=== PATIENT | female | born 1980 | race Caucasian/White ===

== ENCOUNTER → 2017-05-30 14:54 | Outpatient (POV) | payer MEDICAID, SELFPAY ==
--- NOTE | 2017-05-30 15:34 | HMH.PAINSOAP ---
[facility] Pain Management SOAP Note Subjective:: Patient is a pleasant 36-year-old white female who we have been treating for degenerative disease of lumbar spine with lumbar radiculopathy symptoms and lumbar spondylosis. She has had a lumbar epidural steroid injection which is helped significantly with her radicular pain. Most recently in March she had a lumbar facet joint/medial branch block of L3-L4, L4-L5 and L5-S1 bilaterally. She got 8 days of good pain relief with 80% relief in her symptoms. She is much more functional. Her pain is now returned. This past weekend she felt like her back was going out and she had severe pain. She rested and took Tylenol along with her diclofenac and she is much better today. She still has increasing low back pain. Increased pain with extension. She has tenderness over the facet joints. I believe that she would benefit him repeat bilateral medial branch blocks/facet joint injections of L3-L4, L4-5 and L5-S1. Objective:: Alert and oriented ?3 no acute distress. Patient does have an antalgic gait. Her strength of the lower extremities is 5/5. There is no gross sensory deficit. Tenderness over the facet joints of L3-L4, L4-L5 and L5-S1 bilaterally. Increased pain with extension. 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 Plan:: We will seek approval and plan on repeat bilateral medial branch blocks/facet joint injections of L3-L4, L4-5 and L5-S1. She got 80% relief of her pain symptoms for 8 days. Her pain is now returned. We will seek approval and plan on a second round of medial branch blocks at the same levels. She may be a candidate for future rhizotomy to help with her pain symptoms.
== END ==
PROVIDERS: Family Provider Family Medicine; PCP Family Medicine; Visit Provider Anesthesiology
DX: M54.16 Radiculopathy, lumbar region (principal)
CPT/HCPCS: 99212

== ENCOUNTER 2017-06-10 15:58 | Emergency (ER) | payer MEDICAID, SELFPAY ==
[2017-06-10 16:48] VITALS: BP 151/88; PULSE 76; RESP 20; TEMP 36.4; O2SAT 98; BMI 32.2
[2017-06-10 17:01] LABS: UTC Influenza A Antigen Negative (Negative); UTC Influenza B Antigen Negative (Negative); UTC Strep Screen (Rapid) Negative (Negative)
--- NOTE | 2017-06-10 17:47 | HMH.EDUTC ---
[facility] [place] Dis[place] Clinical Impression: Acute viral pharyngitis Disposition: Home, Self-Care Condition on Discharge: Good Instructions: DI for Viral Pharyngitis Additional Instructions: * No sign of bacterial infection. Likely viral. Virus can take 7-14 days to run their course * Monitor Temp. Tylenol every 4 hours as needed no more then 5 times a day or 4000mg in 24 hours and/or ibuprofen every 6 hours as needed no more then 3200mg in 24 hours (as long as your primary care doctor has told you that it is ok to take both) for fever/aches/pain. ER if fever no less than 101 despite tylenol and ibuprofen * Encourage fluids, water, gatorade, powerade, pedialyte if infant/toddler/child * warm salt water gargles * warm fluids * sore throat lozenges * sleep elevated * humidifier/vaporizer * * Your throat swab was sent for culture. Those results are typically sent to your primary care. Be sure to follow up in 2-3 days if no improvement so they can review those results and treat if necessary. If you don't have primary care, I recommend you get one but in the mean time, you will have to return to a walk in clinic. Referrals: Adan Restrepo MD [Primary Care Provider] - (IMMEDIATELY for new or worsening symptoms OR no noticeable improvement over the next 48-72 hours. 911 for difficulty breathing or swallowing) Time of Disposition: 18:01 Medical Decision Making Vital Signs: 06/10/17 16:48 Temperature 97.6 F Temperature Source Temporal Artery Scan Pulse Rate [Right Radial] 76 Respiratory Rate 20 Blood Pressure [Right Arm] 151/88 Blood Pressure Mean [Right Arm] 109 Blood Pressure Source [Right Arm] Automatic Cuff Blood Pressure Position [Right Arm] Supine 02 Sat by Pulse Oximetry 98 Oxygen Delivery Method Room Air - Lab Data Lab results reviewed: Yes: I reviewed the patient's lab results. Lab Results 06/10/17 16:52: Influenza Type A Ag Negative, Influenza Type B Ag Negative, Strep Scn Rapid Clinic Negative Orders (Tests/Meds): ORDERS Category Date Time Status Strep Screen Confirmation Stat Micro 06/10/17 16:52 Received - Anton Inquiry Pt receiving controlled substance: No [facility] [place] HPI - General Stated complaint: Throat and Ear Pain Time Seen by Provider: 06/10/17 17:48 Mode of Arrival: Family Vehicle Source of Information: Patient Limitations: No Limitations Description of Symptoms (Recalled from Triage Doc. by RN): PT C/O BILATERAL EAR PAIN AND SORE THROAT. HEENT Symptoms (Recalled from RN notes): Yes (SORE THROAT AND RACHEL EAR PAIN) Resp Symptoms (Recalled from RN notes): No Skin Symptoms (Recalled from RN notes): No MS Symptoms (Recalled from RN notes): No Functional Status (Recalled from RN notes): NA - History of Present Illness Provider Complaint: c/o bilateral ear pain, headache, sore throat. Started last night with the headache, other symptoms new this morning. Son with same symptoms x4-5 days and neg strep and flu. No treatment before arrival. We don't feel that bad. Just want to make sure not the flu or strep - Related Data Home Medications Medication Instructions Recorded Confirmed Linaclotide [Linzess] 290 mg PO DAILY 06/10/17 06/10/17 Montelukast Sodium [Montelukast 10 mg PO HS 06/10/17 06/10/17 10mg Tab] Allergies Allergy/AdvReac Type Severity Reaction Status Date / Time acetaminophen [From LORTAB] Allergy Mild Verified 06/10/17 16:11 diphenhydramine Allergy Mild Verified 06/10/17 16:11 [From BENADRYL] hydrocodone [From LORTAB] Allergy Mild Verified 06/10/17 16:11 Penicillins [PENICILLINS] Allergy Mild Verified 06/10/17 16:11 tramadol [TRAMADOL] Allergy Mild Verified 06/10/17 16:11 - Worker's Comp Is this a Worker's Comp case?: No H History I have reviewed the patient's past medical history: Yes Medical History: Denies:: Cancer, Diabetes Mellitus Type 1, Diabetes Mellitus Type 2, Hypertension, MRSA Other Medical History: Reports: Other (seasonal al
[2017-06-10 18:17] VITALS: BP 140/69; PULSE 80; RESP 18; TEMP 36.6; O2SAT 98
== END 2017-06-10 18:18 | disposition home or self-care (01) ==
PROVIDERS: Emergency Provider Nurse Practitioner Family; Family Provider Family Medicine; PCP Family Medicine
DX: J02.9 Acute pharyngitis, unspecified (principal); Z88.0 Allergy status to penicillin; Z88.6 Allergy status to analgesic agent
CPT/HCPCS: 87804; 87880; 99202

== ENCOUNTER 2017-06-30 15:36 | Emergency (ER) | payer MEDICAID, SELFPAY ==
[2017-06-30 17:24] VITALS: BP 143/91; PULSE 66; RESP 20; TEMP 36.8; O2SAT 99; BMI 32.4
--- NOTE | 2017-06-30 18:08 | HMH.EDUTC ---
[facility] [place] Disposition Clinical Impression: Influenza Disposition: Home, Self-Care Condition on Discharge: Good Instructions: Influenza Additional Instructions: i? Start Tamiflu today if you are going to take it. Discussed risk and possible benefits. ? Lots of rest ? Increase Fluids water, Gatorade, powerade, pedialyte,if infant/toddler/child ? Alternate Tylenol and / or ibuprofen as discussed for fever, aches, chills x 24 hours without medication for symptoms ? Follow up IMMEDIATELY for new or worsening Symptoms OR no noticeable improvement over the next 48-72 hours, 911 for difficulty or breathing ? You or your child area contagious until no fever, aches, chills for 24 hours with medication for symptoms Prescriptions: Promethazine/Dextromethorphan [Promethazine-Dm Syrup] 5 ml PO Q4HP PRN #300 ml MDD 30ML/DAY PRN Reason: Cough Oseltamivir Phosphate [Tamiflu 75mg Capsule] 75 mg PO BID #10 cap Referrals: Adan Restrepo MD [Primary Care Provider] - Forms: Work/School Release Time of Disposition: 18:27 Medical Decision Making - Medical Records Medical records reviewed: Yes: I reviewed the patient's medical records. Vital Signs: 06/30/17 17:24 Temperature 98.2 F Temperature Source Temporal Artery Scan Pulse Rate [Brachial] 66 Respiratory Rate 20 Blood Pressure [Right Arm] 143/91 Blood Pressure Mean [Right Arm] 108 Blood Pressure Source [Right Arm] Automatic Cuff Blood Pressure Position [Right Arm] Sitting 02 Sat by Pulse Oximetry 99 Oxygen Delivery Method Room Air - Lab Data Lab Results 06/30/17 18:13: Influenza Type A Ag Negative, Influenza Type B Ag Positive A - Anton Inquiry Pt receiving controlled substance: No Anton was queried for this patient: No [facility] [place] HPI - General Stated complaint: Possible FLU Mode of Arrival: Ambulatory Source of Information: Patient Limitations: No Limitations Description of Symptoms (Recalled from Triage Doc. by RN): RUNNY NOSE, SINUS PRESSURE X 2 DAYS HEENT Symptoms (Recalled from RN notes): Yes Resp Symptoms (Recalled from RN notes): Yes Skin Symptoms (Recalled from RN notes): No MS Symptoms (Recalled from RN notes): No Functional Status (Recalled from RN notes): NA - History of Present Illness Provider Complaint: Patient state that child recently had the flu and now she is having flu like symptoms States that she has been feverish state that her throat is sore and runny nose and cough States that she has continued to feel worse and feels like she may have the flu - Related Data Home Medications Medication Instructions Recorded Confirmed Linaclotide [Linzess] 290 mg PO DAILY 06/10/17 06/10/17 Montelukast Sodium [Montelukast 10 mg PO HS 06/10/17 06/10/17 10mg Tab] Previous Rx's Medication Instructions Recorded Oseltamivir Phosphate [Tamiflu 75 mg PO BID #10 cap 06/30/17 75mg Capsule] Promethazine/Dextromethorphan 5 ml PO Q4HP PRN #300 ml MDD 06/30/17 [Promethazine-Dm Syrup] 30ML/DAY Allergies Allergy/AdvReac Type Severity Reaction Status Date / Time acetaminophen [From LORTAB] Allergy Mild Verified 06/10/17 16:11 diphenhydramine Allergy Mild Verified 06/10/17 16:11 [From BENADRYL] hydrocodone [From LORTAB] Allergy Mild Verified 06/10/17 16:11 Penicillins [PENICILLINS] Allergy Mild Verified 06/10/17 16:11 tramadol [TRAMADOL] Allergy Mild Verified 06/10/17 16:11 - Worker's Comp Is this a Worker's Comp case?: No [facility] History I have reviewed the patient's past medical history: Yes Medical History: Denies:: Cancer, Diabetes Mellitus Type 1, Diabetes Mellitus Type 2, Hypertension, MRSA Other Medical History: Reports: Other (seasonal allergies) Laterality Cases: Bilateral: Tonsillectomy Other Surgeries: Yes: Tubal Ligation, Other (right breast, ) Amputation: No Fractures: No - Social History Smoking Status: Current every day smoker Tobacco Type: cigarettes Alcohol Intake: never - Psychiatric History Expresse
--- NOTE | 2017-06-30 18:13 | ED_ITS ---
[facility] – [place] Disposition Clinical Impression: Influenza Disposition: Home, Self-Care Condition on Discharge: Good Instructions: Influenza Additional Instructions: i? Start Tamiflu today if you are going to take it. Discussed risk and possible benefits. ? Lots of rest ? Increase Fluids water, Gatorade, powerade, pedialyte,if infant/toddler/child ? Alternate Tylenol and / or ibuprofen as discussed for fever, aches, chills x 24 hours without medication for symptoms ? Follow up IMMEDIATELY for new or worsening Symptoms OR no noticeable improvement over the next 48-72 hours, 911 for difficulty or breathing ? You or your child area contagious until no fever, aches, chills for 24 hours with medication for symptoms Prescriptions: Promethazine/Dextromethorphan [Promethazine-Dm Syrup] 5 ml PO Q4HP PRN #300 ml MDD 30ML/DAY PRN Reason: Cough Oseltamivir Phosphate [Tamiflu 75mg Capsule] 75 mg PO BID #10 cap Referrals: Adan Restrepo MD [Primary Care Provider] - Forms: Work/School Release Time of Disposition: 18:27 Medical Decision Making - Medical Records Medical records reviewed: Yes: I reviewed the patient's medical records. Vital Signs: 06/30/17 17:24 Temperature 98.2 F Temperature Source Temporal Artery Scan Pulse Rate [Brachial] 66 Respiratory Rate 20 Blood Pressure [Right Arm] 143/91 Blood Pressure Mean [Right Arm] 108 Blood Pressure Source [Right Arm] Automatic Cuff Blood Pressure Position [Right Arm] Sitting 02 Sat by Pulse Oximetry 99 Oxygen Delivery Method Room Air - Lab Data Lab Results 06/30/17 18:13: Influenza Type A Ag Negative, Influenza Type B Ag Positive A - Anton Inquiry Pt receiving controlled substance: No Anton was queried for this patient: No [facility] [place] HPI - General Stated complaint: Possible FLU Mode of Arrival: Ambulatory Source of Information: Patient Limitations: No Limitations Description of Symptoms (Recalled from Triage Doc. by RN): RUNNY NOSE, SINUS PRESSURE X 2 DAYS HEENT Symptoms (Recalled from RN notes): Yes Resp Symptoms (Recalled from RN notes): Yes Skin Symptoms (Recalled from RN notes): No MS Symptoms (Recalled from RN notes): No Functional Status (Recalled from RN notes): NA - History of Present Illness Provider Complaint: Patient state that child recently had the flu and now she is having flu like symptoms States that she has been feverish state that her throat is sore and runny nose and cough States that she has continued to feel worse and feels like she may have the flu - Related Data Home Medications Medication Instructions Recorded Confirmed Linaclotide [Linzess] 290 mg PO DAILY 06/10/17 06/10/17 Montelukast Sodium [Montelukast 10 mg PO HS 06/10/17 06/10/17 10mg Tab] Previous Rx's Medication Instructions Recorded Oseltamivir Phosphate [Tamiflu 75 mg PO BID #10 cap 06/30/17 75mg Capsule] Promethazine/Dextromethorphan 5 ml PO Q4HP PRN #300 ml MDD 06/30/17 [Promethazine-Dm Syrup] 30ML/DAY Allergies Allergy/AdvReac Type Severity Reaction Status Date / Time acetaminophen [From LORTAB] Allergy Mild Verified 06/10/17 16:11 diphenhydramine Allergy Mild Verified 06/10/17 16:11 [From BENADRYL] hydrocodone [From LORTAB] Allergy Mild Verified 06/10/17 16:11 Penicillins [PENICILLINS] Allergy Mild Ve
[2017-06-30 18:25] LABS: UTC Influenza A Antigen Negative (Negative); UTC Influenza B Antigen Positive (Negative)
[2017-06-30 18:44] VITALS: BP 143/91; PULSE 66; RESP 20; TEMP 36.8; O2SAT 99
== END 2017-06-30 18:45 | disposition home or self-care (01) ==
PROVIDERS: Emergency Provider Nurse Practitioner; Family Provider Family Medicine; PCP Family Medicine
DX: J11.1 Influenza due to unidentified influenza virus with other respiratory manifestations (principal); F17.210 Nicotine dependence, cigarettes, uncomplicated; Z88.0 Allergy status to penicillin
CPT/HCPCS: 87804; 99202

== ENCOUNTER → 2017-08-18 08:33 | Outpatient (CLI) | payer MEDICAID, SELFPAY ==
--- NOTE | 2017-08-18 08:34 | CT_ITS ---
CT soft tissue neck wo/w con INDICATION: Lymph node swelling, adenopathy evaluation ITS.REASON: lymph node swelling ORDERING PHYSICIAN: David Hudson MD PATIENT AGE: 37 years TECHNIQUE: Axial images are obtained without and with 75 mL's of Isovue-370. Sagittal and coronal reformatted images are reviewed as well. All CT scans at the facility use one or more dose reduction, viz: automated exposure control; ma/kV adjustment per patient size (including targeted exams where dose is matched to indication; i.e. head); or iterative reconstruction technique. FINDINGS: There are small jugulodigastric lymph nodes present bilaterally measuring up to 13 x 8 mm on both sides. No dominant adenopathy evident. Unremarkable appearing thyroid gland. The nasopharynx, hypopharynx, and laryngeal region have an unremarkable appearance. Unremarkable appearing epiglottis. The lung apices are clear. The salivary glands are unremarkable. IMPRESSION: Essentially negative CT neck. Small bilateral jugulodigastric nodes.
[2017-08-18 09:19] LABS: Basophils # 0.1 K/mm3 (0-0.2); Basophils % 0.6 % (0.1-2.0); Eosinophils # 0.2 K/mm3 (0.0-0.4); Hematocrit 46.1 % (37.0-47.0); Hemoglobin 14.9 g/dL (12.2-16.2); Lymphocytes # 3.6 K/mm3 (0.7-4.5); Lymphocytes % 31.6 K/mm3 (10-50); Mean Corpuscular HGB Conc 32.4 g/dL (31.8-35.4); Mean Corpuscular Volume 89.7 fl (81-99); Mean Platelet Volume 8.7 fl (7.4-10.4); Monocytes # 0.6 K/mm3 (0.1-1.0); Monocytes % 5.2 % (1.7-9.3); Neutrophils # 6.9 K/mm3 (1.8-7.8); Neutrophils % 60.5 % (37.0-80.0); Platelet Count 335 K/mm3 (142-424); Red Blood Count 5.15 M/mm3 (4.20-5.40); Red Cell Distribution Width 14.1 % (11.5-17.5); White Blood Count 11.4 K/mm3 (4.8-10.8)
--- NOTE | 2017-08-18 09:51 | HMH.ITSHM ---
SUZIE, ELISABET, ZEINAB, AYAD A CFC, RUSSEL, SHERIE
[2017-08-18 10:39] LABS: HCG Qualitative, Serum Negative (Negative)
[2017-08-18 11:59] LABS: Alanine Aminotransferase 33 U/L (12-78); Albumin/Globulin Ratio 1.1 (1.1-1.8); Alkaline Phosphatase 130 U/L (46-116); Anion Gap 17.2 mEq/L (5-15); Aspartate Amino Transferase 19 U/L (15-37); Bilirubin,Total 0.2 mg/dL (0.2-1.0); Blood Urea Nitrogen 8 mg/dL (7-18); Calcium 9.7 mg/dL (8.5-10.1); Carbon Dioxide 23 mmol/L (21.0-32.0); Chloride 104 mmol/L (98-107); Estimated Glomerular Filt Rate 80 ml/min (>60); GFR (African American) 97 ML/MIN (>60); Globulin 3.7 gm/dl (1.3-3.2); Glucose 119 mg/dL (74-106); Potassium 4.2 mmoL/L (3.5-5.1); Sodium 140 mmol/L (136-145); Total Protein,Serum 7.7 gm/dL (6.4-8.2)
== END ==
PROVIDERS: Family Provider Family Medicine; PCP Family Medicine; Visit Provider Otolaryngology
DX: R59.1 Generalized enlarged lymph nodes (principal); R59.0 Localized enlarged lymph nodes
CPT/HCPCS: 36415; 70492; 80053; 84703; 85025; Q9967

== ENCOUNTER → 2017-10-14 11:01 | Outpatient (POV) | payer MEDICAID, SELFPAY ==
[2017-10-14 11:12] VITALS: BP 146/109; PULSE 89; RESP 18; O2SAT 99; BMI 30.4
--- NOTE | 2017-10-14 11:59 | HMH.PAINSOAP ---
[facility] Pain Management SOAP Note Subjective:: Patient is a pleasant 37-year-old white female who we are treating for pain secondary to degenerative disc disease of lumbar spine with lumbar spondylosis and facet arthropathy. Patient has had a lumbar epidural steroid injection in the past which significantly reduce her radicular pain however most of her pain now is axial in nature. Patient had one round of medial branch blocks at L3-L4 L4-L5 L5-S1 bilaterally and got 80-90% relief of her symptoms for over 8 days. Patient states she was much more functional during this time. Patient would like to repeat medial branch block and potentially move forward with a rhizotomy. Patient states most of her pain is in the small of her back. It does not radiate. ROS General: no recent weight change, no fever, no sleep disturbances Respiratory: no cough, no shortness of air, no recurring pulmonary infections Cardiovascular/Peripheral Vascular: No chest pain, No palpitations, no edema, no shortness of breath. Gastrointestinal: no incontinence, normal bowel movements reported Genitourinary: no incontinence Musculoskeletal: Back pain Psychiatric: normal mood/ affect Neurological: [denies weakness in extremities], [denies balance issues] Objective:: Physical Exam General: Alert and oriented x3, no acute distress, pleasant and cooperative, [on room air] Lungs: Resps E/U, Symmetrical chest expansion, Eyes: PERRL Musculoskeletal: Flexion and extension of lumbar spine somewhat guarded secondary to pain, deep tendon reflexes normal, strength in upper and lower extremities [5/5], normal gait noted, positive Kemps test of the lumbar spine Neurological: speech clear, truck terminal manager equal, no gross sensory deficits Assessment:: Degenerative disc disease of the lumbar spine with facet arthropathy and lumbar spondylosis Plan:: We will schedule a repeat medial branch block/facet joint injection L3-L4 L4-L5 L5-S1 bilaterally. I will follow-up with the patient after her injection to determine its success. Patient has tried and failed physical therapy, medications, anti-inflammatories. Patient has gotten relief from this injection in the past. Patient is not on any anticoagulation therapy. This note was dictated using voice recognition software and may contain errors or omissions
== END ==
PROVIDERS: Family Provider Family Medicine; PCP Family Medicine; Visit Provider Clinical Nurse Specialist Family Health
DX: M47.816 Spondylosis without myelopathy or radiculopathy, lumbar region (principal)
CPT/HCPCS: 99212

== ENCOUNTER → 2017-12-08 10:16 | Outpatient (POV) | payer MEDICAID, SELFPAY ==
[2017-12-08 11:01] VITALS: BP 178/110; PULSE 73; RESP 18; O2SAT 98; BMI 29.2
--- NOTE | 2017-12-08 13:55 | HMH.PAINSOAP ---
[facility] Pain Management SOAP Note Subjective:: Patient is a pleasant 37-year-old white female who treating for pain secondary to lumbar listhesis. Patient is following up after her second lumbar medial branch blocks/facet joint injection L3-L4 L4-L5 L5-S1 bilaterally. Patient states that she does not know if this helps her because she started her period with some heavy bleeding and migraines after the injection. Patient is also having an outbreak of shingles on her right thigh. Patient has had these before. Patient has burning pain in this area as well. Patient rates her back pain a 7 out of 10 today. ROS General: no recent weight change, no fever, no sleep disturbances Respiratory: no cough, no shortness of air, no recurring pulmonary infections Cardiovascular/Peripheral Vascular: No chest pain, No palpitations, no edema, no shortness of breath. Gastrointestinal: no incontinence, normal bowel movements reported Genitourinary: no incontinence Musculoskeletal: Back pain, shingle pain right thigh Psychiatric: normal mood/ affect Neurological: [denies weakness in extremities], [denies balance issues] Objective:: Physical Exam General: Alert and oriented x3, no acute distress, pleasant and cooperative, [on room air] Lungs: Resps E/U, Symmetrical chest expansion, Eyes: PERRL Musculoskeletal: Flexion and extension of lumbar spine somewhat guarded secondary to pain, deep tendon reflexes normal, strength in upper and lower extremities [5/5], slightly antalgic gait noted Neurological: speech clear, rail assembler equal, no gross sensory deficits Assessment:: Hepatic neuralgia, shingles, degenerative disc disease lumbar spine with lumbar spondylosis and facet arthropathy Plan:: We will start the patient on acyclovir 800 mg q. 5 times a day for 7 days we will also give her Lyrica 75 mg 1 p.o. twice daily for 14 days dispensing 28. Patient will follow-up with me in 3 weeks and we will determine if she is doing better. We will discuss that time any additional injection she might need. This note was dictated using voice recognition software and may contain errors or omissions
--- NOTE | 2017-12-08 13:58 | P.CONS_ITS ---
[facility] Pain Management SOAP Note Subjective:: Patient is a pleasant 37-year-old white female who treating for pain secondary to lumbar listhesis. Patient is following up after her second lumbar medial branch blocks/facet joint injection L3-L4 L4-L5 L5-S1 bilaterally. Patient states that she does not know if this helps her because she started her period with some heavy bleeding and migraines after the injection. Patient is also having an outbreak of shingles on her right thigh. Patient has had these before. Patient has burning pain in this area as well. Patient rates her back pain a 7 out of 10 today. ROS General: no recent weight change, no fever, no sleep disturbances Respiratory: no cough, no shortness of air, no recurring pulmonary infections Cardiovascular/Peripheral Vascular: No chest pain, No palpitations, no edema, no shortness of breath. Gastrointestinal: no incontinence, normal bowel movements reported Genitourinary: no incontinence Musculoskeletal: Back pain, shingle pain right thigh Psychiatric: normal mood/ affect Neurological: [denies weakness in extremities], [denies balance issues] Objective:: Physical Exam General: Alert and oriented x3, no acute distress, pleasant and cooperative, [ on room air] Lungs: Resps E/U, Symmetrical chest expansion, Eyes: PERRL Musculoskeletal: Flexion and extension of lumbar spine somewhat guarded secondary to pain, deep tendon reflexes normal, strength in upper and lower extremities [5/5], slightly antalgic gait noted Neurological: speech clear, seismograph operator helper equal, no gross sensory deficits Assessment:: Hepatic neuralgia, shingles, degenerative disc disease lumbar spine with lumbar spondylosis and facet arthropathy Plan:: We will start the patient on acyclovir 800 mg q. 5 times a day for 7 days we will also give her Lyrica 75 mg 1 p.o. twice daily for 14 days dispensing 28. Patient will follow-up with me in 3 weeks and we will determine if she is doing better. We will discuss that time any additional injection she might need. This note was dictated using voice recognition software and may contain errors or omissions
== END ==
PROVIDERS: Family Provider Family Medicine; PCP Family Medicine; Visit Provider Clinical Nurse Specialist Family Health
DX: G58.8 Other specified mononeuropathies (principal); B02.9 Zoster without complications; M51.36 Other intervertebral disc degeneration, lumbar region; M47.896 Other spondylosis, lumbar region; M12.88 Other specific arthropathies, not elsewhere classified, other specified site
CPT/HCPCS: 99213

== ENCOUNTER → 2018-01-05 15:12 | Outpatient (POV) | payer MEDICAID, SELFPAY ==
[2018-01-05 15:45] VITALS: BP 154/85; PULSE 78; RESP 18; O2SAT 98; BMI 29.4
--- NOTE | 2018-01-05 16:12 | P.CONS_ITS ---
[facility] Pain Management SOAP Note Subjective:: Patient is a pleasant 37-year-old white female who presents today for follow-up. Patient was put on Lyrica to see if this would help with her shingles pain. Patient states she is doing much better with this however she still having back pain. Patient states her first injection of lumbar epidural did help with her leg pain however she still having back pain. Patient has had 2 rounds of facet joint injections with not much relief. She rates her pain a 7 out of 10 today. I discussed with her potentially doing some physical therapy and dry needling. Patient states she did physical therapy with disastrous results lasting for over a year. Patient states she was unable to drive after physical therapy. And states that due to her consumption of ibuprofen she had both liver and kidney issues. I offered dry needling to the patient she is uninterested in this at this time. Patient is on an anti-inflammatory. Patient states that she has been having issues with lymphatic swelling in her throat. She states that every month she has an issue. Patient was seen by an ENT however it was not during a flare so she had nothing at the time that could be visualized. I discussed with the patient about a neurostimulator. She states she finds this scary. Patient has been seen by Dr. Shaffer however that was years ago. We will get those notes. ROS General: no recent weight change, no fever, no sleep disturbances Respiratory: no cough, no shortness of air, no recurring pulmonary infections Cardiovascular/Peripheral Vascular: No chest pain, No palpitations, no edema, no shortness of breath. Gastrointestinal: no incontinence, normal bowel movements reported Genitourinary: no incontinence Musculoskeletal: Back pain Psychiatric: normal mood/ affect Neurological: [denies weakness in extremities], [denies balance issues] Objective:: Physical Exam General: Alert and oriented x3, no acute distress, pleasant and cooperative, [on room air] Lungs: Resps E/U, Symmetrical chest expansion, Eyes: PERRL Musculoskeletal: Flexion and extension of lumbar spine somewhat guarded secondary to pain, deep tendon reflexes normal, strength in upper and lower extremities [5/5], slightly antalgic gait noted Neurological: speech clear, outside machinist apprentice equal, no gross sensory deficits Assessment:: Degenerative disc disease of the lumbar spine with lumbar spondylosis and facet arthropathy Plan:: We will schedule the patient for an L4-L5 lumbar epidural steroid injection. Patient is uninterested in physical therapy at this time. Patient is trying to stay active. I did give her information in regards to neuro stimulation. Patient states that this is scary to her. We will Dr. Shaffer's notes and potentially send her for second opinion. This note was dictated using voice recognition software and may contain errors or omissions
== END ==
PROVIDERS: Family Provider Family Medicine; PCP Family Medicine; Visit Provider Clinical Nurse Specialist Family Health
DX: M51.36 Other intervertebral disc degeneration, lumbar region (principal); M46.86 Other specified inflammatory spondylopathies, lumbar region
CPT/HCPCS: 99213

== ENCOUNTER → 2018-03-03 10:48 | Outpatient (POV) | payer MEDICAID, SELFPAY ==
[2018-03-03 11:08] VITALS: BP 172/98; PULSE 72; RESP 18; O2SAT 98; BMI 29.4
--- NOTE | 2018-03-03 11:50 | P.CONS_ITS ---
[facility] Pain Management SOAP Note Subjective:: Patient is a pleasant 37-year-old white female who presents today for follow-up after lumbar epidural steroid injection. Patient did not get relief from this injection. Patient has had multiple injections with no relief. Patient is continuing to have worsening low back pain. I believe we should get a new MRI and potentially a neurosurgical consult. Patient was seen back in 2010 and was deemed not a surgical candidate at that time. Patient is uninterested in a neurostimulator. She rates her pain today a 6 out of 10. ROS General: no recent weight change, no fever, no sleep disturbances Respiratory: no cough, no shortness of air, no recurring pulmonary infections Cardiovascular/Peripheral Vascular: No chest pain, No palpitations, no edema, no shortness of breath. Gastrointestinal: no incontinence, normal bowel movements reported Genitourinary: no incontinence Musculoskeletal: Back pain, leg pain Psychiatric: normal mood/ affect Neurological: [denies weakness in extremities], [denies balance issues] Objective:: Physical Exam General: Alert and oriented x3, no acute distress, pleasant and cooperative, [on room air] Lungs: Resps E/U, Symmetrical chest expansion, Eyes: PERRL Musculoskeletal: Flexion and extension of lumbar spine somewhat guarded secondary to pain, deep tendon reflexes normal, strength in upper and lower extremities [5/5], slightly antalgic gait noted Neurological: speech clear, 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 After her MRI we will reassess for potential neurosurgical consultation. This note was dictated using voice recognition software and may contain errors or omissions
== END ==
PROVIDERS: PCP Family Medicine; Visit Provider Clinical Nurse Specialist Family Health
DX: M51.16 Intervertebral disc disorders with radiculopathy, lumbar region (principal); M47.896 Other spondylosis, lumbar region
CPT/HCPCS: 99213

== ENCOUNTER → 2018-03-26 11:20 | Outpatient (CLI) | payer MEDICAID, SELFPAY ==
--- NOTE | 2018-03-26 11:28 | MR_ITS ---
MR lumbar spine wo con, MR 3-d myelogram/MRCP HISTORY: Low back pain, worsening back pain, bilateral leg and feet numbness ITS.REASON: WORSENING BACK PAIN ORDERING PHYSICIAN: Levy Quinones MD PATIENT AGE: 37 years Comparison: 09/03/2016 TECHNIQUE: Standard multiplanar multiecho sequences are performed without contrast. 3-D MIP and myelographic images are also rendered and reviewed FINDINGS: There is normal alignment. The spinal cord ends at the L1 level. L1-L2, L2-L3, and L3-L4 have an unremarkable appearance. L4-L5: Mild concentric bulging disc with small central disc protrusion which abuts the anteromedial aspect of both L5 nerve roots without displacement. L5-S1: Degenerative disc disease with tight 2 endplate changes with bulging disc and small broad-based central disc protrusion Slightly eccentric toward the right which abuts the anterior aspect of both S1 nerve roots without displacement. There is mild right-sided foraminal narrowing with mild facet hypertrophic change. No extruded herniated disc. IMPRESSION: 1. L4-L5: Mild concentric bulging disc with small central disc protrusion which abuts the anteromedial aspect of both L5 nerve roots without displacement. 2. L5-S1: Degenerative disc disease with tight 2 endplate changes with bulging disc and small broad-based central disc protrusion Slightly eccentric toward the right which abuts the anterior aspect of both S1 nerve roots without displacement. There is mild right-sided foraminal narrowing with mild facet hypertrophic change 3. Overall no significant change. No extruded herniated disc evident
== END ==
PROVIDERS: PCP Family Medicine; Visit Provider Anesthesiology
DX: M54.5 Low back pain (principal)
CPT/HCPCS: 72148; 76376

== ENCOUNTER → 2018-04-13 14:49 | Outpatient (POV) | payer MEDICAID, SELFPAY ==
[2018-04-13 15:46] VITALS: BP 147/99; PULSE 85; RESP 18; O2SAT 99; BMI 29.4
--- NOTE | 2018-04-14 08:45 | HMH.PAINSOAP ---
[facility] Pain Management SOAP Note Subjective:: Is a pleasant 37-year-old white female who presents today for follow-up after recent MRI. Patient has overall no significant changes from her previous ones she does have a disc bulge at L4-L5 an L5-S1 patient is uninterested in seeing a neurosurgeon. Patient rates her pain a 6 out of 10. Patient has not responded well to injections. I discussed with her different anti-inflammatories along with CBD oil. ROS General: no recent weight change, no fever, no sleep disturbances Respiratory: no cough, no shortness of air, no recurring pulmonary infections Cardiovascular/Peripheral Vascular: No chest pain, No palpitations, no edema, no shortness of breath. Gastrointestinal: no incontinence, normal bowel movements reported Genitourinary: no incontinence Musculoskeletal: Back pain, leg pain at times Psychiatric: normal mood/ affect, Neurological: [denies weakness in extremities], [denies balance issues] Objective:: Physical Exam General: Alert and oriented x3, no acute distress, pleasant and cooperative, [on room air] Lungs: Resps E/U, Symmetrical chest expansion, Eyes: PERRL Musculoskeletal: Flexion and extension of lumbar spine somewhat guarded secondary to pain, deep tendon reflexes normal, strength in upper and lower extremities [5/5], normal gait noted Neurological: speech clear, landscape crew member equal, no gross sensory deficits Assessment:: Degenerative disc disease lumbar spine with lumbar radiculopathy Plan:: We will follow-up with the patient on an as-needed basis. We will call her in some Flector patches to see if beneficial for her. Patient is going to give us a call if her pain worsens. This note was dictated using voice recognition software and may contain errors or omissions
== END ==
PROVIDERS: PCP Family Medicine; Visit Provider Clinical Nurse Specialist Family Health
DX: M51.16 Intervertebral disc disorders with radiculopathy, lumbar region (principal)
CPT/HCPCS: 99213

== ENCOUNTER → 2018-11-02 13:42 | Outpatient (POV) | payer MEDICAID, SELFPAY ==
[2018-11-02 13:59] VITALS: BP 153/95; PULSE 71; RESP 18; O2SAT 98; BMI 31.1
--- NOTE | 2018-11-02 14:09 | HMH.PAINSOAP ---
[facility] Pain Management SOAP Note Subjective:: Patient is a 38-year-old white female who presents today for follow-up. Patient has overall no significant changes from her previous MRI. She does have a disc bulge at L4-L5 L5-S1 along with some abutment of the nerve. Patient is uninterested in seeing a neurosurgeon she is uninterested in doing any additional injections due to the fact that they did not help her much. She is uninterested in a spinal stimulator or intrathecal pain pump. She states they scare me . Patient states she is unable to do anything rating her pain a 4 out of 10 today. She is tried and failed CBD oil as well. Patient states sitting makes her back go out. At this point we have pretty much exhausted all of our treatment options. ROS General: no recent weight change, no fever, no sleep disturbances Respiratory: no cough, no shortness of air, no recurring pulmonary infections Cardiovascular/Peripheral Vascular: No chest pain, No palpitations, no edema, no shortness of breath. Gastrointestinal: no incontinence, normal bowel movements reported Genitourinary: no incontinence Musculoskeletal: Back pain, leg pain Psychiatric: normal mood/ affect, Neurological: [denies weakness in extremities], [denies balance issues] Objective:: Physical Exam General: Alert and oriented x3, no acute distress, pleasant and cooperative, [on room air] Lungs: Resps E/U, Symmetrical chest expansion, Eyes: PERRL Musculoskeletal: Flexion and extension of lumbar spine somewhat guarded secondary to pain, deep tendon reflexes normal, strength in upper and lower extremities [5/5], slightly antalgic gait noted Neurological: 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 Again we have kind of exhausted all of our treatment options that we can offer her. I do believe she would benefit from a neurosurgical consult. We will also give her a back brace. We will follow-up with the patient after dry needling reassess her symptoms at that time. Dr. Quinones has reviewed this note and agrees with this plan of care. This note was dictated using voice recognition software and may contain errors or omissions Dr. Quinones has reviewed this note and agrees with this plan of care. This note was dictated using voice recognition software and may contain errors or omissions
--- NOTE | 2018-11-02 14:14 | P.CONS_ITS ---
[facility] Pain Management SOAP Note Subjective:: Patient is a 38-year-old white female who presents today for follow-up. Patient has overall no significant changes from her previous MRI. She does have a disc bulge at L4-L5 L5-S1 along with some abutment of the nerve. Patient is uninterested in seeing a neurosurgeon she is uninterested in doing any additional injections due to the fact that they did not help her much. She is uninterested in a spinal stimulator or intrathecal pain pump. She states they scare me . Patient states she is unable to do anything rating her pain a 4 out of 10 today. She is tried and failed CBD oil as well. Patient states sitting makes her back go out. At this point we have pretty much exhausted all of our t reatment options. ROS General: no recent weight change, no fever, no sleep disturbances Respiratory: no cough, no shortness of air, no recurring pulmonary infections Cardiovascular/Peripheral Vascular: No chest pain, No palpitations, no edema, no shortness of breath. Gastrointestinal: no incontinence, normal bowel movements reported Genitourinary: no incontinence Musculoskeletal: Back pain, leg pain Psychiatric: normal mood/ affect, Neurological: [denies weakness in extremities], [denies balance issues] Objective:: Physical Exam General: Alert and oriented x3, no acute distress, pleasant and cooperative, [on room air] Lungs: Resps E/U, Symmetrical chest expansion, Eyes: PERRL Musculoskeletal: Flexion and extension of lumbar spine somewhat guarded secondary to pain, deep tendon reflexes normal, strength in upper and lower extremities [5/5], slightly antalgic gait noted Neurological: speech clear, svp marketing equal, no gross sensory deficits Assessment:: degenerative disc disease lumbar spine with lumbar radiculopathy Plan:: We will send the patient for dry needling. Again we have kind of exhausted all of our treatment options that we can offer her. I do believe she would benefit from a neurosurgical consult. We will also give her a back brace. We will follow-up with the patient after dry needling reassess her symptoms at that time. Dr. Quinones has reviewed this note and agrees with this plan of care. This note was dictated using voice recognition software and may contain errors or omissions Dr. Quinones has reviewed this note and agrees with this plan of care. This note was dictated using voice recognition software and may contain errors or omissions
== END ==
PROVIDERS: PCP Family Medicine; Visit Provider Clinical Nurse Specialist Family Health
DX: M51.16 Intervertebral disc disorders with radiculopathy, lumbar region (principal)
CPT/HCPCS: 99212

== ENCOUNTER 2018-12-09 16:30 | Outpatient (RCR) | payer MEDICAID, SELFPAY ==
--- NOTE | 2018-11-05 10:26 | HMH.PTOPEV ---
PT Outpatient Evaluation Rehab PT Outpatient Evaluation Start: 11/05/18 09:16 Freq: Status: Active Protocol: Document 11/05/18 10:08 SAMUEL (Rec: 11/05/18 10:25 SAMUEL [id number]) Electronically Signed By Lonnie Giles, PT 11/05/18 10:08 Outpatient Therapy Subjective History Subjective History Patient presents to outpatient PT with reports of chronic low back pain with intermittent BLE radicular symptoms typically with prolonged lumbar flexion. Special tests indicate LLE LLD approx 2 cm. Most recent diagnostics indicate L 4/5 disc bulge and L5/S1 DDD and disc bulge. Pt reports 1 previous episode of PT resulting in worsening of symptoms. She was referred by pain management where she received injections that have provided no relief. Comorbidities include HTN, OA, cancer. Chief Complaint Pain,Stiff Symptom Type Ache,Sharp,Numbness,Tingling Symptoms Relieved By Heat,Ice,Prescription Meds Symptoms Aggravated By Sitting,Standing,Bending/ Stooping,Physical Activity, Walking,Lifting Prior Functional Limitations Lifting,Housework,Standing, Sitting,Squatting,Recreation Activity,Walking Current Functional Limitations Lifting,Housework,Standing, Sitting,Squatting,Recreation Activity,Walking Symptom Description Constant but Variable Level of pain today (0-10) 3 Pain scale - at its best (0-10) 2 Pain scale - at its worst (0-10) 7 Lumbopelvic Eval Posture Thoracic Spine Posture Standing Position Neutral Lumbar Spine Posture Standing Position Increased Lordosis Assistive device Assistive Devices None / NA Palapation tenderness bilateral lumbar spinal tenderness Yes: L4/5/S1 3/4 paraspinal tenderness Yes: Same buttock tenderness Yes: glute min 3/4 Lumbar/Sacral Palpation Findings Tenderness Lumbar/Sacral Palpation Overall Comment B PSIS Accessory Movement L4 bilateral L5 bilateral S1 bilateral Range of Motion Lumbar Spine Active Flexion Range of 80 Motion (degrees) Lumbar Spine Active Extensio
== END 2018-12-09 16:35 | disposition home or self-care (01) ==
LOC: PT 16:30
PROVIDERS: Visit Provider Clinical Nurse Specialist Family Health
DX: M54.5 Low back pain (principal)
CPT/HCPCS: 97010; 97014; 97035; 97110; 97140; 97163; G0283

== ENCOUNTER → 2018-12-14 10:01 | Outpatient (POV) | payer MEDICAID, SELFPAY ==
[2018-12-14 10:10] VITALS: BP 186/98; PULSE 94; RESP 18; O2SAT 98; BMI 31.3
--- NOTE | 2018-12-14 10:33 | HMH.PAINSOAP ---
[facility] Pain Management SOAP Note Subjective:: Patient is a pleasant 38-year-old white female who presents today for follow-up. Patient's been doing physical therapy for her low back. She has a disc bulge at L4-L5 L5-S1 along with abutment of the nerve she is uninterested in additional injection therapy she is in interested in spinal stimulation or intrathecal therapy. Until recently she is been uninterested in a neurosurgeon. However today she is voicing some interest in pursuing this. She rates her pain a 6 out of 10. Her blood pressure is quite high counseled her in regards to this. Patient was in physical therapy and she began having increased pain after a exercise in her neck and her right arm. She is lost sensation in her right arm. 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 However she does not have any MRIs of her cervical spine it may be beneficial to get this. ROS General: no recent weight change, no fever, no sleep disturbances Respiratory: no cough, no shortness of air, no recurring pulmonary infections Cardiovascular/Peripheral Vascular: No chest pain, No palpitations, no edema, no shortness of breath. Gastrointestinal: no incontinence, normal bowel movements reported Genitourinary: no incontinence Musculoskeletal: Neck pain, arm pain, back pain, leg pain Psychiatric: normal mood/ affect Neurological: [denies weakness in extremities], [denies balance issues] Objective:: Physical Exam General: Alert and oriented x3, no acute distress, pleasant and cooperative, [on room air] Lungs: Resps E/U, Symmetrical chest expansion, Eyes: PERRL Musculoskeletal: Flexion and extension of cervical and lumbar spine somewhat guarded secondary to pain, deep tendon reflexes normal, strength in upper and lower extremities [5/5], slightly antalgic gait noted Neurological: speech clear, mutuel department 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 We will also call in prednisone 20 mg 1 p.o. twice daily for 5 days for the patient. Patient is going to look into neurosurgical providers and call us with one that she would like to be referred to. Dr. Quinones has reviewed this note and agrees with this plan of care. This note was dictated using voice recognition software and may contain errors or omissions Pain Management Hx Components *Have you ever received a pneumonia vaccine?: Yes *Have you received a flu vaccine this season?: Yes - *Social History *Occupational Status:: other *Travel in the last 8 weeks: None
--- NOTE | 2018-12-14 10:37 | P.CONS_ITS ---
[facility] Pain Management SOAP Note Subjective:: Patient is a pleasant 38-year-old white female who presents today for follow-up. Patient's been doing physical therapy for her low back. She has a disc bulge at L4-L5 L5-S1 along with abutment of the nerve she is uninterested in additional injection therapy she is in interested in spinal stimulation or intrathecal therapy. Until recently she is been uninterested in a neurosurgeon. However today she is voicing some interest in pursuing this. She rates her pain a 6 out of 10. Her blood pressure is quite high counseled her in regards to this. Patient was in physical therapy and she began having increased pain after a exercise in her neck and her right arm. She is lost sensation in her right arm. 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 However she does not have any MRIs of her cervical spine it may be beneficial to get this. ROS General: no recent weight change, no fever, no sleep disturbances Respiratory: no cough, no shortness of air, no recurring pulmonary infections Cardiovascular/Peripheral Vascular: No chest pain, No palpitations, no edema, no shortness of breath. Gastrointestinal: no incontinence, normal bowel movements reported Genitourinary: no incontinence Musculoskeletal: Neck pain, arm pain, back pain, leg pain Psychiatric: normal mood/ affect Neurological: [denies weakness in extremities], [denies balance issues] Objective:: Physical Exam General: Alert and oriented x3, no acute distress, pleasant and cooperative, [on room air] Lungs: Resps E/U, Symmetrical chest expansion, Eyes: PERRL Musculoskeletal: Flexion and extension of cervical and lumbar spine somewhat guarded secondary to pain, deep tendon reflexes normal, strength in upper and lower extremities [5/5], slightly antalgic gait noted Neurological: speech clear, marketing education teacher equal, no gross sensory deficits Assessment:: Degenerative disc disease lumbar spine with lumbar radiculopathy, neck pain, arm pain Plan:: We will order an MRI of her cervical spine to help determine any new pathology given her new symptomology. We will also call in prednisone 20 mg 1 p.o. twice daily for 5 days for the patient. Patient is going to look into neurosurgical providers and call us with one that she would like to be referred to. Dr. Quinones has reviewed this note and agrees with this plan of care. This note was dictated using voice recognition software and may contain errors or omissions Pain Management Hx Components *Have you ever received a pneumonia vaccine?: Yes *Have you received a flu vaccine this season?: Yes - *Social History *Occupational Status:: other *Travel in the last 8 weeks: None
--- NOTE | 2019-01-04 15:32 | PC.NURSE ---
DICLOFENAC 75MG TAB BID WITH 2 REFILLS FAXED TO CLINIC PHARMACY PER PROVIDER ORDER
== END ==
PROVIDERS: PCP Family Medicine; Visit Provider Clinical Nurse Specialist Family Health
DX: M51.16 Intervertebral disc disorders with radiculopathy, lumbar region (principal); M54.2 Cervicalgia; M79.603 Pain in arm, unspecified
CPT/HCPCS: 99212

== ENCOUNTER → 2018-12-22 08:05 | Outpatient (CLI) | payer MEDICAID, SELFPAY ==
--- NOTE | 2018-12-22 08:07 | MR_ITS ---
PROCEDURE: MR CERVICAL SPINE WO CON CLINICAL INDICATION: NECK PAIN Neck pain with right arm pain numbness and tingling. Severe right upper back and neck pain with right arm numbness COMPARISON: No exams were available for comparison TECHNIQUE: Standard multiplanar multiecho sequences are performed without contrast. 3-D MIP and myelographic images are also rendered and reviewed FINDINGS: There is straightening of the cervical lordosis which could be due to patient positioning or muscle spasm. Cranial cervical junction has an unremarkable appearance. C2-C3: Unremarkable. C3-C4: Unremarkable. C4-C5: Unremarkable. C5-C6: There is degenerative disc disease at this level with a broad based bulging disc having a somewhat lobular contour posteriorly slightly eccentric toward the left. This does abut the anterior aspect of the cord with minimal contour deformity anteriorly. The canal at this level measures 10 mm. C6-C7: Minimal bulging disc slightly eccentric to the left without impingement C7-T1: Unremarkable. IMPRESSION: 1. C5-C6: There is degenerative disc disease at this level with a broad based bulging disc having a somewhat lobular contour posteriorly slightly eccentric toward the left. This does abut the anterior aspect of the cord with minimal contour deformity anteriorly. The canal at this level measures 10 mm. 2. C6-C7: Minimal bulging disc slightly eccentric to the left without impingement Dictated by: Carlos Villegas MD 12/23/2018 06:50 Signed by: <Electronically signed by Carlos Villegas MD in [place]> 12/23/2018 06:50
== END ==
PROVIDERS: PCP Family Medicine; Visit Provider Clinical Nurse Specialist Family Health
DX: M54.2 Cervicalgia (principal)
CPT/HCPCS: 72141; 76376

== ENCOUNTER → 2019-01-18 13:15 | Outpatient (POV) | payer MEDICAID, SELFPAY ==
[2019-01-18 14:29] VITALS: BP 136/92; PULSE 70; RESP 18; O2SAT 98; BMI 30.9
--- NOTE | 2019-01-19 11:43 | HMH.PAINSOAP ---
[facility] Pain Management SOAP Note Subjective:: Patient is a 38-year-old white female who presents today for follow-up. Patient was seen by Dr. Hamilton. Patient states that Dr. Hamilton wants her to go to an arthritis doctor and she is unsure of the difference between that and what we do. I did receive Dr. Hamilton's note which stated that he recommends referral to pain psychologist. Patient states she is uninterested in this. We also recommended yoga physical therapy patient states she will look into this. Patient is uninterested in injective therapy however Dr. Hamilton thought it might be beneficial. Patient is continuing smoking cessation. If patient complies with these measures Dr. Hamilton stated he would be willing to do a myelogram EMG nerve conduction study of the lower extremities however at this point the patient is unsure if she would like to move forward with this patient. I do agree with Dr. Hamilton I think a biofeedback therapy would be beneficial for the patient. Patient states she will think about it. I also do think a specialized arthritis physician may be a benefit. She rates her pain today 7 out of 10. ROS General: no recent weight change, no fever, no sleep disturbances Respiratory: no cough, no shortness of air, no recurring pulmonary infections Cardiovascular/Peripheral Vascular: No chest pain, No palpitations, no edema, no shortness of breath. Gastrointestinal: no incontinence, normal bowel movements reported Genitourinary: no incontinence Musculoskeletal: Back pain Psychiatric: Anxious Neurological: [denies weakness in extremities], [denies balance issues] Objective:: Physical Exam General: Alert and oriented x3, no acute distress, pleasant and cooperative, [on room air] Lungs: Resps E/U, Symmetrical chest expansion, [CTA bilateral] Eyes: PERRL Musculoskeletal: Flexion and extension of cervical and lumbar spine somewhat guarded secondary to pain, deep tendon reflexes normal, strength in upper and lower extremities [5/5], [abnormal gait noted] Neurological: speech clear, registration representative equal, no gross sensory deficits Assessment:: 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 Patient will be set up with arthritic specialist. I will follow-up with patient after this and appointment reassess her symptoms at that time. Dr. Quinones has reviewed this note and agrees with this plan of care. This note was dictated using voice recognition software and may contain errors or omissions [facility] History I have reviewed the patient's past medical history: Yes Medical History: Reports:: Hypertension Denies:: Cancer, Diabetes Mellitus Type 1, Diabetes Mellitus Type 2, Internal Pacemaker, Lung Disease, MRSA, Seizures *Have you ever received a pneumonia vaccine?: Yes *Have you received a flu vaccine this season?: Yes Other Medical History: Reports: Other Laterality Cases: Right: Breast Biopsy, Bilateral: Tonsillectomy, Other Other Surgeries: Yes: Colonoscopy, Tubal Ligation, Other. No: Pacemaker Amputation: No Fractures: No - *Social History Smoking Status: Current every day smoker Tobacco Type: cigarettes # Packs/Day (cigarettes): 1 Alcohol Intake: never Substance Use Type: denies use *Occupational Status:: other Household Members: spouse *Travel in the last 8 weeks: None Family Hx:: Hyperlipidemia, Hypertension
--- NOTE | 2019-01-19 11:46 | P.CONS_ITS ---
[facility] Pain Management SOAP Note Subjective:: Patient is a 38-year-old white female who presents today for follow-up. Patient was seen by Dr. Hamilton. Patient states that Dr. Hamilton wants her to go to an arthritis doctor and she is unsure of the difference between that and what we do. I did receive Dr. Hamilton's note which stated that he recommends referral to pain psychologist. Patient states she is uninterested in this. We also recommended yoga physical therapy patient states she will look into this. Patient is uninterested in injective therapy however Dr. Hamilton thought it might be beneficial. Patient is continuing smoking cessation. If patient complies with these measures Dr. Hamilton stated he would be willing to do a myelogram EMG nerve conduction study of the lower extremities however at this point the patient is unsure if she would like to move forward with this patient. I do agree with Dr. Hamilton I think a biofeedback therapy would be beneficial for the patient. Patient states she will think about it. I also do think a specialized arthritis physician may be a benefit. She rates her pain today 7 out of 10. ROS General: no recent weight change, no fever, no sleep disturbances Respiratory: no cough, no shortness of air, no recurring pulmonary infections Cardiovascular/Peripheral Vascular: No chest pain, No palpitations, no edema, no shortness of breath. Gastrointestinal: no incontinence, normal bowel movements reported Genitourinary: no incontinence Musculoskeletal: Back pain Psychiatric: Anxious Neurological: [denies weakness in extremities], [denies balance issues] Objective:: Physical Exam General: Alert and oriented x3, no acute distress, pleasant and cooperative, [on room air] Lungs: Resps E/U, Symmetrical chest expansion, [CTA bilateral] Eyes: PERRL Musculoskeletal: Flexion and extension of cervical and lumbar spine somewhat guarded secondary to pain, deep tendon reflexes normal, strength in upper and lower extremities [5/5], [abnormal gait noted] Neurological: speech clear, senior electronics design engineer equal, no gross sensory deficits Assessment:: 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 Patient will be set up with arthritic specialist. I will follow-up with patient after this and appointment reassess her symptoms at that time. Dr. Quinones has reviewed this note and agrees with this plan of care. This note was dictated using voice recognition software and may contain errors or omissions [facility] History I have reviewed the patient's past medical history: Yes Medical History: Reports:: Hypertension Denies:: Cancer, Diabetes Mellitus Type 1, Diabetes Mellitus Type 2, Internal Pacemaker, Lung Disease, MRSA, Seizures *Have you ever received a pneumonia vaccine?: Yes *Have you received a flu vaccine this season?: Yes Other Medical History: Reports: Other Laterality Cases: Right: Breast Biopsy, Bilateral: Tonsillectomy, Other Other Surgeries: Yes: Colonoscopy, Tubal Ligation, Other. No: Pacemaker Amputation: No Fractures: No - *Social History Smoking Status: Current every day smoker Tobacco Type: cigarettes # Packs/Day (cigarettes): 1 Alcohol Intake: never Substance Use Type: denies use *Occupational Status:: other Household Members: spouse *Travel in the last 8 weeks: None Family Hx:: Hyperlipidemia, Hypertension
== END ==
PROVIDERS: PCP Family Medicine; Visit Provider Clinical Nurse Specialist Family Health
DX: M51.16 Intervertebral disc disorders with radiculopathy, lumbar region (principal)
CPT/HCPCS: 99212

== ENCOUNTER → 2019-04-12 11:22 | Outpatient (POV) | payer OTHER, SELFPAY ==
[2019-04-12 12:08] VITALS: BP 157/89; PULSE 70; RESP 18; O2SAT 99; BMI 29.5
--- NOTE | 2019-04-12 12:22 | HMH.PAINSOAP ---
[facility] Pain Management SOAP Note Subjective:: Patient is a 38-year-old white female who presents today for follow-up. She is being treated for neck pain, along with shoulder and headaches. Patient says that she is undergone multiple modalities of treatment and has gotten little to no relief. Patient says that her pain causes severe spasms which cause her to be immobile. Patient says that this is been ongoing since age 16. She has tried multiple therapies which include all injectable therapies, ice and heat therapies, oral and topical medications, physical therapy, and chiropractic therapy. Patient is continuing to have pain. She does write her pain a 10 out of 10 today. She says that she is not getting any type of relief. She is here today to see if we agree with the plan of care to undergo more physical therapy. Patient would like us to read over her note for physical therapy and determine if this is a good plan of care. Patient did discuss implantable devices such as a spinal cord stimulator in the past with Phil Avitia APRN, however, she does say that she feels this is too scary . Patient says that she is concerned that she will develop a severe reaction to the stimulator and not been able to tolerate it. She has consulted with neurosurgery, who did not feel that she was a surgical candidate at this time. Patient and Sadi EVANGELISTA did discuss that she had exhausted all conservative therapies in the clinic in the past. She is here, again, to discuss a possible plan of care. Patient does say that oral medications have caused her to have a UTI with severe bleeding . As a result, the patient does not feel comfortable taking any type of anti-inflammatory. She also says that she has a difficult time with home stretching program due to the pain. Review of Systems General: No recent weight changes, no fever, no sleep disturbances Respiratory: No cough, no shortness of air, no recurring pulmonary infections Cardiovascular/peripheral vascular: No chest pain, no palpitations, no edema, no shortness of breath Gastrointestinal: No new onset incontinence, normal bowel movements reported Genitourinary: No new onset incontinence Musculoskeletal: Neck pain, shoulder pain, headaches Psychiatric: Normal mood/affect Neurological: [Denies weakness in extremities], [denies balance issues] Objective:: Physical exam General: Alert and oriented x3, no acute distress, pleasant and cooperative, [on room air] Lungs: Respirations even and unlabored, symmetrical chest expansion Eyes: PERRL Musculoskeletal: Flexion and extension of cervical spine somewhat guarded secondary to pain, deep tendon reflexes normal, strength in upper and lower extremities [5/5], [abnormal gait noted] Neurological: Speech clear, propulsion machinery service engineer equal, no gross sensory deficit Assessment:: Neck pain, degenerative disc disease cervical spine, cervical radiculopathy symptoms Plan:: The patient had a very long discussion concerning her options for therapy. The patient is not interested in implanted devices at this time. She is also not interested in any type of injective therapy. Patient was encouraged to continue with physical therapy at this time. I did, once again, gave her educational information regarding implantable devices. Patient says she will review it. She also understands that we have exhausted all measures for therapy in the clinic. I did discuss with her possible diclofenac gel that she can take topically for pain relief. She is willing to try this. The patient and I did discuss that she can call the clinic if she decides that implanted devices or a reasonable option for her. I do feel we had made all efforts in the clinic to give her adequate pain relief however, we do not seem to be providing adequate relief for her. The patient can follow-up as needed, however, I am not sure that she will be interested in the topical therapies that we offer. Dr. Quinones has re
== END ==
PROVIDERS: PCP Family Medicine; Visit Provider Clinical Nurse Specialist Family Health
DX: M50.10 Cervical disc disorder with radiculopathy, unspecified cervical region (principal)
CPT/HCPCS: 99212

== ENCOUNTER → 2019-04-15 15:40 | Outpatient (CLI) | payer OTHER, SELFPAY ==
--- NOTE | 2019-04-15 15:42 | MM_ITS ---
PROCEDURE: MM DIG SCREENING MAMM BI W/CAD CLINICAL INDICATION: SCREENING There is a history of breast cancer patient's maternal aunt and maternal grandmother. There been a previous biopsy right breast for benign disease and previous surgery left breast for focal skin infection COMPARISON: DMSB DIG MAMM-SCREEN RACHEL from 10/08/2012 DMDXUR DIG MAMM-DX UNI-RT from 04/27/2013 TECHNIQUE: Standard CC and MLO images were obtained. R2 CAD reviewed. FINDINGS: Prominent diffuse somewhat heterogenic fibroglandular densities are seen in both breast primarily upper outer quadrants. There is a benign-appearing microcalcification right breast. There is no suspicious lesion in either breast and no suspicious microcalcifications. IMPRESSION: Moderate breast density with no suspicious lesions seen BI-RAD Category: 2 Benign Finding(s) FOLLOW-UP: 1YR 1 Year Follow-up (A letter has been sent to the patient regarding results of the study.) Dictated by: Dr. Luis M Kitchen MD 04/16/2019 20:[address] Luis M Kitchen MD in [place] 04/16/2019 20:10
== END ==
PROVIDERS: PCP Family Medicine; Visit Provider Obstetrics & Gynecology Gynecology
DX: Z12.31 Encounter for screening mammogram for malignant neoplasm of breast (principal)
CPT/HCPCS: 77067

== ENCOUNTER 2019-04-16 15:22 | Outpatient (RCR) | payer OTHER, SELFPAY | END 2019-04-16 15:25 | disposition home or self-care (01) | LOC: PT 15:22 | PROVIDERS: PCP Family Medicine; Visit Provider Family Medicine Sports Medicine | DX: M54.2 Cervicalgia (principal); M54.89 Other dorsalgia | CPT/HCPCS: 97163 ==

== ENCOUNTER 2019-07-06 16:00 | Outpatient (RCR) | payer OTHER, SELFPAY | END 2019-07-06 16:05 | disposition home or self-care (01) | LOC: PT 16:00 | PROVIDERS: Visit Provider Family Medicine Sports Medicine | DX: M54.9 Dorsalgia, unspecified (principal); M54.2 Cervicalgia | CPT/HCPCS: 97010; 97012; 97014; 97035; 97110; 97163; G0283 ==

== ENCOUNTER 2019-12-15 13:47 | Emergency (ER) | payer OTHER, SELFPAY ==
[2019-12-15 13:58] VITALS: BP 143/90; PULSE 102; RESP 17; TEMP 37.5; O2SAT 99; BMI 30.7
[2019-12-15 14:17] VITALS: BP 123/81; PULSE 80; O2SAT 98
[2019-12-15 14:26] LABS: Chloride 108 mmol/L (98-107); Potassium 3.4 mmoL/L (3.5-5.1); Sodium 139 mmol/L (136-145)
[2019-12-15 14:29] LABS: Alanine Aminotransferase 24 U/L (12-78); Albumin Level 4.8 g/dl (3.5-5.0); Albumin/Globulin Ratio 1.4 (1.1-1.8); Alkaline Phosphatase 127 U/L (38-126); Anion Gap 17.4 mEq/L (5-15); Aspartate Amino Transferase 27 U/L (14-36); Bilirubin,Total 0.7 mg/dl (0.2-1.3); Blood Urea Nitrogen 9 mg/dl (7-17); Carbon Dioxide 17 mmol/L (22.0-30.0); Creatinine Clearance Estimated 105 mL/min (50-200); Estimated Glomerular Filt Rate 69 ml/min (>60); GFR (African American) 83 ML/MIN (>60); Globulin 3.4 g/dL (1.3-3.2); Total Protein,Serum 8.2 g/dl (6.3-8.2)
[2019-12-15 14:30] LABS: Basophils # 0.1 K/mm3 (0-0.2); Basophils % 0.6 % (0.1-2.0); Eosinophils # 0.2 K/mm3 (0.0-0.4); Glucose 139 mg/dl (74-100); Hemoglobin 15.4 g/dL (12.2-16.2); Lymphocytes # 4.6 K/mm3 (0.7-4.5); Lymphocytes % 27.3 % (10-50); Mean Corpuscular HGB Conc 34.1 g/dL (31.8-35.4); Mean Corpuscular Hemoglobin 30.9 pg (27.0-31.2); Mean Corpuscular Volume 90.5 fl (81-99); Mean Platelet Volume 9.5 fl (7.4-10.4); Monocytes # 0.8 K/mm3 (0.1-1.0); Monocytes % 4.9 % (1.7-9.3); Neutrophils # 11.2 K/mm3 (1.8-7.8); Neutrophils % 66.3 % (37.0-80.0); Platelet Count 363 K/mm3 (142-424); Red Blood Count 4.97 M/mm3 (4.20-5.40); Red Cell Distribution Width 14.3 % (11.5-17.5); White Blood Count 16.9 K/mm3 (4.8-10.8)
[2019-12-15 14:31] LABS: MANUAL DIFFERENTIAL MANUAL DIFFERENTIAL (MANUAL DIFF)
[2019-12-15 14:43] VITALS: BP 123/81; PULSE 94; O2SAT 97
[2019-12-15 14:50] LABS: Eosinophils % 1 % (0-3); Lymphocytes % 18 % (10-50); Monocytes % 4 % (2-9); Neutrophils % 76 % (42-76); Platelet Estimate Normal; Total Cells Counted 100
[2019-12-15 14:51] LABS: RBC Morphology Normal
--- NOTE | 2019-12-15 14:55 | HMH.EDALLER ---
ED Disposition Clinical Impression: Anaphylaxis Disposition: Home, Self-Care Condition on Discharge: Good Instructions: DI for Rash, DI for Anaphylaxis Additional Instructions: Appears you had an acute allergic reaction to sulfa we have treated you with epinephrine Solu-Medrol IV fluids and oxygen and checked your labs and they appear to be normal; We are discharging you home on a Medrol Dosepak; We are also prescribing an EpiPen; please make sure you carry EpiPen with you at all times and use it in case of a similar condition Prescriptions: EPINEPHrine [Epipen 2-Yovanny] 0.3 mg IM NEEDED PRN 1 Days #1 auto.injct PRN Reason: Allergic Reaction Transmission Status: Pending to Clinic [facility] methylPREDNISolone [Medrol 4mg tab] 4 mg PO DIRECTED #21 tab Transmission Status: Pending to Clinic [facility] Referrals: Tony Buckley MD [Primary Care Provider] - Time of Disposition: 15:22 - Critical Care Critical Care Time: No Attestation: On 12/15/19, the high probability of a clinically significant, sudden or life threatening deterioration of the following system(s) required my full and direct attention, intervention and personal management. The time I documented below is in addition to time spent performing reported procedures but includes the following listed in this critical care notation. Medical Decision Making - Medical Records Medical records reviewed: Yes: I reviewed the patient's medical records. - Anton Inquiry Pt receiving controlled substance: No Vital Signs: 12/15/19 13:58 12/15/19 14:17 12/15/19 14:43 Temperature 99.5 F Temperature Source Oral Pulse Rate [Right Radial] 102 H 80 94 H Respiratory Rate 17 Blood Pressure [Right Arm] 143/90 H 123/81 123/81 Blood Pressure Mean [Right Arm] 107 95 95 Blood Pressure Source [Right Arm] Automatic Cuff Automatic Cuff Blood Pressure Position [Right Arm] Sitting Sitting 02 Sat by Pulse Oximetry 99 98 97 Oxygen Delivery Method Room Air Nasal Cannula Nasal Cannula Oxygen Flow Rate (LPM) 2 2 - Lab Data Lab results reviewed: Yes: I reviewed the patient's lab results. Lab Results 12/15/19 14:07: WBC 16.9 H, RBC 4.97, Hgb 15.4, Hct 45.0, MCV 90.5, MCH 30.9, MCHC 34.1, RDW 14.3, Plt Count 363, MPV 9.5, Neut % (Auto) 66.3, Lymph % (Auto) 27.3, [place] % (Auto) 4.9, Eos % (Auto) 1.0, Baso % (Auto) 0.6, Neut # (Auto) 11.2 H, Lymph # (Auto) 4.6 H, [place] # (Auto) 0.8, Eos # (Auto) 0.2, Baso # (Auto) 0.1, Total Counted 100, Neutrophils % (Manual) 76, Band Neutrophils % 1.0, Lymphocytes % (Manual) 18, Monocytes % (Manual) 4, Eosinophils % (Manual) 1, Platelet Estimate Normal, RBC Morphology Normal 12/15/19 14:07: Sodium 139, Potassium 3.4 L, Chloride 108 H, Carbon Dioxide 17 L, Anion Gap 17.4 H, BUN 9, Creatinine 0.90, Estimated Creat Clear 105, Estimated GFR 69, Est GFR ( Amer) 83, Glucose 139 H, Calcium 10.0, Total Bilirubin 0.7, AST 27, ALT 24, Alkaline Phosphatase 127 H, Total Protein 8.2, Albumin 4.8, Globulin 3.4 H, Albumin/Globulin Ratio 1.4 Result diagrams: 12/15/19 14:07 12/15/19 14:07 Orders (Tests/Meds): ED MEDICATIONS Generic Name Dose Route Start Last Admin Trade Name Freq PRN Reason Stop Dose Admin Sodium Chloride 1,000 mls @ 999 mls/hr 12/15/19 14:15 12/15/19 14:07 Sod Chlor 0.9% 1000ml Bag IV 12/15/19 15:15 999 mls/hr .[id number] ALYSSA Administration Discontinued Medications Generic Name Dose Route Start Last Admin Trade Name Freq PRN Reason Stop Dose Admin Epinephrine HCl 0.3 mg 12/15/19 14:02 12/15/19 14:06 Epinephrine 1mg/Ml Amp SQ 12/15/19 14:03 0.3 mg ONCE ONE Administration Methylprednisolone Sodium Succinate 125 mg 12/15/19 14:02 12/15/19 14:06 Solu-Medrol 125mg/2ml Vial IV 12/15/19 14:03 125 mg ONCE ONE Administration Allergic React/Insect Bite HPI - General Chief complaint: Allergic Reaction Stated complaint: allergic reaction Time Seen by Provider: 12/15/19
[2019-12-15 15:39] VITALS: BP 119/79; PULSE 85; RESP 17; TEMP 37.5; O2SAT 99
== END 2019-12-15 15:40 | disposition home or self-care (01) ==
PROVIDERS: Emergency Provider Emergency Medicine; PCP Family Medicine
DX: T78.2XXA Anaphylactic shock, unspecified, initial encounter (principal); L50.0 Allergic urticaria; T37.0X5A Adverse effect of sulfonamides, initial encounter; I10 Essential (primary) hypertension; F17.210 Nicotine dependence, cigarettes, uncomplicated; Z79.899 Other long term (current) drug therapy; Z90.09 Acquired absence of other part of head and neck; Z88.0 Allergy status to penicillin; Z88.5 Allergy status to narcotic agent
CPT/HCPCS: 80053; 85007; 85025; 96365; 96372; 96375; 99283

== ENCOUNTER → 2020-01-29 09:58 | Outpatient (CLI) | payer OTHER, SELFPAY ==
[2020-01-29 12:32] LABS: Chloride 105 mmol/L (98-107); Sodium 140 mmol/L (136-145)
[2020-01-29 12:33] LABS: Potassium 4.3 mmoL/L (3.5-5.1)
[2020-01-29 12:35] LABS: Alanine Aminotransferase 16 U/L (12-78); Albumin Level 4.5 g/dl (3.5-5.0); Albumin/Globulin Ratio 1.6 (1.1-1.8); Alkaline Phosphatase 123 U/L (38-126); Anion Gap 16.3 mEq/L (5-15); Aspartate Amino Transferase 18 U/L (14-36); Bilirubin,Total 0.6 mg/dl (0.2-1.3); Blood Urea Nitrogen 8 mg/dl (7-17); Carbon Dioxide 23 mmol/L (22.0-30.0); Estimated Glomerular Filt Rate 69 ml/min (>60); GFR (African American) 83 ML/MIN (>60); Globulin 2.8 g/dL (1.3-3.2); Total Protein,Serum 7.3 g/dl (6.3-8.2)
[2020-01-29 12:36] LABS: Calcium 9.7 mg/dl (8.4-10.2); Glucose 108 mg/dl (74-100)
[2020-01-29 13:05] LABS: Thyroid Stimulating Hormone 2.74 uIU/mL (0.465-4.68)
== END ==
PROVIDERS: Visit Provider Family Medicine
DX: I10 Essential (primary) hypertension (principal); R60.0 Localized edema
CPT/HCPCS: 36415; 80053; 84443

== ENCOUNTER 2020-01-29 10:15 | Emergency (ER) | payer OTHER, SELFPAY ==
[2020-01-29 10:23] VITALS: BP 134/86; PULSE 89; RESP 19; TEMP 36.8; O2SAT 98; BMI 30.4
--- NOTE | 2020-01-29 10:34 | HMH.EDUTC ---
[facility] [place] Clinical Impression: Viral upper respiratory illness Disposition: Home, Self-Care Condition on Discharge: Good Instructions: Sore Throat Additional Instructions: *Monitor Temp, Over the counter Motrin or Tylenol as directed/as needed Tylenol every 4 hours and Motrin every 6 hours (as long as your family doctor has told you that you can take it) for fever or pain. and straight to ER if unable to lower temp less than 101.0 after medication given *Warm salt water gargles may help to soothe the throat *Throat Lozenges *Warm fluids like tea with honey may help to soothe the throat *Sleep elevated *Humidifier/Vaporizer *Flonase 2 sprays in each nostril daily but be aware that it may take 2-3 days before you notice improvement *Bromfed may cause drowsiness. Know how it effects you (your child) before driving, caring for small child, or sending your child to school. Not other antihistamines/allergy medications while taking bromfed Your throat swab was sent for culture. Those results are typically sent to your primary care. Be sure to follow up in 2-3 days with your family doctor/primary care physician if no improvement so they can review those result and treat if necessary. If you don?t have a primary care doctor, I recommend you get one but in the mean time, you will have to return to a walk in clinic Follow up IMMEDIATELY for new or worsening symptoms or no Noticeable improvement over the next 48-72 hours. 911 for difficulty breathing or swallowing Over the counter Debrox may help with breaking apart the wax Referrals: Tony Buckley MD [Primary Care Provider] - As needed Time of Disposition: 10:48 Medical Decision Making - Anton Inquiry Pt receiving controlled substance: No Anton was queried for this patient: No Vital Signs: 01/29/20 10:23 Temperature 98.2 F Temperature Source Oral Pulse Rate [Radial] 89 Respiratory Rate 19 Blood Pressure [Right Arm] 134/86 Blood Pressure Mean [Right Arm] 102 Blood Pressure Source [Right Arm] Automatic Cuff Blood Pressure Position [Right Arm] Sitting 02 Sat by Pulse Oximetry 98 Oxygen Delivery Method Room Air - Lab Data Lab results reviewed: Yes: I reviewed the patient's lab results. [facility] [place] - General Stated complaint: earache and cough Time Seen by Provider: 01/29/20 10:34 Mode of Arrival: Ambulatory Source of Information: Patient Limitations: No Limitations Description of Symptoms (Recalled from Triage Doc. by RN): Pt complains of sore throat and bilateral ear pain for the past two days. HEENT Symptoms (Recalled from RN notes): Yes Resp Symptoms (Recalled from RN notes): No Skin Symptoms (Recalled from RN notes): No MS Symptoms (Recalled from RN notes): No Functional Status (Recalled from RN notes): wnl - History of Present Illness Provider Complaint: Patient states that she has been having sore throat and bilateral ear pain that has continued to get worse over the last couple of days States that her son recently had strep and she feels like she may have it now too - Related Data Home Medications Medication Instructions Recorded Confirmed Linaclotide [Linzess] 290 mg PO DAILY 06/10/17 08/17/18 Montelukast Sodium [Montelukast 10 mg PO HS 06/10/17 08/17/18 10mg Tab] Cetirizine HCl [Zyrtec] 10 mg PO DAILY 11/07/17 08/17/18 Gabapentin [Gabapentin 100mg Cap] 100 mg PO TID PRN 03/25/18 08/17/18 amlodipine 10 mg tablet 10 mg PO DAILY 08/03/18 08/18/18 medroxyprogesterone 10 mg tablet 10 mg PO MONTHLY 08/03/18 08/17/18 Previous Rx's Medication Instructions Recorded Doxycycline Hyclate [Doxycycline 100 mg PO BID #14 cap 09/08/18 100mg Capsule] EPINEPHrine [Epipen 2-Yovanny] 0.3 mg IM NEEDED PRN 1 Days #1 12/15/19 auto.injct methylPREDNISolone [Medrol 4mg 4 mg PO DIRECTED #21 tab 12/15/19 tab] Allergies Allergy/AdvReac Type Severity Reaction Status Date / Time acetaminophen [From L[facility]AB] Allergy Mild Verified
[2020-01-29 10:43] LABS: UTC Strep Screen (Rapid) Negative (Negative)
[2020-01-29 10:54] VITALS: BP 134/86; PULSE 89; RESP 19; TEMP 36.8; O2SAT 98
== END 2020-01-29 10:56 | disposition home or self-care (01) ==
PROVIDERS: Emergency Provider Nurse Practitioner; PCP Family Medicine
DX: J06.9 Acute upper respiratory infection, unspecified (principal); I10 Essential (primary) hypertension; F17.210 Nicotine dependence, cigarettes, uncomplicated; Z88.0 Allergy status to penicillin; Z79.899 Other long term (current) drug therapy
CPT/HCPCS: 87880; 99201

== ENCOUNTER 2020-02-03 11:10 | Emergency (ER) | payer OTHER, SELFPAY ==
[2020-02-03 11:33] VITALS: BP 150/97; PULSE 71; RESP 20; O2SAT 98; BMI 30.4
[2020-02-03 11:44] LABS: UTC Strep Screen (Rapid) Negative (Negative)
[2020-02-03 11:45] LABS: UTC Influenza A Antigen Negative (Negative)
--- NOTE | 2020-02-03 11:45 | HMH.EDUTC ---
[facility] [place] Disposition Clinical Impression: URI (upper respiratory infection) Qualifiers: URI type: unspecified URI Qualified Code(s): J06.9 - Acute upper respiratory infection, unspecified Disposition: Home, Self-Care Condition on Discharge: Good Instructions: Strep Throat (Alternative Therapy), Strep Throat, DI for Strep Throat, Clarithromycin Additional Instructions: *Monitor Temp, Over the counter Motrin or Tylenol as directed/as needed Tylenol every 4 hours and Motrin every 6 hours (as long as your family doctor has told you that you can take it) for fever or pain. and straight to ER if unable to lower temp less than 101.0 after medication given *Warm salt water gargles may help to soothe the throat *Throat Lozenges *Warm fluids like tea with honey may help to soothe the throat *Sleep elevated *Humidifier/Vaporizer *Even though your strep test was negative, due to seeing the exudate in your throat you was treated for strep, take medications as prescribed Your throat swab was sent for culture. Those results are typically sent to your primary care. Be sure to follow up in 2-3 days with your family doctor/primary care physician if no improvement so they can review those result and treat if necessary. If you don?t have a primary care doctor, I recommend you get one but in the mean time, you will have to return to a walk in clinic Follow up IMMEDIATELY for new or worsening symptoms or no Noticeable improvement over the next 48-72 hours. 911 for difficulty breathing or swallowing You was tested for today for COVID19 your test result should be back later this evening, you may call back later this evening to see if your test results are back and the result You was given a handout with instructions for Self Quarantine and Self isolation for while you wait on test results and what to do if they are positive Prescriptions: Clarithromycin 250 mg PO BID 10 Days #20 tab Transmission Status: Pending to [facility] methylPREDNISolone [Medrol 4mg tab] 4 mg PO DIRECTED #21 tab Transmission Status: Pending to [facility] Referrals: Tony Buckley MD [Primary Care Provider] - As needed Time of Disposition: 12:35 Medical Decision Making - Anton Inquiry Pt receiving controlled substance: No Anton was queried for this patient: No Vital Signs: 02/03/20 11:33 Pulse Rate [Right Brachial] 71 Respiratory Rate 20 Blood Pressure [Right Arm] 150/97 H Blood Pressure Mean [Right Arm] 114 Blood Pressure Source [Right Arm] Automatic Cuff Blood Pressure Position [Right Arm] Sitting 02 Sat by Pulse Oximetry 98 Oxygen Delivery Method Room Air - Lab Data Lab results reviewed: Yes: I reviewed the patient's lab results. Lab Results 02/03/20 11:42: Influenza Type A Ag Negative, Influenza Type B Ag Negative 02/03/20 11:42: Strep Scn Rapid Clinic Negative 02/03/20 12:00: Monoscreen Negative Orders (Tests/Meds): ORDERS Category Date Time Status Covid-19 Nasal PCR ([facility]) Routine Lab 02/03/20 11:30 Received Strep Screen Confirmation Stat Micro 02/03/20 11:42 Received Medical Decision Narrative: Patient states that she has taken azithromycin in the past without reaction or complications but does not work due to extensive allergy list patient was given clarithromycin 250mg bid x 10 days rapid strep was negative however patient had what appears to be exudate on throat therefore was treated for strep [facility] [place] HPI - General Stated complaint: cough, sore throat Time Seen by Provider: 02/03/20 11:45 Mode of Arrival: Ambulatory Source of Information: Patient Limitations: No Limitations Description of Symptoms (Recalled from Triage Doc. by RN): PATIENT C/O SORE THROAT, COUGH AND DRAINAGE SINCE FRIDAY HEENT Symptoms (Recalled from RN notes): Yes Resp Symptoms (Recalled from RN notes): Yes Skin Symptoms (Recalled from RN notes): No MS Symptoms (Recalled from RN notes): No Functional Status (Recalled from RN n
[2020-02-03 11:46] LABS: UTC Influenza B Antigen Negative (Negative)
[2020-02-03 12:15] LABS: Monoscreen (Rapid) Negative (Negative)
[2020-02-03 12:41] VITALS: BP 150/97; PULSE 71; RESP 20; TEMP 36.7; O2SAT 98
== END 2020-02-03 12:42 | disposition home or self-care (01) ==
PROVIDERS: Emergency Provider Nurse Practitioner; PCP Family Medicine
DX: J06.9 Acute upper respiratory infection, unspecified (principal); I10 Essential (primary) hypertension; Z20.828 Contact with and (suspected) exposure to other viral communicable diseases; Z88.0 Allergy status to penicillin; Z88.2 Allergy status to sulfonamides; Z88.5 Allergy status to narcotic agent
CPT/HCPCS: 86318; 87804; 87880; 99202; U0003

== ENCOUNTER → 2020-03-27 12:52 | Outpatient (POV) | payer OTHER, SELFPAY ==
[2020-03-27 14:14] VITALS: BP 133/89; PULSE 74; RESP 18; TEMP 36.8; O2SAT 98; BMI 30.9
--- NOTE | 2020-03-27 15:50 | HMH.PAINSOAP ---
[facility] Pain Management SOAP Note Subjective:: Patient is a pleasant 39-year-old white female who presents today for follow-up. Patient has been at the arthritis Center along with physical therapy. At this time there is not any treatment that they can recommend for her. She is undergone multiple modalities of treatment and got little to no relief for her neck and low back pain. She is having new neck pain with radiation into bilateral arms. She also states that she is having weakness in her right arm and dropping things. She rates her pain today 4 out of 10. We discussed injection therapy along with implantable therapy she is uninterested with this at this time. Patient main complaint today is continual spasms. We discussed magnesium supplements and switching her muscle relaxer to Robaxin. ROS General: no recent weight change, no fever, no sleep disturbances Respiratory: no cough, no shortness of air, no recurring pulmonary infections Cardiovascular/Peripheral Vascular: No chest pain, No palpitations, no edema, no shortness of breath. Gastrointestinal: no new onset incontinence, normal bowel movements reported Genitourinary: no new onset incontinence Musculoskeletal: Back pain, leg pain, neck pain, arm pain , Muscle spasms Psychiatric: normal mood/ affect, Neurological: [denies new onset weakness in extremities], [denies new onset balance issues] Objective:: Physical Exam General: Alert and oriented x3, no acute distress, pleasant and cooperative, [on room air] Lungs: Resps E/U, Symmetrical chest expansion, Eyes: PERRL Musculoskeletal: Flexion and extension of cervical and lumbar spine somewhat guarded secondary to pain, deep tendon reflexes normal, strength in upper and lower extremities [5/5], [abnormal gait noted] Neurological: speech clear, electrician substation equal, no gross sensory deficits Assessment:: Degenerative disc disease lumbar spine lumbar radiculopathy degenerative disc disease cervical spine cervical radiculopathy Plan:: We will start her on Robaxin 500 mg 1 p.o. twice daily as needed for muscle spasms. We will send her for an updated MRI of her cervical and lumbar spine. We will follow up with her after this reassess her symptoms at that time she has been instructed to call the office if she has any issues prior to her next appointment. Dr. Quinones has reviewed this note and agrees with this plan of care. This note was dictated using voice recognition software and may contain errors or omissions [facility] History I have reviewed the patient's past medical history: Yes Medical History: Reports:: Hypertension Denies:: Cancer, Diabetes Mellitus Type 1, Diabetes Mellitus Type 2, Internal Pacemaker, Lung Disease, MRSA, Seizures *Have you ever received a pneumonia vaccine?: Yes *Have you received a flu vaccine this season?: Yes Other Medical History: Reports: Other Laterality Cases: Right: Breast Biopsy, Bilateral: Tonsillectomy, Other Other Surgeries: Yes: Colonoscopy, Tubal Ligation, Other. No: Pacemaker Amputation: No Fractures: No - *Social History Smoking Status: Current every day smoker Tobacco Type: cigarettes # Packs/Day (cigarettes): 1 Alcohol Intake: never Substance Use Type: denies use *Occupational Status:: other Household Members: spouse *Travel in the last 8 weeks: None Family Hx:: Hyperlipidemia, Hypertension
== END ==
PROVIDERS: Visit Provider Clinical Nurse Specialist Family Health
DX: M51.16 Intervertebral disc disorders with radiculopathy, lumbar region (principal); M50.10 Cervical disc disorder with radiculopathy, unspecified cervical region
CPT/HCPCS: 99212

== ENCOUNTER → 2020-04-06 14:16 | Outpatient (CLI) | payer OTHER, SELFPAY ==
--- NOTE | 2020-04-06 14:18 | MR_ITS ---
PROCEDURE: MR CERVICAL SPINE WO CON CLINICAL INDICATION: NECK AND BACK PAIN BILATERAL ARM NUMBNESS AND NECK PAIN. PRIOR MRI 12-22-18 COMPARISON: MR MR CERVICAL SPINE WO CON from 12/22/2018 TECHNIQUE: Standard multiplanar multiecho sequences are performed without contrast. 3-D MIP and myelographic images are also rendered and reviewed FINDINGS: There is straightening of the cervical lordosis. Craniocervical junction has an unremarkable appearance. C2-C3: Unremarkable. C3-C4: Unremarkable. C4-C5: Unremarkable. C5-C6: Mild degenerative disc disease with mild bulging disc. This is somewhat smaller when compared to the previous exam. There is continued canal stenosis at 10 mm. There is minimal flattening of the cord anteriorly at this level not significantly changed. C6-C7: Mild degenerative disc disease with minimal bulging disc with canal stenosis at 10 mm not significantly change without cord impingement. C7-T1: Unremarkable IMPRESSION: 1. Nonspecific straightening of the cervical lordosis. 2. C5-C6: Mild degenerative disc disease with mild bulging disc. This is somewhat smaller when compared to the previous exam. There is continued canal stenosis at 10 mm. There is minimal flattening of the cord anteriorly at this level not significantly changed. 3. C6-C7: Mild degenerative disc disease with minimal bulging disc with canal stenosis at 10 mm not significantly change without cord impingement 4. No extruded herniated disc evident Dictated by: Carlos Villegas MD 04/08/2020 10:45 Carlos Villegas MD in [place] 04/08/2020 10:45
--- NOTE | 2020-04-06 14:18 | MR_ITS ---
PROCEDURE: MR LUMBAR SPINE WO CON CLINICAL INDICATION: NECK AND BACK PAIN LBP. RT LEG NUMBNESS AND TINGLING. COMPARISON: MR SPLUMBWO MR lumbar spine wo con from 03/26/2018 MR MR CERVICAL SPINE WO CON from 12/22/2018 TECHNIQUE: Standard multiplanar multiecho sequences are performed without contrast. 3-D MIP and myelographic images are also rendered and reviewed FINDINGS: There is normal alignment. The spinal cord ends at the L1 level. T11-T12, T12-L1, L1-L2 and L2-L3 have an unremarkable appearance. L3-L4 minimal facet and ligamentum hypertrophy. L4-5: Mild bulging disc with a small broad-based central disc protrusion not significantly changed abutting the anterior medial aspect of both L5 nerve roots. There is mild facet and ligamentum hypertrophy with mild bilateral lateral recess narrowing. L5-S1: Degenerative disc disease with bulging disc with mild facet and ligamentum hypertrophy. The bulging disc does abut the anterior aspect of both S1 nerve root. The disc is slightly eccentric toward the right. There is moderate right-sided foraminal narrowing and mild to moderate left-sided foraminal narrowing overall not significantly changed. No extruded herniated disc. IMPRESSION: 1. L4-5: Mild bulging disc with a small broad-based central disc protrusion not significantly changed abutting the anterior medial aspect of both L5 nerve roots. There is mild facet and ligamentum hypertrophy with mild bilateral lateral recess narrowing. 2. L5-S1: Degenerative disc disease with bulging disc with mild facet and ligamentum hypertrophy. The bulging disc does abut the anterior aspect of both S1 nerve root. The disc is slightly eccentric toward the right. There is moderate right-sided foraminal narrowing and mild to moderate left-sided foraminal narrowing overall not significantly changed. 3. No extruded herniated disc. 4. Overall no significant change Dictated by: Carlos Villegas MD 04/08/2020 10:59 Carlos Villegas MD in [place] 04/08/2020 10:59
== END ==
PROVIDERS: Visit Provider Clinical Nurse Specialist Family Health
DX: M54.2 Cervicalgia (principal); M54.5 Low back pain
CPT/HCPCS: 72141; 72148; 76376

== ENCOUNTER → 2020-05-19 10:48 | Outpatient (CLI) | payer OTHER, SELFPAY ==
--- NOTE | 2020-05-19 10:53 | MM_ITS ---
PROCEDURE: MM DIG SCREENING MAMM BI W/CAD Digital Breast Tomosynthesis Included CLINICAL INDICATION: SCREENING There is a history of breast cancer in the patient's sister diagnosed at age 40 and also in the patient's maternal aunt and maternal grandmother. There have been previous biopsies on each breast for benign disease. COMPARISON: MG DMSB DIG MAMM-SCREEN RACHEL from 10/08/2012 MG DMDXUR DIG MAMM-DX UNI-RT from 04/27/2013 MG MM DIG SCREENING MAMM BI W/CAD from 04/15/2019 TECHNIQUE: Standard CC and MLO images and 3D Tomosynthesis was obtained. R2 CAD reviewed. FINDINGS: Moderate diffuse fibroglandular densities are seen in both breast primarily upper outer quadrants. There are couple of benign-appearing microcalcifications right breast. There is no new or suspicious lesion in either breast and no suspicious microcalcifications. IMPRESSION: Moderate breast density with no suspicious lesions seen BI-RAD Category: 2 Benign Finding(s) FOLLOW-UP: 1YR 1 Year Follow-up (A letter has been sent to the patient regarding results of the study.) Dictated by: Dr. Luis M Kitchen MD 05/23/2020 14:42 Dr. Luis M Kitchen MD in [place] 05/23/2020 14:42
== END ==
PROVIDERS: Visit Provider Obstetrics & Gynecology Gynecology
DX: Z12.31 Encounter for screening mammogram for malignant neoplasm of breast (principal)
CPT/HCPCS: 77063; 77067

== ENCOUNTER → 2020-05-25 13:38 | Outpatient (POV) | payer OTHER, SELFPAY ==
[2020-05-25 13:59] VITALS: BP 184/96; PULSE 99; RESP 20; TEMP 36.5; O2SAT 96; BMI 31.8
--- NOTE | 2020-05-25 14:16 | HMH.PAINSOAP ---
[facility] Pain Management SOAP Note Subjective:: She is a pleasant 39-year-old white female who presents today for follow-up. Patient is having a flare in her pain. She had her MRIs redone there is no significant changes. Patient states most of her pains in her neck and bilateral arms she is been taking gabapentin 600 mg nightly and that is been very beneficial for her radicular pain. Patient has tried and failed tizanidine at methocarbamol she is still having spasms. Patient and I discussed a short-term dose of steroids to help with her flares. She is interested in pursuing this. She rates her pain a 5 out of 10. ROS General: no recent weight change, no fever, no sleep disturbances Respiratory: no cough, no shortness of air, no recurring pulmonary infections Cardiovascular/Peripheral Vascular: No chest pain, No palpitations, no edema, no shortness of breath. Gastrointestinal: no new onset incontinence, normal bowel movements reported Genitourinary: no new onset incontinence Musculoskeletal: Back pain, leg pain, neck pain, arm pain Psychiatric: normal mood/ affect Neurological: [denies new onset weakness in extremities], [denies new onset balance issues] Objective:: Physical Exam General: Alert and oriented x3, no acute distress, pleasant and cooperative, [on room air] Lungs: Resps E/U, Symmetrical chest expansion, Eyes: PERRL Musculoskeletal: Flexion and extension of cervical and lumbar spine somewhat guarded secondary to pain, deep tendon reflexes normal, strength in upper and lower extremities [5/5], antalgic gait noted Neurological: speech clear, target protection specialist equal, no gross sensory deficits Assessment:: Degenerative disc disease cervical spine cervical radiculopathy degenerative disc disease lumbar spine lumbar radiculopathy Plan:: The patient prednisone 20 mg she can take 2 tabs for up to 5 days. We will also give her gabapentin 600 mg 1 p.o. nightly. Follow-up with her after this reassess her symptoms at that time she has been instructed to call the office if she has any issues prior to her next appointment. Dr. Quinones has reviewed this note and agrees with this plan of care. This note was dictated using voice recognition software and may contain errors or omissions [facility] History I have reviewed the patient's past medical history: Yes Medical History: Reports:: Hypertension Denies:: Cancer, Diabetes Mellitus Type 1, Diabetes Mellitus Type 2, Internal Pacemaker, Lung Disease, MRSA, Seizures *Have you ever received a pneumonia vaccine?: No *Have you received a flu vaccine this season?: Yes Other Medical History: Reports: Other Laterality Cases: Right: Breast Biopsy, Bilateral: Tonsillectomy, Other Other Surgeries: Yes: Colonoscopy, Tubal Ligation, Other. No: Pacemaker Amputation: No Fractures: No - *Social History Smoking Status: Current every day smoker Tobacco Type: cigarettes # Packs/Day (cigarettes): 1 Alcohol Intake: never Substance Use Type: denies use *Occupational Status:: employed Household Members: spouse *Travel in the last 8 weeks: None Family Hx:: Hyperlipidemia, Hypertension
== END ==
PROVIDERS: PCP Family Medicine; Visit Provider Clinical Nurse Specialist Family Health
DX: M50.10 Cervical disc disorder with radiculopathy, unspecified cervical region (principal); M51.16 Intervertebral disc disorders with radiculopathy, lumbar region
CPT/HCPCS: 99212; G0463

== ENCOUNTER → 2020-08-24 13:14 | Outpatient (POV) | payer OTHER, SELFPAY ==
[2020-08-24 13:26] VITALS: BP 141/77; PULSE 65; RESP 18; O2SAT 98; BMI 30.9
--- NOTE | 2020-08-24 14:35 | P.CONS_ITS ---
[facility] Pain Management SOAP Note Subjective:: Patient is a pleasant 39-year-old white female who presents today for follow-up. Patient rates her pain today 3 out of 10. Patient has had pain for over 10 years. Patient has had a recent MRI showing no significant changes. Patient does have degenerative changes throughout her spine along with impingement. Patient has severe reactions to medications and contradictory outcomes s to certain medications. Patient has issues with Tylenol, ibuprofen, diclofenac, gabapentin, pregabalin, tizanidine, Flexeril, methocarbamol. Patient had severe allergic reaction to narcotic medications including Aurora along with Percocet. Patient had a tramadol reaction. Patient is unable to take Benadryl. She is also unable to take multiple medications for nerve pain. Patient and I have discussed genetic testing to help determine medication potential options for treatment. ROS General: no recent weight change, no fever, no sleep disturbances Respiratory: no cough, no shortness of air, no recurring pulmonary infections Cardiovascular/Peripheral Vascular: No chest pain, No palpitations, no edema, no shortness of breath. Gastrointestinal: no new onset incontinence, normal bowel movements reported Genitourinary: no new onset incontinence Musculoskeletal: Back pain, leg pain Psychiatric: normal mood/ affect Neurological: [denies new onset weakness in extremities], [denies new onset balance issues] Objective:: Physical Exam General: Alert and oriented x3, no acute distress, pleasant and cooperative, [on room air] Lungs: Resps E/U, Symmetrical chest expansion, Eyes: PERRL Musculoskeletal: Flexion and extension of cervical and lumbar spine somewhat guarded secondary to pain, deep tendon reflexes normal, strength in upper and lower extremities [5/5], antalgic gait noted Neurological: speech clear, epitaxial reactor technician 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 She has been instructed to call the office if she has any issues prior to her next appointment we will see her once we get the results of this test. Dr. Quinones has reviewed this note and agrees with this plan of care. This note was dictated using voice recognition software and may contain errors or omissions [facility] History I have reviewed the patient's past medical history: Yes Medical History: Reports:: Hypertension Denies:: Cancer, Diabetes Mellitus Type 1, Diabetes Mellitus Type 2, Internal Pacemaker, Lung Disease, MRSA, Seizures *Have you ever received a pneumonia vaccine?: Yes *Have you received a flu vaccine this season?: Yes Other Medical History: Reports: Other Laterality Cases: Right: Breast Biopsy, Bilateral: Tonsillectomy, Other Other Surgeries: Yes: Colonoscopy, Tubal Ligation, Other. No: Pacemaker Amputation: No Fractures: No - *Social History Smoking Status: Current every day smoker Tobacco Type: cigarettes # Packs/Day (cigarettes): 1 Alcohol Intake: never Substance Use Type: denies use *Occupational Status:: other Household Members: spouse *Travel in the last 8 weeks: None Family Hx:: Hyperlipidemia, Hypertension
== END ==
PROVIDERS: Visit Provider Clinical Nurse Specialist Family Health
DX: M50.10 Cervical disc disorder with radiculopathy, unspecified cervical region (principal); M51.16 Intervertebral disc disorders with radiculopathy, lumbar region
CPT/HCPCS: 99212; G0463

== ENCOUNTER 2020-11-06 18:55 | Emergency (ER) | payer OTHER, SELFPAY ==
[2020-11-06 19:20] VITALS: BP 129/85; PULSE 67; RESP 18; TEMP 37.1; O2SAT 97; BMI 30.2
--- NOTE | 2020-11-06 20:21 | HMH.EDUTC ---
[facility] Disposition Clinical Impression: Left ear impacted cerumen Sinusitis Qualifiers: Sinusitis location: unspecified location Chronicity: acute Recurrence: non-recurrent Qualified Code(s): J01.90 - Acute sinusitis, unspecified Disposition: Home, Self-Care Condition on Discharge: Good Instructions: Cerumen Impaction, DI for Sinusitis Additional Instructions: Drink plenty of fluids. Take tylenol or ibuprofen for pain or fever. Take the medications as directed. Follow up with your regular doctor. GO TO THE ER FOR ANY WORSENING SYMPTOMS Prescriptions: Ciprofloxacin HCl/Dexameth [Cipro 0.3%-Dex 0.1% Otic Susp 7.5mL] 2 ml EAR-LEFT BID 7 Days #1 bottle Transmission Status: Received by [facility] clindamycin HCL [Cleocin HCl] 300 mg PO Q8H 10 Days #30 cap Transmission Status: Received by [facility] methylPREDNISolone [Medrol] 4 mg PO DIRECTED 6 Days #21 tab.ds.pk Transmission Status: Received by [facility] Benzonatate [Tessalon Perle 100mg Cap] 100 mg PO TIDP PRN #30 cap PRN Reason: Cough Transmission Status: Received by [facility] Referrals: Tony Buckley MD [Primary Care Provider] - Time of Disposition: 20:23 Medical Decision Making - Medical Records Medical records reviewed: No: I reviewed the patient's medical records. - Anton Inquiry Pt receiving controlled substance: No Vital Signs: 11/06/20 19:20 11/06/20 20:31 Temperature 98.8 F 98.8 F Temperature Source Oral Pulse Rate 67 Pulse Rate [Left Brachial] 67 Respiratory Rate 18 18 Blood Pressure 129/85 Blood Pressure [Left Arm] 129/85 Blood Pressure Mean [Left Arm] 99 Blood Pressure Source [Left Arm] Automatic Cuff Blood Pressure Position [Left Arm] Sitting 02 Sat by Pulse Oximetry 97 Oxygen Delivery Method Room Air [facility] HPI - General Stated complaint: sinus infection, ears Time Seen by Provider: 11/06/20 20:21 Mode of Arrival: Ambulatory Source of Information: Patient Limitations: No Limitations Description of Symptoms (Recalled from Triage Doc. by RN): PATIENT C/O BILATERAL EAR PAIN WITH DECREASED HEARING IN LEFT EAR. 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 SHE WAS TREATED FOR SINUS INFECTION IN SEPTEMBER BUT DOESN'T FEEL BETTER FROM THAT HEENT Symptoms (Recalled from RN notes): Yes Resp Symptoms (Recalled from RN notes): No Skin Symptoms (Recalled from RN notes): No MS Symptoms (Recalled from RN notes): No Functional Status (Recalled from RN notes): WNL - History of Present Illness Provider Complaint: She c/o left ear pain, left sided facial pressure and tenderness for the past 2 weeks. She states that today her symptoms worsened. Today, She bent over in her garden and had a period of dizziness. - Related Data Home Medications Medication Instructions Recorded Confirmed Linaclotide [Linzess] 290 mg PO DAILY 06/10/17 05/25/20 Montelukast Sodium [Montelukast 10 mg PO HS 06/10/17 05/25/20 10mg Tab] medroxyprogesterone 10 mg tablet 10 mg PO MONTHLY 08/03/18 05/25/20 Previous Rx's Medication Instructions Recorded EPINEPHrine [Epipen 2-Yovanny] 0.3 mg IM NEEDED PRN 1 Days #1 12/15/19 auto.injct Gabapentin [Neurontin 600mg 600 mg PO HS #30 tab 05/25/20 tablet] Benzonatate [Tessalon Perle 100mg 100 mg PO TIDP PRN #30 cap 11/06/20 Cap] Ciprofloxacin HCl/Dexameth [Cipro 2 ml EAR-LEFT BID 7 Days #1 bottle 11/06/20 0.3%-Dex 0.1% Otic Susp 7.5mL] clindamycin HCL [Cleocin HCl] 300 mg PO Q8H 10 Days #30 cap 11/06/20 methylPREDNISolone [Medrol] 4 mg PO DIRECTED 6 Days #21 11/06/20 tab.ds.pk Allergies Allergy/AdvReac Type Severity Reaction Status Date / Time Sulfa (Sulfonamide Allergy Severe Hives Verified 05/25/20 13:59 Antibiotics) acetaminophen [From [facility]] Allergy Mild Unknown Verified 05/25/20 13:59 allergy reaction diphenhydramine Allergy Mild Unknown Verified 05/25/20 13:59 [From [facility]
[2020-11-06 20:31] VITALS: BP 129/85; PULSE 67; RESP 18; TEMP 37.1; O2SAT 97
== END 2020-11-06 20:37 | disposition home or self-care (01) ==
PROVIDERS: Emergency Provider Nurse Practitioner Family; PCP Family Medicine
DX: J01.90 Acute sinusitis, unspecified (principal); H61.22 Impacted cerumen, left ear; I10 Essential (primary) hypertension; F17.210 Nicotine dependence, cigarettes, uncomplicated; Z88.2 Allergy status to sulfonamides; Z79.899 Other long term (current) drug therapy

== ENCOUNTER 2020-12-13 16:53 | Emergency (ER) | payer OTHER, SELFPAY ==
[2020-12-13 16:54] VITALS: BP 175/107; PULSE 80; RESP 18; TEMP 36.7; O2SAT 97; BMI 30.5
[2020-12-13 17:15] VITALS: BP 147/91; PULSE 74; RESP 18; O2SAT 99
--- NOTE | 2020-12-13 17:22 | HMH.EDGENADL ---
ED Disposition Clinical Impression: Allergic reaction Disposition: Home, Self-Care Condition on Discharge: Good Additional Instructions: Return the emergency room for worsening swelling vomiting dizziness chest pain difficulty breathing or any other concerns within 8 hours otherwise take medicine as prescribed and follow-up with your primary care physician next couple days Prescriptions: Triamcinolone Acetonide 1 applic TP BID 7 Days #30 cream..g. Transmission Status: Pending to Clinic Pharmacy [facility] hydrOXYzine pamoate [Vistaril] 25 mg PO TID PRN 5 Days #15 cap PRN Reason: Itching Transmission Status: Pending to Clinic Pharmacy [facility] Referrals: Tony Buckley MD [Primary Care Provider] - - Critical Care Critical Care Time: No Attestation: On , the high probability of a clinically significant, sudden or life threatening deterioration of the following system(s) required my full and direct attention, intervention and personal management. The time I documented below is in addition to time spent performing reported procedures but includes the following listed in this critical care notation. Medical Decision Making - Medical Records Medical records reviewed: Yes: I reviewed the patient's medical records. - Anton Inquiry Pt receiving controlled substance: No Vital Signs: 12/13/20 16:54 Temperature 98.0 F Temperature Source Oral Pulse Rate [Left Radial] 80 Respiratory Rate 18 Blood Pressure [Left Arm] 175/107 H Blood Pressure Mean [Left Arm] 129 Blood Pressure Source [Left Arm] Automatic Cuff Blood Pressure Position [Left Arm] Sitting 02 Sat by Pulse Oximetry 97 Oxygen Delivery Method Room Air Orders (Tests/Meds): ED MEDICATIONS Discontinued Medications Generic Name Dose Route Start Last Admin Trade Name Freq PRN Reason Stop Dose Admin Dexamethasone Sodium Phosphate 8 mg 12/13/20 17:10 12/13/20 17:26 Dexamethasone 4mg/Ml 5ml Mdv PO 12/13/20 17:11 8 mg ONCE ONE Administration Hydroxyzine Pamoate 50 mg 12/13/20 17:10 12/13/20 17:26 Hydroxyzine Pamoate 25mg Capsule PO 12/13/20 17:11 50 mg ONCE ONE Administration Medical Decision Narrative: 40-year-old female with allergic reaction to the left side of her neck after a bug bite. She is in no acute distress nontoxic-appearing does not appear to be in anaphylactic shock at this time. There is only 1 system involved at this time. No airway compromise. Given dose of p.o. dexamethasone as well as Vistaril Patient's itching is improving, plan to discharge with Vistaril and triamcinolone cream for follow-up. General Adult HPI - General Chief complaint: Allergic Reaction Stated complaint: Bite by something on neck, lips numb Time Seen by Provider: 12/13/20 16:55 Mode of Arrival: Ambulatory Limitations: No Limitations Description of Symptoms (Recalled from ER Triage Doc. by RN): pt reports was stung or bit by an insect no long ago, states her lips are numb and her face is itching. Pt denies SOA, denies issues with her throat or tongue. - History of Present Illness HPI narrative: 40-year-old female presents with swelling to the right side of her neck after a bug bite. She has itching on that side as well. She has no difficulty breathing stridor shortness of breath. No wheezing. No nausea vomiting or abdominal pain. No dizziness. She has history of reactions however does have an allergy to Benadryl. - Related Data Home Medications Medication Instructions Recorded Confirmed Linaclotide [Linzess] 290 mg PO DAILY 06/10/17 05/25/20 Montelukast Sodium [Montelukast 10 mg PO HS 06/10/17 05/25/20 10mg Tab] medroxyprogesterone 10 mg tablet 10 mg PO MONTHLY 08/03/18 05/25/20 Previous Rx's Medication Instructions Recorded EPINEPHrine [Epipen 2-Yovanny] 0.3 mg IM NEEDED PRN 1 Days #1 12/15/19 auto.injct Gabapentin [Neurontin 600mg 600 mg PO HS #30 tab 05/25/20 tablet] Benzonatate [Tessalon Perle
[2020-12-13 18:30] VITALS: BP 144/83; PULSE 64; RESP 18; O2SAT 99
[2020-12-13 19:09] VITALS: BP 132/71; PULSE 65; RESP 18; TEMP 36.7; O2SAT 98
== END 2020-12-13 19:08 | disposition home or self-care (01) ==
PROVIDERS: Emergency Provider Emergency Medicine; PCP Family Medicine
DX: S10.96XA Insect bite of unspecified part of neck, initial encounter (principal); T63.481A Toxic effect of venom of other arthropod, accidental (unintentional), initial encounter; R20.0 Anesthesia of skin
CPT/HCPCS: 99281

== ENCOUNTER → 2021-05-15 10:47 | Outpatient (POV) | payer OTHER, SELFPAY ==
[2021-05-15 11:31] VITALS: BP 148/101; PULSE 104; RESP 18; O2SAT 99; BMI 30.9
--- NOTE | 2021-05-15 11:42 | HMH.PAINSOAP ---
[facility] Pain Management SOAP Note Subjective:: Patient is a 40-year-old white female who presents today for follow-up. She was last seen in the clinic in August 24, 2020. At that time she was seen by Dominique Avitia APRN. She was with complaints that medications were not giving her much relief of continued neck pain as well as bilateral hip pain. Today, she reports to be having worsening neck pain with bilateral hand numbness upon awakening. She has bilateral hip pain as well. The patient has had injective therapy which gave her some relief, but patient says that she felt too much pain during the injection . She does not want to proceed with further injective therapy. She has tried Tylenol, ibuprofen, diclofenac, gabapentin, pregabalin, tizanidine, Flexeril, methocarbamol. Due to severe reactions with medications, she did undergo genetic testing to determine medications that would be appropriate for pain management. The results were sent to her primary care provider. Patient says that the PCP office informed her that they would not reviewed the testing results with her, and she would need to consult with our clinic to discuss the medications that were appropriate for her to take. She was also advised that we would need to go over all medications regarding genetic testing, including medications prescribed by Dr. Buckley's office. Today, the patient says that she is having worsening low back pain with radiation into left buttock. She also reports to have restless leg syndrome. She is having severe muscle spasms. She recently has been taking Flexeril, but does say that the medication is keeping her from sleeping. She has been prescribed gabapentin by Dominique Avitia APRN for which she does take at night. She also takes diclofenac twice daily. Unfortunately tizanidine is not the patient's list of medications that she has been advised not to take. She has not tolerated Flexeril. She would like to try different muscle relaxant. Patient is asked to review all medications listed on her genetic testing results today. Review of Systems General: No recent weight changes, no fever, no sleep disturbances Respiratory: No cough, no shortness of air, no recurring pulmonary infections Cardiovascular/peripheral vascular: No chest pain, no palpitations, no edema, no shortness of breath Gastrointestinal: No new onset incontinence, normal bowel movements reported Genitourinary: No new onset incontinence Musculoskeletal: Neck pain with radiation into bilateral upper extremities with numbness and tingling, low back pain with radiation into bilateral hips Psychiatric: [Normal mood/affect] Neurological: [Denies weakness in extremities], [denies balance issues] Objective:: Physical exam General: Alert and oriented x3, no acute distress, pleasant and cooperative Lungs: Respirations even and unlabored, symmetrical chest expansion Eyes: PERRL Musculoskeletal: Flexion and extension of cervical and lumbar [spine] somewhat guarded secondary to pain, [antalgic gait noted] Neurological: Speech clear, no gross sensory deficit Assessment:: Degenerative disc disease cervical spine cervical radiculopathy symptoms, degenerative disc disease lumbar spine with lumbar radiculopathy symptoms Plan:: Patient and I had a very long discussion today. More than 35 minutes was spent with the patient regarding her genetic testing results. All medications were reviewed with the patient today. She does not want to proceed with Flexeril. We will order the patient Skelaxin 800 mg 1 tablet p.o. daily as needed muscle spasms. She has tried methocarbamol with side effects along with Flexeril with inability to sleep. Tizanidine is on her list of medications to use caution with taking. Skelaxin seems to be the only medication she has not tried at this point. We will order the medication for the patient. She does need gabapentin ordered. Gabapentin 300 mg p.o. at bedtime.
== END ==
PROVIDERS: Visit Provider Clinical Nurse Specialist Family Health
DX: M50.10 Cervical disc disorder with radiculopathy, unspecified cervical region (principal); M51.16 Intervertebral disc disorders with radiculopathy, lumbar region
CPT/HCPCS: 99212; G0463

== ENCOUNTER → 2021-05-23 14:24 | Outpatient (CLI) | payer OTHER, SELFPAY ==
--- NOTE | 2021-05-23 14:27 | MM_ITS ---
PROCEDURE INFORMATION: Exam: MG Bilateral Screening 3D Mammography Exam date and time: 05/23/2021 2:27 PM Age: 40 years old Clinical indication: Encounter for screening mammogram for malignant neoplasm of breast . Family history of breast carcinoma. TECHNIQUE: Imaging protocol: Bilateral Screening tomosynthesis and 2D mammography including computer-aided detection (CAD) when performed. COMPARISON: 1. MG MM DIG SCREENING MAMM BI W/CAD 05/19/2020 10:52 AM 2. MG MM DIG SCREENING MAMM BI W/CAD 04/15/2019 4:09 PM 3. MG DMDXUR DIG MAMM-DX UNI-RT 04/27/2013 12:58 PM FINDINGS: MAMMOGRAPHY: Breast composition: The breasts are heterogeneously dense, which may obscure small masses. Mass: No suspicious masses. Architectural distortion: No suspicious distortion. Calcifications: No suspicious calcifications. Asymmetric density: None. Skin thickening: None. Axillary adenopathy: None. IMPRESSION: 1. No mammographic evidence of malignancy. Annual screening is recommended unless otherwise clinically indicated. 2. Given the reported risk factors coupled with the patient's breast density, a breast cancer risk assessment may prove useful for further evaluation. ASSESSMENT: BI-RADS Category 1: Negative
== END ==
PROVIDERS: PCP Family Medicine; Visit Provider Obstetrics & Gynecology Gynecology
DX: Z12.31 Encounter for screening mammogram for malignant neoplasm of breast (principal)
CPT/HCPCS: 77063; 77067

== ENCOUNTER → 2021-06-29 11:54 | Outpatient (CLI) | payer OTHER, SELFPAY ==
[2021-06-29 12:20] VITALS: BP 137/99; PULSE 77; RESP 20; TEMP 36.9; O2SAT 97; BMI 30.9
--- NOTE | 2021-06-29 12:31 | HMH.PAINSOAP ---
[facility] Pain Management SOAP Note Subjective:: This patient is a pleasant 41-year-old white female who we are treating for low back pain with lumbar radicular symptoms as well as neck pain with cervical radicular symptoms. She is currently on Robaxin and her milligrams, diclofenac 75 mg twice a day and gabapentin 300 mg at night. She normally does take 600 mg at night. We will increase this. She is also only been taking her diclofenac once a day. I did tell her to increase this to twice a day dosing. She is only taken the Robaxin as needed. She is having some numbness in her arms. She also has dropping things. We will order cervical MRI to discern any change in pathology of her cervical spine. Pain score is a 5 out of 10 today. Objective:: Alert and oriented x3 no acute distress. Decreased range of motion. Motor strength of the upper extremities is 5 out of 5. There is no gross sensory deficit. Does have an antalgic gait. Assessment:: Degenerative disc disease of the cervical spine with cervical radiculopathy symptoms. Degenerative disease of lumbar spine with lumbar radiculopathy symptoms. Plan:: We will order a cervical MRI to discern any change in pathology of her cervical spine. She is to continue with her diclofenac 75 mg twice a day and we will increase her gabapentin to 600 mg at night. She is also to continue with her Robaxin 800 mg as needed. [facility] History Medical History: Reports:: Hypertension Denies:: Cancer, Diabetes Mellitus Type 1, Diabetes Mellitus Type 2, Internal Pacemaker, Lung Disease, MRSA, Seizures *Have you ever received a pneumonia vaccine?: No *Have you received a flu vaccine this season?: No Other Medical History: Reports: Other Laterality Cases: Right: Breast Biopsy, Bilateral: Tonsillectomy, Other Other Surgeries: Yes: Colonoscopy, Tubal Ligation, Other. No: Pacemaker Amputation: No Fractures: No - *Social History Smoking Status: Current every day smoker Tobacco Type: cigarettes # Packs/Day (cigarettes): 1 Alcohol Intake: never Substance Use Type: denies use *Occupational Status:: employed Household Members: spouse *Travel in the last 8 weeks: None Family Hx:: Hyperlipidemia, Hypertension
== END ==
PROVIDERS: PCP Family Medicine; Visit Provider Anesthesiology
DX: M50.10 Cervical disc disorder with radiculopathy, unspecified cervical region (principal); M51.16 Intervertebral disc disorders with radiculopathy, lumbar region
CPT/HCPCS: 99212; G0463

== ENCOUNTER → 2021-07-11 12:56 | Outpatient (CLI) | payer OTHER, SELFPAY ==
--- NOTE | 2021-07-11 12:58 | MR_ITS ---
FINAL REPORT CLINICAL HISTORY: NECK PAIN bilateral upper extremity numbness COMPARISON: 12/22/2018 FINDINGS: Multiplanar MR imaging of the cervical spine was performed without contrast. On the sagittal T2-weighted images, disc degeneration is seen at throughout the cervical spine. There is no evidence of fracture. There is straightening of the normal cervical lordosis which may be due to patient positioning or muscle spasm. The cervical spinal cord has an unremarkable appearance without evidence of mass, edema or syrinx. The cervicomedullary junction is normal. C2-3: There is no significant canal stenosis or neural foraminal narrowing. C3-4: An annular bulge is present. There is no significant canal stenosis or neural foraminal narrowing. C4-5: An annular bulge is present. There is no significant canal stenosis or neural foraminal narrowing. C5-6: An annular bulge is present. There are uncovertebral osteophytes. There are bilateral foraminal disc protrusions. There is mild bilateral neuroforaminal narrowing and mild central canal stenosis with an AP diameter of the thecal sac of 9 mm. This appears worse than on the prior exam. C6-7: An annular bulge is present. There is a left posterior central disc protrusion with possible left C7 nerve root impingement. There is mild left neuroforaminal narrowing. Findings appear worse as compared to the prior exam. C7-T1: There is no significant canal stenosis or neural foraminal narrowing. IMPRESSION: Multilevel degenerative disc disease which has progressed as compared to the prior exam. Bilateral foraminal disc protrusions at C5-6. Straightening of the normal cervical lordosis which may be due to muscle spasm or patient positioning. Reviewed, Interpreted and Dictated by Wilbur Jackson III, MD Transcribed by Joycelyn Quinonez Authenticated by Wilbur Jackson III, MD on 07/11/2021 03:03:44 PM [facility]
== END ==
PROVIDERS: PCP Family Medicine; Visit Provider Anesthesiology
DX: M54.2 Cervicalgia (principal)
CPT/HCPCS: 72141; 76376

== ENCOUNTER → 2021-07-19 11:13 | Outpatient (POV) | payer OTHER, SELFPAY ==
--- NOTE | 2021-07-19 13:18 | HMH.PAINSOAP ---
[facility] Pain Management SOAP Note Subjective:: Patient is a pleasant 41-year-old female who presents today for follow-up. Patient is currently being treated for degenerative disc disease of the cervical and lumbar spine with cervical and lumbar radiculopathy symptoms. She is currently being managed with diclofenac 75 mg twice a day, gabapentin 600mg at night, and metaxalone. Patient denies any side effects from these medication. Patient says that she still continues to have neck pain and continues to have bilateral upper buttock pain. Denies any loss of bowel bladder function. She denies any change in location and type of pain. Today patient is following up after her cervical MRI to see if there is any change in her cervical pathology. Cervical MRI on July 11, 2021 shows multilevel degenerative disc changes, bilateral foraminal disc protrusion at C5-C6. At C6-C7, there is a left posterior central disc protrusion with possible left C7 nerve root impingement. She rates her pain today at 7 out of 10. [facility] #[id number] with an active morphine equivalent of 0. Review of Systems: General: No recent weight changes, no fever, no sleep disturbances Respiratory: No cough, no shortness of air, no recurring pulmonary infections Cardiovascular/peripheral vascular: No chest pain, no palpitations, no edema, no shortness of breath Gastrointestinal: No new onset incontinence, normal bowel movements reported Genitourinary: No new onset incontinence Musculoskeletal: Neck pain, low back pain Psychiatric: [Normal mood/affect] Neurological: [Denies weakness in extremities], [denies balance issues] Objective:: General: Alert and oriented x3, no acute distress, pleasant and cooperative, [on room air] Lungs: Respirations even and unlabored, symmetrical chest expansion Eyes: PERRL Musculoskeletal: Flexion and extension of cervical and lumbar [spine] somewhat guarded secondary to pain; Bilateral SI are negative for YENNY, Michael's, Melrose's, Gaenslen's, compression, and distraction. Neurological: Speech clear, no gross sensory deficit Assessment:: Degenerative disc disease of the cervical and lumbar spine with cervical and lumbar radiculopathy symptoms Plan:: We will continue the patient's gabapentin 600 mg daily. Patient is to continue taking diclofenac 75 mg twice a day metaxalone 3 times a day. Patient needs to have relief from these medications. Patient states that she continues to have low back pain that radiates to bilateral lower extremities. At the moment, she is not interested in doing any injective therapy. I do believe that she will get relief from injective therapy. Follow-up in 1 month Patient has been instructed to contact the clinic with any concerns before the next appointment. Dr. Quinones has reviewed this note and agrees with this plan of care. This note was dictated using voice recognition software and make contain errors or omissions. [facility] History Medical History: Reports:: Hypertension Denies:: Cancer, Diabetes Mellitus Type 1, Diabetes Mellitus Type 2, Internal Pacemaker, Lung Disease, MRSA, Seizures *Have you ever received a pneumonia vaccine?: No *Have you received a flu vaccine this season?: No Other Medical History: Reports: Other Laterality Cases: Right: Breast Biopsy, Bilateral: Tonsillectomy, Other Other Surgeries: Yes: Colonoscopy, Tubal Ligation, Other. No: Pacemaker Amputation: No Fractures: No - *Social History Smoking Status: Current every day smoker Tobacco Type: cigarettes # Packs/Day (cigarettes): 1 Alcohol Intake: never Substance Use Type: denies use *Occupational Status:: employed Household Members: spouse *Travel in the last 8 weeks: Inside the [facility] Family Hx:: Hyperlipidemia, Hypertension
== END ==
PROVIDERS: Visit Provider Student in an Organized Health Care Education/Training Program
DX: M50.10 Cervical disc disorder with radiculopathy, unspecified cervical region (principal); M51.16 Intervertebral disc disorders with radiculopathy, lumbar region
CPT/HCPCS: 99212; G0463

== ENCOUNTER → 2021-08-16 11:20 | Outpatient (POV) | payer OTHER, SELFPAY ==
[2021-08-16 11:34] VITALS: BP 146/107; PULSE 82; RESP 18; TEMP 36.3; O2SAT 96; BMI 30.2
--- NOTE | 2021-08-16 20:54 | HMH.PAINSOAP ---
[facility] Pain Management SOAP Note Subjective:: Patient is a pleasant 41-year-old female who is here for medication refill and follow-up. Patient is currently being treated for [degenerative disc disease cervical and lumbar spine with cervical and lumbar radiculopathy symptoms]. Patient is being managed with [gabapentin 600 mg at night, diclofenac 75 mg twice a day, metaxalone]. Patient denies any side effects from the medications. Patient denies any changes to the location and type of pain. Patient states that this is adequately helping manage their pain. Rates pain as [5 out of 10]. [facility] number [[id number]] with an active morphine equivalent [0]. Drug screens have been reviewed and appropriate. Review of Systems: General: No recent weight changes, no fever, no sleep disturbances Respiratory: No cough, no shortness of air, no recurring pulmonary infections Cardiovascular/peripheral vascular: No chest pain, no palpitations, no edema, no shortness of breath Gastrointestinal: No new onset incontinence, normal bowel movements reported Genitourinary: No new onset incontinence Musculoskeletal: Neck pain, low back pain Psychiatric: [Normal mood/affect] Neurological: [Denies weakness in extremities], [denies balance issues] Objective:: Physical Exam: General: Alert and oriented x3, no acute distress, pleasant and cooperative, [on room air] Lungs: Respirations even and unlabored, symmetrical chest expansion Eyes: PERRL Musculoskeletal: Flexion and extension of [cervical] [spine] somewhat guarded secondary to pain, [antalgic gait noted] Neurological: Speech clear, no gross sensory deficit Assessment:: Degenerative disc disease of the cervical and lumbar spine with cervical and lumbar radiculopathy symptoms Plan:: We will continue the patient's gabapentin 600 mg daily, diclofenac 75 mg twice a day, and metaxalone 3 times a day. We will provide the patient with 1 month worth of refill. Even with these medications, patient continues to have pain in her neck and low back. In the past, we have tried medial branch blocks at L3-L4, L4-L5 and L5-S1 with minimal relief. We also have tried a lumbar epidural steroid injection with temporary relief. Her last Lumbar MRI was in 2019. She had multilevel DDD and facet arthropathy. Patient wants to get an updated imaging since she continues to have low back pain with minimal relief from interventions. We will order an updated Lumbar MRI. Patient is very apprehensive in trying injective therapy again because she had a painful experience last time. Additionally, I think the patient will benefit from cognitive behavioral therapy. We will discuss this in her follow up. Follow-up after the MRI. In the interim, I will start the patient on a compounding cream. Patient is to continue going to physical therapy. She will continue to use lidocaine patches as needed. [facility] History Medical History: Reports:: Hypertension Denies:: Cancer, Diabetes Mellitus Type 1, Diabetes Mellitus Type 2, Internal Pacemaker, Lung Disease, MRSA, Seizures *Have you ever received a pneumonia vaccine?: No *Have you received a flu vaccine this season?: No Other Medical History: Reports: Other Laterality Cases: Right: Breast Biopsy, Bilateral: Tonsillectomy, Other Other Surgeries: Yes: Colonoscopy, Tubal Ligation, Other. No: Pacemaker Amputation: No Fractures: No - *Social History Smoking Status: Current every day smoker Tobacco Type: cigarettes # Packs/Day (cigarettes): 1 Alcohol Intake: never Substance Use Type: denies use *Occupational Status:: employed Household Members: spouse *Travel in the last 8 weeks: None Family Hx:: Hyperlipidemia, Hypertension
== END ==
PROVIDERS: Visit Provider Student in an Organized Health Care Education/Training Program
DX: M50.10 Cervical disc disorder with radiculopathy, unspecified cervical region (principal); M51.16 Intervertebral disc disorders with radiculopathy, lumbar region
CPT/HCPCS: 99212; G0463

== ENCOUNTER → 2021-09-27 12:54 | Outpatient (CLI) | payer OTHER, SELFPAY ==
[2021-09-27 15:04] LABS: Alanine Aminotransferase 19 U/L (12-78); Albumin Level 4.2 g/dl (3.5-5.0); Albumin/Globulin Ratio 1.6 (1.1-1.8); Alkaline Phosphatase 98 U/L (38-126); Anion Gap 13.8 mEq/L (5-15); Aspartate Amino Transferase 23 U/L (14-36); Bilirubin,Total 0.3 mg/dl (0.2-1.3); Blood Urea Nitrogen 8 mg/dl (7-17); Calcium 9.5 mg/dl (8.4-10.2); Carbon Dioxide 26 mmol/L (22.0-30.0); Chloride 103 mmol/L (98-107); Chol/HDL Ratio 10.5 (1-3.5); Cholesterol 199 mg/dl (140-200); Estimated Glomerular Filt Rate 78 ml/min (>60); GFR (African American) 95 ML/MIN (>60); Globulin 2.7 g/dL (1.3-3.2); Glucose 109 mg/dl (74-100); HDL Cholesterol 19 mg/dl (40-60); Potassium 3.8 mmoL/L (3.5-5.1); Sodium 139 mmol/L (136-145); Total Protein,Serum 6.9 g/dl (6.3-8.2)
[2021-09-27 15:06] LABS: Triglycerides 455 mg/dl (30-150)
== END ==
PROVIDERS: PCP Family Medicine; Visit Provider Family Medicine
DX: E78.5 Hyperlipidemia, unspecified (principal); R73.9 Hyperglycemia, unspecified
CPT/HCPCS: 36415; 80053; 80061; 83036

== ENCOUNTER → 2021-10-05 10:11 | Outpatient (CLI) | payer OTHER, SELFPAY ==
--- NOTE | 2021-10-05 10:13 | MR_ITS ---
FINAL REPORT CLINICAL HISTORY: BACK PAIN WITH INTERMITTENT RIGHT LEG PAIN, NUMBNESS, AND TINGLING WITH HIP PAIN. SYMPTOMS XYEARS. NO RECENT INJURY OR TRAUMA. FINDINGS: Multiplanar MR imaging of the lumbar spine was performed without contrast. On the sagittal T2-weighted images, disc degeneration is seen at multiple levels. There are endplate changes at L5-S1. The vertebral alignment is normal. There is no evidence of fracture. A hemangioma is noted in L1. The conus has an unremarkable appearance. No significant canal stenosis is identified. T11-12: There are anterior osteophytes. There is no significant canal stenosis or neural foraminal narrowing. L1-2: An annular bulge is present. There is no significant canal stenosis or neural foraminal narrowing. L2-3: An annular bulge is present. There is no significant canal stenosis or neural foraminal narrowing. L3-4: An annular bulge is present. There is no significant canal stenosis or neural foraminal narrowing. L4-5: An annular bulge is present. There is a small central disc protrusion which is visually stable. There is no significant canal stenosis or neural foraminal narrowing. L5-S1: There is an annular disc bulge with facet arthropathy and vertebral osteophytes. There is a small central disc protrusion. There is no significant canal stenosis. There is moderate bilateral neural foraminal narrowing. IMPRESSION: Stable, multilevel degenerative disc disease. Small central disc protrusions at L4-5 and L5-S1. Reviewed, Interpreted and Dictated by Wilbur Jackson III, MD Transcribed by Joycelyn Quinonez Authenticated and [facility]
== END ==
PROVIDERS: PCP Family Medicine; Visit Provider Student in an Organized Health Care Education/Training Program
DX: M54.50 Low back pain, unspecified (principal)
CPT/HCPCS: 72148; 76376

== ENCOUNTER → 2021-11-26 09:15 | Outpatient (POV) | payer OTHER, SELFPAY ==
[2021-11-26 09:44] VITALS: BP 147/97; PULSE 97; RESP 20; O2SAT 97; BMI 28.3
--- NOTE | 2021-11-26 11:15 | HMH.PAINSOAP ---
[facility] Pain Management SOAP Note Subjective:: Patient is a pleasant 41-year-old female who presents today for follow-up. Patient is currently being treated for degenerative disc disease of the cervical and lumbar spine with cervical and lumbar radiculopathy symptoms. Patient is currently being managed with gabapentin 600 mg at night, diclofenac 75 mg twice a day, and Skelaxin. Denies any side effects from this medication. Denies any changes location of the pain. Patient feels like she is starting to get more tolerance to gabapentin. She has been having restless leg type of spells at night. She wants to know if we can increase her gabapentin or if she can take any other medications with it. She says that she has stopped taking her Skelaxin because it was not helping her pain. Today, most of her pain is around her bilateral upper hips. She has had medial branch block injections, lumbar epidural steroid injection, sacroiliac injections but all provided minimal relief. She is a bit apprehensive in trying any injections at this time. Rates her pain today as 6 out of 10. Review of Systems: General: No recent weight changes, no fever, no sleep disturbances Respiratory: No cough, no shortness of air, no recurring pulmonary infections Cardiovascular/peripheral vascular: No chest pain, no palpitations, no edema, no shortness of breath Gastrointestinal: No new onset incontinence, normal bowel movements reported Genitourinary: No new onset incontinence Musculoskeletal: Low back pain, bilateral hip pain Psychiatric: [Normal mood/affect] Neurological: [Denies weakness in extremities], [denies balance issues] Objective:: Physical Exam: General: Alert and oriented x3, no acute distress, pleasant and cooperative Lungs: Respirations even and unlabored, symmetrical chest expansion Eyes: PERRL Musculoskeletal: Flexion and extension of lumbar, cervical [spine] somewhat guarded secondary to pain, [antalgic gait noted]; tender to palpation around the bilateral upper buttock Neurological: Speech clear, no gross sensory deficit Assessment:: Degenerative disc disease of the cervical and lumbar spine with cervical and lumbar radiculopathy symptoms, facet arthropathy, lumbar spondylosis, sacroiliitis, bilateral peripheral nerve entrapment Plan:: I will increase her gabapentin to 300 mg 3 times a day. She can take 2 tablets at night and 1 in the morning if she still having pain in the morning. She still has refills on her diclofenac and Skelaxin. I will start the patient on a compounding cream as well so that she can apply for her neck and low back pain. Patient also had a recent lumbar MRI per her request. I discussed his MRI in detail with the patient. She does have multi level degenerative disc changes and a small central disc protrusion at L4-L5 and L5-S1 Since patient continues to have pain around her bilateral upper buttock and we have tried SI injections and medial branch block, we will schedule the patient for a bilateral superior cluneal nerve block. Patient has been instructed to contact the clinic with any concerns before the next appointment. Dr. Quinones has reviewed this note and agrees with this plan of care. This note was dictated using voice recognition software and make contain errors or omissions. [facility] History Medical History: Reports:: Hypertension Denies:: Cancer, Diabetes Mellitus Type 1, Diabetes Mellitus Type 2, Internal Pacemaker, Lung Disease, MRSA, Seizures *Have you ever received a pneumonia vaccine?: No *Have you received a flu vaccine this season?: Yes Other Medical History: Reports: Other Laterality Cases: Right: Breast Biopsy, Bilateral: Tonsillectomy, Other Other Surgeries: Yes: Colonoscopy, Tubal Ligation, Other. No: Pacemaker Amputation: No Fractures: No - *Social History Smoking Status: Current every day smoker Tobacco Type: cigarettes # Packs/Day (cigarettes): 1 Alcohol Intake: never Substance Use Type: denies use *Occupati
== END ==
PROVIDERS: PCP Family Medicine; Visit Provider Student in an Organized Health Care Education/Training Program
DX: M51.16 Intervertebral disc disorders with radiculopathy, lumbar region (principal); M50.10 Cervical disc disorder with radiculopathy, unspecified cervical region; M46.1 Sacroiliitis, not elsewhere classified; G58.8 Other specified mononeuropathies
CPT/HCPCS: 99212; G0463

== ENCOUNTER → 2022-01-22 07:57 | Outpatient (CLI) | payer OTHER, SELFPAY ==
[2022-01-22 09:01] LABS: Chloride 100 mmol/L (98-107)
[2022-01-22 09:02] LABS: Potassium 3.9 mmoL/L (3.5-5.1); Sodium 139 mmol/L (136-145)
[2022-01-22 09:04] LABS: Alanine Aminotransferase 20 U/L (12-78); Anion Gap 11.9 mEq/L (5-15); Aspartate Amino Transferase 23 U/L (14-36); Blood Urea Nitrogen 16 mg/dl (7-17); Carbon Dioxide 31 mmol/L (22.0-30.0); Estimated Glomerular Filt Rate 68 ml/min (>60); GFR (African American) 83 ML/MIN (>60)
[2022-01-22 09:05] LABS: Albumin Level 4.5 g/dl (3.5-5.0); Albumin/Globulin Ratio 1.8 (1.1-1.8); Alkaline Phosphatase 77 U/L (38-126); Bilirubin,Total 0.2 mg/dl (0.2-1.3); Calcium 9.5 mg/dl (8.4-10.2); Chol/HDL Ratio 7.1 (1-3.5); Cholesterol 199 mg/dl (140-200); Globulin 2.5 g/dL (1.3-3.2); Glucose 91 mg/dl (74-100); HDL Cholesterol 28 mg/dl (40-60); Triglycerides 306 mg/dl (30-150); VLDL Cholesterol 61 mg/dL (0-40)
[2022-01-22 09:16] LABS: Direct LDL Cholesterol 119.15 mg/dL (100-129)
== END ==
PROVIDERS: PCP Nurse Practitioner Family; Visit Provider Family Medicine
DX: E78.5 Hyperlipidemia, unspecified (principal)
CPT/HCPCS: 36415; 80053; 80061

== ENCOUNTER → 2022-01-25 11:21 | Outpatient (CLI) | payer OTHER, SELFPAY | PROVIDERS: PCP Family Medicine; Visit Provider Internal Medicine Cardiovascular Disease | DX: R06.09 Other forms of dyspnea (principal); R07.89 Other chest pain; R42 Dizziness and giddiness; R55 Syncope and collapse; F17.200 Nicotine dependence, unspecified, uncomplicated; Z82.49 Family history of ischemic heart disease and other diseases of the circulatory system | CPT/HCPCS: 93270 ==

== ENCOUNTER → 2022-01-31 12:42 | Outpatient (CLI) | payer OTHER, SELFPAY ==
--- NOTE | 2022-01-31 12:45 | CA_ITS ---
APPROVED REPORT EXAM: Comprehensive 2D, Doppler, and color-flow Echocardiogram Edge Bander Operator: Meera lFoyd RDCS Ht: 5 ft 4 in Wt: 168lbs BSA: 1.82 BP: 152/102 mmHg Indications: SOA,CP 2D Dimensions LVOT 1.97 cm (M/F) 1.5-2.5 M-Mode Dimensions RVDd 2.41 cm (0.9-2.6) LA Diam 2.86 cm (1.9-4.0) LVDd 5.15 cm (3.5-5.7) Ao Diam 2.99 cm (2.0-3.7) LVDs 3.58 cm (3.5-5.7) IVSd 0.84 cm (0.6-1.1) PWd 0.77 cm (0.6-1.1) EF (Teich) 57.60% FS 30.50% EDV (Teich) 126.60 mL ESV (Teich) 53.70 mL LV Diastology E Decel Time 207.00 (160-240 msec) E/A Ratio 1.4 MED E' 10.20 (< 7 cm/sec) E'/MED E' Ratio 9.43 (>14) LAT E' 14.50 (<10 cm/sec) E/LAT E' Ratio 6.63 (>14) Mitral Valve MV E Max Eh. 96.00 (40-130 cm/s) MV A Velocity 67.00 (40-130 cm/s) E/A Ratio 1.44 MV Decel. Time 207.00 (160-240 ms) MV PHT 61.00 ms Left Ventricle Left atrium normal size, left ventricle is normal size, there is no concentric left ventricular hypertrophy, estimated ejection fraction 55% with no regional wall motion abnormality, diastolic parameters are within normal range. Right Ventricle Right atrium and right ventricle are normal size and contractility. Aortic Valve Aortic valve is grossly normal there is no aortic stenosis aortic insufficiency. Mitral Valve Mitral valve grossly normal, there is trace mitral regurgitation. Tricuspid Valve Tricuspid grossly normal, there is trace tricuspid regurgitation, tricuspid regurgitation jet velocity is inadequate for calculation of the right ventricular systolic pressure. Pulmonic Valve Pulmonic valve is poorly visualized. Great Vessels Aortic root is normal size. Inferior vena cava is normal 7 normal inspiratory collapse. Pericardium No significant pericardial effusion noted. Conclusion 1. Normal left ventricular size preserved left ventricular systolic function, estimated ejection fraction 55% with no regional wall motion abnormality, diastolic parameters are within normal range. 2. Trace mitral and tricuspid regurgitation. 3. No significant pericardial effusion. 4. Inferior vena cava normal size with normal inspiratory collapse. Electronically signed by : Selwyn De La Torre MD 02/01/2022 14:46:21
== END ==
PROVIDERS: PCP Family Medicine; Visit Provider Internal Medicine Cardiovascular Disease
DX: R06.09 Other forms of dyspnea (principal); R07.89 Other chest pain; R42 Dizziness and giddiness; R55 Syncope and collapse; F17.200 Nicotine dependence, unspecified, uncomplicated; Z82.49 Family history of ischemic heart disease and other diseases of the circulatory system
CPT/HCPCS: 93306

== ENCOUNTER → 2022-02-21 08:26 | Outpatient (CLI) | payer OTHER, SELFPAY ==
--- NOTE | 2022-02-21 08:34 | MR_ITS ---
FINAL REPORT CLINICAL HISTORY: NECK PAIN, headaches, bilateral upper extremity tingling/numbness COMPARISON: July 11, 2021 FINDINGS: Multiplanar MR imaging of the cervical spine was performed without contrast. On the sagittal T2-weighted images, disc degeneration is seen at multiple levels. There is straightening of the normal cervical curvature which could be due to positioning or muscle spasm. There is no evidence of fracture. The vertebral alignment is normal. The cervical spinal cord has an unremarkable appearance without evidence of mass, edema or syrinx. The cervicomedullary junction is normal. C2-3: There is no significant canal stenosis or neural foraminal narrowing. C3-4: An annular disc bulge is present. There is a new small central disc protrusion which mildly indents the thecal sac. C4-5: An annular disc bulge is present. There is no significant canal stenosis or neural foraminal narrowing. C5-6: An annular disc bulge is present. Bilateral uncovertebral osteophytes are present. There are bilateral foraminal disc protrusions. There is mild bilateral neural foraminal narrowing. There is mild central canal stenosis with an AP diameter of the thecal sac of 9 mm. C6-7: A disc osteophyte complex is present. There is a left foraminal disc protrusion. There is moderate left neural foraminal narrowing. There is a left C7 nerve root impingement, stable. C7-T1: There is no significant canal stenosis or neural foraminal narrowing. IMPRESSION: Multilevel degenerative disc disease and spondylosis with neural foraminal narrowing as above. New small central disc protrusion which mildly indents the thecal sac at C3-4. Straightening of the normal cervical curvature which could be due to positioning or muscle spasm. Reviewed, Interpreted and Dictated by Wilbur Jackson III, MD Transcribed by Emmie Perez Authenticated and [facility]
== END ==
PROVIDERS: PCP Family Medicine; Visit Provider Physician Assistant
DX: M54.2 Cervicalgia (principal)
CPT/HCPCS: 72141; 76376

== ENCOUNTER → 2022-03-19 14:57 | Outpatient (CLI) | payer OTHER, SELFPAY ==
[2022-03-19 15:53] LABS: Basophils # 0.2 K/mm3 (0-0.2); Basophils % 1.1 % (0.1-2.0); Eosinophils # 0.2 K/mm3 (0.0-0.4); Eosinophils % 1.2 % (0.1-12.0); Hemoglobin 14.4 g/dL (12.2-16.2); Lymphocytes # 4.3 K/mm3 (0.7-4.5); Lymphocytes % 26.7 % (10-50); Mean Corpuscular HGB Conc 33.4 g/dL (31.8-35.4); Mean Corpuscular Volume 92.8 fl (81-99); Mean Platelet Volume 9.2 fl (7.4-10.4); Monocytes # 0.8 K/mm3 (0.1-1.0); Monocytes % 4.9 % (1.7-9.3); Neutrophils # 10.6 K/mm3 (1.8-7.8); Platelet Count 337 K/mm3 (142-424); Red Blood Count 4.63 M/mm3 (4.20-5.40); Red Cell Distribution Width 13.6 % (11.5-17.5); White Blood Count 16.1 K/mm3 (4.8-10.8)
[2022-03-19 16:01] LABS: MANUAL DIFFERENTIAL MANUAL DIFFERENTIAL (MANUAL DIFF)
[2022-03-19 16:25] LABS: Strep Scrn Group A (Rapid) Negative (Negative)
[2022-03-19 18:32] LABS: Eosinophils % 1 % (0-3); Lymphocytes % 31 % (10-50); Monocytes % 7 % (2-9); Neutrophils % 59 % (42-76); Total Cells Counted 100
[2022-03-19 18:33] LABS: Platelet Estimate Normal; RBC Morphology Normal
== END ==
PROVIDERS: PCP Family Medicine; Visit Provider Family Medicine
DX: Z20.822 Contact with and (suspected) exposure to COVID-19 (principal)
CPT/HCPCS: 36415; 85007; 85025; 87275; 87276; 87430; C9803; U0003; U0005

== ENCOUNTER → 2022-04-08 12:55 | Outpatient (POV) | payer OTHER, SELFPAY ==
[2022-04-08 13:10] VITALS: BP 132/73; PULSE 82; RESP 18; O2SAT 98; BMI 28.6
--- NOTE | 2022-04-08 14:11 | EXP.PAIN.SOA ---
[facility] Pain Management SOAP Note Subjective:: Patient is a pleasant 41-year-old female who presents today for follow-up. We are currently treating the patient for degenerative disc disease of cervical and lumbar spine with cervical and lumbar radiculopathy symptoms. Today she rates her pain a 6 out of 10. Patient states the pain is in her upper back and low back. Patient states around mid January she did have a random flareup of her pain symptoms and they have progressively worsened since. Patient states that she was having neck pain along with pain running down her right arm. Patient states this did include some numbness and tingling and dots in her vision. Patient also states that she frequently drops items randomly due to the numbness and tingling in her hands. Patient denies going to the ER for evaluation. Patient states she does see Dr. NARANJO who she has been to recently and states he added 3 new medications to her regimen. Patient has recently had a MRI of her cervical spine due to her worsening symptoms. Patient states that she previously saw Dr. Marquez in [place] as well as most recently Dr. Hamilton however she stated that she was declined by his office to be seen due to her continued smoking use. Patient states since then she has recently had a phone call from the office requesting her to come in to see the physicians camp assistant however the patient did not go to this appointment. Patient states that she has continued to take her gabapentin 600 mg at night along with diclofenac 75 mg twice a day. Patient states that she has tried muscle relaxers in the past however when she took Flexeril it caused hyperactivity and she was unable to sleep for over 24 hours. Patient states that she is prescribed trazodone from her primary care doctor and this does provide additional improvement at night. Patient has been prescribed compounding cream in the past however she did not notice significant improvement. Patient has also use lidocaine patches that did initially provide significant relief however it has not worked as well since. Patient was previously discussed for possible spinal cord stimulator trial however she is not interested in this option. Patient has had injections such as a medial branch block and lumbar epidural steroid that provided significant improvement of her symptoms. Patient is interested in injective therapy however these do cause significant pain during the procedure and is requesting additional numbing medication. Her Anton is [id number]. It is been reviewed and appropriate. Review of Systems: General: No recent weight changes, no fever, no sleep disturbances Respiratory: No cough, no shortness of air, no recurring pulmonary infections Cardiovascular/peripheral vascular: No chest pain, no palpitations, no edema, no shortness of breath Gastrointestinal: No new onset incontinence, normal bowel movements reported Genitourinary: No new onset incontinence Musculoskeletal: Low back pain, upper back pain, bilateral arm numbness/tingling Psychiatric: [Normal mood/affect] Neurological: [Denies weakness in extremities], [denies balance issues] Objective:: Physical Exam: General: Alert and oriented x3, no acute distress, pleasant and cooperative Lungs: Respirations even and unlabored, symmetrical chest expansion Eyes: PERRL Musculoskeletal: Flexion and extension of cervical, lumbar [spine] somewhat guarded secondary to pain, [antalgic gait noted] Neurological: Speech clear, no gross sensory deficit FINDINGS: Multiplanar MR imaging of the cervical spine was performed without contrast.? On the sagittal T2-weighted images, disc degeneration is seen at multiple levels. There is straightening of the normal cervical curvature which could be due to positioning or muscle spasm. ? There is no evidence of fracture. The vertebral alignment is normal. The cervical spinal cord has an unremarkable appearance without evidence of mass, edema or syrinx.? The cervico
== END | disposition home or self-care (01) ==
PROVIDERS: PCP Family Medicine; Visit Provider Nurse Practitioner Family
DX: M50.123 Cervical disc disorder at C6-C7 level with radiculopathy (principal); M51.16 Intervertebral disc disorders with radiculopathy, lumbar region; F17.200 Nicotine dependence, unspecified, uncomplicated
CPT/HCPCS: 99212; G0463

== ENCOUNTER → 2022-05-18 13:52 | Outpatient (CLI) | payer OTHER, SELFPAY ==
[2022-05-18 14:16] LABS: Adenovirus,PCR Not Detected (NotDetected); Bordetella Pertussis Not Detected (NotDetected); Chlamydophila Pneumoniae, PCR Not Detected (NotDetected); Coronavirus 19, PCR Not Detected (NotDetected); Coronavirus 229E Not Detected (NotDetected); Coronavirus NL63 Not Detected (NotDetected); Coronavirus OC43 Not Detected (NotDetected); Human Metapneumovirus Not Detected (NotDetected); Influenza A, PCR Not Detected (NotDetected); Influenza AH1, 2009 Not Detected (NotDetected); Influenza AH1, PCR Not Detected (NotDetected); Influenza AH3,PCR Not Detected (NotDetected); Influenza B, PCR Not Detected (NotDetected); Mycoplasma Pneumoniae, PCR Not Detected (NotDetected); Parainfluenza 1, PCR Not Detected (NotDetected); Parainfluenza 2, PCR Not Detected (NotDetected); Parainfluenza 3, PCR Not Detected (NotDetected); Parainfluenza 4, PCR Not Detected (NotDetected); Respiratory Syncytial Virus Not Detected (NotDetected); Rhinovirus/Enterovirus Not Detected (NotDetected)
[2022-05-18 14:22] LABS: Basophils # 0.2 K/mm3 (0-0.2); Basophils % 0.8 % (0.1-2.0); Eosinophils # 0.3 K/mm3 (0.0-0.4); Eosinophils % 1.7 % (0.1-12.0); Hematocrit 43.2 % (37.0-47.0); Hemoglobin 14.7 g/dL (12.2-16.2); Lymphocytes % 15.8 % (10-50); Mean Corpuscular Hemoglobin 31.3 pg (27.0-31.2); Mean Platelet Volume 8.8 fl (7.4-10.4); Monocytes # 0.7 K/mm3 (0.1-1.0); Monocytes % 3.9 % (1.7-9.3); Neutrophils # 14.6 K/mm3 (1.8-7.8); Neutrophils % 77.9 % (37.0-80.0); Platelet Count 329 K/mm3 (142-424); Red Cell Distribution Width 13.1 % (11.5-17.5); White Blood Count 18.7 K/mm3 (4.8-10.8)
[2022-05-18 14:26] LABS: MANUAL DIFFERENTIAL MANUAL DIFFERENTIAL (MANUAL DIFF)
[2022-05-18 14:45] LABS: Eosinophils % 1 % (0-3); Lymphocytes % 18 % (10-50); Monocytes % 5 % (2-9); Neutrophils % 76 % (42-76); Platelet Estimate Normal; RBC Morphology Normal; Total Cells Counted 100
[2022-05-18 15:48] LABS: Coronovirus HKU1,PCR Detected (NotDetected)
== END ==
PROVIDERS: PCP Family Medicine; Visit Provider Family Medicine
DX: U07.1 COVID-19 (principal)
CPT/HCPCS: 36415; 85007; 85025; 87581; 87632; 87798; C9803; U0003; U0005

== ENCOUNTER → 2022-06-25 16:45 | Outpatient (CLI) | payer OTHER, SELFPAY ==
--- NOTE | 2022-06-25 16:48 | MM_ITS ---
PROCEDURE INFORMATION: Exam: MG Bilateral Screening 3D Mammography Exam date and time: 06/25/2022 4:40 PM Age: 42 years old Clinical indication: Screening mammogram TECHNIQUE: Imaging protocol: Bilateral Screening tomosynthesis and 2D mammography including computer-aided detection (CAD) when performed. COMPARISON: 1. MG MM DIG SCREENING MAMM BI W/CAD 05/23/2021 2:36 PM 2. MG MM DIG SCREENING MAMM BI W/CAD 05/19/2020 10:52 AM 3. MG MM DIG SCREENING MAMM BI W/CAD 04/15/2019 4:09 PM 4. MG DMDXUR DIG MAMM-DX UNI-RT 04/27/2013 12:58 PM FINDINGS: MAMMOGRAPHY: Breast composition: The breast is heterogeneously dense, which may obscure small masses. Mass: None. Architectural distortion: No new or suspicious architectural distortion. Calcifications: No new or suspicious calcifications are present Asymmetric density: No new or suspicious asymmetric density is present Skin thickening: None. Axillary adenopathy: None. IMPRESSION: No mammographic evidence of malignancy. Recommend annual screening mammography unless otherwise clinically indicated. ASSESSMENT: BI-RADS category 1: Negative
== END ==
PROVIDERS: PCP Family Medicine; Visit Provider Obstetrics & Gynecology Gynecology
DX: Z12.31 Encounter for screening mammogram for malignant neoplasm of breast (principal)
CPT/HCPCS: 77063; 77067

== ENCOUNTER → 2022-07-01 13:26 | Outpatient (POV) | payer OTHER, SELFPAY ==
[2022-07-01 13:40] VITALS: BP 150/84; PULSE 74; RESP 18; O2SAT 97; BMI 27.8
--- NOTE | 2022-07-01 13:49 | EXP.PAIN.SOA ---
[facility] Pain Management SOAP Note Subjective:: Patient is a pleasant 42-year-old female who presents today for follow-up and medication refill. We are currently treating the patient for degenerative disc disease of cervical and lumbar spine and cervical and lumbar radiculopathy symptoms. Today she rates her pain an 8 out of 10. Patient states she continues to have chronic neck pain as well as low back pain with radiating symptoms primarily down her right leg. Patient does state during the last episode of snow and I she did fall on her left knee hitting her left hip. Patient states she did not go to the doctor for follow-up however she did not think that she broke anything just had some light soreness. Patient does continue to state that her low back pain is a aching, throbbing sensation that feels like it is on fire radiating down her right leg to her knee. Patient also states she has numbness in her big toe along the right foot. Patient states that her neck symptoms do radiate into her right shoulder and caused significant issues. Patient does have a history of cardiac issues and sees Dr. De La Torre. Patient has been to see Dr. Shaffer and Dr. Hamilton in [place] however she stated at our last visit she was declined by Dr. Hamilton's office due to her current smoking use. Patient is managed with gabapentin 600 mg at night and occasionally an additional dose during the day and was prescribed diclofenac 75 mg twice a day in the past. At our last visit we would not refill the diclofenac due to cardiac history. Patient states today that Dr. De La Torre did not have any issues with her continuing to take this medication. She states this medication does significantly improve her pain symptoms throughout her joints. Patient has tried multiple muscle relaxers in the past however these did not provide additional relief. Patient has tried compounding cream in the past with minimal relief. Patient has been talked to about a spinal cord stimulator trial however she was not interested in this option. At our last visit she was ordered a cervical epidural of C6-C7 however she did not proceed forward with this option. Her Anton is [id number]. Its been reviewed and appropriate. Review of Systems: General: No recent weight changes, no fever, no sleep disturbances Respiratory: No cough, no shortness of air, no recurring pulmonary infections Cardiovascular/peripheral vascular: No chest pain, no palpitations, no edema, no shortness of breath Gastrointestinal: No new onset incontinence, normal bowel movements reported Genitourinary: No new onset incontinence Musculoskeletal: Neck pain, shoulder pain, low back pain, right leg pain Psychiatric: [Normal mood/affect] Neurological: [Denies weakness in extremities], [denies balance issues] Objective:: Physical Exam: General: Alert and oriented x3, no acute distress, pleasant and cooperative Lungs: Respirations even and unlabored, symmetrical chest expansion Eyes: PERRL Musculoskeletal: Flexion and extension of lumbar [spine] somewhat guarded secondary to pain, [antalgic gait noted] extreme point tenderness along bilateral SIs and positive bilateral Nabila's, Michael's, Gaenslen's, compression and distraction exam Neurological: Speech clear, no gross sensory deficit ORT score updated with low risk Assessment:: Degenerative disc disease of cervical and lumbar spine with cervical and lumbar radiculopathy symptoms, right shoulder pain, sacroiliitis Plan:: Patient is experiencing significant pain in her low back bilaterally with worsening symptoms along the right leg. Patient had limited range of motion of her lumbar spine and extreme point tenderness at her bilateral SI's during today's visit. Patient also had a positive Nabila's, Michael's, Gaenslen's, compression and distraction exam. I have discussed with the patient that she may benefit from bilateral SI injections. Risk and benefits were discussed with the patient and she would like to p
== END | disposition home or self-care (01) ==
PROVIDERS: PCP Family Medicine; Visit Provider Nurse Practitioner Family
DX: M50.123 Cervical disc disorder at C6-C7 level with radiculopathy (principal); M51.16 Intervertebral disc disorders with radiculopathy, lumbar region; M46.1 Sacroiliitis, not elsewhere classified; M25.511 Pain in right shoulder
CPT/HCPCS: 99212; G0463

== ENCOUNTER 2022-07-09 13:09 | Day surgery (SDC) | payer OTHER, SELFPAY ==
[2022-07-09 13:19] VITALS: BP 146/95; PULSE 81; RESP 18; TEMP 36.7; O2SAT 99; BMI 28.8
[2022-07-09 13:30] VITALS: BP 139/83; PULSE 84; RESP 18; O2SAT 98
[2022-07-09 13:31] VITALS: BP 139/83; PULSE 84; RESP 18; O2SAT 98
[2022-07-09 13:40] VITALS: BP 167/77; PULSE 70; RESP 18; O2SAT 99
--- NOTE | 2022-07-09 13:41 | P.PCN_ITS ---
Procedure Date: 07/09/22 Time: 13:30 Anesthesiologist:: Royal Bonner CRNA Complications:: None Pre-procedure Diagnosis:: Bilateral sacroiliitis Post-procedure Diagnosis:: Same. Indications for Procedure:: Very pleasant 42-year-old female comes our clinic today for bilateral sacroiliac joint injections. She is status post medial branch block L4-5, L5-S1 bilaterally. This did not bring her much relief. She has extreme point tenderness over the bilateral sacroiliac joints. She rates her pain 8/10. Has difficulty transitioning from sitting to standing. Procedure Details:: Procedure: Bilateral sacroiliac joint injections under fluoroscopy Informed consent was obtained and the risks and benefits of the procedure were explained to the patient.~ The patient was taken to the procedure room and noninvasive monitors were placed including a noninvasive blood pressure cuff and pulse oximeter.~ The patient was placed prone on the procedure table. Both hips were cleansed using Betadine as a cleansing solution. C-arm fluoroscopy was used to view the right sacroiliac joint.~ The skin and subcutaneous tissues were anesthetized using lidocaine 1.5% and a 25-gauge needle.~ After this, a 22-gauge spinal needle was inserted under fluoroscopic guidance into the inferior aspect of the right sacroiliac joint.~ Omnipaque dye was injected and good spread was seen throughout the joint.~ After this, approximately 5 mL of bupivacaine, 0.25% and Depo-Medrol, 40 mg was incrementally injected into the right sacroiliac joint. We then moved to the left sacroiliac joint.~ The skin and subcutaneous tissues were anesthetized using lidocaine 1.5% and a 25-gauge needle.~ After this, a 22- gauge spinal needle was inserted under fluoroscopic guidance into the inferior aspect of the left sacroiliac joint.~ Omnipaque dye was injected and good spread was seen throughout the joint. After this, approximately 5 mL of bupivacaine, 0.25% and Depo-Medrol, 40 mg was incrementally injected into the left sacroiliac joint.~ The patient tolerated the procedure well with no complications. The patient was observed in the Pain Clinic and then was discharged home neurologically intact. Plan and Disposition:: Patient was discharged without incident.
== END 2022-07-09 13:40 | disposition home or self-care (01) ==
PROVIDERS: PCP Family Medicine; Visit Provider Nurse Anesthetist, Certified Registered
DX: M46.1 Sacroiliitis, not elsewhere classified (principal)
CPT/HCPCS: 27096; G0260; J1040

== ENCOUNTER → 2022-07-16 07:36 | Outpatient (CLI) | payer OTHER, SELFPAY ==
[2022-07-16 08:27] LABS: Hemoglobin A1C 5.9 % (4.0-6.0)
[2022-07-16 08:52] LABS: Alanine Aminotransferase 18 U/L (12-78); Albumin Level 4.8 g/dl (3.5-5.0); Albumin/Globulin Ratio 1.9 (1.1-1.8); Alkaline Phosphatase 83 U/L (38-126); Anion Gap 12.8 mEq/L (5-15); Aspartate Amino Transferase 20 U/L (14-36); Bilirubin,Total 0.4 mg/dl (0.2-1.3); Blood Urea Nitrogen 14 mg/dl (7-17); Calcium 9.5 mg/dl (8.4-10.2); Carbon Dioxide 27 mmol/L (22.0-30.0); Chloride 101 mmol/L (98-107); Chol/HDL Ratio 6.3 (1-3.5); Cholesterol 188 mg/dl (140-200); Estimated Glomerular Filt Rate 78 ml/min (>60); GFR (African American) 94 ML/MIN (>60); Globulin 2.5 g/dL (1.3-3.2); Glucose 101 mg/dl (74-100); HDL Cholesterol 30 mg/dl (40-60); Potassium 3.8 mmoL/L (3.5-5.1); Sodium 137 mmol/L (136-145); Total Protein,Serum 7.3 g/dl (6.3-8.2); Triglycerides 198 mg/dl (30-150); VLDL Cholesterol 40 mg/dL (0-40)
[2022-07-16 09:03] LABS: Direct LDL Cholesterol 137.64 mg/dL (100-129)
[2022-07-16 09:22] LABS: Thyroid Stimulating Hormone 1.77 uIU/mL (0.465-4.68)
== END ==
PROVIDERS: PCP Family Medicine; Visit Provider Nurse Practitioner Family
DX: I10 Essential (primary) hypertension (principal); E78.5 Hyperlipidemia, unspecified; Z13.1 Encounter for screening for diabetes mellitus; Z13.29 Encounter for screening for other suspected endocrine disorder; Z79.899 Other long term (current) drug therapy
CPT/HCPCS: 36415; 80053; 80061; 83036; 84443

== ENCOUNTER → 2022-08-19 12:58 | Outpatient (POV) | payer OTHER, SELFPAY ==
[2022-08-19 13:21] VITALS: BP 146/92; PULSE 97; RESP 19; O2SAT 97; BMI 28.1
--- NOTE | 2022-08-19 13:25 | EXP.PAIN.SOA ---
[facility] Pain Management SOAP Note Subjective:: Patient is a pleasant 42-year-old female who presents today for follow-up of bilateral SI injections on 07/09/2022. We are currently treating the patient for degenerative disc disease of cervical and lumbar spine with cervical and lumbar radiculopathy symptoms. Today she rates her pain a 5 out of 10. Patient states she had 90 to 100% relief following these injections. She states that her hips felt 100% better. She does state that the injections lasted for 2 full weeks. Today she does state that she feels like she is back to her baseline. She describes her worst pain being in her upper back/neck. She does describe this as an aching, throbbing sensation that is constant with spasms. Patient does have bilateral upper extremity numbness and weakness. She does state it is difficult to performing activities of daily living such as cooking and cleaning or even getting ready in the morning. Patient has been to see Dr. Hamilton in [place] in the past however she was released from this office due to occasional smoking use. She does state that she is worried that something is going on with her nerves causing her increased numbness. Patient has been on diclofenac in the past however she does have a cardiac history and this was discontinued. Patient is currently managed with gabapentin 600 mg at bedtime. Patient denies any side effects from this medication. At our last visit we did recommend a cervical epidural however she was anxious about getting this injection done and did not proceed forward. Her Anton is [id number]. Its been reviewed and appropriate. Review of Systems: General: No recent weight changes, no fever, no sleep disturbances Respiratory: No cough, no shortness of air, no recurring pulmonary infections Cardiovascular/peripheral vascular: No chest pain, no palpitations, no edema, no shortness of breath Gastrointestinal: No new onset incontinence, normal bowel movements reported Genitourinary: No new onset incontinence Musculoskeletal: Neck pain Psychiatric: [Normal mood/affect] Neurological: [Denies weakness in extremities], [denies balance issues] Objective:: Physical Exam: General: Alert and oriented x3, no acute distress, pleasant and cooperative Lungs: Respirations even and unlabored, symmetrical chest expansion Eyes: PERRL Musculoskeletal: Flexion and extension of cervical [spine] somewhat guarded secondary to pain, [antalgic gait noted] Neurological: Speech clear, no gross sensory deficit FINAL REPORT CLINICAL HISTORY: NECK PAIN, headaches, bilateral upper extremity tingling/numbness COMPARISON: July 11, 2021 FINDINGS: Multiplanar MR imaging of the cervical spine was performed without contrast.? On the sagittal T2-weighted images, disc degeneration is seen at multiple levels. There is straightening of the normal cervical curvature which could be due to positioning or muscle spasm. ? There is no evidence of fracture. The vertebral alignment is normal. The cervical spinal cord has an unremarkable appearance without evidence of mass, edema or syrinx.? The cervicomedullary junction is normal.? ? C2-3: There is no significant canal stenosis or neural foraminal narrowing.? C3-4:? An annular disc bulge is present.? There is a new small central disc protrusion which mildly indents the thecal sac.? C4-5: An annular disc bulge is present.? There is no significant canal stenosis or neural foraminal narrowing. C5-6:? An annular disc bulge is present.? Bilateral uncovertebral osteophytes are present.? There are bilateral foraminal disc protrusions.? There is mild bilateral neural foraminal narrowing. There is mild central canal stenosis with an AP diameter of the thecal sac of 9 mm.? C6-7:? A disc osteophyte complex is present.? There is a left foraminal disc protrusion.? There is moderate left neural foraminal narrowing. There is a left C7 nerve root impingement, stable.? C7-T1: There is no signific
== END | disposition home or self-care (01) ==
PROVIDERS: PCP Family Medicine; Visit Provider Nurse Practitioner Family
DX: M51.16 Intervertebral disc disorders with radiculopathy, lumbar region (principal); M50.10 Cervical disc disorder with radiculopathy, unspecified cervical region
CPT/HCPCS: 99212; G0463

== ENCOUNTER → 2022-10-02 13:03 | Outpatient (POV) | payer OTHER, SELFPAY ==
--- NOTE | 2022-10-02 13:05 | EXP.PAIN.SOA ---
[facility] Pain Management SOAP Note Subjective:: Patient is a pleasant 42-year-old female who presents today for follow-up and medication refill.? We are currently treating the patient for degenerative disc disease of cervical and lumbar spine and cervical and lumbar radiculopathy symptoms.? Today she rates her pain an 6 out of 10. She states she continues to have pain in and around her low back along both sides and into her hips as well as pain in the back of her head with radiating symptoms down her neck. She does describe this as an aching, throbbing sensation that is worse with increased activity. She does state it interferes with her ability to perform activities of daily living such as cooking and cleaning. She denies any new trauma or injury or any change in location or type of pain she experiences. She does state that she has been to Dr. Shaffer's office in [place] and he did want her to start physical therapy and have an EMG. She does state that she had her evaluation with physical therapy yesterday and that Dr. Garay's office have scheduled her for an EMG on October 30. She does state that she will follow-up with Dr. Shaffer's office after this appointment. 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 she is managed with gabapentin 600 mg at night and occasionally an additional dose during the day.? She was previously getting diclofenac however with her past heart issues we did not refill this prescription. Patient has tried muscle relaxers in the past however these made her hyper and she discontinued them. Patient has tried compounding cream in the past with minimal relief.? Her Anton is [id number]. Its been reviewed and appropriate..? Its been reviewed and appropriate. Review of Systems: General: No recent weight changes, no fever, no sleep disturbances Respiratory: No cough, no shortness of air, no recurring pulmonary infections Cardiovascular/peripheral vascular: No chest pain, no palpitations,? no edema, no shortness of breath Gastrointestinal: No new onset incontinence, normal bowel movements reported Genitourinary: No new onset incontinence Musculoskeletal: Low back pain, bilateral hip pain, posterior occipital pain, neck pain Psychiatric: [Normal mood/affect] Neurological: [Denies weakness in extremities], [denies balance issues] Objective:: Physical Exam: General: Alert and oriented x3, no acute distress, pleasant and cooperative Lungs: Respirations even and unlabored, symmetrical chest expansion Eyes: PERRL Musculoskeletal: Flexion and extension of [] [spine] somewhat guarded secondary to pain, [antalgic gait noted] extreme point tenderness noted at bilateral SIs with positive bilateral Nabila's, Michael's, Gaenslen's, compression and distraction exam Neurological: Speech clear, no gross sensory deficit Assessment:: Degenerative disc disease of cervical and lumbar spine with cervical and lumbar radiculopathy symptoms, shoulder pain, right leg pain, sacroiliitis Plan:: I will refill the patient's gabapentin 600 mg daily and provide a 1 month supply of this medication. I have also counseled the patient that she may benefit from a repeat bilateral SI injections. Risk and benefits were discussed with the patient and she would like to proceed forward with this plan of care. Patient has tried and failed conservative therapy such as oral medications, heat and ice, topicals, at home exercise and stretching for longer than 6 weeks. Patient is currently in physical therapy. Patient has had previous SI injections that provided 90 to 100% relief lasting close to 1 month. I have also counseled the patient that in the future she may benefit from bilateral occipital nerve blocks. We will discuss this at future visits. Patient will be scheduled for bilateral SI injections. Patient has been instructed to contact the clinic with any concerns before the next appointmen
[2022-10-02 13:18] VITALS: BP 138/95; PULSE 87; RESP 20; O2SAT 96; BMI 27.4
== END | disposition home or self-care (01) ==
PROVIDERS: PCP Family Medicine; Visit Provider Nurse Practitioner Family
DX: M51.16 Intervertebral disc disorders with radiculopathy, lumbar region (principal); M50.10 Cervical disc disorder with radiculopathy, unspecified cervical region; M46.1 Sacroiliitis, not elsewhere classified; M25.519 Pain in unspecified shoulder; M79.604 Pain in right leg
CPT/HCPCS: 99212; G0463

== ENCOUNTER → 2022-11-11 17:04 | Outpatient (CLI) | payer OTHER, SELFPAY ==
--- NOTE | 2022-11-11 17:07 | XR_ITS ---
PROCEDURE INFORMATION: Exam: XR Chest Exam date and time: 11/11/2022 5:11 PM Age: 42 years old Clinical indication: Sternal or substernal pain; Additional info: Chest pain TECHNIQUE: Imaging protocol: Radiologic exam of the chest. Views: 2 views. COMPARISON: MR CERVICAL SPINE WO CON 02/21/2022 8:42 AM FINDINGS: Lungs: Unremarkable. No consolidation. Pleural spaces: Unremarkable. No pleural effusion. No pneumothorax. Heart/Mediastinum: Unremarkable. No cardiomegaly. Bones/joints: Unremarkable. IMPRESSION: No acute findings.
[2022-11-11 17:40] LABS: Basophils # 0.1 K/mm3 (0-0.2); Basophils % 0.6 % (0.1-2.0); Eosinophils # 0.3 K/mm3 (0.0-0.4); Eosinophils % 2.4 % (0.1-12.0); Hematocrit 43.7 % (37.0-47.0); Lymphocytes # 4.6 K/mm3 (0.7-4.5); Lymphocytes % 40.6 % (10-50); Mean Corpuscular Hemoglobin 29.6 pg (27.0-31.2); Mean Corpuscular Volume 92.5 fl (81-99); Mean Platelet Volume 9.4 fl (7.4-10.4); Monocytes # 0.7 K/mm3 (0.1-1.0); Monocytes % 6.2 % (1.7-9.3); Neutrophils # 5.7 K/mm3 (1.8-7.8); Neutrophils % 50.2 % (37.0-80.0); Platelet Count 324 K/mm3 (142-424); Red Blood Count 4.72 M/mm3 (4.20-5.40); Red Cell Distribution Width 13.2 % (11.5-17.5); White Blood Count 11.3 K/mm3 (4.8-10.8)
[2022-11-11 17:46] LABS: Alanine Aminotransferase 19 U/L (12-78); Albumin Level 4.8 g/dl (3.5-5.0); Alkaline Phosphatase 79 U/L (38-126); Anion Gap 12.3 mEq/L (5-15); Aspartate Amino Transferase 26 U/L (14-36); Bilirubin,Indirect 0.4 mg/dL (0.0-0.9); Bilirubin,Total 0.4 mg/dl (0.2-1.3); Bilirubin,Unconjugated 0.5 mg/dL (0.0-1.1); Blood Urea Nitrogen 12 mg/dl (7-17); Calcium 9.6 mg/dl (8.4-10.2); Carbon Dioxide 27 mmol/L (22.0-30.0); Chloride 104 mmol/L (98-107); Chol/HDL Ratio 6.6 (1-3.5); Cholesterol 165 mg/dl (140-200); Estimated Glomerular Filt Rate 68 ml/min (>60); GFR (African American) 82 ML/MIN (>60); Glucose 79 mg/dl (74-100); HDL Cholesterol 25 mg/dl (40-60); Potassium 3.3 mmoL/L (3.5-5.1); Sodium 140 mmol/L (136-145); Total Protein,Serum 7.8 g/dl (6.3-8.2); Triglycerides 252 mg/dl (30-150); VLDL Cholesterol 50 mg/dL (0-40)
[2022-11-11 17:57] LABS: Direct LDL Cholesterol 98.46 mg/dL (100-129)
[2022-11-11 17:58] LABS: Troponin I < 0.01 ng/ml (0.00-0.034)
[2022-11-11 18:03] LABS: Free T4 (Free Thyroxine) 1.44 ng/dl (0.78-2.19)
[2022-11-11 18:17] LABS: Thyroid Stimulating Hormone 1.47 uIU/mL (0.465-4.68)
== END ==
PROVIDERS: PCP Family Medicine; Visit Provider Internal Medicine
DX: R07.9 Chest pain, unspecified (principal); R06.00 Dyspnea, unspecified; I10 Essential (primary) hypertension; I11.9 Hypertensive heart disease without heart failure; I63.9 Cerebral infarction, unspecified; E11.9 Type 2 diabetes mellitus without complications; F17.200 Nicotine dependence, unspecified, uncomplicated; Z82.49 Family history of ischemic heart disease and other diseases of the circulatory system
CPT/HCPCS: 71046; 80048; 80061; 80076; 84439; 84443; 84484; 85025

== ENCOUNTER → 2022-11-12 08:06 | Outpatient (CLI) | payer OTHER, SELFPAY | PROVIDERS: PCP Family Medicine; Visit Provider Internal Medicine | DX: R07.9 Chest pain, unspecified (principal); I10 Essential (primary) hypertension; F17.200 Nicotine dependence, unspecified, uncomplicated; Z82.49 Family history of ischemic heart disease and other diseases of the circulatory system | CPT/HCPCS: 93306 ==

== ENCOUNTER → 2023-01-10 08:08 | Outpatient (CLI) | payer OTHER, SELFPAY ==
[2023-01-10 08:46] LABS: Alanine Aminotransferase 22 U/L (12-78); Albumin Level 4.7 g/dl (3.5-5.0); Albumin/Globulin Ratio 1.5 (1.1-1.8); Alkaline Phosphatase 78 U/L (38-126); Anion Gap 14.7 mEq/L (5-15); Aspartate Amino Transferase 24 U/L (14-36); Bilirubin,Total 0.5 mg/dl (0.2-1.3); Blood Urea Nitrogen 16 mg/dl (7-17); Calcium 9.8 mg/dl (8.4-10.2); Carbon Dioxide 25 mmol/L (22.0-30.0); Chloride 105 mmol/L (98-107); Chol/HDL Ratio 7.5 (1-3.5); Cholesterol 165 mg/dl (140-200); Estimated Glomerular Filt Rate 60 ml/min (>60); GFR (African American) 73 ML/MIN (>60); Globulin 3.1 g/dL (1.3-3.2); Glucose 120 mg/dl (74-100); HDL Cholesterol 22 mg/dl (40-60); Potassium 3.7 mmoL/L (3.5-5.1); Sodium 141 mmol/L (136-145); Total Protein,Serum 7.8 g/dl (6.3-8.2); Triglycerides 196 mg/dl (30-150); VLDL Cholesterol 39 mg/dL (0-40)
[2023-01-10 09:18] LABS: Hemoglobin A1C 5.8 % (4.0-6.0)
== END ==
PROVIDERS: PCP Family Medicine; Visit Provider Family Medicine
DX: E78.5 Hyperlipidemia, unspecified (principal); R73.9 Hyperglycemia, unspecified; I10 Essential (primary) hypertension
CPT/HCPCS: 36415; 80053; 80061; 83036

== ENCOUNTER → 2023-01-10 13:38 | Outpatient (POV) | payer OTHER, SELFPAY ==
--- NOTE | 2023-01-10 14:17 | A.OFFVIS_ITS ---
[facility] Pain Management SOAP Note Subjective:: This patient is a pleasant 42-year-old female returns our clinic today for follow-up visit and medication refill. We are currently managing the patient to help with her cervical and lumbar pain. She describes her cervical lumbar pain as constant, dull, aching. She rates her pain today 10. We are currently writing her gabapentin 600 mg 1 p.o. nightly. Patient doing very well on her current medication. Patient also started taking trazodone nightly for sleep. This is from her PCP. She also takes diclofenac as needed. Her Anton #[id number] has been reviewed and appropriate. She will return to clinic in 1 month for refill. Objective:: Patient is awake alert [place] x3. In no acute distress. Flexion-extension lumbar spine somewhat guarded secondary to pain. Deep tendon reflexes upper lower extremities normal. Motor strength upper and lower extremities normal. There are no gross sensory deficit. Gait is normal. Assessment:: Degenerative disc cervical spine multilevels. Cervical radiculopathy. Degenerative disc lumbar spine multilevels. Lumbar radiculopathy. Plan:: Patient will return in 1 month. This will be for refills and follow-up. We will refill her gabapentin 600 mg 1 p.o. nightly [facility] Disclaimer: The information contained in this section may have been updated after the patient was seen, as this information can be updated by other users. Medical History (Updated 11/25/22 @ 12:59 by Portia Alcocer APRN) HTN (hypertension) Hyperlipidemia Social History Smoking Status: Current every day smoker tobacco type: cigarettes packs per day: 1 second hand exposure: Yes alcohol intake: never substance use type: denies use current occupational status: employed Travel in the last 8 weeks: None household members: spouse caffeine: Yes
[2023-01-10 15:16] VITALS: BP 147/94; PULSE 79; RESP 18; O2SAT 96; BMI 27.1
== END | disposition home or self-care (01) ==
PROVIDERS: PCP Family Medicine; Visit Provider Nurse Anesthetist, Certified Registered
DX: M50.10 Cervical disc disorder with radiculopathy, unspecified cervical region (principal); M51.16 Intervertebral disc disorders with radiculopathy, lumbar region
CPT/HCPCS: 99212; G0463

== ENCOUNTER 2023-01-22 16:00 | Outpatient (RCR) | payer OTHER, SELFPAY | END 2023-01-22 16:05 | disposition home or self-care (01) | LOC: PT 16:00 | PROVIDERS: PCP Family Medicine; Visit Provider Neurological Surgery | DX: M47.22 Other spondylosis with radiculopathy, cervical region (principal) | CPT/HCPCS: 20560; 20561; 97010; 97012; 97014; 97110; 97163; 97164; 97535; G0283 ==

== ENCOUNTER → 2023-02-07 12:59 | Outpatient (POV) | payer OTHER, SELFPAY ==
[2023-02-07 13:05] VITALS: BP 135/93; PULSE 77; RESP 20; BMI 27.4
--- NOTE | 2023-02-07 13:11 | EXP.PAIN.SOA ---
[facility] Pain Management SOAP Note Subjective:: Patient is a 42-year old female that comes our clinic today for medication refill. We currently manage the patient regarding cervical degenerative disc with cervical radiculopathy. Lumbar degenerative disc with lumbar radiculopathy. We currently prescribed gabapentin 600 mg 1 p.o. nightly for her. Patient states it does help with overall symptoms. Patient also takes trazodone from a PCP nightly. Patient's Anton #[id number] has been reviewed and appropriate. Patient describes cervical neck pain as constant, dull, aching. Patient also complains of restless leg syndrome. Low back pain that she describes as constant, dull, aching. She rates her pain today 6/10. Objective:: Patient is awake alert [place] x3. No acute distress. Flexion-extension cervical lumbar spine normal. Deep tendon reflexes upper and lower extremities normal. Motor strength upper and lower extremities normal. There is no gross sensory deficit. Gait is normal. Assessment:: Degenerative disc lumbar spine multiple levels. Lumbar radiculopathy. Degenerative disc cervical spine. Cervical radiculopathy Plan:: We will refill the patient's gabapentin 600 mg 1 p.o. nightly. She will return in 1 month for medication refills. [facility] Disclaimer: The information contained in this section may have been updated after the patient was seen, as this information can be updated by other users. Medical History (Updated 11/25/22 @ 12:59 by Portia Alcocer APRN) HTN (hypertension) Hyperlipidemia Social History Smoking Status: Current every day smoker tobacco type: cigarettes packs per day: 1 second hand exposure: Yes alcohol intake: never substance use type: denies use current occupational status: employed Travel in the last 8 weeks: None household members: spouse caffeine: Yes
== END | disposition home or self-care (01) ==
PROVIDERS: PCP Family Medicine; Visit Provider Nurse Anesthetist, Certified Registered
DX: M51.16 Intervertebral disc disorders with radiculopathy, lumbar region (principal); M50.10 Cervical disc disorder with radiculopathy, unspecified cervical region
CPT/HCPCS: 99212; G0463

== ENCOUNTER → 2023-02-27 14:52 | Outpatient (CLI) | payer OTHER, SELFPAY ==
--- NOTE | 2023-02-27 14:56 | XR_ITS ---
FINAL REPORT CLINICAL HISTORY: COUGH FINDINGS: TWO-VIEW CHEST The heart size is normal. The mediastinum is normal. There is bronchial wall thickening consistent with bronchitis. There is no pneumothorax. IMPRESSION: Bronchitis. Reviewed, Interpreted and Dictated by Wilbur Jackson III, MD Transcribed by Ludmila Hua Authenticated and [facility]
== END ==
PROVIDERS: PCP Family Medicine; Visit Provider Family Medicine
DX: J02.9 Acute pharyngitis, unspecified (principal); R05.3 Chronic cough
CPT/HCPCS: 71046

== ENCOUNTER → 2023-03-06 12:56 | Outpatient (POV) | payer OTHER, SELFPAY ==
--- NOTE | 2023-03-06 13:10 | A.OFFVIS_ITS ---
[facility] Pain Management SOAP Note Subjective:: Patient is a pleasant 42-year-old female who presents today for 1 month follow- up and medication refill. We are currently treating the patient for degenerative disc disease of cervical and lumbar spine and cervical and lumbar radiculopathy symptoms.? Today she rates her pain an 6 out of 10. She denies any new injury or trauma since her last visit. She does state that she has noticed an increased pain throughout her body with the weather change. She also states she is experiencing more clicking in her neck with certain range of motion activities. Patient has done injections in the past of her low back however they typically do not provide long-term relief. She is currently managed on gabapentin 600 mg at night along with compounding cream. Her Anton has been reviewed and is appropriate. General: No recent weight changes, no fever, no sleep disturbances Respiratory: No cough, no shortness of air, no recurring pulmonary infections Cardiovascular/peripheral vascular: No chest pain, no palpitations,? no edema, no shortness of breath Gastrointestinal: No new onset incontinence, normal bowel movements reported Genitourinary: No new onset incontinence Musculoskeletal: Neck pain, low back pain Psychiatric: [Normal mood/affect] Neurological: [Denies weakness in extremities], [denies balance issues] Objective:: Physical Exam: General: Alert and oriented x3, no acute distress, pleasant and cooperative Lungs: Respirations even and unlabored, symmetrical chest expansion Eyes: PERRL Musculoskeletal: Flexion and extension of lumbar [spine] somewhat guarded secondary to pain Neurological: Speech clear, no gross sensory deficit Assessment:: Degenerative disc disease of cervical and lumbar spine with cervical and lumbar radiculopathy symptoms, chronic pain syndrome Plan:: Patient continues to have pain at multiple areas. I have discussed with the patient that she may benefit from injective therapy in the future for her low back as well as her neck symptoms. We will review this at a later date. I will refill the patient's gabapentin 600 mg at bedtime and provide a 2-month supply of this medication. Patient will return to clinic in 2 months for reevaluation of symptoms and plan of care. Patient has been instructed to contact the clinic with any concerns before the next appointment. Dr. Quinones has reviewed this note and agrees with this plan of care. This note was dictated using voice recognition software and make contain errors or omissions. [facility] Disclaimer: The information contained in this section may have been updated after the patient was seen, as this information can be updated by other users. Medical History (Updated 11/25/22 @ 12:59 by Portia Alcocer APRN) HTN (hypertension) Hyperlipidemia Social History Smoking Status: Current every day smoker tobacco type: cigarettes packs per day: 1 second hand exposure: Yes alcohol intake: never substance use type: denies use current occupational status: other Travel in the last 8 weeks: None household members: spouse caffeine: Yes
[2023-03-06 13:26] VITALS: BP 122/85; PULSE 56; RESP 18; O2SAT 100; BMI 27.6
== END | disposition home or self-care (01) ==
PROVIDERS: PCP Family Medicine; Visit Provider Nurse Practitioner Family
DX: M50.10 Cervical disc disorder with radiculopathy, unspecified cervical region (principal); M51.16 Intervertebral disc disorders with radiculopathy, lumbar region; G89.4 Chronic pain syndrome
CPT/HCPCS: 99212; G0463

== ENCOUNTER → 2023-05-05 13:01 | Outpatient (POV) | payer OTHER, SELFPAY ==
[2023-05-05 13:20] VITALS: BP 129/76; PULSE 63; RESP 18; O2SAT 100; BMI 28.6
--- NOTE | 2023-05-05 13:41 | EXP.PAIN.SOA ---
[facility] Pain Management SOAP Note Subjective:: Patient is a pleasant 42-year-old female who presents today for 2-month follow-up and medication refill. We are currently treating the patient for degenerative disc disease of cervical and lumbar spine with cervical and lumbar radiculopathy symptoms. Today she rates her pain an 8 out of 10. Patient denies any new trauma or injury. She does state that she continues to experience significant pain in her neck and right shoulder. Patient states this has been going on for some time however feels like it has progressively worsened. Patient does describe it as an aching, throbbing sensation with clicking and popping with movement. Patient does state that she does experience spasms as well. Patient is currently managed with gabapentin 600 mg at night and compounded cream. Her Anton has been reviewed and is appropriate. Review of Systems: General: No recent weight changes, no fever, no sleep disturbances Respiratory: No cough, no shortness of air, no recurring pulmonary infections Cardiovascular/peripheral vascular: No chest pain, no palpitations, no edema, no shortness of breath Gastrointestinal: No new onset incontinence, normal bowel movements reported Genitourinary: No new onset incontinence Musculoskeletal: Right shoulder pain, neck pain Psychiatric: [Normal mood/affect] Neurological: [Denies weakness in extremities], [denies balance issues] Objective:: Physical Exam: General: Alert and oriented x3, no acute distress, pleasant and cooperative Lungs: Respirations even and unlabored, symmetrical chest expansion Eyes: PERRL Musculoskeletal: Flexion and extension of cervical [spine] somewhat guarded secondary to pain, [antalgic gait noted] Neurological: Speech clear, no gross sensory deficit Assessment:: Degenerative disc disease of cervical and lumbar spine with cervical and lumbar radiculopathy symptoms, right shoulder pain Plan:: I have discussed with the patient due to her worsening symptoms in her right shoulder and neck I would like to order additional imaging. I will submit for x-ray of her right shoulder along with MRI without contrast as well as MRI without contrast of her cervical spine. I have also discussed with the patient due to having worsening pain I will change her gabapentin to 300 mg 3 times daily and provide a 1 month supply of this medication. I have also discussed with the patient that she can use some of her previous muscle relaxers that she has at home as needed for when she has the muscle spasms. Patient will return to clinic in 1 month for reevaluation of symptoms and plan of care. Patient has been instructed to contact the clinic with any concerns before the next appointment. Dr. Quinones has reviewed this note and agrees with this plan of care. This note was dictated using voice recognition software and make contain errors or omissions. [facility] Disclaimer: The information contained in this section may have been updated after the patient was seen, as this information can be updated by other users. Medical History (Updated 11/25/22 @ 12:59 by Portia Alcocer APRN) HTN (hypertension) Hyperlipidemia Social History Smoking Status: Current every day smoker tobacco type: cigarettes packs per day: 1 second hand exposure: Yes alcohol intake: never substance use type: denies use current occupational status: employed Travel in the last 8 weeks: None household members: spouse caffeine: Yes
== END | disposition home or self-care (01) ==
PROVIDERS: PCP Family Medicine; Visit Provider Nurse Practitioner Family
DX: M50.10 Cervical disc disorder with radiculopathy, unspecified cervical region (principal); M51.16 Intervertebral disc disorders with radiculopathy, lumbar region; M25.511 Pain in right shoulder
CPT/HCPCS: 99212; G0463

== ENCOUNTER 2023-05-05 13:44 | Outpatient (CLI) | payer OTHER, SELFPAY ==
--- NOTE | 2023-05-05 13:50 | XR_ITS ---
FINAL REPORT CLINICAL HISTORY: RT SHOULDER PAIN, no known injury FINDINGS: RIGHT SHOULDER: 3 views of the right shoulder were obtained. There is no acute fracture or dislocation. There are mild degenerative changes of the AC joint. The joint spaces are intact. There is no soft tissue abnormality. IMPRESSION: No acute fracture Reviewed, Interpreted and Dictated by Wilbur Jackson III, MD Transcribed by Naomi Haque Authenticated and [facility]
== END 2023-05-05 23:59 ==
LOC: RAD 13:45
PROVIDERS: PCP Family Medicine; Visit Provider Nurse Practitioner Family
DX: M25.511 Pain in right shoulder (principal); M54.2 Cervicalgia
CPT/HCPCS: 73030

== ENCOUNTER → 2023-05-19 14:45 | Outpatient (POV) | payer OTHER, SELFPAY ==
--- NOTE | 2023-05-19 15:16 | EXP.PAIN.SOA ---
[facility] Pain Management SOAP Note Subjective:: Patient is a pleasant 42-year-old female who presents today for follow-up of MRI denial of her right shoulder. We are currently treating the patient for degenerative disc disease of cervical and lumbar spine with cervical and lumbar radiculopathy symptoms, right shoulder pain. Today she rates her pain a 7 out of 10. Patient denies any new trauma or injury from her last visit. Patient was submitted for MRI of her cervical spine and does have this scheduled in May. She does state that she continues to also have right shoulder pain that is made worse with increased activity or ambulation. Patient does states she has very limited range of motion of this joint. Patient does have concerns that she may have had a ligament or something torn. Patient describes this as a constant aching, throbbing sensation with clicking and popping with movement. She states she is not getting any sleep due to the pain. Patient is currently managed with gabapentin 600 mg at night and compounded cream. Patient has had recent physical therapy back from October 01, 2022 through January 22, 2023 where they did do treatment on her neck as well as her shoulders. Patient does state that traction caused significant worsening of her pain symptoms and that they did at every visit do dry needling and TENS therapy to her right shoulder. Patient would like to be resubmitted for the advanced imaging of her shoulder. Her Anton has been reviewed and is appropriate. Review of Systems: General: No recent weight changes, no fever, no sleep disturbances Respiratory: No cough, no shortness of air, no recurring pulmonary infections Cardiovascular/peripheral vascular: No chest pain, no palpitations, no edema, no shortness of breath Gastrointestinal: No new onset incontinence, normal bowel movements reported Genitourinary: No new onset incontinence Musculoskeletal: Right shoulder pain Psychiatric: [Normal mood/affect] Neurological: [Denies weakness in extremities], [denies balance issues] Objective:: Physical Exam: General: Alert and oriented x3, no acute distress, pleasant and cooperative Lungs: Respirations even and unlabored, symmetrical chest expansion Eyes: PERRL Musculoskeletal: Flexion and extension of right shoulder somewhat guarded secondary to pain, [antalgic gait noted] Neurological: Speech clear, no gross sensory deficit Assessment:: Degenerative disc disease of cervical and lumbar spine with cervical and lumbar radiculopathy symptoms,Right shoulder pain Plan:: Patient continues to experience significant pain in her right shoulder as well as her neck with limited range of motion. Patient has had recent physical therapy for both her neck and shoulder where they did do several treatments including dry needling, TENS therapy and traction. Patient has tried and failed conservative therapy such as oral medication, heat and ice, topicals, recent physical therapy, continued at home exercising and stretching for longer than 6 weeks. We will resubmit for the right shoulder MRI and contact the patient once we have approval. Patient has been instructed to contact the clinic with any concerns before the next appointment. Dr. Quinones has reviewed this note and agrees with this plan of care. This note was dictated using voice recognition software and make contain errors or omissions. [facility] Disclaimer: The information contained in this section may have been updated after the patient was seen, as this information can be updated by other users. Medical History (Updated 11/25/22 @ 12:59 by Portia Alcocer APRN) HTN (hypertension) Hyperlipidemia Social History Smoking Status: Current every day smoker tobacco type: cigarettes packs per day: 1 second hand exposure: Yes alcohol intake: never substance use type: denies use current occupational status: employed Travel in the last 8 weeks: None household members: spouse caffeine: Yes
[2023-05-19 15:48] VITALS: BP 124/80; PULSE 50; RESP 18; O2SAT 99; BMI 28.3
== END ==
PROVIDERS: PCP Family Medicine; Visit Provider Nurse Practitioner Family
DX: M50.10 Cervical disc disorder with radiculopathy, unspecified cervical region (principal); M51.16 Intervertebral disc disorders with radiculopathy, lumbar region; M25.511 Pain in right shoulder
CPT/HCPCS: 99212; G0463

== ENCOUNTER 2023-06-02 07:48 | Outpatient (CLI) | payer OTHER, SELFPAY ==
[2023-06-02 08:21] LABS: Basophils # 0.2 K/mm3 (0-0.2); Basophils % 1.2 % (0.1-2.0); Eosinophils # 0.3 K/mm3 (0.0-0.4); Eosinophils % 1.8 % (0.1-12.0); Hemoglobin 15.7 g/dL (12.2-16.2); Lymphocytes # 4.1 K/mm3 (0.7-4.5); Lymphocytes % 28.7 % (10-50); Mean Corpuscular HGB Conc 34.8 g/dL (31.8-35.4); Mean Corpuscular Hemoglobin 31.5 pg (27.0-31.2); Mean Corpuscular Volume 90.5 fl (81-99); Mean Platelet Volume 8.9 fl (7.4-10.4); Monocytes # 0.8 K/mm3 (0.1-1.0); Monocytes % 5.4 % (1.7-9.3); Neutrophils % 62.9 % (37.0-80.0); Platelet Count 256 K/mm3 (142-424); Red Blood Count 4.97 M/mm3 (4.20-5.40); Red Cell Distribution Width 13.3 % (11.5-17.5); White Blood Count 14.3 K/mm3 (4.8-10.8)
[2023-06-02 09:19] LABS: Chloride 107 mmol/L (98-107); Potassium 3.6 mmoL/L (3.5-5.1); Sodium 139 mmol/L (136-145)
[2023-06-02 09:21] LABS: Bilirubin,Unconjugated 0.5 mg/dL (0.0-1.1); Blood Urea Nitrogen 13 mg/dl (7-17); Estimated Glomerular Filt Rate 54 ml/min (>60); GFR (African American) 65 ML/MIN (>60)
[2023-06-02 09:22] LABS: Alanine Aminotransferase 26 U/L (12-78); Albumin Level 4.6 g/dl (3.5-5.0); Alkaline Phosphatase 69 U/L (38-126); Anion Gap 10.6 mEq/L (5-15); Aspartate Amino Transferase 25 U/L (14-36); Bilirubin,Direct 0.2 mg/dl (0.0-0.4); Bilirubin,Indirect 0.5 mg/dL (0.0-0.9); Bilirubin,Total 0.7 mg/dl (0.2-1.3); Calcium 9.8 mg/dl (8.4-10.2); Carbon Dioxide 25 mmol/L (22.0-30.0); Cholesterol 177 mg/dl (140-200); Glucose 114 mg/dl (74-100); Total Protein,Serum 7.3 g/dl (6.3-8.2); Triglycerides 220 mg/dl (30-150); VLDL Cholesterol 44 mg/dL (0-40)
[2023-06-02 09:23] LABS: HDL Cholesterol 22 mg/dl (40-60); Magnesium 1.9 mg/dl (1.6-2.3)
[2023-06-02 09:33] LABS: Direct LDL Cholesterol 113.09 mg/dL (100-129)
[2023-06-02 09:53] LABS: Thyroid Stimulating Hormone 3.78 uIU/mL (0.465-4.68)
== END 2023-06-02 23:59 ==
LOC: LAB 07:48
PROVIDERS: PCP Family Medicine; Visit Provider Nurse Practitioner
DX: I10 Essential (primary) hypertension (principal); E78.5 Hyperlipidemia, unspecified; F17.200 Nicotine dependence, unspecified, uncomplicated
CPT/HCPCS: 36415; 80048; 80061; 80076; 83735; 84439; 84443; 85025

== ENCOUNTER 2023-06-05 15:32 | Outpatient (CLI) | payer OTHER, SELFPAY ==
--- NOTE | 2023-06-05 15:39 | MR_ITS ---
FINAL REPORT CLINICAL HISTORY: NECK PAIN COMPARISON: 02/21/2022 FINDINGS: Multiplanar MR imaging of the cervical spine was performed without contrast. On the sagittal T2-weighted images, disc degeneration is seen at multiple levels. There is straightening of the normal cervical lordosis. Mild kyphosis is seen centered at C5-6 There is no evidence of fracture. The vertebral alignment is normal. The cervical spinal cord has an unremarkable appearance without evidence of mass, edema or syrinx. No significant canal stenosis is identified. The cervicomedullary junction is normal. C2-3: There is no significant canal stenosis or neural foraminal narrowing. C3-4: Small central disc protrusion with mild indention of the thecal sac. C4-5: There are small uncovertebral osteophytes without significant canal stenosis or neural foraminal narrowing. C5-6: There is an annular disc bulge and uncovertebral osteophytes with moderate right and mild left neuroforaminal narrowing. C6-7: Small disc osteophyte complex with mild bilateral neuroforaminal narrowing. C7-T1: There is no significant canal stenosis or neural foraminal narrowing. IMPRESSION: Multilevel degenerative disc disease with interval improvement at C6-7 of left foraminal disc protrusion Reviewed, Interpreted and Dictated by Wilbur Jackson III, MD Transcribed by Naomi Haque Authenticated and . [facility]
== END 2023-06-05 23:59 ==
LOC: RAD 15:33
PROVIDERS: PCP Family Medicine; Visit Provider Nurse Practitioner Family
DX: M25.511 Pain in right shoulder (principal); M54.2 Cervicalgia
CPT/HCPCS: 72141; 76376

== ENCOUNTER 2023-10-01 13:12 | Outpatient (POV) | payer OTHER, SELFPAY ==
[2023-10-01 13:31] VITALS: BP 133/82; PULSE 61; RESP 16; O2SAT 99; BMI 27.8
--- NOTE | 2023-10-01 13:37 | A.OFFVIS_ITS ---
[facility] Pain Management SOAP Note Subjective:: Patient is a pleasant 43-year-old female who presents today for medication refill and follow-up. Today she rates her pain an 8 out of 10. Patient states she has pain all over basically. Patient states that she is still having some neck pain but that her right shoulder does seem to be a little bit better today. She states that she still is having low back pain that does typically radiate down into her upper right leg to the knee. And she also states that she will occasionally have pain in her right big toe. Patient denies any new trauma or injury. Patient is currently managed with gabapentin 600 mg at night and has tried compounded cream in the past however did not really feel like it gave significant relief. Patient states she has been using lidocaine patches that do seem to help. Her Anton has been reviewed and is appropriate. Review of Systems: General: No recent weight changes, no fever, no sleep disturbances Respiratory: No cough, no shortness of air, no recurring pulmonary infections Cardiovascular/peripheral vascular: No chest pain, no palpitations, no edema, n o shortness of breath Gastrointestinal: No new onset incontinence, normal bowel movements reported Genitourinary: No new onset incontinence Musculoskeletal: Neck pain, low back pain, right leg pain, right toe pain Psychiatric: [Normal mood/affect] Neurological: [Denies weakness in extremities], [denies balance issues] Objective:: Physical Exam: General: Alert and oriented x3, no acute distress, pleasant and cooperative Lungs: Respirations even and unlabored, symmetrical chest expansion Eyes: PERRL Musculoskeletal: Flexion and extension of lumbar [spine] somewhat guarded secondary to pain, [antalgic gait noted] Neurological: Speech clear, no gross sensory deficit Assessment:: Degenerative disc disease of cervical and lumbar spine with cervical and lumbar radiculopathy symptoms, right shoulder pain, sacroiliitis, right big toe pain Plan:: Patient continues to have significant pain on a daily basis. I have discussed with the patient that she may benefit from additional injection therapy however in the past she has gotten good relief but often times that is very temporary. Patient states at this time she would like to wait. I will refill the patient's gabapentin 600 mg at bedtime and provide a 3-month supply of this medication as well as send in an order for the lidocaine patches. I will send in a 2-week dose of baclofen 5 mg twice daily as needed and patient has been counseled to call our office if this is beneficial between now and her next visit if she would like refills. Patient will return to clinic in 3 months for reevaluation of symptoms and plan of care. Patient has been instructed to contact the clinic with any concerns before the next appointment. Dr. Quinones has reviewed this note and agrees with this plan of care. This note was dictated using voice recognition software and make contain errors or omissions. [facility] Disclaimer: The information contained in this section may have been updated after the parrispradeep nt was seen, as this information can be updated by other users. Medical History HTN (hypertension) Hyperlipidemia Social History Smoking Status: Current every day smoker tobacco type: cigarettes packs per day: 1 second hand exposure: Yes alcohol intake: never substance use type: denies use current occupational status: other Travel in the last 8 weeks: None household members: spouse caffeine: Yes
== END 2023-10-01 23:59 | disposition home or self-care (01) ==
PROVIDERS: PCP Family Medicine; Visit Provider Nurse Practitioner Family
DX: M50.10 Cervical disc disorder with radiculopathy, unspecified cervical region (principal); M51.16 Intervertebral disc disorders with radiculopathy, lumbar region; M25.511 Pain in right shoulder; M46.1 Sacroiliitis, not elsewhere classified; M79.674 Pain in right toe(s)
CPT/HCPCS: 99212; G0463

== ENCOUNTER 2024-01-05 12:59 | Outpatient (POV) | payer OTHER, SELFPAY ==
[2024-01-05 13:13] VITALS: BP 153/78; PULSE 68; RESP 18; O2SAT 98; BMI 27.9
--- NOTE | 2024-01-05 13:23 | EXP.PAIN.SOA ---
[facility] Disclaimer: The information contained in this section may have been updated after the patient was seen, as this information can be updated by other users. Medical History HTN (hypertension) Hyperlipidemia Social History Smoking Status: Current every day smoker tobacco type: cigarettes packs per day: 1 second hand exposure: Yes alcohol intake: never substance use type: denies use current occupational status: employed Travel in the last 8 weeks: None household members: spouse caffeine: Yes PM Subjective & Objective Subjective Subjective:: Patient is a pleasant 43-year-old female who presents today for medication refill and follow-up. Today she does rate her pain a 5 out of 10. She states that the steroid pack that we did send in about a week and a half ago did help. She states that she did have to break the tablets in half due to flushing and swelling in her legs however it really did not seem to help her overall pain. Patient does also state that the lidocaine patches we ordered were not covered by her insurance but she was able to get them from a friend and that they did help. Patient states she continues to have the chronic pain throughout her low back and legs. Patient has had injections in the past with her last injection being SI injections on July 09. These did provide 100% relief and lasted approximately 2 weeks. Prior to this she had a lumbar epidural back in 2018. Patient is currently managed with gabapentin 300 mg 3 times daily however she states she really takes 2 tablets at bedtime and very rarely does the extra tablet. Patient has been prescribed compounded cream in the past with minimal relief. Patient does state that the baclofen that was prescribed really did not seem to provide any improvement. Patient has been tried on baclofen, Skelaxin, Flexeril and methocarbamol. Her Anton has been reviewed and is appropriate. Review of Systems: General: No recent weight changes, no fever, no sleep disturbances Respiratory: No cough, no shortness of air, no recurring pulmonary infections Cardiovascular/peripheral vascular: No chest pain, no palpitations, no edema, no shortness of breath Gastrointestinal: No new onset incontinence, normal bowel movements reported Genitourinary: No new onset incontinence Musculoskeletal: Low back pain, leg pain Psychiatric: [Normal mood/affect] Neurological: [Denies weakness in extremities], [denies balance issues] Pain at rest (0-10 scale): 5 Objective Objective:: Physical Exam: General: Alert and oriented x3, no acute distress, pleasant and cooperative Lungs: Respirations even and unlabored, symmetrical chest expansion Eyes: PERRL Musculoskeletal: Flexion and extension of lumbar [spine] somewhat guarded secondary to pain, [antalgic gait noted] Neurological: Speech clear, no gross sensory deficit Has patient had previous pain injection?: No Conservative treatment options previously tried: Home exercise plan Length of treatment: Longer than 6 weeks Meds Home Medications and Allergies Home Medications ?Medication ?Instructions ?Recorded ?Confirmed ?Type linaclotide 290 mcg capsule 290 mg PO DAILY BOWELS 06/10/17 01/05/24 History montelukast 10 mg tablet 10 mg PO HS ALLERGIES 06/10/17 01/05/24 History medroxyprogesterone 10 mg tablet 10 mg PO MONTHLY hormones 08/03/18 01/05/24 History (Provera) epinephrine 0.3 mg/0.3 mL 0.3 mg (0.3 mL) IM NEEDED PRN 12/15/19 01/05/24 Rx injection, auto-injector Allergic Reaction 1 day ##1 diclofenac sodium 75 mg 75 mg PO BID Pain #60 tabs 08/16/21 01/05/24 Rx tablet,delayed release fenofibrate 50 mg capsule 50 mg PO DAILY Cholesterol 01/25/22 01/05/24 History fluticasone propionate 50 1 spray intranasal DAILY ALLERGIES 01/25/22 01/05/24 History mcg/actuation nasal spray,suspension hydrochlorothiazide 25 mg tablet 25 mg PO DAILY Fluid 01/25/22 01/05/24 History rosuvastatin 5 mg tablet 10 mg PO DAILY Cholesterol 01/25/22 01/05/24 History triamcinolone acetonide 0.5 % 1 applic topical BID . 01/25/22 01/05/24 History topical cream metoprolol succinate 50 mg 50 mg PO DAILY #30 tabs 02/14/23 01/05/24 Rx tablet,extended release 24 hr (Toprol XL) gabapentin 300 mg capsule 300 mg PO TID #90 caps 10/01/23 01/05/24 Rx lidocaine 5 % topical patch 1 patch topical DAILY #30 ea 10/01/23 01/05/24 Rx baclofen 5 mg tablet See Rx Instructions .Route 11/17/23 01/05/24 Rx .COMPLEX #28 tabs losartan 100 mg tablet See Rx Instructions .Route 11/17/23 01/05/24 Rx .COMPLEX #90 tabs New Prescriptions to Start Prescriptions: Allergies Allergy/AdvReac Type Severity Reaction Status Date / Time Sulfa (Sulfonamide Allergy Severe Hives Verified 05/28/23 13:19 Antibiotics) acetaminophen [From LORTAB] Allergy Mild Unknown Verified 05/28/23 13:19 allergy reaction diphenhydramine Allergy Mild Unknown Verified 05/28/23 13:19 [From BENADRYL] allergy reaction hydrocodone [From LORTAB] Allergy Mild Unknown Verified 05/28/23 13:19 allergy reaction Penicillins [PENICILLINS] Allergy Mild Unknown Verified 05/28/23 13:19 allergy reaction tramadol [TRAMADOL] Allergy Mild Unknown Verified 05/28/23 13:19 allergy reaction latex AdvReac Mild Verified 05/28/23 13:19 Assessment and Plan *Assessment and plan (1) Degenerative disc disease, lumbar: Status: Acute Category: Medical Code(s): M51.36 - Other intervertebral disc degeneration, lumbar region (2) Lumbar radiculopathy: Status: Acute Category: Medical Code(s): M54.16 - Radiculopathy, lumbar region Plan I will refill the patient's gabapentin and change it to 300 mg twice daily. I will also send in a prescription of orphenadrine with a 2-week supply. Patient has tried multiple muscle relaxers including Flexeril baclofen, methocarbamol, Skelaxin. patient will return to clinic in 3 months for reevaluation of symptoms and plan of care. Patient has been instructed to contact the clinic with any concerns before the next appointment. Dr. Quinones has reviewed this note and agrees with this plan of care. This note was dictated using voice recognition software and make contain errors or omissions. All injections are used with Lidocaine or Bupivacaine and Depo Medrol.
== END 2024-01-05 23:59 | disposition home or self-care (01) ==
PROVIDERS: PCP Family Medicine; Visit Provider Nurse Practitioner Family
DX: M51.16 Intervertebral disc disorders with radiculopathy, lumbar region (principal); F17.210 Nicotine dependence, cigarettes, uncomplicated; Z79.899 Other long term (current) drug therapy
CPT/HCPCS: 99212; G0463

== ENCOUNTER 2024-02-25 08:13 | Outpatient (CLI) | payer OTHER, SELFPAY ==
--- NOTE | 2024-02-25 08:17 | MM_ITS ---
PROCEDURE INFORMATION: Exam: MG Bilateral Screening 3D Mammography Exam date and time: 02/25/2024 8:04 AM Age: 43 years old Clinical indication: Screening examination TECHNIQUE: Imaging protocol: Bilateral Screening tomosynthesis and 2D mammography including computer-aided detection (CAD) when performed. COMPARISON: 1. MG MM DIG SCREENING MAMM BI W/CAD 06/25/2022 4:40 PM 2. MG MM DIG SCREENING MAMM BI W/CAD 05/23/2021 2:36 PM FINDINGS: MAMMOGRAPHY: Breast composition: The breasts are heterogeneously dense, which may obscure small masses. Mass: No suspicious masses. Architectural distortion: None. Calcifications: No suspicious calcifications. Asymmetric density: None. Skin thickening: None. Axillary adenopathy: None. IMPRESSION: No mammographic evidence of malignancy. Annual screening is recommended unless otherwise clinically indicated. ASSESSMENT: BI-RADS Category 1: Negative.
== END 2024-02-25 23:59 | disposition home or self-care (01) ==
LOC: RAD 08:13
PROVIDERS: PCP Family Medicine; Visit Provider Family Medicine
DX: Z12.31 Encounter for screening mammogram for malignant neoplasm of breast (principal)
CPT/HCPCS: 77063; 77067

== ENCOUNTER 2024-04-05 13:23 | Outpatient (POV) | payer OTHER, SELFPAY ==
--- OUTSIDE RECORDS SUMMARY | 2024-04-05 13:27 | XMS_ITS ---
[facility] Address [address] [place] [phone] Care Team Providers Care Energy Efficiency Engineer Name Role Phone Janina Che Primary Care Provider Isabell Carey Unavailable [phone] ALLERGIES Allergen (clinical drug ingredient) Drug/Non Drug Allergy [...] Drug Allergy Active Tape Unknown Allergy Active RESULTS Component Value Reference Range Notes CBC Fingerstick [...] 400 REASON FOR VISIT cut on leg MEDICATIONS Medication SIG (Take, Route, Frequency, Duration) Notes Start Date End Date Status Linzess 290 MCG TAKE ONE CAPSULE BY MOUTH EVERY DAY for 30 days Active Fenofibrate 145 mg TAKE ONE TABLET BY MOUTH EVERY OTHER DAY for 59 Active Nicotine Polacrilex 4 mg chew 1 piece of gum EVERY 2 HOURS DIRECTED for 10 Active Triamcinolone Acetonide 0.5 % APPLY TOPI ANA TO THE AFFECTED AREA(S) TWICE DAILY for 10 Active Cetirizine HCl 10 mg TAKE ONE TABLET BY MOUTH EVERY DAY for 90 Active Crestor 5 MG 1 tab(s) orally once a day for 90 days Active traZODone HCl 100 mg TAKE ONE TABLET BY MOUTH EVERY DAY AT BEDTIME DIRECTED for 30 days Active hydroCHLOROthiazide 25 mg 1 tablet Orall y Once a day for 90 days Active Toprol XL 50 MG 1 tab(s) Orally once daily for 90 days Active Diflucan 150 MG 1 tablet Orally for 10 day(s) 01/05/2024 Active Nicotine Step 1 21 MG/24HR apply 1 PATCH topically ONCE DAILY DIRECTED -- FOR EXTERNAL USE ONLY-- for 28 Active Provera 10 MG 1 tab(s) orally once a day for 10 day(s) Active Montelukast Sodium 10 mg TAKE ONE TABLET BY MOUTH EVERY DAY for 30 Active Doxycycline Monohydrate 100 MG 1 capsule Orally Once a day for 10 day(s) 01/05/2024 Active Diclofenac Sodium 75 mg TAKE ONE TABLET BY MOUTH TWICE DAILY --TAKE WITH FOOD-- for 90 Active Losartan Potassium 100 MG 1 tab(s) Orall y once a day Active TRAZODONE 100 mg as directed orally qhs Active Albuterol Sulfate HFA 108 (9 0 Base) MCG/ACT 1 puff as needed Inhalation every 4 hrs 02/27/2023 Active SUMAtriptan Succinate 50 MG 1 tab(s) nevaehyvonneaugust repeat q1h x 1 orally 04/23/2021 Active VITAL SIGNS Weight 160.2 lbs 01/05/2024 Blood pressure systolic 110 mm Hg 01/05/20 24 Blood pressure diastolic 70 mm Hg 024 Heart Rate 70 /min 01/05/2024 Height 63 in 01/05/2024 BMI 28.38 kg/m2 01/05/2024 Encounters Encounter Location Date Provider Diagnosis [facility] [address] [facility] [address] [place], [place] [id number] 01/05/2024 Isabell Carey URI (upper respirato ry infection) J06.9 and Abscess L02.91 ASSESSMENTS Encounter Date Diagnosis Assessment Notes Treatment Notes Treatment Clinical Notes 01/05/2024 URI (upper respiratory infection) (ICD-10 - J06.9) fluids, rest, supportive measures for fever/symptom relief; try not to smoke 01/05/2024 Abscess (ICD-10 - L02.91) moist heat application; expect more drainage PLAN OF TREATMENT Medication Medication Name Sig Start Date Stop Date Notes Diflucan 150 MG 1 tablet Orally for 10 day(s) 01/05/2024 Doxycycline Monohydrate 100 MG 1 capsule Orally Once a day for 10 day(s) 01/05/2024 Treatment Notes Assessment Notes URI (upper respiratory infection) fluids , rest, supportive measures for fever/symptom relief; try not to smoke Abscess moist heat applicati on; expect more drainage Next Appt Details Follow Up: prn, Reason: Progress Notes * Examination Category Sub-Category Detail Notes General Examination HEENT: sclera and c onjunctiva clear, PERRLA, TM's normal, translucent Heart: RRR Lungs: CTAB A&P General Appearance: NAD, appears healthy , alert, pleasant Skin: right inner paulina are a 2-3 cm fullness and dry at present; no erythema Neurologic Exam: alert and oriented Neck: supple, no lymphaden opathy Oral cavity: no lesions, mucosa m oist and WNL, no erythema History and Physical Notes * HPI (History of Present Illness) Category Sub-Category Detail Notes Dermatology skin lesion Pt is here today [...]
--- OUTSIDE RECORDS SUMMARY | 2024-04-05 13:27 | XMS_ITS ---
Author Organization [facility] Address [address] [place] [id number] Care Team Providers Care Automatic Door Mechanic Name Role Phone Janina Che Primary Care Provider REASON FOR VISIT Message Encounters Encounter Location Date Provider Diagnosis [facility] [address] [place] [phone] 03/02/2024 Janina Che Encounter for other screening for malignant neoplasm of breast Z12.39 ASSESSMENTS Encounter Date Diagnosis Assessment Notes Treatment Notes Treatment Clinical Notes 03/02/2024 Encounter for other screening for malignant neoplasm of breast (ICD-10 - Z12.39) PLAN OF TREATMENT Pending Test Test Name Order Date MRI : Breasts, bilateral, without contra st 03/02/2024
--- OUTSIDE RECORDS SUMMARY | 2024-04-05 13:27 | XMS_ITS ---
Author Organization [facility] Address [address] [place] [id number] Care Team Providers Care Clearance Coordinator Name Role Phone Janina Che Primary Care Provider REASON FOR VISIT PA approved Encounters Encounter Location Date Provider Diagnosis [facility] [address] [place] [id number] 11/17/2023 Janina Che PLAN OF TREATMENT No Information
--- OUTSIDE RECORDS SUMMARY | 2024-04-05 13:27 | XMS_ITS | Patient Health Record ---
[facility] Address [address] [place] [id number] Care Team Providers Care Teacher Of Gifted Students Name Role Phone Janina Che Primary Care Provider Isabell Carey Unavailable [phone] ALLERGIES Allergen (clinical drug ingredient) Drug/Non Drug [...] - 38 plat 221 100 - 400 Mammogram Reviewed date:03/02/2024 03:42:28 PM Interpretation:Negative; Annual f/u Performing Lab: Notes/Report: Negative; Annual f/u result MEDICATIONS Medication SIG (Take, Route, Frequency, Duration) Notes Start Date End Date Status Crestor 5 MG 1 tab(s) orally once a day for 90 days Active Nicotine Polacrilex 4 mg CHEW 1 PIECE OF GUM EVERY 2 HOURS DIRECTED for 10 Active hydroCHLOROthiazide 25 mg 1 tablet Orall y Once a day for 90 days Active Fenofibrate 145 mg TAKE ONE TABLET BY MOUTH EVERY OTHER DAY for 59 Active Losartan Potassium 100 MG 1 tab(s) Orall y once a day Active Linzess 290 MCG TAKE ONE CAPSULE BY MOUTH EVERY DAY for 30 days Active TRAZODONE 100 mg as directed orally qhs Active Nicotine Step 1 21 MG/24HR apply 1 PATCH topically ONCE DAILY DIRECTED -- FOR EXTERNAL USE ONLY-- for 28 Active Albuterol Sulfate HFA 108 (9 0 Base) MCG/ACT 1 puff as needed Inhalation every 4 hrs 02/27/2023 Active SUMAtriptan Succinate 50 MG 1 tab(s) in tially , may repeat q1h x 1 orally 04/23/2021 Active Toprol XL 50 MG 1 tab(s) Orally once daily for 90 days Active traZODone HCl 100 mg TAKE ONE TABLET BY MOUTH EVERY DAY AT BEDTIME DIRECTED for 30 Active Triamcinolone Acetonide 0.5 % APPLY TOPI ANA TO THE AFFECTED AREA(S) TWICE DAILY -- FOR EXTERNAL USE ONLY-- for 10 Active Provera 10 MG 1 tab(s) orally once a day for 10 day(s) Active Cetirizine HCl 10 mg TAKE ONE TABLET BY MOUTH EVERY DAY for 90 Active Diflucan 150 MG 1 tablet Orally for 10 day(s) 01/05/2024 Active Montelukast Sodium 10 mg TAKE ONE TABLET BY MOUTH EVERY DAY for 30 Active Doxycycline Monohydrate 100 MG 1 capsule Orally Once a day for 10 day(s) 01/05/2024 Active Diclofenac Sodium 75 mg TAKE ONE TABLET BY MOUTH TWICE DAILY --TAKE WITH FOOD-- for 90 Active IMMUNIZATIONS Vaccine Route Administration Date Status Comme nts xFluzone (6mos and older)-trivalent Unknown 07/05/2014 Administered Tetanus Tdap-Adacel (over 7yrs) Unknown 04/13/2013 Administered Tetanus Tdap-Adacel (over 7yrs) Unknown 03/24/2018 Administered ppd ID Intradermal 10/06/2009 Administered PNEUMOVAX 23 VACCINE Unknown 07/05/2014 Administered Hepatitis A (adult) Unknown 03/24/2018 Administered Fluzone Quad (6months&older) Unknown 02/26/2018 Adminis tered Fluzone PF Quad (6-35 months) Unknown 02/26/2018 Administered COVID 19 Moderna Unknown 05/17/2020 Administered COVID 19 Moderna Unknown 06/16/2020 Administered COVID 19 Moderna Unknown 06/16/2020 Administered SOCIAL HISTORY Sex Assigned At : Social History Observation Description Sex Assigned At Unknown PROBLEMS Problem Type ICD Code Onset Dates Problem Status W/U Status Risk SNOMED Code Notes Problem Degenerative disc disease NOS (722.6) Active confirmed Degenerative di sc disease (66198435) Problem HTN (hypertension) (I10) Active confirmed Hypertension (72743576) Problem Hyperlipidemia (E78.5) Active confirmed Hyperlipidemia (94910887) Problem Essential hypertension (I10) Active confirmed 48389153 Problem Otitis externa (H60.90) Active confirmed Otitis externa (2246135) Problem Constipation (K59.00) Active confirmed Constipation (14212901) Problem Anxiety (F41.9) Active confirmed 546136 02 Problem Environmental allergies (Z91.048) Active confirmed Environmental allergy (038682699) Problem 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9) Active confirmed 38486288965749 VITAL SIGNS Heart Rate 70 /min 01/05/2024 Blood pressure diastolic 70 mm Hg 01/05/2024 Height 63 in 01/05/2024 Blood pressure systolic 110 mm Hg 01/05/2024 Weight 160.2 lbs 01/05/2024 BMI 28.38 kg/m2 01/05/2024 Encounters Encounter Location Date Provider Diagnosis [facility] [address] [place] [id number] 11/17/2023 Janina Che [facility] [address] [place] [id number] 03/02/2024 Janina Che Encounter for other screening for malignant neoplasm of breast Z12.39 [facility] [address] [facility] [address] [place] [id number] 01/05/2024 Isabell Carey URI (upper respirato ry infection) J06.9 and Abscess L02.91 ASSESSMENTS Encounter Date Diagnosis Assessment Notes Treatment Notes Treatment Clinical Notes 01/05/2024 URI (upper respiratory infection) (ICD-10 - J06.9) fluids, rest, supportive measures for fever/symptom relief; try not to smoke 01/05/2024 Abscess (ICD-10 - L02.91) moist heat application; expect more drainage 03/02/2024 Encounter for other screening for malignant neoplasm of breast (ICD-10 - Z12.39) PLAN OF TREATMENT Pending Test Test Name Order Date MRI : Breasts, bilateral, without contra st 03/02/2024 MRI : Breasts, bilateral, with and witho ut contrast 03/10/2024 Insurance Providers Payer Name Payer Address Payer Phone Subscriber Number Group Number Insured Name Patient Relationship to Insured Coverage Start Date Coverage End Date [facility] [address] [place], [place] [id number] Tran Molina Self - patient is the insured [facility] [address] [place], [place] [id number] Tran Molina Self - patient is the insured MEDICATIONS ADMINISTERED Medication Instructions Date of Administration Dosage Notes Clonidine by mouth 04/29/2018 0.1 mg Depo- Medrol 40 mg/ml 06/17/2013 Depo- Medrol 40 mg/ml 07/22/2013 MEDICAL (GENERAL) HISTORY Medical History History ICD Code HBP with pregnancies Migraines Degenerative Disc Disease allergic rhinitis Surgical History Surgery Date(Month/Year) Tonsillectomy/Adenoids removed Tubal Ligation 2007 RT Breast Tumor Removal 2007 Hospitalization History Reason Date(Month/Year) Stomach Pain- [facility] 07/04-01/2015 RT Side Neck Pain- [facility] 03/24/2018 Reaction to Sulfa Drug- [facility]
--- OUTSIDE RECORDS SUMMARY | 2024-04-05 13:28 | XMS_ITS | Encounter Summary ---
[facility] Address [address] [place] [address] Care Team Providers Care Sterilizer Operator Name Role Phone Tony Buckley MD Primary Care Provider Encounter Details Date Type Department Care Team (Late st Contact Info) Description 01/21/2023 Telephone [facility] [address] [address] Portia Scott Social History Tobacco Use Types Packs/Day Years Used Date Smoking Tobacco: Every Day Smokeless Tobacco: Never Alcohol Use Standard Drinks/Week Comments Yes 0 (1 standard drink = 0.6 oz pur e alcohol) Comments No Sex and Gender Information Value Date Recorded Sex Assigned at Not on file Legal Sex Female 11:04 AM EDT Gender Identity Not on file Sexual Orientation Not on file documented as of this encounter Miscellaneous Notes * Telephone Encounter - Portia Scott - 01/21/2023 2:35 PM EDT Patient was recommended from her MRI Breast for a Left sided MRI Breast Biopsy. Scheduled for 01/29/2023 at 1:00 with 12:45 arrival at [facility]. No BT. Procedure described indetail and encouraged to call with any further questions. documented in this encounter Plan of Treatment Not on file documented as of this encounter Visit Diagnoses Not on filedocumented in this encounter Care Teams Sterilizer Operator Relationship Specialty Start Date End Date Tony Buckley MD [address] [place] [address] [address] [place] [address] PCP - General Family Medicine 10/19/21 documented as of this encounter
--- OUTSIDE RECORDS SUMMARY | 2024-04-05 13:28 | XMS_ITS | Encounter Summary ---
Author Organization [facility] Address [address] [place] [address] Care Team Providers Care Slubber Tender Name Role Phone Tony Renteria Primary Care Provider Enrique monsivais Encounter Details Date Type Department Care Team (Latest Contact Info) Description 03/04/2022 Travel Social History Tobacco Use Types Packs/Day Years Used Date Smoking Tobacco: Light Smoker Alcohol Use Standard Drinks/Week Comments Yes 0 (1 standard drink = 0.6 oz pur e alcohol) Comments Unknown Sex and Gender Information Value Date Recorded Sex Assigned at Not on file Legal Sex Female 7:49 PM EDT Gender Identity Not on file Sexual Orientation Not on file COVID-19 Exposure Response Date Recorded In the last 10 days, have yo u been in contact with someone who was confirmed or suspected to have Coronavirus/COVID-19? 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
--- OUTSIDE RECORDS SUMMARY | 2024-04-05 13:28 | XMS_ITS | Encounter Summary ---
Author Organization [facility] Address [address] [place] [address] Care Team Providers Care Optical Effects Layout Person Name Role Phone Tony Buckley MD Primary Care Provider Reason for Referral * Diagnostic Imaging (Routine) - Closed Specialty Diagnoses / Procedures Referred By Jaqueline keith Referred To Contact Radiology Diagnoses Abnormal mammogram of left breast Procedures Mammo Post Device Placement Left Isabell Carey APRN [address] [place] [address] Phone: tel: fax: Referral ID Status Reason Start Date Expiration Date Visits Re quested Visits Authorized [id number] Closed 01/14/2023 01/14/2024 1 1 Reason for Visit * Diagnostic Imaging (Routine) - Closed Specialty Diagnoses / Procedures Referred By Jaqueline keith Referred To Contact Radiology Diagnoses Abnormal mammogram of left breast Procedures Mammo Post Device Placement Left Isabell Carey APRN [address] [facility] [address] [place] [address] Phone: tel: fax: Referral ID Status Reason Start Date Expiration Date Visits Re quested Visits Authorized [id number] Closed 01/14/2023 01/14/2024 1 1 Encounter Details Date Type Department Care Team (Latest Contact Info) Description 01/29/2023 2:00 PM EDT - 01/29/2023 11:59 PM EDT Hospital Encounter [facility] [place] [address] [place] [address] Abnormal mammogram of left breast Discharge Disposition: Home or Self Care Social History Tobacco Use Types Packs/Day Years [...] on file documented as of this encounter Medications at Time of Discharge amLODIPine (NORVASC) 10 MG tablet Take 1 tablet by mouth Daily. 5 12/09/2018 cetirizine (zyrTEC) 10 MG tablet Take 1 tablet by mouth Daily. 5 12/09/2018 CIPRODEX 0.3-0.1 % otic suspension 10/30/2018 diclofenac (VOLTAREN) 75 MG EC tablet Take 1 tablet by mouth 2 (Two) Times a Day. 2 12/09/2018 EPINEPHrine (EPIPEN) 0.3 MG/0.3ML solution auto-injector injection INJECT THE CONTENTS OF 1 AUTO-INJECTOR INTRAMUSCULARLY ONCE NEEDED FOR ANAPHYLAXIS REACTION 07/04/2022 fenofibrate (TRICOR) 145 MG tablet Take 1 tablet by mouth Every Other Day. 08/21/2022 fluticasone (FLONASE) 50 MCG/ACT nasal spray instill 1 SPRAY IN EACH NOSTRIL ONCE DAILY 08/07/2022 gabapentin (NEURONTIN) 600 MG tablet TAKE ONE TABLET BY MOUTH EVERY DAY AT BEDTIME NEEDED FOR PAIN 09/09/2022 hydroCHLOROthia zide (HYDRODIURIL) 25 MG tablet Take 1 tablet by mouth Daily. 09/05/2022 levocetirizine (XYZAL) 5 MG tablet Take 1 tablet by mouth Every Evening. 0 12/11/2018 LINZESS 290 MCG capsule capsule Take 1 capsule by mouth Daily. 5 12/09/2018 losartan (COZAAR) 100 MG tablet 09/12/2022 medroxyPROGESTE Luis (PROVERA) 10 MG tablet 12/30/2018 metoprolol succinate XL (TOPROL-XL) 25 MG 24 hr tablet Take 1 tablet by mouth Daily. 0 12/14/2018 montelukast (SINGULAIR) 10 MG tablet Take 1 tablet by mouth Every Evening. 5 12/09/2018 nicotine polacrilex (NICORETTE) 4 MG gum chew 1 piece of gum EVERY 2 HOURS DIRECTED 08/26/2022 Nicotine Step 1 21 MG/24HR patch apply 1 PATCH topically ONCE DAILY DIRECTED -- FOR EXTERNAL USE ONLY-- 09/09/2022 rosuvastatin (CRESTOR) 5 MG tablet Take 1 tablet by mouth Daily. 09/05/2022 traZODone (DESYREL) 100 MG tablet TAKE ONE TABLET BY MOUTH EVERY DAY AT BEDTIME DIRECTED 08/21/2022 triamcinolone (KENALOG) 0.5 % cream APPLY TOPICALLY TO THE AFFECTED AREA(S) TWICE DAILY -- FOR EXTERNAL USE ONLY-- 11/04/2022 documented as of this encounter Plan of Treatment Not on file documented as of this encounter Procedures Procedure Name Priority Date/Time Associated Diagnosis Comments MAMMO POST DEVICE PLACEMENT LEFT Routine 01/29/2023 2:52 PM EDT Abnormal mammogram of left breast documented in this encounter Results * Mammo Post Device Placement Left (01/29/2023 2:52 PM EDT) Anatomical Region Laterality Modality Breast Left Mammography 01/29/2023 3:43 PM EDT Addenda Addendum by Sandra Tsai MD on 01/31/2023 3:25 PM EDT Pathology is now available for the recently performed MRI guided left breast biopsy and is as follows: Left left breast: Lower inner quadrant, M shaped clip: Fibrocystic changes, negative for atypia or malignancy. Benign pathology is concordant with the imaging findings. Recommendation at this time is for follow up postbiopsy breast MRI in 6 months. Results and recommendations will be called to the patient by the breast care nurse. This report was finalized on 01/31/2023 3:25 PM by Sandra Tsai MD. Impressions 01/29/2023 3:44 PM EDT MRI guided core needle biopsy of the left breast as described above. ??A post biopsy marking clip was placed. The pathology results are pending at time of dictation. This report was finalized on 01/29/2023 3:44 PM by Sandra Tsai MD. Narrative 01/29/2023 3:44 PM EDT MRI GUIDED LEFT BREAST BIOPSY:, Post clip mammogram. CLINICAL HISTORY: Patient is a 42-year-old female who presents for MRI guided left breast biopsy. COMPARISON: Exam is correlated to recent breast MRI dated 01/29/2023. TECHNIQUE: ??The risks and benefits of the procedure were explained to the patient and informed consent was obtained. ?? Time-out was performed to verify patient's identity and correct location of the breast abnormality. After placement of an intravenous line the patient was placed prone of the MR scanner. ??The left breast was positioned with mild compression within the breast biopsy coil. ??A fixed fiducial marker was placed on the skin through the guidance grid to aid in the determination of lesion location. ??A InCrowd CAD system was utilized for biopsy planning. Precontrast and postcontrast images were obtained in the axial plane. Next, dynamic views in the axial and sagittal planes were obtained following the administration of 15 ml of gadolinium. ??The lesion to undergo biopsy was confirmed on subtraction images and lesion position, including depth, was determined. ??The patient was brought out of the bore of the MR magnet. ??The appropriate cube within the guidance grid was localized and the underlying skin was prepped with Betadine. ??After administration of local anesthesia (10 mL 1% lidocaine), the needle guide block was placed into the guidance grid. ??An introducer and trocar were then placed into the breast from a medial approach to the pre-determined depth of 3.0 cm. ??The trocar was removed and a localizing obturator was placed through the introducer. ??Axial images revealed the tip of the obturator to be located at the the lesion. ??The patient was brought back out of the bore of the magnet. ??The obturator was removed and a 10g SenoRx MRI compatible vacuum assisted core needle biopsy device was placed through the cannula to the appropriate depth. ?A total of 6 samples were obtained. ?? A M shaped marking clip was then deployed. ?? The patient tolerated the procedure and there were no immediate complications. ??Post-biopsy CC and ML views of the left breast were obtained for clip location. Procedure Note Sandra Tsai MD - 01/29/2023 MRI GUIDED LEFT BREAST BIOPSY:, Post clip mammogram. CLINICAL HISTORY: Patient is a 42-year-old female who presents for MRI guided left breast biopsy. COMPARISON: Exam is correlated to recent breast MRI dated 01/29/2023. TECHNIQUE: The risks and benefits of the procedure were explained to the patient and informed consent was obtained. Time-out was performed to verify patient's identity and correct location of the breast abnormality. After placement of an intravenous line the patient was placed prone of the MR scanner. The left breast was positioned with mild compression within the breast biopsy coil. A fixed fiducial marker was placed on the skin through the guidance grid to aid in the determination of lesion location. A InCrowd CAD system was utilized for biopsy planning. Precontrast and postcontrast images were obtained in the axial plane. Next, dynamic views in the axial and sagittal planes were obtained following the administration of 15 ml of gadolinium. The lesion to undergo biopsy was confirmed on subtraction images and lesion position, including depth, was determined. The patient was brought out of the bore of the MR magnet. The appropriate cube within the guidance grid was localized and the underlying skin was prepped with Betadine. After administration of local anesthesia (10 mL 1% lidocaine), the needle guide block was placed into the guidance grid. An introducer and trocar were then placed into the breast from a medial approach to the pre-determined depth of 3.0 cm. The trocar was removed and a localizing obturator was placed through the introducer. Axial images revealed the tip of the obturator to be located at the the lesion. The patient was brought back out of the bore of the magnet. The obturator was removed and a 10g SenoRx MRI compatible vacuum assisted core needle biopsy device was placed through the cannula to the appropriate depth. A total of 6 samples were obtained. A M shaped marking clip was then deployed. The patient tolerated the procedure and there were no immediate complications. Post-biopsy CC and ML views of the left breast were obtained for clip location. IMPRESSION: MRI guided core needle biopsy of the left breast as described above. A post biopsy marking clip was placed. The pathology results are pending at time of dictation. This report was finalized on 01/29/2023 3:44 PM by Sandra Tsai MD. us Isabellcaleb Carey APRN IMG MAMMOGRAPHY ORDERABLE S Edited Result - Final documented in this encounter Visit Diagnoses Diagnosis Abnormal mammogram of left breast documented in this encounter Care Teams Optical Effects Layout Person Relationship Specialty Start Date End Date Tony Buckley MD [facility] [address] [place] [address] PCP - General Family Medicine 10/19/21 documented as of this encounter
--- OUTSIDE RECORDS SUMMARY | 2024-04-05 13:28 | XMS_ITS | Encounter Summary ---
Author Organization [facility] Address [address] [place] [address] Care Team Providers Care High School Foreign Language Teacher Name Role Phone Unavailable Primary Care Provider Unavailabl e Encounter Details Date Type Department Care Team (Late st Contact Info) Description 09/11/2016 [facility] Vitals Encounter [facility] [address] [place] [address] ProviderCrystal MD [address] [place] [address] Social History Tobacco Use Types Packs/Day Years Used Date Smoking Tobacco: Never Assessed Comments Unknown Sex and Gender Information Value Date Recorded Sex Assigned at Not on file Legal Sex Female 7:49 PM EDT Gender Identity Not on file Sexual Orientation Not on file documented as of this encounter Last Filed Vital Signs Vital Sign Reading Time Taken Comments Blood Pressure - - Pulse - - Temperature - - Respiratory Rate - - Oxygen Saturation - - Inhaled Oxygen Concentration - - Weight 85.1 kg (187 lb 8 oz) 09/11/2016 10:36 AM EDT Height 161.3 cm (5' 3.5 ) 09/11/2016 10:36 AM ED T Body Mass Index 32.69 09/11/2016 10:36 AM EDT documented in this encounter Plan of Treatment Not on file documented as of this encounter Visit Diagnoses Not on filedocumented in this encounter
--- OUTSIDE RECORDS SUMMARY | 2024-04-05 13:28 | XMS_ITS | Encounter Summary ---
[facility] Address [address] [place] [address] Care Team Providers Care Health Insurance Assessor Name Role Phone Tony Buckley MD Primary Care Provider Encounter Details Date Type Department Care Team (Late st Contact Info) Description 01/03/2023 Telephone [facility] AT [address] [address] Portia Scott Social History Tobacco [...] * Telephone Encounter - Portia Scott - 01/03/2023 2:59 PM EDT Patient was recommended from her MRI Breast for a Left DX MMG scheduled at 8:00 and Left 2nd look ultrasound at 9:00 on 01/13/2023 at [facility]. No BT. Encouraged to call with any further questions. No BT, Latex allergy with skin rash documented in this encounter Plan of Treatment Not on file documented as of this encounter Visit Diagnoses Not on filedocumented in this encounter Care Teams Health Insurance Assessor Relationship Specialty Start Date End Date Tony Buckley MD [address] [facility] [address] [place] [address] PCP - General Family Medicine 10/19/21 documented as of this encounter
--- OUTSIDE RECORDS SUMMARY | 2024-04-05 13:28 | XMS_ITS | Encounter Summary ---
Author Organization [facility] Address [address] [place] [address] Care Team Providers Care Digital Advertising Specialist Name Role Phone Prasanna Ramos MD Primary Care Provider [phone] Encounter Details Date Type Department Care Team (Late st Contact Info) Description 08/29/2020 Documentation [facility] [address] [place] [address] Jerilyn Davis [address] [place] [address] Social History Tobacco Use Types Packs/Day Years [...] on file documented as of this encounter Progress Notes * Jerilyn Davis - 08/29/2020 3:45 PM EDTSummary: Genetic testing negative for pathogenic mutations in BRCA1/2 and 34 additional genes. Images from the original note were not included. Tran Molina, a 40-year-old female, was referred for genetic counseling due to a family history of breast and colon cancer. Ms. Molina was 10 years old at menarche and 16 when she had her first child. She is premenopausal and retains her uterus and ovaries. She has annual mammograms. She had a colonoscopy in her late 30s that she reports identified a large polyp, with no additional polyps in the subsequent colonoscopy. Ms. Molina was interested in discussing her risk for a hereditary cancer syndrome. Ms. Molina decided to pursue comprehensive genetic testing to evaluate her risk of cancer, therefore the CancerNext panel was ordered through [facility] which analyzes 36 genes associatedwith an increased cancer risk. The genes on this panel include APC, ARTEMIO, AXIN2, BARD1, BMPR1A, BRCA1, BRCA2, BRIP1, CDH1, CDK4, CDKN2A, CHEK2, DICER1, EPCAM, GREM1, HOXB13, MLH1, MRE11A, MSH2, MSH3, MSH6, MUTYH, NBN, NF1, NTHL1, PALB2, PMS2, POLD1, POLE, PTEN, RAD51C, RAD51D, RECQL, SMAD4, SMARCA4,STK11, and TP53. Genetic testing was negative by sequencing and rearrangement testing for deleterious mutations in the 36 genes included on the CancerNext panel (see attached results). These results were discussed with Ms. Molina by telephone on 08/29/20. PERTINENT FAMILY HISTORY: (See attached pedigree) Sister: Breast cancer (triple negative), 39 (negative genetic testing via multigene panel) Mat. Aunt: Breast cancer, 57 Father: Tonsillar cancer, 59 Pat. Aunt: Breast cancer, 70 Pat. Grandmother: Colon cancer, early 40s We do not have medical records regarding any of these diagnoses. RISK ASSESSMENT: Ms. Molina???s family history raised the question of a hereditary cancer syndrome.Ms. Molina meets NCCN criteria for Adair syndrome testing based on her paternal grandmother???s ageat colon cancer diagnosis. When affected relatives are unavailable to pursue genetic testing, it isreasonable to offer to an unaffected individual. Despite her sister???s negative genetic testing, we discussed BRCA1/2 testing due to the remaining family history of breast cancer. Based on the presence of other clinically significant breast cancer related genes, the standard approach to hereditarycancer genetic testing at this time is via multi-gene panel, which evaluates for BRCA1/2 as well as several additional genes associated with a hereditary risk for breast cancer and other cancers. If genetic testing is negative, management should be guided by a family history-based risk assessment. Since genetic testing was negative, and a mutation has not been identified in an affected relative,breast cancer risk should be estimated using a family history based risk model. We discussed Ms. Molina???s lifetime breast cancer risk based on family history, which was estimated to be 20.1% lifetime risk (ALETHEA/ Louisa Hernandez, v8), in comparison to average 42-year-old woman???s risk of 10.6%. A lif etime risk greater than 20% warrants consideration of increased screening. This risk assessment is based on the family history information provided at the time of the appointment. GENETIC COUNSELING: We reviewed the family history information in detail. Cases of cancer follow three general patterns: sporadic, familial, and hereditary. While most cancer is sporadic, some cases appear to occur in family clusters. These cases are said to be familial and account for 10-20% of cancer cases. Familial cases may be due to a combination of shared genes and environmental factors among family members. In even fewer families, the risk for cancer is inherited, and the genes responsible for the increased cancer risk are known. Family histories typical of hereditary cancer syndromes usually include multiple first- and second-degree relatives diagnosed with cancer types that define a syndrome. These cases tend to be diagnosed at ovwaium-igix-kqwwkihp ages and can be bilateral or multifocal. The cancer in these families follows an autosomal dominant inheritance pattern, which indicates the likely presence of a mutation jackie cancer susceptibility gene. Children and siblings of an individual believed to carry this mutation have a 50% chance of inheriting that mutation, thereby inheriting the increased risk to develop cancer. These mutations can be passed down from the maternal or the paternal lineage. Hereditary breast cancer accounts for 5-10% of all cases of breast cancer. A significant proportion(50%) of hereditary breast cancer can be attributed to mutations in the BRCA1 and BRCA2 genes. Mutations in these genes confer an increased risk for breast cancer, ovarian cancer, male breast cancer,prostate cancer, and pancreatic cancer. Women with a BRCA1 or BRCA2 mutation have up to an 87% lifetime risk of breast cancer and up to a 44% risk of ovarian cancer. There are other clinically significant breast cancer related genes in addition to BRCA1/2, including PALB2, ARTEMIO, and CHEK2. We also discussed hereditary colon cancer, specifically Adair syndrome, due to the family history of early onset colon cancer. There are other, more rare, hereditary cancer syndromes. Based on Ms. Molina???s family history and her desire to get more information regarding her personal risks, she opted to pursue testing through a panel evaluating several other genes known to increase the risk for cancer. GENETIC TESTING: The risks, benefits, and limitations of genetic testing and implications for clinical management following testing were reviewed. DNA test results can influence decisions regarding screening and prevention. Genetic testing can have significant psychological implications for both individuals and families. Also discussed was the possibility of employment and insurance discrimination based on genetic test results and the laws in place to prevent this, as well as the limitations ofthese laws. We discussed panel testing, which would involve testing 36 genes associated with increased cancer risk. The implications of a positive or negative test result were discussed. We also discussed the importance of testing on an affected relative. In general, a negative genetic test result is most informative if a mutation has first been established in an affected member of the family. In cases wherean affected individual is not available or interested in testing, it is appropriate to offer testing to an unaffected individual. We discussed the possibility that, in some cases, genetic test results may be ambiguous due to the identification of a genetic variant. These variants may or may not be a ssociated with an increased cancer risk. With multigene panel testing, it is not uncommon for a variant of uncertain significance (VUS) to be identified. If a VUS is identified, testing family members is typically not recommended and screening recommendations are made based on the family history. The laboratories that perform genetic testing work to reclassify the VUS and send out an amended report if and when a VUS is reclassified. The majority of variant findings are ultimately reclassified to a negative result. Given her family history, a negative test result does not eliminate all cancer risk, although the risk would not be as high as it would with positive genetic testing. TEST RESULTS: Genetic testing was negative for deleterious mutations by sequencing and rearrangement testing for the 36 genes on the CancerNext panel. This negative result greatly lowers the possibility of a hereditary cancer syndrome for Ms. Molina. It is still possible that the family history is due to a genetic mutation that Ms. Molina did not inherit. It is also possible that there are a combination of genetic and environmental factors influencing risk in Ms. Molina???s family, or genes that have yet to be described. Other relatives could consider genetic testing. At this time, family history-based risk assessments should be used to guide management. SCREENING RECOMMENDATIONS: Despite the negative genetic test results, Ms. Molina???s lifetime risk for breast cancer is estimated to be above 20% based on her family history. Given Ms. Molina???s increased risk, options available to individuals with a high lifetime risk for breast cancer were discussed. Increased surveillance, based on NCCN guidelines, would consist of semi-annual clinical breastexam and annual mammography, typically starting ten years prior to the youngest diagnosis in the family, or by age 40. According to an [place] [employer] expert panel and NCCN guidelines, annualbreast MRI should be offered to women whose lifetime risk of breast cancer is 20-25 percent or more. PLAN: Genetic counseling remains available to Ms. Molina. If there are any significant changes to the family history, Ms. Molina is encouraged to contact our office to see if this risk assessment should be updated. Ms. Molina is welcome to contact us at [phone] with any questions she may have. Jerilyn Davis MS, [facility] [place] [facility] Licensed Certified Genetic Counselor Cc: Tran MD Jose Antonio Macias MD documented in this encounter Plan of Treatment Not on file documented as of this encounter Visit Diagnoses Not on filedocumented in this encounter Care Teams Digital Advertising Specialist Relationship Specialty Start Date End Date Prasanna Ramos MD [address] [place] [address] PCP - General Family Medicine 01/01/19 10/18/21 documented as of this encounter
--- OUTSIDE RECORDS SUMMARY | 2024-04-05 13:28 | XMS_ITS | Encounter Summary ---
Author Organization [facility] Address [address] [place] [address] Care Team Providers Care Structural Architect Name Role Phone Tony Bucklye MD Primary Care Provider Encounter Details Date Type Department Care Team (Late st Contact Info) Description 02/03/2023 [place] [address] Inna Garcia RN Social History Tobacco Use Types Packs/Day Years Used Date Smoking Tobacco: Every Day Smokeless Tobacco: Never Alcohol Use Standard Drinks/Week Comments Yes 0 (1 standard drink = 0.6 oz pur e alcohol) Abuse Screen Answer Date Recorded Unsafe at Home or Work/School Not on file Feels Threatened by Someone? Not on file 10/2022 Does Anyone Keep You from Co ntacting Others or Doint Things Outside the Home? Not on file 02/01/2023 Physical Sign of Abuse Present Not on file 1 Housing Stability Answer Date Recorded Current Living Arrangements Not on file 10/2022 Potentially Unsafe Housing Conditions Not on eric e 02/01/2023 Family and Community Support Answer Rainer e Recorded Help with Day-to-Day Activities Not on file 02/01/2023 Lonely or Isolated Not on file 02/01/2023 Employment Answer Date Recorded Do you want help finding or keeping work or a bradford b? Not on file 02/01/2023 Disabilities Answer Date Recorded Concentrating, Remembering, or Making Decisions Difficulty Not on file 02/01/2023 Doing Errands Independently Difficulty Not on fi le 02/01/2023 Education Answer Date Recorded Help with school or training? Not on file Preferred Language Not on file 02/01/2023 Comments No Sex and Gender Information Value Date Recorded Sex Assigned at Not on file Legal Sex Female 11:04 AM EDT Gender Identity Not on file Sexual Orientation Not on file documented as of this encounter Miscellaneous Notes * Telephone Encounter - Inna Garcia RN - 02/03/2023 9:37 AM EDT Patient notified of pathology results and recommendation. Verbalizes understanding. States having some discomfort, denies needing analgesics. Denies signs and symptoms of infection. Questions answered, support given, verbalized understanding. documented in this encounter Plan of Treatment Not on file documented as of this encounter Visit Diagnoses Not on filedocumented in this encounter Care Teams Structural Architect Relationship Specialty Start Date End Date Tony Buckley MD [facility] [address] [facility] [address] [place] [address] PCP - General Family Medicine 10/19/21 documented as of this encounter
--- OUTSIDE RECORDS SUMMARY | 2024-04-05 13:28 | XMS_ITS | Encounter Summary ---
Author Organization [facility] Address [address] [place] [address] Care Team Providers Care Valet Name Role Phone Prasanna Ramos MD Primary Care Provider [phone] Reason for Referral * Physical Therapy (Routine) - Closed Specialty Diagnoses / Procedures Referred By Contac t Referred To Contact Physical Therapy Diagnoses Mechanical back pain Bulging lumbar disc Cervical radicular pain Multilevel degenerative disc disease Jordan Hamilton MD [address] [place] [address] Phone: tel: fax: [facility] [address] [place] [address] Phone: tel: Referral ID Status Reason Start Date Expiration Date V isits Requested Visits Authorized [id number] Closed Specialty Services Required 01/01/2019 01/01/2020 1 1 * Behavorial Health/Psych (Routine) - Closed Specialty Diagnoses / Procedures Referred By Contact Referred To Contact Psychology / Psychiatry Diagnoses Anxiety and depression Jordan Hamilton MD [address] [place] [address] Phone: tel: fax: Carmelina Patrick, PhD [address] [place] [address] Phone: tel: fax: Referral ID Status Reason Start Date Expiration Date V isits Requested Visits Authorized [id number] Closed Specialty Services Required 01/01/2019 01/01/2020 1 1 Reason for Visit * Reason Comments Back & bilateral leg numbness Neck & R-arm pain * Consultation (Routine) - Closed Specialty Diagnoses / Procedures Referred By Contac t Referred To Contact Neurosurgery Diagnoses LUMBAR DDD//MRI (PT KNOWS TO BRING DISC) Procedures CONSULTATION Levy Quinones MD [address] [place] [address] Phone: tel: fax: [place] [address] [place] [address] Phone: tel: fax: Referral ID Status Reason Start Date Expiration Date Visits Re quested Visits Authorized [id number] Closed 01/01/2019 01/01/2020 1 1 Encounter Details Date Type Department Care Team (Late st Contact Info) Description 01/01/2019 9:00 AM EDT Office Visit [facility] [address] [address] Jordan Hamilton MD [address] [place] [address] Mechanical back pain (Primary Dx); Bulging lumbar disc; Cervical radicular pain; Multilevel degenerative disc disease; Anxiety and depression; Tobacco abuse Social History Tobacco Use Types Packs/Day Years [...] - - Temperature - - Respiratory Rate 16 01/01/2019 9:10 AM EDT Oxygen Saturation - - Inhaled Oxygen Concentration - - Weight 79.8 kg (176 lb) 01/01/2019 9:10 AM EDT Height 160 cm (5' 3 ) 01/01/2019 9:10 AM EDT Body Mass Index 31.18 01/01/2019 9:10 AM EDT documented in this encounter Progress Notes * Jordan Hamilton MD - 01/01/2019 9:00 AM EDT NAME: CARLA CLEMONS DOS: 01/01/2019 : 1980 PCP: Prasanna Ramos MD Chief Complaint: Chief Complaint Patient presents with ? ? Back & bilateral leg numbness ? ? Neck & R-arm pain History of Present Illness: 38 y.o. female I saw this 38-year-old female in neurosurgical consultation for the presence of cervical and lumbarspinal pain. She has a history of chronic pain for a number of years and even reports being treatedfor her low back pain when she was a kid. She reports a history of cervical pain that radiates cephalad its been evaluated for anterior lateral neck pain in the past by ENT she has some paraspinal com ponents but denies clear-cut flagrant radiculopathy she does have medial scapula pain intermittently but denies any flagrant weakness or other issues Her low back pain is ever present it centralize at the lumbosacral area has intermittent radiation and occasionally is down the right leg she denies any bowel bladder incontinence issues and has beenthrough therapy. She has a complex history regarding chronicity of her pain is been treated with lumbar epidural steroid exceptions etc. PMHX Allergies: Allergies Allergen Reactions ??? Latex Rash ??? Lortab [Hydrocodone-Acetaminophen] Rash ??? Penicillins Rash Medications Current Outpatient Medications: ??? amLODIPine (NORVASC) 10 MG tablet, Take 10 mg by mouth Daily., Disp: , Rfl: 5 ??? cefdinir (OMNICEF) 300 MG capsule, , Disp: , Rfl: ??? cetirizine (zyrTEC) 10 MG tablet, Take 10 mg by mouth Daily., Disp: , Rfl: 5 ??? CIPRODEX 0.3-0.1 % otic suspension, , Disp: , Rfl: ??? diclofenac (VOLTAREN) 75 MG EC tablet, Take 75 mg by mouth 2 (Two) Times a Day., Disp: , Rfl: 2 ??? fluconazole (DIFLUCAN) 150 MG tablet, , Disp: , Rfl: ??? levocetirizine (XYZAL) 5 MG tablet, Take 5 mg by mouth Every Evening., Disp: , Rfl: 0 ??? LINZESS 290 MCG capsule capsule, Take 290 mcg by mouth Daily., Disp: , Rfl: 5 ??? medroxyPROGESTERone (PROVERA) 10 MG tablet, , Disp: , Rfl: ??? metoprolol succinate XL (TOPROL-XL) 25 MG 24 hr tablet, Take 25 mg by mouth Daily., Disp: , Rfl: 0 ??? montelukast (SINGULAIR) 10 MG tablet, Take 10 mg by mouth Every Evening., Disp: , Rfl: 5 Past Medical History: Past Medical History: Diagnosis Date ??? Asthma ??? Low back pain ??? MRSA (methicillin resistant Staphylococcus aureus) Left breast Past Surgical History: Past Surgical History: Procedure Laterality Date ??? TONSILLECTOMY AND ADENOIDECTOMY ??? TUMOR REMOVAL Right Tumor removal of right breast (benign) Social Hx: Social History Tobacco Use ??? Smoking status: Current Every Day Smoker ??? Smokeless tobacco: Never Used Substance Use Topics ??? Alcohol use: Yes ??? Drug use: No Family Hx: History reviewed. No pertinent family history. Review of Systems: Review of Systems Constitutional: Negative for activity change, appetite change, chills, diaphoresis, fatigue, fever and unexpected weight change. HENT: Positive for congestion, postnasal drip and sinus pressure. Negative for dental problem, drooling, ear discharge, ear pain, facial swelling, hearing loss, mouth sores, nosebleeds, rhinorrhea, sneezing, sore throat, tinnitus, trouble swallowing and voice change. Eyes: Negative for photophobia, pain, discharge, redness, itching and visual disturbance. Respiratory: Negative for apnea, cough, choking, chest tightness, shortness of breath, wheezing andstridor. Cardiovascular: Negative for chest pain, palpitations and leg swelling. Gastrointestinal: Positive for abdominal pain, anal bleeding, blood in stool, constipation, diarrhea and nausea. Negative for abdominal distention, rectal pain and vomiting. Endocrine: Negative for cold intolerance, heat intolerance, polydipsia, polyphagia and polyuria. Genitourinary: Positive for menstrual problem. Negative for decreased urine volume, difficulty urinating, dysuria, enuresis, flank pain, frequency, genital sores, hematuria and urgency. Musculoskeletal: Positive for arthralgias, back pain, joint swelling, myalgias, neck pain and neck stiffness. Negative for gait problem. Skin: Negative for color change, pallor, rash and wound. Allergic/Immunologic: Positive for environmental allergies and immunocompromised state. Negative for food allergies. Neurological: Positive for headaches. Negative for dizziness, tremors, seizures, syncope, facial asymmetry, speech difficulty, weakness, light-headedness and numbness. Hematological: Negative for adenopathy. Does not bruise/bleed easily. Psychiatric/Behavioral: Negative for agitation, behavioral problems, confusion, decreased concentration, dysphoric mood, hallucinations, self-injury, sleep disturbance and suicidal ideas. The patientis not nervous/anxious and is not hyperactive. All other systems reviewed and are negative. I have reviewed this note template and all pertinent parts of the review of systems social, family history, surgical history and medication list Physical Examination: Vitals: 01/01/19 0910 Resp: 16 General Appearance: Well developed, well nourished, well groomed, alert, and cooperative. Neurological examination: Neurologic Exam Vital signs were reviewed and documented in the chart Patient appeared in good neurologic function with normal comprehension fluent speech Mood and affect are normal Sense of smell deferred Some decreased range of motion in the neck Pupils symmetric equally reactive funduscopic exam not visualized Visual richards intact to confrontation Extraocular movements intact Face motor function is symmetric Facial sensations normal Hearing intact to finger rub hearing intact to finger rub Tongue is midline Palate symmetric Swallowing normal Shoulder shrug normal Muscle bulk and tone normal 5 out of 5 strength no motor drift Gait normal intact Negative Romberg No clonus long tract signs or myelopathy Reflexes symmetric No edema noted and extremities skin appears normal Straight leg raise sign absent No signs of intrinsic hip dysfunction Back is without any lesions or abnormality Feet are warm and well perfused Review of Imaging/DATA: I reviewed an MRI of the cervical lumbar spine she is got some isolated degenerative changes mostlyat the C5-6 area Her lumbar spine shows degenerative changes L4-5 L5-S1 she does have intraforaminal disease bilaterally Diagnoses/Plan: Ms. Clemons is a 38 y.o. female She needs multimodal met management. As far as her neck and low back pain issues it will be hard toguarantee any improvements with surgery. I have recommended 1. Referral to a pain psychologist for coping with chronic stress of how this is impacted her life this is been a chronic issue over number of years I warned her against any quick fixes 2. Yoga physical therapy mindfulness training regarding neck and low back pain management 3. Referral back to bux for potentially some lumbar epidural facet blocks ongoing intermittent injections etc. 4. Continued smoking cessation-I explained the importance of smoking cessation to the patient explaining that smoking decreases the efficacy of surgical therapies not to mention the general health risks. In addition to this when contemplating fusion surgeries smoking decreases fusion rates and leads to poor outcome, and contributes to complication rate. If she can make reasonable amends with the above and get to a point with her work-related stressorsand smoking cessation I be willing to do a myelogram EMG nerve conduction study of the lower extremities and we can contemplate interbody fusion. I stressed however that the outcomes of that in this patient population with chronic pain are very complicated. documented in this encounter Plan of Treatment Scheduled Referrals Name Type Priority Associated Diagnoses Order Schedule Ambulatory Referral to Psychology Outpatient Referral Routine Anxiety and depression Ordered: 01/01/2019 documented as of this encounter Visit Diagnoses Diagnosis Mechanical back pain- Primary Bulging lumbar disc Cervical radicular pain Multilevel degenerative disc disease Anxiety and depression Tobacco abuse Tobacco use disorder documented in this encounter Care Teams Valet Relationship Specialty Start Date End Date Prasanna Ramos MD [address] [place] [id number] PCP - General Family Medicine 01/01/19 10/18/21 documented as of this encounter
--- OUTSIDE RECORDS SUMMARY | 2024-04-05 13:28 | XMS_ITS | Encounter Summary ---
[facility] Address [address] [place] [address] Care Team Providers Care Internal Consultant Name Role Phone Tony Buckley MD Primary Care Provider Reason for Visit * Reason Onset Date Comments Dr. Marquez-prior EMG report 09/19/2022 Encounter Details Date Type Department Care Team (Late st Contact Info) Description 09/19/2022 Telephone [facility] NEUROSURGERY [address] [phone] Bashir Marquez MD [address] [place] [address] Dr. Marquez- EMG report Social History Tobacco Use Types Packs/Day Years [...] Preferred Language Not on file 02/01/2023 Comments Unknown Sex and Gender Information Value Date Recorded Sex Assigned at Not on file Legal Sex Female 11:04 AM EDT Gender Identity Not on file Sexual Orientation Not on file documented as of this encounter Miscellaneous Notes * Telephone Encounter - Yojana Che - 10/30/2022 9:01 AM EDT Patient called to request EMG/NCV from [phone] (done at ) be faxed to [facility] at [phone]. She is there to complete the EMG/NCV our office ordered. I have spoken to someone at HIM Dept. They advised me to fax a request to [phone] for the EMG report. Request faxed. * Telephone Encounter - Aline Perez PCT - 10/03/2022 10:10 AM EDT I have talked with the patient and I have talked with Burke De La Rosa's D.O. [phone] office- They will fax the records that they have from an EMG done in 06/02/19 to our office in the next 72 hours. We will call patient back once the records are received. * Telephone Encounter - Rosy Moya RegSched Rep - 09/27/2022 1:05 PM EDT PATIENT CALLED AND STATES SHE S/W AND THEY ADVISED PATIENT THAT THEY WERE SENDING EMG RESULTS AND WE SHOULD HAVE IT BY 09/26/22 AND IF NOT OUR OFFICE NEEDS TO CONTACT MED. RECORDS AND REQUEST RESULTS BY CALLING [phone]. PLEASE CALL TO ADVISE, OKAY TO LVM * Telephone Encounter - Linda Terry MA - 09/20/2022 8:23 AM EDT I was unable to locate the prior EMG, but It looks like this was done with Tello Beverly yuwsky50/[email or web address]. Patient will need to call this office and obtain a copy of the prior EMG. Patient may have EMG done closer to home, but this MUST be complete by a Neurologist, not a PT. Sheri, can you set this up for her please! Thank you. * Telephone Encounter - Sandra Christie RegSched Rep - 09/19/2022 12:50 PM EDT Pt called: she was seen yesterday and is calling to get an update on calling [facility] to get her prior EMG report faxed to the office. She also is inquiring about possibly getting her EMG completed at her local hospital. Please advise! Thanks! Pt contact: [phone] Best time to call: anytime documented in this encounter Plan of Treatment Not on file documented as of this encounter Visit Diagnoses Not on filedocumented in this encounter Care Teams Internal Consultant Relationship Specialty Start Date End Date Tony Buckley MD [address] [facility] [address] [place] [address] PCP - General Family Medicine 10/19/21 documented as of this encounter
--- OUTSIDE RECORDS SUMMARY | 2024-04-05 13:28 | XMS_ITS | Encounter Summary ---
Author Organization [facility] Address [address] [place] [address] Care Team Providers Care Autocad Operator Name Role Phone Unavailable Primary Care Provider Unavailabl e Encounter Details Date Type Department Care Team (Late st Contact Info) Description 12/11/2016 [facility] Vitals Encounter [facility] OUTPATIENT CONVERSIONS [address] [place] [address] ProviderCrystal MD [address] [place] [address] Social History Tobacco Use Types Packs/Day [...] - Inhaled Oxygen Concentration - - Weight 83.2 kg (183 lb 5 oz) 12/11/2016 2:50 PM EDT Height 161.3 cm (5' 3.5 ) 12/11/2016 2:50 PM EDT Body Mass Index 31.96 12/11/2016 2:50 PM EDT documented in this encounter Plan of Treatment Not on file documented as of this encounter Visit Diagnoses Not on filedocumented in this encounter
--- OUTSIDE RECORDS SUMMARY | 2024-04-05 13:28 | XMS_ITS | Encounter Summary ---
Author Organization [facility] Address [address] [place] [address] Care Team Providers Care Conductor Road Freight Name Role Phone Prasanna Ramos MD Primary Care Provider [phone] Encounter Details Date Type Department Care Team (Late st Contact Info) Description 08/14/2020 1:00 PM EDT Clinical Support [facility] [address] [place] [address] Jerilyn Davis [address] [place] [address] Family history of breast cancer (Primary Dx); Family history of colon cancer; Genetic testing Social History Tobacco Use Types Packs/Day Years [...] encounter Progress Notes * Jerilyn Davis - 08/14/2020 1:00 PM EDT Tran Molina, a 40-year-old female, was referred for genetic counseling due to a family history of breast and ovarian cancer. Ms. Molina was 10 years old [...] in discussing her risk for a hereditary cancersyndrome. Ms. Molina decided to pursue comprehensive genetic testing to evaluate her risk of cancer, therefore the CancerNext panel was ordered through [employer] which analyzes 36 genes associated with an increased cancer risk. The genes on this panel include APC, ARTEMIO, AXIN2, BARD1, BMPR1A, BRCA1, BRCA2, BRIP1, CDH1, CDK4, CDKN2A, CHEK2, DICER1, EPCAM, GREM1, HOXB13, MLH1, MRE11A, MSH2, MSH3, MSH6, MUTYH, NBN, NF1, NTHL1, PALB2, PMS2, POLD1, POLE, PTEN, RAD51C, RAD51D, RECQL, SMAD4, SMARCA4, STK11, and TP53. Results are expected in 2-3 weeks. PERTINENT FAMILY HISTORY: (See attached pedigree) Sister: Breast cancer (triple negative), 39 Mat. Aunt: Breast cancer, 57 Father: Tonsillar cancer, 59 Pat. Aunt: Breast cancer, 70 Pat. Grandmother: Colon cancer, early 40s We do not have medical records regarding any of these diagnoses. RISK ASSESSMENT: Ms. Molina???s family history raised the question of a hereditary cancer syndrome.Ms. Molina clearly meets NCCN guidelines criteria for BRCA1/2 testing based on having a close relative diagnosed with breast cancer under age 45. She also meets criteria for Adair syndrome testing based on her paternal grandmother???s age at colon cancer diagnosis. When affected relatives are unavailable to pursue genetic testing, it is reasonable to offer to an unaffected individual. Based on the presence of other clinically significant breast cancer related genes, the standard approach to hereditary cancer genetic testing at this time is via multi-gene panel, which evaluates for BRCA1/2 as w ell as several additional genes associated with a hereditary risk for breast cancer and other cancers. If genetic testing is negative, management should be guided by a family history-based risk assessment. GENETIC COUNSELING (35 minutes): We reviewed the family history information in detail. Cases of cancer follow three general patterns: sporadic, familial, and hereditary. While most cancer is sporadic, some cases appear to occur in family clusters. These cases are said to be familial and account iwc93-59% of cancer cases. Familial cases may be [...] These cases tend to be diagnosed at nmqdtsh-nzxh-zactwqiv ages and can be bilateral or multifocal. [...] CHEK2. We also discussed hereditary colon cancer, and specifically Adair syndrome, due to the family [...] as it would with positive genetic testing. PLAN: Genetic testing via the CancerNext panel through [employer] was ordered. We will contact Ms. Molina with her results once they are received. Jerilyn Davis MS, [facility], [facility] Licensed Certified Genetic Counselor documented in this encounter Plan of Treatment Not on file documented as of this encounter Visit Diagnoses Diagnosis Family history of breast cancer- Primary Family history of malignant neoplasm of breast Family history of colon cancer Family history of malignant neoplasm of gastrointestinal tract Genetic testing Other investigation and testing for procreative management documented in this encounter Care Teams Conductor Road Freight Relationship Specialty Start Date End Date Prasanna Ramos MD [address] [place] [address] PCP - General Family Medicine 01/01/19 10/18/21 documented as of this encounter
--- OUTSIDE RECORDS SUMMARY | 2024-04-05 13:28 | XMS_ITS | Encounter Summary ---
[facility] Address [address] [place] [address] Care Team Providers Care Signal Maintenance Technician Name Role Phone Tony Buckley MD Primary Care Provider Reason for Visit * Reason Onset Date Comments PELON-SHIRLEY 02/25/2022 Encounter Details Date Type Department Care Team (Late st Contact Info) Description 02/25/2022 Telephone [facility] NEUROSURGERY [address] [phone] Jordan Hamilton MD [address] [address] [place] Social History Tobacco Use Types Packs/Day Years [...] encounter Miscellaneous Notes * Telephone Encounter - mIelda Hoang - 02/25/2022 12:30 PM EDT Will need MRI report to review in order to determine scheduling. There is no report in patients available for review. MRI report has not been received in office. Called and spoke with patient she will fax the MRI to my attention, for Dr. Hamilton to review. I didalso give her my direct number for her to reach me directly in the office. * Telephone Encounter - Rosy Moya RegSched Rep - 02/25/2022 11:29 AM EDT Caller: Tran Molina Relationship to patient: Self Best call back number: [phone] Chief complaint: SEVERE PAIN; PATIENT REPORTS SHE IS HAVING SEVERE HEADACHES AND SEVERE ARM PAIN, AND PAIN IN SHOULDER BLADE, ANDSOME MUSCLE SPASMS. ALSO HAS BEEN DROPPING THINGS. Type of visit: F/U Requested date: SU Additional notes: CALL REC'D FROM PATIENT, STATES SHE [facility], AND THAT HER DR AT [facility]. FAXED IN INFO PREVIOUSLY REQUESTED ON 02/21/22. SAYS IF SHE DOESN'T GET AN APPT SCHEDULED SOON, MAY GO SOMEWHERE ELSE. AT THIS TIME PATIENT IS IN TIMEFRAME OF BEING AN ESTABLISHED PATIENT, HOWEVER WILL BE A NEW PATIENT IF SCHEDULED AFTER 03/12. documented in this encounter Plan of Treatment Not on file documented as of this encounter Visit Diagnoses Not on filedocumented in this encounter Care Teams Signal Maintenance Technician Relationship Specialty Start Date End Date Tony Buckley MD [address] [facility] [address] [facility] [address] [place] [address] PCP - General Family Medicine 10/19/21 documented as of this encounter
--- OUTSIDE RECORDS SUMMARY | 2024-04-05 13:28 | XMS_ITS | Encounter Summary ---
[facility] Address [address] [place] [address] Care Team Providers Care Cargoman Name Role Phone Prasanna Ramos MD Primary Care Provider [phone] Encounter Details Date Type Department Care Team (Late st Contact Info) Description 03/12/2019 Telephone [facility] NEUR[facility] [address] [phone] Jordan Hamilton MD [address] [address] Social History Tobacco Use Types Packs/Day Years [...] encounter Miscellaneous Notes * Telephone Encounter - Imelda Hoang - 03/16/2019 3:13 PM EST Patient called back, she understood call. I transferred her call the Medical Records to get a copy of her records. * Telephone Encounter - Imelda Hoang - 03/15/2019 3:01 PM EST Spoke with Dr. Hamilton about this, he is happy to send a copy of his note. He recommends that the patient complete her disability through her primary care office. Tried to call patient there was no answer, lvm with my direct extension for the patient to return my call. * Telephone Encounter - Mariaa Amado MA - 03/15/2019 2:19 PM EST We can give pt last office note, I do not believe Dr. Hamilton will write a letter for disability. Please discuss with Alfonso. * Telephone Encounter - Nita Saez MA - 03/12/2019 5:49 PM EST I called and spoke with the pt. She believes our office should be able to provide a letter stating she cannot work, because Dr. Hamilton recommended she file for disability at her OV. PT is requesting a letter from our office stating she is incapable of working at all. She is scheduled to get another opinion about her chronic back pain, with Rheumatology at in early March. She will be seeing a PT specialist as well. Mariaa will have Dr. Hamilton look at this on Friday. Of note, Pt states she will lose her health care benefits if she does not receive this letter. * Telephone Encounter - Chelsea Lane PA-C - 03/12/2019 3:40 PM EST We did not take patient off work. There is no indication to do so at this time. She needs to followthrough with Dr. Hamilton's recommendations, once complete we may need to set up a myelogram for further evaluation of her symptoms. * Telephone Encounter - Imelda Hoang - 03/12/2019 3:20 PM EST Provider: Alfonso Caller: Tran Time of call: 1520 Phone #: [phone] Surgery: Surgery Date: Last visit: 01/01/2019 Next visit: n/a PARISH: Reason for call: Patient is calling to see about getting a statement for her insurance as to why she can not work. She states that she talked to her PCP about this and they told her they can not write anything. That it had to come from the Neurosurgeon's office. Patient has not been working since her at least her last and only office visit with us. She is requesting that we fill it out as temporary. She did not note if she has continued with Dr. Hamilton's recommendations. I advised her that I could see a copy ofDr. Hamilton's office note for completeness, she is still requesting a letter. documented in this encounter Plan of Treatment Not on file documented as of this encounter Visit Diagnoses Not on filedocumented in this encounter Care Teams Cargoman Relationship Specialty Start Date End Date Prasanna Ramos MD [address] [place] [address] PCP - General Family Medicine 01/01/19 10/18/21 documented as of this encounter
--- OUTSIDE RECORDS SUMMARY | 2024-04-05 13:28 | XMS_ITS | Encounter Summary ---
Author Organization [facility] Address [address] [place] [address] Care Team Providers Care Teleradiologist Name Role Phone Tony Buckley MD Primary Care Provider Reason for Referral * MRI/CAT/PET Scan (Routine) - Closed Specialty Diagnoses / Procedures Referred By Jaqueline keith Referred To Contact Radiology Diagnoses Breast cancer screening, high risk patient Procedures MRI Breast Bilateral Screening With & Without Contrast Isabell Carey APRN [facility] [address] [place] [address] Phone: tel: fax: Referral ID Status Reason Start Date Expiration Date Visits Re quested Visits Authorized [id number] Closed 12/23/2022 02/21/2023 1 1 Reason for Visit * MRI/CAT/PET Scan (Routine) - Closed Specialty Diagnoses / Procedures Referred By Jaqueline keith Referred To Contact Radiology Diagnoses Breast cancer screening, high risk patient Procedures MRI Breast Bilateral Screening With & Without Contrast Isabell Carey APRN [address] [facility] [address] [place] [address] Phone: tel: fax: Referral ID Status Reason Start Date Expiration Date Visits Re quested Visits Authorized [id number] Closed 12/23/2022 02/21/2023 1 1 Encounter Details Date Type Department Care Team (Latest Contact Info) Description 12/27/2022 7:54 AM EDT - 12/27/2022 11:59 PM EDT Hospital Encounter [facility] MRI AT [facility] [address] [facility] [place] [address] Isabell Carey, SOIL FERTILITY EXTENSION SPECIALIST [address] [place] [address] Breast cancer screening, high risk patient Discharge Disposition: Home or Self Care Social [...] Procedure Name Priority Date/Time Associated Diagnosis Comments MRI BREAST BILATERAL SCREENING W WO CONTRAST Routine 12/27/2022 8:58 AM EDT Breast cancer screening, high risk patient POCT CREATININE Routine 12/27/2022 8:22 AM EDT documented in this encounter Results * (ABNORMAL) MRI Breast Bilateral Screening With & Without Contrast (12/27/2022 8:58 AM EDT) Anatomical Region Laterality Modality Breast Bilateral Magnetic Resonan ce 12/31/2022 2:24 PM EDT Impressions 01/01/2023 1:52 PM EDT New area of clumped enhancement measuring 1.7 cm in the medial inferior left breast. 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 If finding is not identified on mammography or ultrasound 1 site MRI guided biopsy would be recommended. BI-RADS CATEGORY: 4 suspicious abnormality left breast This report was finalized on 01/01/2023 1:[address] Barbara Tran MD. Narrative 01/01/2023 1:52 PM EDT BILATERAL BREAST MRI HISTORY: 42-year-old female with a 20.1% calculated lifetime risk for the development of breast cancer. Technologist makes note of an MRSA infection of the left breast but does not give any additional details. The patient did not stop her progesterone. The patient reports an 11 pound weight loss since her prior breast MRI. TECHNIQUE: ??MRI was performed on a 1.5 [place] magnet utilizing an 8 channel Sentinelle breast coil. ??Pre-contrast spin-echo T1 weighted and T2 weighted sequences were obtained in the axial plane. ??Routine dynamic images were performed following the administration of 15 ml of Multihance contrast. ??Four postcontrast runs were obtained. No contrast complications occurred. ??Delayed high resolution post contrast T1 weighted sagittal images were also obtained. ??A CAD system (Code Fever) was utilized for data analysis. ?? COMPARISON: Prior breast MRI from our institution dated 10/19/2021 as well as outside digitized mammogram from [facility] dated June 25, 2022. FINDINGS: There is normal vascular enhancement and mild background enhancement. The breast tissue is heterogeneously dense On T2 weighted sequences there are scattered cysts in both breasts. LEFT BREAST: Compared to the prior breast MRI there is now a 1.7 x 1 cm area of clumped enhancement in the medial left breast best visualized on axial subtracted image 231 not visualized on sagittal images demonstrating progressive kinetics on kinetic analysis. RIGHT BREAST: There are no areas of abnormal morphology or enhancement in the right breast to indicate right breast malignancy Axillary lymph nodes appear stable as visualized Isabell Carey APRN IM MRI ORDERABLES Final Result * POC Creatinine (12/27/2022 8:22 AM EDT) Creatinine 1.00 0.60 - 1.30 mg/dL 12/27/2022 2:05 PM EDT [facility]OR[facility]ORY Comment:Serial Number: [id number] 5Operator: [id number] Blood 12/27/2022 8:22 AM EDT 12/27/2022 2:05 PM EDT Isabell Carey SOIL FERTILITY EXTENSION SPECIALIST POINT OF CARE TEST ORDERA BLES Final Result [facility]
[address] [id number], documented in this encounter Visit Diagnoses Diagnosis Breast cancer screening, high risk patient Screening mammogram for high-risk patient documented in this encounter Administered Medications Inactive Administered Medications - up to 3 most recent administrations Medication Order MAR Action Action Date Dose Rate Site gadobenate dimeglumine (MULTIHANCE) injection 15 mL 15 mL, Intravenous, Once in Imaging, On Fri12/27/22 at 0843, For 1 dose, Vesicant; admin as rapid bolus; flush with 5 mL NS after admin or 20 mL for renal or aortoiliofemoral vasculature Given 12/27/2022 8:59 AM EDT 15 mL documented in this encounter Care Teams Teleradiologist Relationship Specialty Start Date End Date Tony Buckley MD [address] [facility] [address] [place] [address] PCP - General Family Medicine 10/19/21 documented as of this encounter
--- OUTSIDE RECORDS SUMMARY | 2024-04-05 13:28 | XMS_ITS | Encounter Summary ---
[facility] [address] [place] [address] Care Team Providers Care Paving Plant Operator Name Role Phone Tony Buckley MD Primary Care Provider Encounter Details Date Type Department Care Team (Late st Contact Info) Description 11/04/2022 Telephone [facility] NEUROSURGERY [address] [phone] Bashir Marquez MD [address] [facility] [address] [phone] Social History Tobacco Use Types Packs/Day Years [...] encounter Miscellaneous Notes * Telephone Encounter - Maura Nowak RegSched Rep - 11/04/2022 4:11 PM EDT Acknowledged. Records in Chart. * Telephone Encounter - Chan Sahu RegSched Rep - 11/04/2022 9:52 AM EDT Reason for sending: MEDICAL RECORDS NOTIFICATION Documents Description: EMG/NCV_[facility]_10/30/22 Name of Sender: JAKI BRIDGES MD Date Indexed: 11/04/22 Notes (if needed): MEDICAL RECORDS NOTIFICATION documented in this encounter Plan of Treatment Not on file documented as of this encounter Visit Diagnoses Not on filedocumented in this encounter Care Teams Paving Plant Operator Relationship Specialty Start Date End Date Tony Buckley MD [address] [place] [address] [address] [place] [address] PCP - General Family Medicine 10/19/21 documented as of this encounter
--- OUTSIDE RECORDS SUMMARY | 2024-04-05 13:28 | XMS_ITS | Clinical Summary ---
Author Organization [facility] Address [address] [place] [address] Care Team Providers Care Prior Authorization Technician Name Role Phone Tony Renteria Primary Care Provider Sydneyvatoshia lable Allergies Active Allergy Reactions Criticality Noted Date Comments Diphenhydramine Other - please document in the comment field Low 02/25/2022 Hyper reaction Hydrocodone-Acetaminophen Hives Medium 02/25/2022 Penicillins Other - please document in the comment field Low 02/25/2022 Sulfa Drugs Anaphylaxis High 02/25/2022 Family History Medical History Relation Name Comments Cardiac disorder Father Heart attack Father Skin cancer Father Throat cancer Father Hypertension Mother Relation Name Status Comments Father Mother Social History Tobacco Use Types Packs/Day Years Used Date Smoking Tobacco: Light Smoker Alcohol Use Standard Drinks/Week Comments Yes 0 (1 standard drink = 0.6 oz pur e alcohol) Comments Unknown Sex and Gender Information Value Date Recorded Sex Assigned at Not on file Legal Sex Female 7:49 PM EDT Gender Identity Not on file Sexual Orientation Not on file Last Filed Vital Signs Vital Sign Reading Time Taken Comments Blood Pressure 132/86 11/12/2022 9:55 AM EDT Pulse 61 03/04/2022 8:48 AM EST Temperature 37.1 ??C (98.7 ??F) 11/29/2019 2:20 PM ED T Respiratory Rate 17 03/04/2022 8:15 AM EST Oxygen Saturation 96% 03/04/2022 8:48 AM EST Inhaled Oxygen Concentration - - Weight 72.1 kg (159 lb) 11/12/2022 9:55 AM EDT Height 162.6 cm (5' 4 ) 11/12/2022 9:55 AM EDT Body Mass Index 27.29 11/12/2022 9:55 AM EDT Plan of Treatment Health Maintenance Due Date Last Done Comments [facility]-Depression Screening 1980 [facility]-HIV Screening 1980 [facility]-Hepatitis C Screening 1980 [facility]-/Child/Adol SDOH Screenings 1980 [facility]-Obesity Intervention 1984 [facility]- SDOH Screenings 1996 [facility]-Adult SDOH Screenings 1996 [facility]-Hepatitis B Vaccines (1 of 3 - 19+ 3-dose series) 1997 [facility]-Pap Smear 08/12/2004 08/12/2001 [facility]-Cervical Cancer Screening 2008 [facility]-HPV/Cotest 2008 08/12/2001 CT Colonography 2023 FIT-DNA 2023 FIT 2023 FOBT 2023 Sigmoidoscopy 2023 LNO-RODJD-39 Vaccine ( season) 2023 06/16/2020, 05/17/2020 [facility]-Influenza Vaccine (#1) 12/28/202302/26, 07/05/2014 Colonoscopy 09/15/2024 09/15/2014 [facility]-Colorectal Cancer Screening 09/15/2024 [facility]-DTaP,Tdap,and Td Vaccine s (3 - Td or Tdap) 03/24/2028 03/24/2018, 04/13/2013 [facility]-Zoster Vaccines (1 of 2) 2028 [facility]-RSV Vaccine: 60+ Years o r (1 - 1-dose 75+ series) 2053 [facility]-Hepatitis A Vaccines Aged Out 03/24/2018 No longer eligible based on patient's age to complete this topic [facility]-HIB Vaccines Aged Out No longer e ligible based on patient's age to complete this topic [facility]-HPV Vaccines Aged Out No longer e ligible based on patient's age to complete this topic [facility]-IPV Vaccines Aged Out No longer e ligible based on patient's age to complete this topic [facility]-Pneumococcal Vaccine: Pediatrics (0 to 5 Years) and At-Risk Patients (6 to 64 Years) Aged Out No longer eligible b ased on patient's age to complete this topic [facility]-Rotavirus Vaccines Aged Out No lo nger eligible based on patient's age to complete this topic Procedures Procedure Name Priority Date/Time Associated Diagnosis Comments COLONOSCOPY 09/15/2014 CYTO DATA CONVERSION Routine 08/12/2001 12:00 AM EDT from Last 3 Months or Most Recently Relevant to Health Maintenance Results * COLONOSCOPY (09/15/2014) Anatomical Region Laterality Modality Endoscopy Narrative 09/15/2014 Ordered by an unspecified provider. us Historical Provider GI PROCEDURE ORDERABLES F inal Result * (ABNORMAL) Cytology (08/12/2001 12:00 AM EDT) 08/12/2001 08/13/2001 10: 41 AM EDT Narrative [facility] - 08/21/2001 7:42 AM EDT [facility] ?MR #: [id number] [facility] ?[place], [place] ??[id number] ?1980 (Age: 21) ?? FW ?Collect Date: 08/12/2001 00:00 ?Receipt Date: 08/13/2001 10:41 ?Page 1 DEPARTMENT OF PATHOLOGY AND ??LABORATORY MEDICINE CYTOPATHOLOGY REPORT ? Email: [email or web address] ?[phone] ? ATTENDING MD/Practitioner: ??Ling Rincon CNM ? Service: [employer] [employer] ? Location: S ? Reported: 08/21/2001 07:42 ? Collected: 08/12/2001 00:00 INTERPRETATION CERVICAL/VAGINAL PAP SMEAR: ? LOW GRADE SQUAMOUS INTRAEPITHELIAL LESION. ? SATISFACTORY FOR EVALUATION; ENDOCERVICAL/ TRANSFORMATION ZONE COMPONENT PRESENT. Consider diagnostic follow-up studies. Follow-up biopsies in patients with LSIL on Pap may detect high grade lesions in up to 15-20% of patients ([place] lab data and Arch Pathol Lab Med 1996;120:523) ? Electronically Signed Out ? ZEINAB Alvarez(ASCP) Tatyana Conti MD ? Cervical cytology is a screening test primarily for squamous cancers and precursors and has associated false negative and positive results. New technologies such as liquid based sampling may decrease but will not eliminate all false negative results. Regular screening and follow-up of unexplained clinical signs and symptoms are recommended to minimize false negative results. ??Please see the ASCCP website (www.[email or web address]) for followup recommendations. If HPV testing was requested, correlation with the results is suggested (please call Microbiology at [phone] for results). CLINICAL INFORMATION: Menstrual History: Cyclic Date of Last Menstrual Period: ? 07 30 02 SPECIMEN DESCRIPTION: A: ??CERVICAL/VAGINAL PAP SMEAR ? SMEARS: PAP STAIN ICD: 622.1 ? DYSPLASIA OF CERVIX V76.2 ? CERVIX, SPECIAL SCREENING FOR MALIGNANT NEOPLASM F: A; 88573 SCREEN, 93460 C\V (PO) SNOMED CODES: A; [id number] In cases where a pathologist has signed out the report, the service has been rendered in part by a resident. The signing pathologist has performed and is responsible for the reported pathologic evaluation. us Historical Provider LAB PATHOLOGY ORDERABLES Final Result SUNQUEST from Last 3 Months or Most Recently Relevant to Health Maintenance Additional Health Concerns Infection Onset Date Last Indicated MRSA 01/29/2022 01/29/2022 Insurance [employer] [facility] MEDICAID Care Teams Prior Authorization Technician Relationship Specialty Start Date End Date Tony Renteria PCP - General 03/04/22
--- OUTSIDE RECORDS SUMMARY | 2024-04-05 13:28 | XMS_ITS | Encounter Summary ---
Author Organization [facility] Address [address] [place] [address] Care Team Providers Care Medical Collections Name Role Phone Tony Buckley MD Primary Care Provider Reason for Visit * Reason Comments Follow-up EMG Neck Pain With radiculopathy Encounter Details Date Type Department Care Team (Late st Contact Info) Description 11/13/2022 8:40 AM EDT Office Visit [facility] [address] [phone] Bashir Marquez MD [address] [place] [address] Cervical spondylosis with radiculopathy (Primary Dx); DDD (degenerative disc disease), cervical; Bilateral carpal tunnel syndrome; Tobacco abuse Social History Tobacco Use Types Packs/Day Years Used Date Smoking Tobacco: Every Day Smokeless Tobacco: Never Tobacco Cessation:Ready to Q uit: No; Counseling Given: Yes Alcohol Use Standard Drinks/Week Comments Yes 0 [...] Pressure - - Pulse - - Temperature 36.5 ??C (97.7 ??F) 11/13/2022 8:26 AM ED T Respiratory Rate - - Oxygen Saturation - - Inhaled Oxygen Concentration - - Weight 71.2 kg (157 lb) 11/13/2022 8:26 AM EDT Height 160 cm (5' 3 ) 11/13/2022 8:26 AM EDT Body Mass Index 27.81 11/13/2022 8:26 AM EDT documented in this encounter Progress Notes * Bashir Marquez MD - 11/13/2022 8:40 AM EDT Patient: Tran Molina : 1980 Primary Care Provider: Tony Buckley MD Requesting Provider: As above History Chief Complaint: 1. Chronic low back pain. 2. Neck pain involving both arms with sensory alteration and weakness. History of Present Illness: Ms. Molina is a 42-year-old woman who saw my colleague Dr. Hamilton in 2019 with similar complaints. She has had chronic low back pain since her childhood years. When she gets the pain it typically involves her right leg. She has had some injections performed in the pain clinic in [facility]. At this point her low back and leg are not particularly bothersome. For last couple of years she has had bothersome neck pain that will extend into both arms. Her symptoms are quite severe when she awakens in the morning but are better after she is up and moving. She is dropping things from her hands. She complains of pain extending into the scapula, more so on the right.Apparently she had electrodiagnostic studies done several years ago that demonstrated at least somecarpal tunnel syndrome. She has used a TENS unit. She takes gabapentin. She has done physical therapy for her low back but not on her neck in the past. Diclofenac is very helpful. Efforts at physicaltherapy on her neck with traction did not be with success. The traction made her much worse for several days. That was abandoned. She did some dry needling. Her symptoms remain unchanged. She continues to smoke at least on the weekends. Review of Systems Constitutional: Positive for unexpected weight change. Negative for activity change, appetite change, chills, diaphoresis, fatigue and fever. HENT: Positive for congestion and sinus pressure. Negative for dental problem, drooling, ear discharge, ear pain, facial swelling, hearing loss, mouth sores, nosebleeds, postnasal drip, rhinorrhea, sneezing, sore throat, tinnitus, trouble swallowing and voice change. Eyes: Negative for photophobia, pain, discharge, redness, itching and visual disturbance. Respiratory: Negative for apnea, cough, choking, chest tightness, shortness of breath, wheezing andstridor. Cardiovascular: Negative for chest pain, palpitations and leg swelling. Gastrointestinal: Negative for abdominal distention, abdominal pain, anal bleeding, blood in stool,constipation, diarrhea, nausea, rectal pain and vomiting. Endocrine: Negative for cold intolerance, heat intolerance, polydipsia, polyphagia and polyuria. Genitourinary: Negative for decreased urine volume, difficulty urinating, dysuria, enuresis, flank pain, frequency, genital sores, hematuria and urgency. Musculoskeletal: Positive for arthralgias, back pain, joint swelling, neck pain and neck stiffness.Negative for gait problem and myalgias. Skin: Negative for color change, pallor, rash and wound. Allergic/Immunologic: Positive for environmental allergies. Negative for food allergies and immunocompromised state. Neurological: Negative for dizziness, tremors, seizures, syncope, facial asymmetry, speech difficulty, weakness, light-headedness, numbness and headaches. Hematological: Negative for adenopathy. Does not bruise/bleed easily. Psychiatric/Behavioral: Negative for agitation, behavioral problems, confusion, decreased concentration, dysphoric mood, hallucinations, self-injury, sleep disturbance and suicidal ideas. The patientis not nervous/anxious and is not hyperactive. All other systems reviewed and are negative. The patient's past medical history, past surgical history, family history, and social history have been reviewed at length in the electronic medical record. Physical Exam: Temp 97.7 ??F (36.5 ??C) (Infrared) Ht 160 cm (63 ) Wt 71.2 kg (157 lb) BMI 27.81 kg/m?? Furred. Medical Decision Making Data Review: (All imaging studies were personally reviewed unless stated otherwise) MRI of the cervical spine dated 02/21/2022 demonstrates some loss of the normal lordosis. There is some central broad-based disc-osteophyte without significant root or canal compromise at C5-6. Thereare some soft disc herniation somewhat broad-based but much more prominent to the left at C6-7. Electrodiagnostic studies demonstrate mild bilateral carpal tunnel syndrome. Diagnosis: 1. Cervical spondylosis with possible radiculopathy. 2. Bilateral carpal tunnel syndrome, mild. 3. Mechanical neck pain. Treatment Options: Ms. Molina is getting by. I have offered wrist splints for her carpal tunnel but she would like to hold off on that for now. I have also once again discussed the merits of smoking cessation as it relates to her spinal difficulties. At this juncture she will follow-up on an as-needed basis. Diagnosis Plan 1. Cervical spondylosis with radiculopathy 2. DDD (degenerative disc disease), cervical 3. Bilateral carpal tunnel syndrome 4. Tobacco abuse Scribed for Bashir Marquez MD by Linda Terry Roscoe 11/13/2022 08:50 EDT I, Dr. Marquez, personally performed the services described in the documentation, as scribed in my presence, and it is both accurate and complete. documented in this encounter Plan of Treatment Not on file documented as of this encounter Visit Diagnoses Diagnosis Cervical spondylosis with radiculopathy- Primary Cervical spondylosis with myelopathy DDD (degenerative disc disease), cervical Degeneration of cervical intervertebral disc Bilateral carpal tunnel syndrome Carpal tunnel syndrome Tobacco abuse Tobacco use disorder documented in this encounter Care Teams Medical Collections Relationship Specialty Start Date End Date Tony Buckley MD [address] [place] [address] [address] [facility] [address] [facility] [place] [address] PCP - General Family Medicine 10/19/21 documented as of this encounter
--- OUTSIDE RECORDS SUMMARY | 2024-04-05 13:28 | XMS_ITS | Encounter Summary ---
Author Organization [facility] Address [address] [id number] Care Team Providers Care Tile Installer Name Role Phone Tony Buckley MD Primary Care Provider Reason for Referral * MRI/CAT/PET Scan (Routine) - Closed Specialty Diagnoses / Procedures Referred By Jaqueline keith Referred To Contact Radiology Diagnoses Abnormal mammogram of left breast Procedures MRI Breast Biopsy Initial With & Without Device Isabell Carey APRN [address] [place] [address] [address] [place] [address] Phone: tel: fax: Referral ID Status Reason Start Date Expiration Date Visits Re quested Visits Authorized [id number] Closed 01/14/2023 01/14/2024 1 1 Reason for Visit * MRI/CAT/PET Scan (Routine) - Closed Specialty Diagnoses / Procedures Referred By Jaqueline keith Referred To Contact Radiology Diagnoses Abnormal mammogram of left breast Procedures MRI Breast Biopsy Initial With & Without Device Isabell Carey APRN [address] [facility] [address] [place] [address] Phone: tel: fax: Referral ID Status Reason Start Date Expiration Date Visits Re quested Visits Authorized [id number] Closed 01/14/2023 01/14/2024 1 1 Encounter Details Date Type Department Care Team (Latest Contact Info) Description 01/29/2023 12:47 PM EDT - 01/29/2023 11:59 PM EDT Hospital Encounter [facility] MRI AT [address] [phone] Abnormal mammogram of left breast Discharge Disposition: [...] Priority Date/Time Associated Diagnosis Comments MRI BREAST BIOPSY INITIAL W WO DEVICE Routine 01/29/2023 3:33 PM EDT Abnormal mammogram of left breast TISSUE PATHOLOGY EXAM Routine 01/29/2023 2:10 PM EDT POCT CREATININE Routine 01/29/2023 1:14 PM EDT documented in this encounter Results * MRI Breast Biopsy Initial With & Without Device (01/29/2023 3:33 PM EDT) Anatomical Region Laterality Modality Breast N/A Magnetic Resonan ce 01/29/2023 3:43 PM EDT Addenda Addendum by [...] in the determination of lesion location. ??A [employer] CAD system was utilized for biopsy planning. [...] ??The obturator was removed and a 10g CS Disco MRI compatible vacuum assisted core needle biopsy [...] in the determination of lesion location. A [employer] CAD system was utilized for biopsy planning. [...] 01/29/2023 3:44 PM by Sandra Tsai MD. Isabell Cherry [facility] [place] ORDERABLES Edited Result - Final * Tissue Pathology Exam (01/29/2023 2:10 PM EDT) Case Report Surgical Pathology Report ? Case: [id number] ? Authorizing Provider: ??Sandra Tsai, Collected: ? 01/29/2023 02:10 PM ? MD ? Ordering Location: ? [facility] ?? Received: ?01/30/2023 06:11 AM ? MRI AT [facility] ? Pathologist: ? Jamel Hensley MD ? Specimen: ?Breast, Left, LIQ- Non mass enhancement- M' clip ? 01/31/2023 2:58 PM EDT [facility] Clinical Information Abnormal mammogram of left breast 01/31/2023 2:58 PM EDT [facility] Final Diagnosis LEFT BREAST, LOWER INNER QUADRANT, BIOPSIES: Fibrocystic changes Negative for atypia or malignancy GJK 01/31/2023 2:58 PM EDT [facility] Comment This report was sent to the radiologist at [facility] on 01/31/23. 01/31/2023 2:58 PM EDT [facility] Gross Description 1. Breast, Left. Received in formalin labeled XBL-lkt-qzjh enhancement is a 2.7 x 1.8 x 0.6 cm aggregate of MRI-guided yellow-pink fibrofatty breast tissue fragments placed in formalin at 1410 on 01/29/2023, now submitted in block 1A. Received free-floating in the same container, not in a cassette is a 1.3 x 1.1 x 0.2 cm aggregate of yellow-regan, lobulated soft tissue and blood clot which is filtered and entirely submitted in cassette 1B. The cold ischemic time is less than 60 minutes, total time in formalin is greater than 6 and less than 72 hours. MLA 01/31/2023 2:58 PM EDT [facility] Microscopic Description The slides are reviewed and demonstrate histopathologic features supporting the above rendered diagnosis. 01/31/2023 2:58 PM EDT [facility] Tissue Left breast structure / Unknown Collection / Unknown 01/29/2023 2:10 PM EDT 01/30/2023 6:11 AM EDT Comment:LIQ- Non mass enhanc ement- M' clip Sandra Tsai MD PATHOLOGY/CYTOLOGY O RDERABLES Final Result Performing Organization Address City/[facility]/ZIP Co de Phone Number [facility]
[address] [place] [address], * POC Creatinine (01/29/2023 1:14 PM EDT) Creatinine 0.90 0.60 - 1.30 mg/dL 01/29/2023 2:01 PM EDT [facility] Comment:Serial Number: [id number] 5Operator: [id number] Blood 01/29/2023 1:14 PM EDT 01/29/2023 2:01 PM EDT Isabell Carey APRN POINT OF CARE TEST ORDERA BLES Final Result Performing Organization Address [facility] Co de Phone Number [facility]
[address] [place] [address], documented in this encounter Visit Diagnoses Diagnosis Abnormal mammogram of left breast documented in this encounter Administered Medications Inactive Administered Medications - up to 3 most recent administrations Medication Order MAR Action Action Date Dose Rate Site gadobenate dimeglumine (MULTIHANCE) injection 15 mL 15 mL, Intravenous, Once in Imaging, On Fri01/29/23 at 1425, For 1 dose, Vesicant; admin as rapid bolus; flush with 5 mL NS after admin or 20 mL for renal or aortoiliofemoral vasculature Given 01/29/2023 2:24 PM EDT 15 mL lidocaine (XYLOCAINE) 1 % injection 10 mL 10 mL, Injection, Once in Imaging, On Fri01/29/23 at 1426, For 1 dose Given 01/29/2023 2:29 PM EDT 10 mL documented in this encounter Care Teams Tile Installer Relationship Specialty Start Date End Date Tony Buckley MD [address] [place] [address] [address] [place] [address] PCP - General Family Medicine 10/19/21 documented as of this encounter
--- OUTSIDE RECORDS SUMMARY | 2024-04-05 13:28 | XMS_ITS | Clinical Summary ---
Author Organization [facility] Address [address] [place] [address] Care Team Providers Care Weaver Axminster Name Role Phone Tony Buckley MD Primary Care Provider Allergies Active Allergy Reactions Criticality Noted Date Comments Diphenhydramine Other (See Comments) Low 02/25/2022 Hyper reaction Hydrocodone-Acetaminophen Hives Medium 01/01/2019 Latex Rash Low 01/01/2019 Penicillins Rash,Other (See Comments) Low 01/01/2019 Sulfa Antibiotics Anaphylaxis High 02/25/2022 Medications amLODIPine (NORVASC) 10 MG tablet Take 1 tablet by mouth Daily. 5 12/10/19 19 Active cetirizine (zyrTEC) 10 MG tablet Take 1 tablet by mouth Daily. 5 12/10/19 19 Active CIPRODEX 0.3-0.1 % otic suspension 10/31/19 19 Active diclofenac (VOLTAREN) 75 MG EC tablet Take 1 tablet by mouth 2 (Two) Times a Day. 2 12/10/19 19 Active levocetirizine (XYZAL) 5 MG tablet Take 1 tablet by mouth Every Evening. 0 12/12/19 19 Active LINZESS 290 MCG capsule capsule Take 1 capsule by mouth Daily. 5 12/10/19 19 Active medroxyPROGEST ERone (PROVERA) 10 MG tablet 12/31/19 19 Active metoprolol succinate XL (TOPROL-XL) 25 MG 24 hr tablet Take 1 tablet by mouth Daily. 0 12/15/19 19 Active montelukast (SINGULAIR) 10 MG tablet Take 1 tablet by mouth Every Evening. 5 12/10/19 Active EPINEPHrine (EPIPEN) 0.3 MG/0.3ML solution auto-injector injection INJECT THE CONTENTS OF 1 AUTO-INJECTOR INTRAMUSCULARLY ONCE NEEDED FOR ANAPHYLAXIS REACTION 07/05/19 Active fenofibrate (TRICOR) 145 MG tablet Take 1 tablet by mouth Every Other Day. 08/22/19 Active fluticasone (FLONASE) 50 MCG/ACT nasal spray instill 1 SPRAY IN EACH NOSTRIL ONCE DAILY 08/08/19 23 Active gabapentin (NEURONTIN) 600 MG tablet TAKE ONE TABLET BY MOUTH EVERY DAY AT BEDTIME NEEDED FOR PAIN 09/10/19 Active hydroCHLOROthi azide (HYDRODIURIL) 25 MG tablet Take 1 tablet by mouth Daily. 09/06/19 23 Active losartan (COZAAR) 100 MG tablet 09/13/19 Active Nicotine Step 1 21 MG/24HR patch apply 1 PATCH topically ONCE DAILY DIRECTED -- FOR EXTERNAL USE ONLY-- 09/10/19 Active nicotine polacrilex (NICORETTE) 4 MG gum chew 1 piece of gum EVERY 2 HOURS DIRECTED 08/27/19 23 Active rosuvastatin (CRESTOR) 5 MG tablet Take 1 tablet by mouth Daily. 09/06/19 Active traZODone (DESYREL) 100 MG tablet TAKE ONE TABLET BY MOUTH EVERY DAY AT BEDTIME DIRECTED 08/22/19 Active triamcinolone (KENALOG) 0.5 % cream APPLY TOPICALLY TO THE AFFECTED AREA(S) TWICE DAILY -- FOR EXTERNAL USE ONLY-- 11/05/19 Active Active Problems No known active problems Family History Medical History Relation Name Comments Breast cancer Maternal Aunt Breast cancer Paternal Aunt Breast cancer Sister Ovarian cancer Neg Hx Relation Name Status Comments Maternal Aunt Paternal Aunt Sister Social History Tobacco Use Types Packs/Day Years [...] 11/13/2022 8:26 AM ED T Respiratory Rate 16 01/01/2019 9:10 AM EDT Oxygen Saturation - - Inhaled Oxygen Concentration - - Weight 73 kg (161 lb) 01/29/2023 12:51 PM EDT Height 160 cm (5' 3 ) 11/13/2022 8:26 AM EDT Body Mass Index 28.52 11/13/2022 8:26 AM EDT Plan of Treatment Health Maintenance Due Date Last Done Comments Annual Gynecologic Pelvic and Breast Exam 1978 COLOGUARD 1978 COLON CANCER SCREENING 5 YEA R SIGMOIDOSCOPY 1978 CT COLONOGRAPHY 1978 FECAL OCCULT BLOOD TEST 1978 FIT Testing (1 year) 1978 Pneumococcal Vaccine 0-64 (1 of 2 - PCV) 1984 ANNUAL PHYSICAL 01/01/2019 HEPATITIS C SCREENING 01/01/2019 PAP SMEAR 01/01/2019 INFLUENZA VACCINE 10/27/2023 02/26/2018, 07/05/2014 COVID-19 Vaccine ( season) 2023, 05/17/2020 COLONOSCOPY 09/15/2024 09/15/2014, 09/15/2014 COLORECTAL CANCER SCREENING 09/15/2024 MAMMOGRAM 01/13/2025 01/13/2023 TDAP/TD VACCINES (3 - Td or Tdap) 03/24/2028 018, 04/13/2013 Procedures Procedure Name Priority Date/Time Associated Diagnosis Comments MAMMO OUTSIDE FILMS Routine 02/25/2024 1 2:00 AM EDT H/O mammogram MAMMO DIAGNOSTIC DIGITAL TOMOSYNTHESIS LEFT W CAD Routine 01/13/2023 8:41 AM EDT Breast cancer screening, high risk patient from Last 3 Months or Most Recently Relevant to Health Maintenance Results * MAMMO Outside Films (02/25/2024 12:00 AM EDT) Narrative SYSTEMGENERATED, DOCUMENTATION - 03/16/2024 1:58 PM EST This procedure was auto-finalized with no dictation required. Noble Che MD IMG MAMMOGRAPHY ORDERABLE S Final Result * (ABNORMAL) Mammo Diagnostic Digital Tomosynthesis Left With CAD (01/13/2023 8:41 AM EDT) Anatomical Region Laterality Modality Breast Left Mammography 01/13/2023 9:06 AM EDT Impressions 01/13/2023 9:08 AM EDT BI-RADS 4 suspicious abnormality left breast RECOMMENDATION: 1 site MRI guided biopsy of the left breast. The standard false-negative rate of mammography is between 10% and 25%. Complex patterns or increased breast density will markedly elevate the false-negative rate of mammography. ?? A results letter, in lay terminology, will be given to the patient at the conclusion of the exam. This report was finalized on 01/13/2023 9:[address] Barbara Tran MD. Narrative 01/13/2023 9:08 AM EDT EXAMINATION:US GUIDED BREAST BIOPSY W WO DEVICE INITIAL-, MAMMO DIAGNOSTIC DIGITAL TOMOSYNTHESIS LEFT W CAD- HISTORY: 42-year-old female recall for diagnostic left mammogram and second look ultrasound for new area of enhancement in the medial lower left breast on patient's annual High risk screening breast MRI. The patient states she has been on progesterone nonstop since approximately 2018. Her MRSA infection was many years ago when she was breast-feeding her child. TECHNIQUE: Combination 2D 3D standard views of the left breast and targeted left breast ultrasound COMPARISON: Prior left mammogram dating back to 05/23/2021 as well as breast MRIs dated 10/19/2021 and 12/27/2022 FINDINGS: The breasts are heterogeneously dense, which may obscure small masses. No suspicious masses microcalcifications or areas of architectural distortion identified. Targeted ultrasound to the medial lower left breast did not define a sonographic correlate for the area of enhancement us Barbara Tran MD IMG MAMMOGRAPHY ORDERABLES Final Result from Last 3 Months or Most Recently Relevant to Health Maintenance Insurance [employer] Care Teams Weaver Axminster Relationship Specialty Start Date End Date Tony Buckley MD [address] [facility] [address] [facility] [address] [place] [id number] PCP - General Family Medicine 10/19/21
--- OUTSIDE RECORDS SUMMARY | 2024-04-05 13:28 | XMS_ITS | Encounter Summary ---
Author Organization [facility] Address [address] [id number] Care Team Providers Care Grassland Conservationist Name Role Phone Adan Restrepo MD Primary Care Provider [phone] Encounter Details Date Type Department Care Team (Late st Contact Info) Description 02/25/2022 Telephone [facility] Radiology [address] [place] [address] Christy Keane RN [facility] RAD[facility]OLOG[facility] Social History Tobacco Use Types Packs/Day Years [...] suspected to have Coronavirus/COVID-19? No / Unsure 02/25/2022 8:21 AM EDT documented as of this encounter Plan of Treatment Not on file documented as of this encounter Visit Diagnoses Not on filedocumented in this encounter Additional Health Concerns Infection Onset Date Last Indicated Resolved Time MRSA 01/29/2022 01/29/2022 documented as of this encounter Care Teams Grassland Conservationist Relationship Specialty Start Date End Date Adan Restrepo MD [address] [place] [address] PCP - General 09/08/20 03/03/22 documented as of this encounter
--- OUTSIDE RECORDS SUMMARY | 2024-04-05 13:28 | XMS_ITS | Encounter Summary ---
Author Organization [facility] Address [address] [id number] Care Team Providers Care Director Manufacturing Engineering Name Role Phone Tony Buckley MD Primary Care Provider Reason for Referral * Diagnostic Imaging (Routine) - Closed Specialty Diagnoses / Procedures Referred By Jaqueline keith Referred To Contact Radiology Diagnoses Breast cancer screening, high risk patient Procedures Mammo Diagnostic Digital Tomosynthesis Left With CAD Isabell Carey, PROMOTIONS DIRECTOR [address] [facility] [address] [place] [address] Phone: tel: fax: Referral ID Status Reason Start Date Expiration Date Visits Re quested Visits Authorized [id number] Closed 01/03/2023 01/03/2024 1 1 Reason for Visit * Diagnostic Imaging (Routine) - Closed Specialty Diagnoses / Procedures Referred By Contmelvi t Referred To Contact Radiology Diagnoses Breast cancer screening, high risk patient Procedures Mammo Diagnostic Digital Tomosynthesis Left With CAD Isabell Carey, PROMOTIONS DIRECTOR [address] [facility] [address] [place] [address] Phone: tel: fax: Referral ID Status Reason Start Date Expiration Date Visits Re quested Visits Authorized [id number] Closed 01/03/2023 01/03/2024 1 1 Encounter Details Date Type Department Care Team (Latest Contact Info) Description 01/13/2023 7:54 AM EDT - 01/13/2023 11:59 PM EDT Hospital Encounter [facility] [address] [place] [id number] Breast cancer screening, high risk patient Discharge [...] Name Priority Date/Time Associated Diagnosis Comments MAMMO DIAGNOSTIC DIGITAL TOMOSYNTHESIS LEFT W CAD Routine 01/13/2023 8:41 AM EDT Breast cancer screening, high risk patient documented in this encounter Results * (ABNORMAL) Mammo Diagnostic Digital Tomosynthesis Left [...] Tran MD IMG MAMMOGRAPHY ORDERABLES Final Result documented in this encounter Visit Diagnoses Diagnosis Breast cancer screening, high risk patient Screening mammogram for high-risk patient documented in this encounter Care Teams Director Manufacturing Engineering Relationship Specialty Start Date End Date Tony Buckley MD [address] [facility] [address] [facility] [address] [place] [id number] PCP - General Family Medicine 10/19/21 documented as of this encounter
--- OUTSIDE RECORDS SUMMARY | 2024-04-05 13:28 | XMS_ITS | Encounter Summary ---
Author Organization [facility] Address [address] [place] [address] Care Team Providers Care Medical Records Secretary Name Role Phone Rocinna Tony Primary Care Provider Enrique monsivais Encounter Details Date Type Department Care Team (Late st Contact Info) Description 11/12/2022 9:30 AM EDT Ancillary Procedure [facility] [address] [place] [address] [place] [id number] Chest pain Social History Tobacco Use Types Packs/Day Years [...] Pressure 132/86 11/12/2022 9:55 AM EDT Pulse - - Temperature - - Respiratory Rate - - Oxygen Saturation - - Inhaled Oxygen Concentration - - Weight 72.1 kg (159 lb) 11/12/2022 9:55 AM EDT Height 162.6 cm (5' 4 ) 11/12/2022 9:55 AM EDT Body Mass Index 27.29 11/12/2022 9:55 AM EDT documented in this encounter Plan of Treatment Not on file documented as of this encounter Procedures Procedure Name Priority Date/Time Associated Diagnosis Comments ADULT ECHO OUTSIDE READ Routine 11/12/2022 9:55 AM EDT Chest pain documented in this encounter Results * ADULT ECHO OUTSIDE READ (11/12/2022 9:55 AM EDT) BSA 1.77 m2 CEE ISCV Height 162.6 CEE ISCV Weight 72.1 CEE ISCV LVIDd 46 mm CEE ISCV LVIDs 26 mm CEE ISCV IVSd 9 mm CEE ISCV LVPWd 8 mm CEE ISCV LV RWT 0.37 mm CEE ISCV Anatomical Region Laterality Modality Echocardiography Narrative 11/12/2022 11:10 AM EDT ?Left??Ventricle: The left ventricle is not well visualized. The left ventricle is normal size. There is normal left ventricular myocardial thickness and mass. No left ventricular mass or thrombus is seen. There is a false chord. The left ventricular systolic function is normal. The LVEF is visually estimated at 55 - 60%. The diastolic function is normal. No regional wall motion abnormalities are seen, but not all endocardial segments (or LV apex) were well visualized. ?Right??Ventricle: The right ventricular systolic function is normal. ?Pericardium: No pericardial effusion. ?There is no recent study available for direct [id number] comparison. ?? Left Ventricle The left ventricle is not well visualized. The left ventricle is normal size. There is normal left ventricular myocardial thickness and mass. No left ventricular mass or thrombus is seen. There is a false chord. The left ventricular systolic function is normal. The LVEF is visually estimated at 55 - 60%. The diastolic function is normal. No regional wall motion abnormalities are seen, but not all endocardial segments (or LV apex) were well visualized. Right Ventricle The right ventricle is grossly normal in size. The right ventricular systolic function is normal. Doppler findings do not suggest pulmonary hypertension. Left Atrium The left atrial size is normal. The interatrial septum is intact with no evidence for an atrial septal defect. Right Atrium The right atrial size is normal. IVC/SVC The IVC was not well visualized, and an assumed pressure of 8mmHg was used for calculations. Mitral Valve The mitral valve is grossly normal. There is trace mitral regurgitation. There is no mitral stenosis. Tricuspid Valve The tricuspid valve is grossly normal in appearance. There is trace tricuspid regurgitation. There is no tricuspid stenosis. Aortic Valve The aortic valve appears to be trileaflet. There is trace aortic valve regurgitation. There is no hemodynamically significant valvular aortic stenosis. Pulmonic Valve The pulmonic valve was not well visualized. Pericardium No pericardial effusion. Great Vessels The aortic root is normal in size. Study Details Height: 162.6 cm. Weight: 72.1 kg. BSA: 1.77 m2. Study Recommendation There is no recent study available for direct [id number] comparison. us Heri Jarrell MD CV ECHO PROCEDURES Final R esult documented in this encounter Visit Diagnoses Diagnosis Chest pain Unspecified chest pain documented in this encounter Additional Health Concerns Infection Onset Date Last Indicated Resolved Time MRSA 01/29/2022 01/29/2022 documented as of this encounter Care Teams Medical Records Secretary Relationship Specialty Start Date End Date Tony Renteria PCP - General 03/04/22 documented as of this encounter
--- OUTSIDE RECORDS SUMMARY | 2024-04-05 13:28 | XMS_ITS | Encounter Summary ---
Author Organization [facility] Address [address] [place] [address] Care Team Providers Care Net Developer Architect Name Role Phone Tony Buckley MD Primary Care Provider Encounter Details Date Type Department Care Team (Late st Contact Info) Description 10/24/2021 Telephone [facility] [address] [phone] Ludmila Copeland Social History Tobacco Use Types Packs/Day Years [...] encounter Miscellaneous Notes * Telephone Encounter - Ludmila Copeland - 10/24/2021 3:27 PM EDT Called patient with MRI Breast results. Recommended yearly high risk screening. Pt expressed understanding and was encouraged to call with any further questions or concerns. documented in this encounter Plan of Treatment Not on file documented as of this encounter Visit Diagnoses Not on filedocumented in this encounter Care Teams Net Developer Architect Relationship Specialty Start Date End Date Tony Buckley MD [address] [place] [id number] PCP - General Family Medicine 10/19/21 documented as of this encounter
--- OUTSIDE RECORDS SUMMARY | 2024-04-05 13:28 | XMS_ITS | Encounter Summary ---
Author Organization [facility] Address [address] [place] [address] Care Team Providers Care Charter Coach Driver Name Role Phone Tony Renteria Primary Care Provider Enrique monsivais Reason for Visit * Reason Onset Date Comments HCN - Patient Message 09/24/2022 Encounter Details Date Type Department Care Team (Late st Contact Info) Description 09/24/2022 Telephone [facility] [address] [place] [address] Burke De La Rosa, DO [address] [place] [phone] HCN - Patient Message Social History Tobacco Use Types Packs/Day Years [...] encounter Miscellaneous Notes * Telephone Encounter - Cathleen Hernandez Q - 09/24/2022 12:56 PM EDT Clinical Concern/Question Reason for Call: Rj dubose is requesting EMG results please fax to [facility] Best contact number: [phone] (home) Optimal time of day to reach caller: ANYTIME Additional comments/information from caller: None Note: Please do not reply to this message. Follow-up communication and further actions as a result of this message need to be communicated with the patient directly, if the patient is not active onMyChart. If the patient is active on MyChart, they will receive notification of the communication/outcome via MyChart. documented in this encounter Plan of Treatment Not on file documented as of this encounter Visit Diagnoses Not on filedocumented in this encounter Additional Health Concerns Infection Onset Date Last Indicated Resolved Time MRSA 01/29/2022 01/29/2022 documented as of this encounter Care Teams Charter Coach Driver Relationship Specialty Start Date End Date Tony Renteria PCP - General 03/04/22 documented as of this encounter
--- OUTSIDE RECORDS SUMMARY | 2024-04-05 13:28 | XMS_ITS | Encounter Summary ---
Author Organization [facility] Address [address] [place] [phone] Care Team Providers Care Shoe Sewing Machine Operator And Tender Name Role Phone Tony Buckley MD Primary Care Provider Reason for Visit * Diagnostic Imaging (Routine) - Closed Specialty Diagnoses / Procedures Referred By Contac t Referred To Contact Radiology Diagnoses Breast cancer screening, high risk patient Procedures US Breast Left Limited US Guided Breast Biopsy With & Without Device initial Isabell Carey, TONJA [address] [facility] [address] [place] [address] Phone: tel: fax: Referral ID Status Reason Start Date Expiration Date Visits Re quested Visits Authorized [id number] Closed 01/03/2023 01/03/2024 1 1 Encounter Details Date Type Department Care Team (Late st Contact Info) Description 01/13/2023 7:54 AM EDT - 01/13/2023 11:59 PM EDT Hospital Encounter [facility] [address] [address] [phone] Barbara Tran MD [address] [facility] [address] [id number] Breast cancer screening, high risk patient Discharge [...] Procedure Name Priority Date/Time Associated Diagnosis Comments US BREAST LEFT LIMITED Routine 01/13/2023 9:05 AM EDT Breast cancer screening, high risk patient documented in this encounter Results * (ABNORMAL) US Breast Left Limited (01/13/2023 9:05 AM EDT) Anatomical Region Laterality Modality Breast Left Ultrasound 01/13/2023 9:06 AM EDT Impressions 01/13/2023 9:08 [...] of enhancement us Barbara Tran MD IMG US ORDERABLES Final Res ult documented in this encounter Visit Diagnoses Diagnosis Breast cancer screening, high risk patient Screening mammogram for high-risk patient documented in this encounter Care Teams Shoe Sewing Machine Operator And Tender Relationship Specialty Start Date End Date Tony Buckley MD [facility] [address] [facility] [address] [place] [address] PCP - General Family Medicine 10/19/21 documented as of this encounter
--- OUTSIDE RECORDS SUMMARY | 2024-04-05 13:28 | XMS_ITS | Encounter Summary ---
Author Organization [facility] Address [address] [place] [address] Care Team Providers Care Development Mgr Name Role Phone Tony Renteria Primary Care Provider Enrique monsivais Encounter Details Date Type Department Care Team (Late st Contact Info) Description 03/06/2022 Telephone [facility] Radiology [address] [place] [address] Yaima Malik, RN [facility] RADIOLOGY Social History Tobacco Use [...] documented as of this encounter Care Teams Development Mgr Relationship Specialty Start Date End Date Tony Renteria PCP - General 03/04/22 documented as of this encounter
--- OUTSIDE RECORDS SUMMARY | 2024-04-05 13:28 | XMS_ITS | Encounter Summary ---
Author Organization [facility] Address [address] [place] [address] Care Team Providers Care Contracts Advisor Name Role Phone Tony Buckley MD Primary Care Provider Reason for Referral * Diagnostic Imaging (Routine) - Closed Specialty Diagnoses / Procedures Referred By Jaqueline keith Referred To Contact Radiology Diagnoses Breast cancer screening, high risk patient Procedures MRI Breast Bilateral Screening With & Without Contrast Radu Bedoya MD [address] [place] [address] Phone: tel: fax: Referral ID Status Reason Start Date Expiration Date Visits Re quested Visits Authorized [id number] Closed 10/11/2021 12/11/2021 1 1 Reason for Visit * Diagnostic Imaging (Routine) - Closed Specialty Diagnoses / Procedures Referred By Jaqueline keith Referred To Contact Radiology Diagnoses Breast cancer screening, high risk patient Procedures MRI Breast Bilateral Screening With & Without Contrast Radu Bedoya MD [address] [place] [address] Phone: tel: fax: Referral ID Status Reason Start Date Expiration Date Visits Re quested Visits Authorized [id number] Closed 10/11/2021 12/11/2021 1 1 Encounter Details Date Type Department Care Team (Late st Contact Info) Description 10/19/2021 9:07 AM EDT - 10/19/2021 11:59 PM EDT Hospital Encounter [facility] MRI AT [address] [id number] Radu Bedoya MD [facility] [place] [address] Breast cancer screening, high risk patient Discharge [...] 2 (Two) Times a Day. 2 12/09/2018 levocetirizine (XYZAL) 5 MG tablet Take 1 tablet by mouth Every Evening. 0 12/11/2018 LINZESS 290 MCG capsule capsule Take 1 capsule by mouth Daily. 5 12/09/2018 medroxyPROGESTERo ne (PROVERA) 10 MG tablet 12/30/2018 metoprolol succinate XL (TOPROL-XL) 25 MG 24 hr tablet Take 1 tablet by mouth Daily. 0 12/14/2018 montelukast (SINGULAIR) 10 MG tablet Take 1 tablet by mouth Every Evening. 5 12/09/2018 cefdinir (OMNICEF) 300 MG capsule 10/30/2018 09/18/2022 fluconazole (DIFLUCAN) 150 MG tablet 11/19/2018 09/18/2022 documented as of this encounter Plan of Treatment Not on file documented as of this encounter Procedures Procedure Name Priority Date/Time Associated Diagnosis Comments MRI BREAST BILATERAL SCREENING W WO CONTRAST Routine 10/19/2021 9:56 AM EDT Breast cancer screening, high risk patient POCT CREATININE Routine 10/19/2021 9:29 AM EDT documented in this encounter Results * MRI Breast Bilateral Screening With & Without Contrast (10/19/2021 9:56 AM EDT) Anatomical Region Laterality Modality Breast Bilateral Magnetic Resonan ce 10/22/2021 5:27 PM EDT Impressions 10/23/2021 4:50 PM EDT Negative high risk screening breast MRI. BI-RADS CATEGORY: 1, NEGATIVE Recommend the patient continue with annual screening mammography as well as annual high-risk screening breast MRI. This report was finalized on 10/23/2021 4:[address] Bridgette Houston MD. Narrative 10/23/2021 4:50 PM EDT BILATERAL BREAST MRI WITH CONTRAST CLINICAL HISTORY: ??41-year-old patient presents for high-risk screening breast MRI. Her lifetime risk of developing breast cancer has been estimated to be 20.1%. TECHNIQUE: ??Pre-contrast spin-echo T1 weighted and T2 sequences were obtained in the axial plane. ??Routine dynamic images were performed following the administration of 14.0 mL of Multihance contrast. ??No contrast complications occurred. ??Delayed high resolution post contrast T1 weighted sagittal images were also obtained. ?? A CAD system (komoot) was utilized for data analysis. COMPARISON: ??Comparison is made to the patient's most recent screening mammogram from 05/23/2021. FINDINGS: Contrast is identified within the heart and great vessels. There is moderate background contrast enhancement of the fibroglandular tissue. There are scattered bilateral subcentimeter cysts. There are bilateral foci of contrast enhancement which have an overall benign MRI appearance. No concerning focal mass or nonmasslike enhancement is seen involving either breast. There is no evidence of axillary adenopathy. Incidental note is made of a 1.0 cm internal mammary lymph node noted in a left intercostal space, likely the third/fourth intercostal space. This does appear to have some central fat based on the precontrast T1-weighted sequences. Procedure Note Bridgette Houston MD - 10/23/2021 BILATERAL BREAST MRI WITH CONTRAST CLINICAL HISTORY: 41-year-old patient presents for high-risk screening breast MRI. Her lifetime risk of developing breast cancer has been estimated to be 20.1%. TECHNIQUE: Pre-contrast spin-echo T1 weighted and T2 sequences were obtained in the axial plane. Routine dynamic images were performed following the administration of 14.0 mL of Multihance contrast. No contrast complications occurred. Delayed high resolution post contrast T1 weighted sagittal images were also obtained. A CAD system (komoot) was utilized for data analysis. COMPARISON: Comparison is made to the patient's most recent screening mammogram from 05/23/2021. FINDINGS: Contrast is identified within the heart and great vessels. There is moderate background contrast enhancement of the fibroglandular tissue. There are scattered bilateral subcentimeter cysts. There are bilateral foci of contrast enhancement which have an overall benign MRI appearance. No concerning focal mass or nonmasslike enhancement is seen involving either breast. There is no evidence of axillary adenopathy. Incidental note is made of a 1.0 cm internal mammary lymph node noted in a left intercostal space, likely the third/fourth intercostal space. This does appear to have some central fat based on the precontrast T1-weighted sequences. IMPRESSION: Negative high risk screening breast MRI. BI-RADS CATEGORY: 1, NEGATIVE Recommend the patient continue with annual screening mammography as well as annual high-risk screening breast MRI. This report was finalized on 10/23/2021 4:[address] Bridgette Houston MD. Radu Bedoya MD IMG MRI ORDERABLES Final Result * POC Creatinine (10/19/2021 9:29 AM EDT) Creatinine 0.80 0.60 - 1.30 mg/dL 10/19/2021 11:33 AM EDT [facility] Comment:Serial Number: [id number] Blood 10/19/2021 9:29 AM EDT 10/19/2021 11:33 AM EDT Radu Bedoya MD POINT OF CARE TEST ORDERA BLES Final Result [facility]
[address] [id number], documented in this encounter Visit Diagnoses Diagnosis Breast cancer screening, high risk patient Screening mammogram for high-risk patient documented in this encounter Administered Medications Inactive Administered Medications - up to 3 most recent administrations Medication Order MAR Action Action Date Dose Rate Site gadobenate dimeglumine (MULTIHANCE) injection 14 mL 14 mL, Intravenous, Once in Imaging, On Fri10/19/21 at 0945, For 1 dose, Vesicant; admin as rapid bolus; flush with 5 mL NS after admin or 20 mL for renal or aortoiliofemoral vasculature Given 10/19/2021 9:57 AM EDT 14 mL documented in this encounter Care Teams Contracts Advisor Relationship Specialty Start Date End Date Tony Buclkey MD [address] [place] [address] [address] [facility] [address] [place] [address] PCP - General Family Medicine 10/19/21 documented as of this encounter
--- OUTSIDE RECORDS SUMMARY | 2024-04-05 13:28 | XMS_ITS | Encounter Summary ---
Author Organization [facility] Address [address] [place] [address] Care Team Providers Care Sole Seamer Name Role Phone Myra Tony Primary Care Provider Enrique monsivais Reason for Referral * Imaging (Routine) - Closed Specialty Diagnoses / Procedures Referred By Contac t Referred To Contact Radiology Diagnoses Chest pain SOB (shortness of breath) Syncope Dizziness Tobacco user Procedures CT Angio Cardiac Coronary Arteries Lauren Jarrell MD [address] [place] [address] Phone: tel: fax: Referral ID Status Reason Start Date Expiration Date Visits Re quested Visits Authorized [id number] Closed 01/29/2022 07/31/2023 1 1 Reason for Visit * Imaging (Routine) - Closed Specialty Diagnoses / Procedures Referred By Contac t Referred To Contact Radiology Diagnoses Chest pain SOB (shortness of breath) Syncope Dizziness Tobacco user Procedures CT Angio Cardiac Coronary Arteries Lauren Jarrell MD [address] [place] [address] Phone: tel: fax: Referral ID Status Reason Start Date Expiration Date Visits Re quested Visits Authorized [id number] Closed 01/29/2022 07/31/2023 1 1 Encounter Details Date Type Department Care Team (Late st Contact Info) Description 03/04/2022 7:35 AM EST - 03/04/2022 11:59 PM EST Hospital Encounter [facility] [address] [place] [address] Alexandrea Napier, RN [facility] Chest pain; SOB (shortness of breath); Syncope; Dizziness; Tobacco user Discharge Disposition: Home or Self Care Social [...] AM EST documented as of this encounter Last Filed Vital Signs Vital Sign Reading Time Taken Comments Blood Pressure 131/87 03/04/2022 8:48 AM EST Pulse 61 03/04/2022 8:48 AM EST Temperature - - Respiratory Rate 17 03/04/2022 8:15 AM EST Oxygen Saturation 96% 03/04/2022 8:48 AM EST Inhaled Oxygen Concentration - - Weight 74.8 kg (165 lb) 03/04/2022 8:15 AM EST Height 162.6 cm (5' 4 ) 03/04/2022 8:15 AM EST Body Mass Index 28.32 03/04/2022 8:15 AM EST documented in this encounter Plan of Treatment Not on file documented as of this encounter Procedures Procedure Name Priority Date/Time Associated Diagnosis Comments CT ANGIO CARDIAC CORONARY ARTERIES Routine 03/04/2022 8:46 AM EST Chest pain SOB (shortness of breath) Syncope Dizziness Tobacco user POCT CREATININE ISTAT UNSOLICITED RESULTS Routine 03/04/2022 8:20 AM EST documented in this encounter Results * CT Angio Cardiac Coronary Arteries (03/04/2022 8:46 AM EST) Anatomical Region Laterality Modality Heart Computed Tomogra phy Impressions 03/08/2022 1:58 AM EST 1. No coronary calcification with an Agatston score = 0 using the AJ-130 method. ??Vascular age is 37 years. 2. Left dominant coronary system. Focal non-calcified plaque in distal LCX with mild stenosis. No visible stenosis in LAD and RCA. ?? 3. CAD-RADS 2: Management recommendations: ??Consider non-atherosclerotic causes of chest pain. Consider preventative therapy and risk factor modification, particularly for patients with non-obstructive plaque in multiple segments. ?? 4. ??No significant non coronary cardiac findings in particular normal cardiac chambers, non-coronary vessels in the field of view and unremarkable pericardium. 5. ??Hypodense lesion seen in the partially visualized left hemiliver. No prior images available to correlate this finding. Consider liver ultra sound or MRI abdomen for further evaluation. CRITICAL RESULT: No. COMMUNICATION: Per this written report. Approved by Madhavi Jon MD on 03/04/2022 9:14 AM By electronically signing this report, I, the attending physician, attest that I have personally reviewed the images/data for the above examination(s) and agree with the final edited report. Dictated by Madhavi Jon MD on 03/04/2022 9:14 AM Signed by Danielito Shearer on 03/08/2022 1:58 AM Narrative 03/08/2022 1:58 AM EST Exam/Procedure: CT ANGIO CARDIAC CORONARY ARTERIES ordered by LAUREN JARRELL, [id number] CLINICAL INDICATION: 41 years Female ??presents with complains of chest pain with clinical features suggesting myocardial ischemia Clinical Data Height: 163 cm Weight: 74.8 kg Risk Factors: Hypertension Relevant Cardiac Diagnostic Tests: None available at the time of review TECHNIQUE: Image Acquisition: A Dual source 192 MDCT scanner (Somatom Force, [employer]) was used for data acquisition. A non-contrast coronary calcium scan was initially performed. Bolus tracking in the ascending aorta with a threshold of 180 HU was performed. Immediately afterwards, ECG synchronized Cardiac CT was then performed from cardiac base to apex using prospective gating. A total of 80 mL Omnipaque 350mgI/mL contrast media was administered at 6 mL/sec followed by a saline flush using a biphasic injection protocol. ??A tube voltage of 70 kVp was used. ?? The patient received the following medications prior to the Cardiac CT: 0.8mg sublingual nitroglycerin. The average heart rate at the time of acquisition was 50 bpm (48 bpm to 54 bpm) and regular. Image Reconstruction: Transaxial images were reconstructed at 0.75 mm slice thickness. ??Data was reviewed interactively on an advanced workstation (Hunite) capable of 2 and 3 dimensional displays in all conventional reconstruction formats including multiplanar reformations, maximum intensity projections, curved multiplanar reformations, and volume rendered reconstructions. Selected routine images displaying relevant coronary anatomy and pathology were saved and sent to PACS. Complications: None Technical Quality: Overall image quality is Excellent. Coronary artery opacification is Excellent Artifact: Non-limiting motion artifact Total DLP (Dose-Length Product): 109.23 mGy.cm. (1.5 mSv) Please note: The reported value represents the total of one or more individual components during the CT acquisition on this date and at this time, and as such, the same value may appear in more than one CT report depending on the interpreting/reporting physicians. COMPARISON: None. FINDINGS: -CT Coronary Calcium Scoring- LMA= 0 LAD= 0 LCX= 0 RCA= 0 Total calcium score = 0 using the AJ-130 method. . The total volume score is 0. The calculated vascular age for this patient is 37 years. There is no identifiable calcification in the aortic wall, mitral annulus/valve, pericardium, myocardium. -Coronary CT Angiography- Coronary Arteries: The coronaries have normal origin and proximal course. The coronary arterial system is left ??dominant. Note: Stenosis is reported as maximum percentage diameter stenosis. Stenosis grading is reported using the following scheme. Quantitative Stenosis Grading: CAD-RADS 0: 0% - No visible stenosis CAD-RADS 1: 1-24% - Minimal stenosis CAD-RADS 2: 25-49% - Mild stenosis CAD-RADS 3: 50-69% - Moderate stenosis CAD-RADS 4A: 70-99% - Severe stenosis in 1-2 vessels CAD-RADS 4B: Left main >50%, or 3 vessel >70% CAD-RADS 5: 100% - Occluded Left Main: CAD-RADS 0. The left main bifurcates into the left anterior descending artery and left circumflex artery. No visible plaque or stenosis. LAD and Diagonals: CAD-RADS 0. Left anterior descending artery is a large caliber vessel, courses in the interventricular groove and wraps around the apex. It gives off two small diagonal arteries. No visible plaque or stenosis. LCx and Obtuse Marginals: CAD-RADS 2. Left circumflex artery is large caliber dominant vessel, and courses through the left atrioventricular groove. It gives off two obtuse marginal arteries, one PLV branch and one PDA. Focal non-calcified plaque in distal LCX with mild stenosis. OM, PLV and PDA branches are normal. RCA: CAD-RADS 0. RCA is a non-dominant moderate caliber vessel and courses normally in right atrioventricular groove. It terminate by giving RV marginal branch. No visible plaque or stenosis. Non Coronary Cardiac Findings: Normal cardiac chamber size. No pericardial thickening or calcification. Normal interatrial and interventricular septum, pulmonary veins and imaged central veins. Central and branch pulmonary arteries in the field of view are unremarkable. Thoracic aorta and imaged thoracic aortic branches in the field of view are unremarkable. Extra Cardiac Structures: Calcified small paraesophageal lymph node. Small calcified lung nodules in right lower lobe and posterior medial aspect. Mild bilateral dependent atelectasis. Hypodense lesion seen in the partially visualized left hemiliver. Procedure Note Danielito Shearer MD - 03/08/2022 Exam/Procedure: CT ANGIO CARDIAC CORONARY ARTERIES ordered by LAUREN CUEVA, [id number] CLINICAL INDICATION: 41 years Female presents with complains of chest pain with clinicalfeatures suggesting myocardial ischemia Clinical Data Height: 163 cm Weight: 74.8 kg Risk Factors: Hypertension Relevant Cardiac Diagnostic Tests: None available at the time of review TECHNIQUE: Image Acquisition: A Dual source 192 MDCT scanner (Somatom Force, Siem[employer] 5 examples Systems)was used for data acquisition. A non-contrast coronary calcium scan wasinitially performed. Bolus tracking in the ascending aorta with athreshold of 180 HU was performed. Immediately afterwards, ECGsynchronized Cardiac CT was then performed from cardiac base to apex usingprospective gating. A total of 80 mL Omnipaque 350mgI/mL contrast mediawas administered at 6 mL/sec followed by a saline flush using a biphasicinjection protocol. A tube voltage of 70 kVp was used. The patient received the following medications prior to the Cardiac CT:0.8mg sublingual nitroglycerin. The average heart rate at the time of acquisition was 50 bpm (48 bpm to 54bpm) and regular. Image Reconstruction: Transaxial images were reconstructed at 0.75 mm slice thickness. Data wasreviewed interactively on an advanced workstation (Hunite) capable of 2and 3 dimensional displays in all conventional reconstruction formatsincluding multiplanar reformations, maximum intensity projections, curvedmultiplanar reformations, and volume rendered reconstructions. Selectedroutine images displaying relevant coronary anatomy and pathology weresaved and sent to PACS. Complications: None Technical Quality: Overall image quality is Excellent. Coronary artery opacification is Excellent Artifact: Non-limiting motion artifact Total DLP (Dose-Length Product): 109.23 mGy.cm. (1.5 mSv) Please note: Thereported value represents the total of one or more individual componentsduring the CT acquisition on this date and at this time, and as such, thesame value may appear in more than one CT report depending on theinterpreting/reporting physicians. COMPARISON: None. FINDINGS: -CT Coronary Calcium Scoring- LMA= 0 LAD= 0 LCX= 0 RCA= 0 Total calcium score = 0 using the AJ-130 method. . The total volume scoreis 0. The calculated vascular age for this patient is 37 years. There is no identifiable calcification in the aortic wall, mitralannulus/valve, pericardium, myocardium. -Coronary CT Angiography- Coronary Arteries: The coronaries have normal origin and proximal course. The coronaryarterial system is left dominant. Note: Stenosis is reported as maximum percentage diameter stenosis.Stenosis grading is reported using the following scheme. Quantitative Stenosis Grading: CAD-RADS 0: 0% - No visible stenosis CAD-RADS 1: 1-24% - Minimal stenosis CAD-RADS 2: 25-49% - Mild stenosis CAD-RADS 3: 50-69% - Moderate stenosis CAD-RADS 4A: 70-99% - Severe stenosis in 1-2 vessels CAD-RADS 4B: Left main >50%, or 3 vessel >70% CAD-RADS 5: 100% - Occluded Left Main: CAD-RADS 0. The left main bifurcates into the left anteriordescending artery and left circumflex artery. No visible plaque orstenosis. LAD and Diagonals: CAD-RADS 0. Left anterior descending artery is a largecaliber vessel, courses in the interventricular groove and wraps aroundthe apex. It gives off two small diagonal arteries. No visible plaque orstenosis. LCx and Obtuse Marginals: CAD-RADS 2. Left circumflex artery is largecaliber dominant vessel, and courses through the left atrioventriculargroove. It gives off two obtuse marginal arteries, one PLV branch and onePDA. Focal non-calcified plaque in distal LCX with mild stenosis. OM, PLVand PDA branches are normal. RCA: CAD-RADS 0. RCA is a non-dominant moderate caliber vessel and coursesnormally in right atrioventricular groove. It terminate by giving RVmarginal branch. No visible plaque or stenosis. Non Coronary Cardiac Findings: Normal cardiac chamber size. No pericardial thickening or calcification. Normal interatrial and interventricular septum, pulmonary veins and imagedcentral veins. Central and branch pulmonary arteries in the field of view areunremarkable. Thoracic aorta and imaged thoracic aortic branches in the field of vieware unremarkable. Extra Cardiac Structures: Calcified small paraesophageal lymph node. Small calcified lung nodules inright lower lobe and posterior medial aspect. Mild bilateral dependentatelectasis. Hypodense lesion seen in the partially visualized lefthemiliver. IMPRESSION: 1. No coronary calcification with an Agatston score = 0 using the AJ-130method. Vascular age is 37 years. 2. Left dominant coronary system. Focal non-calcified plaque in distal LCXwith mild stenosis. No visible stenosis in LAD and RCA. 3. CAD-RADS 2: Management recommendations: Consider non-atheroscleroticcauses of chest pain. Consider preventative therapy and risk factormodification, particularly for patients with non-obstructive plaque inmultiple segments. 4. No significant non coronary cardiac findings in particular normalcardiac chambers, non-coronary vessels in the field of view andunremarkable pericardium. 5. Hypodense lesion seen in the partially visualized left hemiliver. Noprior images available to correlate this finding. Consider liver ultrasound or MRI abdomen for further evaluation. CRITICAL RESULT: No. COMMUNICATION: Per this written report. Approved by Madhavi Jon MD on 03/04/2022 9:14 AM By electronically signing this report, I, the attending physician, attestthat I have personally reviewed the images/data for the aboveexamination(s) and agree with the final edited report. Dictated by Madhavi Jon MD on 03/04/2022 9:14 AM Signed by Danielito Shearer on 03/08/2022 1:58 AM us Lauren Jarrell MD IMG CT PROCEDURES Final Re sult * POCT creatinine (03/04/2022 8:20 AM EST) Pathologist [facility] Creatinine, Point of Care 0.9 0.6 - 1.1 mg/dL 03/04/2022 10:45 AM EST [facility] POCT eGFR 81 mL/min/1. 73m*2 03/04/2022 10:45 AM EST [facility] Machine Biller ID Alexandrea Napier 03/04/2022 10:45 AM EST [facility] Device ID [id number] 03/04/2022 10:45 AM EST [facility] Comment 03/04/2022 10:45 AM EST [facility] Comment: Testing performed on i-STAT at the point of care. Testing performed on i-STAT at the point of care. Reported eGFRcr in mL/min/1.73m2 is based the CKD-EPI 2021 equation that does not use a race coefficient. Effective 11/21/21 our laboratory changed the eGFR calculation to the CKD-EPI 2021 equation from the previously reported eGFR, based on the MDRD equation. For comparisons between the two equations, please see laboratory website: [email or web address] Blood Venous blood specimen / Unknown 03/04/2022 8:20 AM EST 03/04/2022 8:25 AM EST us Alexandrea Napier MARKING ROOM SUPERVISOR POINT OF CARE TE ST DOCKED DEVICE UNSOLICITED RESULTS Final Result [facility] [address] [place] [address] documented in this encounter Visit Diagnoses Diagnosis Chest pain Unspecified chest pain SOB (shortness of breath) Shortness of breath Syncope Syncope and collapse Dizziness Dizziness and giddiness Tobacco user Tobacco use disorder documented in this encounter Administered Medications Inactive Administered Medications - up to 3 most recent administrations Medication Order MAR Action Action Date Dose Rate Site iohexol (OMNIPaque) 350 MG/ML injection 80 mL 80 mL, Intravenous, Once in imaging, 1 dose, Starting on Fri03/04/22 at 0840, Until Fri03/04/22 at 0841, Routine, Imaging Protocol Orders Given 03/04/2022 8:41 AM EST 80 mL nitroglycerin (Nitrostat) SL tablet 0.8 mg 0.8 mg, Sublingual, Every 5 min PRN, Starting on Fri03/04/22 at 0746, Until Fri03/04/22 at 1945, Routine, Intraprocedure, chest pain, oo Given 03/04/2022 8:35 AM EST 0.8 mg documented in this encounter Additional Health Concerns Infection Onset Date Last Indicated Resolved Time 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
--- OUTSIDE RECORDS SUMMARY | 2024-04-05 13:28 | XMS_ITS | Encounter Summary ---
Author Organization [facility] Address [address] [place] [address] Care Team Providers Care Tutor Coordinator Name Role Phone Tony Buckley MD Primary Care Provider Reason for Referral * Physical Therapy (Routine) - Closed Specialty Diagnoses / Procedures Referred By Contac t Referred To Contact Physical Therapy Diagnoses Cervical spondylosis with radiculopathy Procedures FL OFFICE/OUTPATIENT NEW MODERATE MDM 45-[place] [address] [place] [address] Phone: tel: fax: [facility] [place] [facility] - OUTPT PHYSICAL THERAPY [address] [place] [phone] Phone: tel: Referral ID Status Reason Start Date Expiration Date Visits Requested Visits Authorized [id number] Closed Patient Preference 09/18/2022 09/18/2023 1 1 Reason for Visit * Reason Comments Neck Pain Headaches Numbness BUE Tingling BUE * Consultation (Routine) - Closed Specialty Diagnoses / Procedures Referred By Contac t Referred To Contact Neurosurgery Diagnoses Acute neck pain Acute cervical radiculopathy Other muscle spasm Levy Quinones MD [address] [facility] [address] [place] [address] Phone: tel: fax: [place] [address] [place] [address] Phone: tel: fax: Referral ID Status Reason Start Date Expiration Date Visits Re quested Visits Authorized [id number] Closed 02/26/2022 02/26/2023 1 1 Encounter Details Date Type Department Care Team (Late st Contact Info) Description 09/18/2022 3:[address] PM [address]T Office Visit [facility] NEUROSURGERY [address] [place] [phone] Bashir Marquez MD [address] [place] [address] Cervical spondylosis with radiculopathy (Primary Dx); DDD (degenerative disc disease), cervical; Bilateral hand numbness Social History Tobacco Use Types Packs/Day Years Used Date Smoking Tobacco: Every Day Smokeless Tobacco: Never Tobacco Cessation:Ready to Q uit: Not Asked; Counseling Given: Not Answered Alcohol Use Standard Drinks/Week Comments Yes 0 [...] Pressure - - Pulse - - Temperature 36.3 ??C (97.3 ??F) 09/18/2022 3:00 PM ED T Respiratory Rate - - Oxygen Saturation - - Inhaled Oxygen Concentration - - Weight 74.3 kg (163 lb 12.8 oz) 09/18/2022 3:00 PM EDT Height 160 cm (5' 3 ) 09/18/2022 3:00 PM EDT Body Mass Index 29.02 09/18/2022 3:00 PM EDT documented in this encounter Progress Notes * Bashir Marquez MD - 09/18/2022 3:00 PM EDT Patient: Tran Molina : 1980 Primary [...] injections performed in the pain clinic in [facility]. At this point her low back [...] in the past. Diclofenac is very helpful. Review of Systems Constitutional: Positive for fatigue. Negative for activity change, appetite change, chills, diaphoresis, fever and unexpected weight change. HENT: Positive for congestion, ear pain, sinus pressure and sneezing. Negative for dental problem, drooling, ear discharge, facial swelling, hearing loss, mouth sores, nosebleeds, postnasal drip, rhinorrhea, sinus pain, sore throat, tinnitus, trouble swallowing and voice change. Eyes: Positive for itching. Negative for photophobia, pain, discharge, redness and visual disturbance. Respiratory: Positive for cough. Negative for apnea, choking, chest tightness, shortness of breath,wheezing and stridor. Cardiovascular: Negative for chest pain, palpitations and leg swelling. Gastrointestinal: Positive for constipation, diarrhea and vomiting. Negative for abdominal distention, abdominal pain, anal bleeding, blood in stool, nausea and rectal pain. Endocrine: Negative for cold intolerance, heat intolerance, polydipsia, polyphagia and polyuria. Genitourinary: Negative for decreased urine volume, difficulty urinating, dyspareunia, dysuria, enuresis, flank pain, frequency, genital sores, hematuria, menstrual problem, pelvic pain, urgency, vaginal bleeding, vaginal discharge and vaginal pain. Musculoskeletal: Positive for back pain, neck pain and neck stiffness. Negative for arthralgias, gait problem, joint swelling and myalgias. Skin: Negative for color change, pallor, rash and wound. Allergic/Immunologic: Positive for environmental allergies. Negative for food allergies and immunocompromised state. Neurological: Positive for weakness, light-headedness, numbness and headaches. Negative for dizziness, tremors, seizures, syncope, facial asymmetry and speech difficulty. Hematological: Negative for adenopathy. Does not bruise/bleed easily. Psychiatric/Behavioral: Negative for agitation, behavioral problems, confusion, decreased concentration, dysphoric mood, hallucinations, self-injury, sleep disturbance and suicidal ideas. The patientis not nervous/anxious and is not hyperactive. The patient's past medical history, past surgical history, family history, and social history have been reviewed at length in the electronic medical record. Physical Exam: Temp 97.3 ??F (36.3 ??C) (Infrared) Ht 160 cm (63 ) Wt 74.3 kg (163 lb 12.8 oz) BMI 29.02 kg/m?? CONSTITUTIONAL: Patient is well-nourished, pleasant and appears stated age. MUSCULOSKELETAL: Neck tenderness to palpation is not observed. ROM in the neck is normal. Tinel's sign is modestly positive at both wrists. NEUROLOGICAL: Orientation, memory, attention span, language function, and cognition have been examined and are intact. Strength is intact in the upper and lower extremities to direct testing. Muscle tone is normal throughout. Station and gait are normal. Sensation is intact to light touch testing throughout. Deep tendon reflexes are 1+ and symmetrical. Snow's Sign is negative bilaterally. No clonus is elicited. Coordination is intact. Medical Decision Making Data Review: (All imaging studies were personally reviewed unless stated otherwise) MRI of the cervical spine dated 02/21/2022 demonstrates some loss of the normal lordosis. There is some central broad-based disc-osteophyte without significant root or canal compromise at C5-6. Thereare some soft disc herniation somewhat broad-based but much more prominent to the left at C6-7. Diagnosis: 1. Chronic mechanical neck pain. 2. Cervical radiculopathy. 3. Probable peripheral nerve entrapment at the wrists. 4. Chronic mechanical back pain. 5. Tobacco abuse. Treatment Options: I have referred the patient for physical therapy on her neck that will include traction. Prior to follow-up in several weeks I am going to check electrodiagnostic studies of both upper extremities. Further recommendations will ensue. Diagnosis Plan 1. Cervical spondylosis with radiculopathy 2. DDD (degenerative disc disease), cervical 3. Bilateral hand numbness I, Dr. Marquez, personally performed the services described in the documentation, as scribed in my presence, and it is both accurate and complete. documented in this encounter Plan of Treatment Not on file documented as of this encounter Procedures Procedure Name Priority Date/Time Associated Diagnosis Comments SCANNED EMG 10/30/2022 documented in this encounter Results * SCANNED EMG (10/30/2022) us Bashir Marquez MD NEUROLOGY ORDERABLES Final Re sult documented in this encounter Visit Diagnoses Diagnosis Cervical spondylosis with radiculopathy- Primary Cervical spondylosis with myelopathy DDD (degenerative disc disease), cervical Degeneration of cervical intervertebral disc Bilateral hand numbness Disturbance of skin sensation documented in this encounter Care Teams Tutor Coordinator Relationship Specialty Start Date End Date Tony Buckley MD [facility] [address] [facility] [address] [place] [address] PCP - General Family Medicine 10/19/21 documented as of this encounter
--- OUTSIDE RECORDS SUMMARY | 2024-04-05 13:28 | XMS_ITS | Encounter Summary ---
Author Organization [facility] Address [address] [place] [address] Care Team Providers Care Manager Medical Affairs Name Role Phone Rocinna Tony Primary Care Provider Enrique monsivais Reason for Visit * Reason Onset Date Comments HCN - Patient Message 10/03/2022 Encounter Details Date Type Department Care Team (Late st Contact Info) Description 10/03/2022 Telephone Physical Medicine & Rehabilitation Clinic at [facility] [address] [place] [address] Burke De La Rosa, [address] [place] [address] HCN - Patient Message Social History Tobacco [...] encounter Miscellaneous Notes * Telephone Encounter - Nara Rodas - 10/03/2022 12:24 PM EDT Faxed clinic note to Nany @ Neurosurgery as requested. * Telephone Encounter - Lupe Goodwin - 10/03/2022 10:06 AM EDT Paperwork/Documentation Request Patient Name: Tran Ayon from Neurosurgery Type: Office notes from 06/02/2019 Due Date: unknown date Send To: [phone] attn to Nany Limon contact number: Other: [phone] Optimal time of day to reach caller: ANYTIME Additional comments/information from caller: None Note: Please do not reply to this message. Follow-up communication and further actions as a result of this message need to be communicated with the patient directly, if the patient is not active onMyChart. If the patient is active on MyChart, they will receive notification of the communication/outcome via Zapp[employer]. 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
--- OUTSIDE RECORDS SUMMARY | 2024-04-05 13:28 | XMS_ITS | Encounter Summary ---
Author Organization [facility] Address [address] [place] [address] Care Team Providers Care Trail Construction Worker Name Role Phone Prasanna Ramos MD Primary Care Provider [phone] Encounter Details Date Type Department Care Team (Late st Contact Info) Description 08/14/2020 2:30 PM EDT Lab [facility] ON[facility]Y LAB [address] [place] [phone] Social History Tobacco Use Types Packs/Day Years [...] on file documented as of this encounter Plan of Treatment Not on file documented as of this encounter Visit Diagnoses Not on filedocumented in this encounter Care Teams Trail Construction Worker Relationship Specialty Start Date End Date Prasanna Ramos MD [address] [place] [phone] PCP - General Family Medicine 01/01/19 10/18/21 documented as of this encounter
--- OUTSIDE RECORDS SUMMARY | 2024-04-05 13:28 | XMS_ITS | Encounter Summary ---
Author Organization [facility] Address [address] [place] [address] Care Team Providers Care Conveyor Mechanic Name Role Phone Adan Restrepo MD Primary Care Provider [phone] Encounter Details Date Type Department Care Team (Latest Contact Info) Description 02/25/2022 Travel Social History Tobacco Use Types Packs/Day [...] documented as of this encounter Care Teams Conveyor Mechanic Relationship Specialty Start Date End Date Adan Restrepo MD [address] [place] [id number] PCP - General 09/08/20 03/03/22 documented as of this encounter
--- OUTSIDE RECORDS SUMMARY | 2024-04-05 13:28 | XMS_ITS | Encounter Summary ---
Author Organization [facility] Address [address] [place] [address] Care Team Providers Care Sugar Drier Name Role Phone Prasanna Ramos MD Primary Care Provider [phone] Encounter Details Date Type Department Care Team (Late st Contact Info) Description 06/11/2021 Telephone [facility] AT [address] [phone] Ludmila Copeland Social History Tobacco [...] * Telephone Encounter - Ludmila Copeland - 06/11/2021 4:17 PM EST Called to schedule pt and she is getting over COVID, her had a heart attack and she will call back when things settle down. documented in this encounter Plan of Treatment Not on file documented as of this encounter Visit Diagnoses Not on filedocumented in this encounter Care Teams Sugar Drier Relationship Specialty Start Date End Date Prasanna Ramos MD [address] [place] [phone] PCP - General Family Medicine 01/01/19 10/18/21 documented as of this encounter"
--- OUTSIDE RECORDS SUMMARY | 2024-04-05 13:29 | XMS_ITS | Encounter Summary ---
Author Organization [facility] Address [address] [place] [address] Care Team Providers Care Masticator Name Role Phone Unavailable Primary Care Provider Unavailabl e Encounter Details Date Type Department Care Team (Late st Contact Info) Description 11/30/2014 [facility] Vitals Encounter [facility] OUTPATIENT CONVERSIONS [address] [place] [address] ProviderCrystal MD [address] [place] [address] Social History Tobacco Use Types Packs/Day [...] - Inhaled Oxygen Concentration - - Weight 87 kg (191 lb 12.8 oz) 11/30/2014 2:52 PM EDT Height 161.3 cm (5' 3.5 ) 11/30/2014 2:52 PM EDT Body Mass Index 33.44 11/30/2014 2:52 PM EDT documented in this encounter Plan of Treatment Not on file documented as of this encounter Visit Diagnoses Not on filedocumented in this encounter
--- OUTSIDE RECORDS SUMMARY | 2024-04-05 13:29 | XMS_ITS | Encounter Summary ---
Author Organization [facility] Address [address] [place] [address] Care Team Providers Care Melter Supervisor Open Hearth Furnace Name Role Phone Unavailable Primary Care Provider Unavailabl e Encounter Details Date Type Department Care Team (Late st Contact Info) Description 06/12/2016 Legacy AEHR Vitals Encounter [facility] OUTPATIENT CONVERSIONS [address] [place] [address] Provider, MD Crystal [address] [place] [address] Social History Tobacco Use Types Packs/Day [...] - Inhaled Oxygen Concentration - - Weight 84.5 kg (186 lb 6 oz) 06/12/2016 1:12 PM EST Height 161.3 cm (5' 3.5 ) 06/12/2016 1:12 PM EST Body Mass Index 32.5 06/12/2016 1:12 PM EST documented in this encounter Plan of Treatment Not on file documented as of this encounter Visit Diagnoses Not on filedocumented in this encounter
--- OUTSIDE RECORDS SUMMARY | 2024-04-05 13:29 | XMS_ITS | Encounter Summary ---
Author Organization [place] [address] Care Team Providers Care Allergist/Pediatric Pulmonologist Name Role Phone Reggie Solomon MD Primary Care Provider Encounter Details Date Type Department Care Team (Late st Contact Info) Description 06/01/2009 3:20 PM EST - 06/01/2009 11:59 PM EST Hospital Encounter [facility]ST EPIC CON UNK GRT Reggie Solomon MD [address] [place] [address] Social History Tobacco Use Types Packs/Day Years Used Date Smoking Tobacco: Never Assessed Comments Unknown Sex and Gender Information Value Date Recorded Sex Assigned at Not on file Legal Sex Female 10:45 PM EDT Gender Identity Not on file Sexual Orientation Not on file documented as of this encounter Plan of Treatment Scheduled Orders Name Type Priority Associated Diagnoses Orde r Schedule XR TOE(S) GC Imaging Routine Once for 1 O ccurrences starting 07/07/2009 until 07/07/2009, 1 completed documented as of this encounter Procedures Procedure Name Priority Date/Time Associated Diagnosis Comments GC XX TOE(S) Routine 06/01/2009 3:25 PM EST documented in this encounter Results * XR TOE(S) GC (06/01/2009 3:25 PM EST) Anatomical Region Laterality Modality Other 06/01/2009 3:25 PM EST Narrative 06/02/2009 2:56 AM EST Examination- Right great toe. Indications- Pain status post trauma. History- Pain status post trauma. Three views of the right great toe demonstrate abnormal morphology of the lateral sesamoid bone. This appears to be fractured with comminution. Further evaluation with CT exam may be performed if clinically appropriate. There is mild osteophyte formation about the first MTP joint. Impression- Concern for fracture of the lateral sesamoid. ? Gareth WILSON ? Reading Physician- HUEY RAMSAY ??M.Dolly. ? Released Date Time- 06/02/09299 Procedure Note Huey Ramsay - 07/07/2009 Examination- Right great toe. Indications- Pain status post trauma. History- Pain status post trauma. Three views of the right great toe demonstrate abnormal morphology of the lateral sesamoid bone. This appears to be fractured with comminution. Further evaluation with CT exam may be performed if clinically appropriate. There is mild osteophyte formation about the first MTP joint. Impression- Concern for fracture of the lateral sesamoid. Gareth Rodríguez Physician- HUEY RAMSAY M.D. Released Date Time- 06/02/09299 Reggie Solomon MD [facility] HISTO RICAL Final Result documented in this encounter Visit Diagnoses Not on filedocumented in this encounter Care Teams Allergist/Pediatric Pulmonologist Relationship Specialty Start Date End Date Reggie Solomon MD [address] [place] [address] PCP - General 06/01/09 03/15/14 documented as of this encounter
--- OUTSIDE RECORDS SUMMARY | 2024-04-05 13:29 | XMS_ITS | Encounter Summary ---
Author Organization [facility] Address [address] [place] [address] Care Team Providers Care Hockey Player Name Role Phone Unavailable Primary Care Provider Unavailabl e Encounter Details Date Type Department Care Team ([facility] st Contact Info) Description 05/17/2015 Legacy AEHR Vitals Encounter [facility] OUTPATIENT CONVERSIONS [address] [place] [address] ProviderCrystal MD [address] [place] [address] Social History Tobacco Use Types Packs/Day [...] - Inhaled Oxygen Concentration - - Weight 87.5 kg (192 lb 14.4 oz) 05/17/2015 1:04 PM EST Height 161.3 cm (5' 3.5 ) 05/17/2015 1:04 PM EST Body Mass Index 33.64 05/17/2015 1:04 PM EST documented in this encounter Plan of Treatment Not on file documented as of this encounter Visit Diagnoses Not on filedocumented in this encounter
--- OUTSIDE RECORDS SUMMARY | 2024-04-05 13:29 | XMS_ITS | Referral Summary ---
Author Organization [facility] Address [address] [place] [address] Phone Care Team Providers Care Place Change Roof Bolter Name Role Phone Unavailable Primary Care Provider Unavailabl e Social History Tobacco Use Types Packs/Day Years Used Date Smoking Tobacco: Never Assessed Comments Unknown Sex and Gender Information Value Date Recorded Sex Assigned at Not on file Legal Sex Female 10:45 PM EDT Gender Identity Not on file Sexual Orientation Not on file Plan of Treatment Not on [place] [address] [employer] ATTN: [place] [address]
--- OUTSIDE RECORDS SUMMARY | 2024-04-05 13:29 | XMS_ITS | Encounter Summary ---
Author Organization [facility] Address [address] [place] [address] Care Team Providers Care Processing Rep Name Role Phone Unavailable Primary Care Provider Unavailabl e Encounter Details Date Type Department Care Team (Late st Contact Info) Description 02/28/2016 Legacy AEHR Vitals Encounter [facility] OUTPATIENT CONVERSIONS [address] [place] [address] Provider, MD Crystal [address] [place] [address] Social History Tobacco Use Types Packs/Day [...] - Inhaled Oxygen Concentration - - Weight 83 kg (183 lb 0.1 oz) 02/28/2016 1:40 PM EDT Height - - Body Mass Index 31.91 09/28/2015 2:16 PM EDT documented in this encounter Plan of Treatment Not on file documented as of this encounter Visit Diagnoses Not on filedocumented in this encounter
--- OUTSIDE RECORDS SUMMARY | 2024-04-05 13:29 | XMS_ITS | Encounter Summary ---
Author Organization [facility] Address [address] [place] [address] Care Team Providers Care Felt Cutting Machine Operator Name Role Phone Unavailable Primary Care Provider Unavailabl e Encounter Details Date Type Department Care Team (Late st Contact Info) Description 08/24/2014 [facility] AE[facility]als [facility] OUTPATIENT CONVERSIONS [address] [place] [address] ProviderCrystal MD [address] [place] [address] Social History Tobacco Use Types Packs/Day [...] - Inhaled Oxygen Concentration - - Weight 88 kg (194 lb 0.1 oz) 08/24/2014 2:01 PM EDT Height 161.3 cm (5' 3.5 ) 08/24/2014 2:01 PM EDT Body Mass Index 33.83 08/24/2014 2:01 PM EDT documented in this encounter Plan of Treatment Not on file documented as of this encounter Visit Diagnoses Not on filedocumented in this encounter
--- OUTSIDE RECORDS SUMMARY | 2024-04-05 13:29 | XMS_ITS | Encounter Summary ---
Author Organization [facility] Address [address] [place] [address] Care Team Providers Care Clamp Forklift Operator Name Role Phone Unavailable Primary Care Provider Unavailabl e Encounter Details Date Type Department Care Team (Late st Contact Info) Description 09/30/2014 Legacy AEHR Vitals Encounter [facility] OUTPATIENT CONVERSIONS [address] [place] [address] ProviderCrystal MD [address] [place] [address] Social History Tobacco Use Types Packs/Day [...] - Inhaled Oxygen Concentration - - Weight 88.9 kg (196 lb 0.2 oz) 09/30/2014 8:21 A M EDT Height 161.3 cm (5' 3.5 ) 09/30/2014 8:21 AM EDT Body Mass Index 34.18 09/30/2014 8:21 AM EDT documented in this encounter Plan of Treatment Not on file documented as of this encounter Visit Diagnoses Not on filedocumented in this encounter
--- OUTSIDE RECORDS SUMMARY | 2024-04-05 13:29 | XMS_ITS | Encounter Summary ---
Author Organization [facility] Address [address] [place] [address] Care Team Providers Care Registration Representative Name Role Phone Unavailable Primary Care Provider Unavailabl e Encounter Details Date Type Department Care Team (Late st Contact Info) Description 09/28/2015 Legacy AEHR Vitals Encounter [facility] OUTPATIENT CONVERSIONS [address] [place] [address] Provider, MD Crystal [address] [place] [address] Social History Tobacco Use Types Packs/Day [...] - Inhaled Oxygen Concentration - - Weight 84.9 kg (187 lb 2 oz) 09/28/2015 2:16 PM EDT Height 161.3 cm (5' 3.5 ) 09/28/2015 2:16 PM EDT Body Mass Index 32.63 09/28/2015 2:16 PM EDT documented in this encounter Plan of Treatment Not on file documented as of this encounter Visit Diagnoses Not on filedocumented in this encounter
--- OUTSIDE RECORDS SUMMARY | 2024-04-05 13:29 | XMS_ITS | Encounter Summary ---
Author Organization [facility] Address [address] [place] [address] Care Team Providers Care Medical Staffing Coordinator Name Role Phone Unavailable Primary Care Provider Unavailabl e Encounter Details Date Type Department Care Team (Late st Contact Info) Description 07/12/2015 Legacy AEHR Vitals Encounter [facility] OUTPATIENT CONVERSIONS [address] [place] [address] Provider, MD Crystal [address] [place] [address] Social History Tobacco Use Types Packs/Day [...] - Inhaled Oxygen Concentration - - Weight 88.5 kg (195 lb) 07/12/2015 3:24 PM EDT Height 161.3 cm (5' 3.5 ) 07/12/2015 3:24 PM EDT Body Mass Index 34 07/12/2015 3:24 PM EDT documented in this encounter Plan of Treatment Not on file documented as of this encounter Visit Diagnoses Not on filedocumented in this encounter
--- OUTSIDE RECORDS SUMMARY | 2024-04-05 13:29 | XMS_ITS | Clinical Summary ---
Author Organization [facility] Address [address] [place] [address] Phone Care Team Providers Care Cow Tester Name Role Phone Unavailable Primary Care Provider Unavailabl e Social History Tobacco Use Types Packs/Day Years Used Date Smoking Tobacco: Never Assessed Comments Unknown Sex and Gender Information Value Date Recorded Sex Assigned at Not on file Legal Sex Female 10:45 PM EDT Gender Identity Not on file Sexual Orientation Not on file Plan of Treatment Health Maintenance Due Date Last Done Comments Annual Wellness Exam 1980 DTaP/TDaP/Td (1 - Tdap) 1997 Hepatitis B Vaccine (1 of 3 - 19+ 3-dose series) 1997 Cervical Cancer Screening 1999 Pap Smear 1999 HPV/Pap Cotest 2008 Breast Cancer Screening 2018 Cologuard 2023 Colon Cancer Screening 2023 Colonoscopy 2023 FIT 2023 Sigmoidoscopy 2023 Virtual Colonography 2023 COVID-19 Vaccine ( - 2023-2 5 season) 2023 Influenza Vaccine (#1) 2023 Pneumococcal Vaccine 0-64 Aged Out No longer eligible based on patient's age to complete this topic Insurance [place] [id number] [employer] [place] ROSALIND TSANG ATTN: [place] [address]
--- NOTE | 2024-04-05 14:36 | EXP.PAIN.SOA ---
[facility] Disclaimer: The information contained in this section may have been updated after the patient was seen, as this information can be updated by other users. Medical History HTN (hypertension) Hyperlipidemia Social History Smoking Status: Current every day smoker tobacco type: cigarettes packs per day: 1 second hand exposure: Yes alcohol intake: never substance use type: denies use current occupational status: employed Travel in the last 8 weeks: None household members: spouse caffeine: Yes PM Subjective & Objective Subjective Subjective:: Patient is a pleasant 43-year-old female who presents today for medication refill and 3-month follow-up. Today she rates her pain a 6 out of 10. She denies any new trauma or injury. She does state that she still feels like her pain has progressively worsened. She does state that her left shoulder and left hip have been giving her more problems. Patient has had injections in the past however they typically were very temporary and so did not really outweigh continuing them due to the short-term relief. Patient is currently managed with gabapentin 300 mg twice a day and diclofenac 75 mg daily. She denies any side effects from these medications. She states that she typically will take the gabapentin at night because she is worried that it will still cause worsening symptoms during the day to where she want necessarily be able to function. Patient does also state that her insurance denied the last medication that we have tried to stand and and whether or not if we had heard anything on our end. Patient is asking if we can go up on the diclofenac. Patient does have a heart history and we did get verbal consent from her heart doctor that she could be on the lower dose of diclofenac. Her Anton has been reviewed and is appropriate. Review of Systems: General: No recent weight changes, no fever, no sleep disturbances Respiratory: No cough, no shortness of air, no recurring pulmonary infections Cardiovascular/peripheral vascular: No chest pain, no palpitations, no edema, no shortness of breath Gastrointestinal: No new onset incontinence, normal bowel movements reported Genitourinary: No new onset incontinence Musculoskeletal: Left hip, left shoulder pain Psychiatric: [Normal mood/affect] Neurological: [Denies weakness in extremities], [denies balance issues] Pain at rest (0-10 scale): 6 Objective Objective:: Physical Exam: General: Alert and oriented x3, no acute distress, pleasant and cooperative Lungs: Respirations even and unlabored, symmetrical chest expansion Eyes: PERRL Musculoskeletal: Flexion and extension of lumbar [spine] somewhat guarded secondary to pain, [antalgic gait noted] Neurological: Speech clear, no gross sensory deficit Has patient had previous pain injection?: No Conservative treatment options previously tried: Home exercise plan Length of treatment: longer than 6 weeks Meds Home Medications and Allergies Home Medications ?Medication ?Instructions ?Recorded ?Confirmed ?Type linaclotide 290 mcg capsule 290 mg PO DAILY BOWELS 06/10/17 04/05/24 History montelukast 10 mg tablet 10 mg PO HS ALLERGIES 06/10/17 04/05/24 History medroxyprogesterone 10 mg tablet 10 mg PO MONTHLY hormones 08/03/18 04/05/24 History (Provera) epinephrine 0.3 mg/0.3 mL 0.3 mg (0.3 mL) IM NEEDED PRN 12/15/19 04/05/24 Rx injection, auto-injector Allergic Reaction 1 day ##1 diclofenac sodium 75 mg 75 mg PO BID Pain #60 tabs 08/16/21 04/05/24 Rx tablet,delayed release fenofibrate 50 mg capsule 50 mg PO DAILY Cholesterol 01/25/22 04/05/24 History fluticasone propionate 50 1 spray intranasal DAILY ALLERGIES 01/25/22 04/05/24 History mcg/actuation nasal spray,suspension hydrochlorothiazide 25 mg tablet 25 mg PO DAILY Fluid 01/25/22 04/05/24 History rosuvastatin 5 mg tablet 10 mg PO DAILY Cholesterol 01/25/22 04/05/24 History triamcinolone acetonide 0.5 % 1 applic topical BID . 01/25/22 04/05/24 History topical cream metoprolol succinate 50 mg 50 mg PO DAILY #30 tabs 02/14/23 04/05/24 Rx tablet,extended release 24 hr (Toprol XL) lidocaine 5 % topical patch 1 patch topical DAILY #30 ea 10/01/23 04/05/24 Rx baclofen 5 mg tablet See Rx Instructions .Route 11/17/23 04/05/24 Rx .COMPLEX #28 tabs losartan 100 mg tablet See Rx Instructions .Route 11/17/23 04/05/24 Rx .COMPLEX #90 tabs lmbaxhggqetb-IJA-tywolqwf 25 1 tab PO TID PRN muscle spasm #42 01/05/24 04/05/24 Rx mg-385 mg-30 mg tablet tabs diclofenac sodium 50 mg 50 mg PO BID #60 tabs 04/05/24 Rx tablet,delayed release gabapentin 300 mg capsule 300 mg PO BID #60 caps 04/05/24 Rx New Prescriptions to Start Prescriptions: diclofenac sodium Bello,Danielle A gabapentin Bello,Danielle A Allergies Allergy/AdvReac Type Severity Reaction Status Date / Time Sulfa (Sulfonamide Allergy Severe Hives Verified 05/28/23 13:19 Antibiotics) acetaminophen (From LORTAB) Allergy Mild Unknown Verified 05/28/23 13:19 allergy reaction diphenhydramine (From Allergy Mild Unknown Verified 05/28/23 13:19 BENADRYL) allergy reaction hydrocodone (From LORTAB) Allergy Mild Unknown Verified 05/28/23 13:19 allergy reaction Penicillins (PENICILLINS) Allergy Mild Unknown Verified 05/28/23 13:19 allergy reaction tramadol (TRAMADOL) Allergy Mild Unknown Verified 05/28/23 13:19 allergy reaction latex AdvReac Mild Verified 05/28/23 13:19 Assessment and Plan *Assessment and plan (1) Left shoulder pain: Status: Acute Category: Medical Code(s): M25.512 - Pain in left shoulder (2) Left hip pain: Status: Acute Category: Medical Code(s): M25.552 - Pain in left hip Plan I will refill the patient's gabapentin and change the diclofenac to 50mg twice a day for 100mg total and provide a 3 month supply. Pt will return to clinic in 3 months. Patient has been instructed to contact the clinic with any concerns before the next appointment. Dr. Quinones has reviewed this note and agrees with this plan of care. This note was dictated using voice recognition software and make contain errors or omissions. All injections are used with Lidocaine or Bupivacaine and Depo Medrol.
[2024-04-05 14:39] VITALS: BP 121/76; PULSE 70; RESP 14; O2SAT 99; BMI 28.3
== END 2024-04-05 23:59 | disposition home or self-care (01) ==
PROVIDERS: PCP Family Medicine; Visit Provider Nurse Practitioner Family
DX: M25.512 Pain in left shoulder (principal); M25.552 Pain in left hip; F17.210 Nicotine dependence, cigarettes, uncomplicated; Z79.899 Other long term (current) drug therapy
CPT/HCPCS: 99212; G0463

== ENCOUNTER 2024-06-29 08:01 | Outpatient (CLI) | payer OTHER, SELFPAY ==
[2024-06-29 08:40] LABS: Basophils # 0.1 K/mm3 (0-0.2); Basophils % 0.5 % (0.1-2.0); Eosinophils # 0.2 K/mm3 (0.0-0.4); Eosinophils % 1.3 % (0.1-12.0); Hematocrit 44.6 % (37.0-47.0); Hemoglobin 14.9 g/dL (12.2-16.2); Lymphocytes % 23.3 % (10-50); Mean Corpuscular HGB Conc 33.4 g/dL (31.8-35.4); Mean Corpuscular Hemoglobin 30.5 pg (27.0-31.2); Mean Corpuscular Volume 91.2 fl (81-99); Mean Platelet Volume 11.5 fl (7.4-10.4); Monocytes % 7.6 % (1.7-9.3); Neutrophils # 8.5 K/mm3 (1.8-7.8); Neutrophils % 66.8 % (37.0-80.0); Platelet Count 271 K/mm3 (142-424); Red Blood Count 4.89 M/mm3 (4.20-5.40); Red Cell Distribution Width 12.8 % (11.5-17.5); White Blood Count 12.8 K/mm3 (4.8-10.8)
[2024-06-29 09:17] LABS: Alanine Aminotransferase 21 U/L (12-78); Albumin Level 4.9 g/dl (3.5-5.0); Alkaline Phosphatase 58 U/L (38-126); Aspartate Amino Transferase 24 U/L (14-36); Bilirubin,Direct 0.2 mg/dl (0.0-0.4); Bilirubin,Indirect 0.3 mg/dL (0.0-0.9); Bilirubin,Total 0.5 mg/dl (0.2-1.3); Bilirubin,Unconjugated 0.2 mg/dL (0.0-1.1); Blood Urea Nitrogen 14 mg/dl (7-17); Calcium 10.3 mg/dl (8.4-10.2); Carbon Dioxide 28 mmol/L (22.0-30.0); Chloride 108 mmol/L (98-107); Chol/HDL Ratio 6.4 (1-3.5); Cholesterol 161 mg/dl (140-200); Estimated Glomerular Filt Rate 60 ml/min (>60); GFR (African American) 72 ML/MIN (>60); Glucose 117 mg/dl (74-100); HDL Cholesterol 25 mg/dl (40-60); Magnesium 1.8 mg/dl (1.6-2.3); Sodium 141 mmol/L (136-145); Total Protein,Serum 7.2 g/dl (6.3-8.2); Triglycerides 177 mg/dl (30-150); VLDL Cholesterol 35 mg/dL (0-40)
[2024-06-29 09:27] LABS: Direct LDL Cholesterol 108.81 mg/dL (100-129)
[2024-06-29 09:32] LABS: Free T4 (Free Thyroxine) 1.48 ng/dl (0.78-2.19)
[2024-06-29 09:46] LABS: Thyroid Stimulating Hormone 1.47 uIU/mL (0.465-4.68)
== END 2024-06-29 23:59 | disposition home or self-care (01) ==
LOC: LAB 08:03
PROVIDERS: PCP Family Medicine; Visit Provider Nurse Practitioner Family
DX: E78.2 Mixed hyperlipidemia (principal); I10 Essential (primary) hypertension; F17.200 Nicotine dependence, unspecified, uncomplicated; R07.9 Chest pain, unspecified
CPT/HCPCS: 36415; 80048; 80061; 80076; 83735; 84439; 84443; 85025

== ENCOUNTER 2024-07-16 14:33 | Outpatient (POV) | payer OTHER, SELFPAY ==
[2024-07-16 14:36] VITALS: BP 122/77; PULSE 62; RESP 16; TEMP 36.6; O2SAT 98; BMI 29.2
--- NOTE | 2024-07-16 15:21 | A.OFFVIS_ITS ---
[facility] Disclaimer: The information contained in this section may have been updated after the patient was seen, as this information can be updated by other users. Medical History Hyperlipidemia HTN (hypertension) Social History Smoking Status: Current every day smoker tobacco type: cigarettes packs per day: 1 second hand exposure: Yes alcohol intake: never substance use type: denies use current occupational status: other Travel in the last 8 weeks: None household members: spouse caffeine: Yes PM Subjective & Objective Subjective Subjective:: Patient is a pleasant 44-year-old female who presents today for 3-month follow- up. Today she rates her pain a 6 out of 10. She denies any new trauma or injury. Patient does feel like the neck symptoms have progressed as well as her left shoulder does cause severe pain when she extends her arm out. Patient states that it does send an intense shooting sharp pain and that she does typ ically immediately withdrawal her arm back and it does ease back down. Patient states it just seems like everything is progressively worsening. Patient is currently managed with gabapentin 300 mg twice a day and diclofenac 75 mg twice a day from our office. Patient denies any side effects. She does state that she really feels like the diclofenac helps and is asking if there is any additional adjustments that can be made with this medication. Patient is also asking if there is anything else we can try. Her Anton has been reviewed and is appropriate. Review of Systems: General: No recent weight changes, no fever, no sleep disturbances Respiratory: No cough, no shortness of air, no recurring pulmonary infections Cardiovascular/peripheral vascular: No chest pain, no palpitations, no edema, no shortness of breath Gastrointestinal: No new onset incontinence, normal bowel movements reported Genitourinary: No new onset incontinence Musculoskeletal: Neck pain, left shoulder pain Psychiatric: [Normal mood/affect] Neurological: [Denies weakness in extremities], [denies balance issues] Pain at rest (0-10 scale): 6 Objective Objective:: Physical Exam: General: Alert and oriented x3, no acute distress, pleasant and cooperative Lungs: Respirations even and unlabored, symmetrical chest expansion Eyes: PERRL Musculoskeletal: Flexion and extension of cervical [spine] somewhat guarded secondary to pain, [antalgic gait noted] Neurological: Speech clear, no gross sensory deficit\ FINDINGS: Multiplanar MR imaging of the cervical spine was performed without contrast. On the sagittal T2-weighted images, disc degeneration is seen at multiple levels. There is straightening of the normal cervical lordosis. Mild kyphosis is seen centered at C5-6 There is no evidence of fracture. The vertebral alignment is normal. The cervical spinal cord has an unremarkable appearance without evidence of mass, edema or syrinx. No significant canal stenosis is identified. The cervicomedullary junction is normal. C2-3: There is no significant canal stenosis or neural foraminal narrowing. C3-4: Small central disc protrusion with mild indention of the thecal sac. C4-5: There are small uncovertebral osteophytes without significant canal stenosis or neural foraminal narrowing. C5-6: There is an annular disc bulge and uncovertebral osteophytes with moderate right and mild left neuroforaminal narrowing. C6-7: Small disc osteophyte complex with mild bilateral neuroforaminal narrowing. C7-T1: There is no significant canal stenosis or neural foraminal narrowing. IMPRESSION: Multilevel degenerative disc disease with interval improvement at C6-7 of left foraminal disc protrusion Reviewed, Interpreted and Dictated by Wilbur Jackson III, MD Transcribed by Naomi Haque Authenticated and [facility] Has patient had previous pain injection?: No Conservative treatment options previously tried: Prescription medications Length of treatment: Longer than 12 weeks Meds Home Medications and Allergies Home Medications ?Medication ?Instructions ?Recorded ?Confirmed ?Type linaclotide 290 mcg capsule 290 mg PO DAILY BOWELS 06/10/17 07/16/24 History montelukast 10 mg tablet 10 mg PO HS ALLERGIES 06/10/17 07/16/24 History medroxyprogesterone 10 mg tablet 10 mg PO MONTHLY hormones 08/03/18 07/16/24 History (Provera) epinephrine 0.3 mg/0.3 mL 0.3 mg (0.3 mL) IM NEEDED PRN 12/15/19 07/16/24 Rx injection, auto-injector Allergic Reaction 1 day ##1 fluticasone propionate 50 1 spray intranasal DAILY ALLERGIES 01/25/22 07/16/24 History mcg/actuation nasal spray,suspension hydrochlorothiazide 25 mg tablet 25 mg PO DAILY Fluid 01/25/22 07/16/24 History triamcinolone acetonide 0.5 % 1 applic topical BID . 01/25/22 07/16/24 History topical cream metoprolol succinate 50 mg 50 mg PO DAILY #30 tabs 02/14/23 07/16/24 Rx tablet,extended release 24 hr (Toprol XL) lidocaine 5 % topical patch 1 patch topical DAILY #30 ea 10/01/23 07/16/24 Rx baclofen 5 mg tablet See Rx Instructions .Route 11/17/23 07/16/24 Rx .COMPLEX #28 tabs losartan 100 mg tablet See Rx Instructions .Route 11/17/23 07/16/24 Rx .COMPLEX #90 tabs diclofenac sodium 50 mg 50 mg PO BID #60 tabs 04/05/24 07/16/24 Rx tablet,delayed release cetirizine 10 mg tablet 10 mg PO DAILY 06/07/24 07/16/24 History fenofibrate nanocrystallized 145 145 mg PO .every other day 06/07/24 07/16/24 History mg tablet nicotine (polacrilex) 4 mg gum 4 mg PO Q2H 06/07/24 07/16/24 History trazodone 100 mg tablet 100 mg PO DAILY 06/07/24 07/16/24 History rosuvastatin 20 mg tablet (Crestor) 20 mg PO DAILY #30 tabs 07/01/24 07/16/24 Rx diclofenac sodium 75 mg 75 mg PO BID Pain #180 tabs 07/16/24 Rx tablet,delayed release gabapentin 300 mg capsule 300 mg PO BID #180 caps 07/16/24 Rx orphenadrine citrate 100 mg 100 mg PO BID #28 tabs 07/16/24 Rx tablet,extended release New Prescriptions to Start Prescriptions: diclofenac sodium Bello,Danielle A gabapentin Bello,Danielle A orphenadrine citrate Bello,Danielle A Allergies Allergy/AdvReac Type Severity Reaction Status Date / Time Sulfa (Sulfonamide Allergy Severe Hives Verified 06/07/24 08:41 Antibiotics) acetaminophen (From [facility]) Allergy Mild Unknown Verified 06/07/24 08:41 allergy reaction diphenhydramine (From Allergy Mild Unknown Verified 06/07/24 08:41 BENADRYL) allergy reaction hydrocodone (From LORTAB) Allergy Mild Unknown Verified 06/07/24 08:41 allergy reaction Penicillins (PENICILLINS) Allergy Mild Unknown Verified 06/07/24 08:41 allergy reaction tramadol (TRAMADOL) Allergy Mild Unknown Verified 06/07/24 08:41 allergy reaction latex AdvReac Mild Verified 06/07/24 08:41 Assessment and Plan *Assessment and plan (1) Left shoulder pain: Status: Acute Category: Medical Code(s): M25.512 - Pain in left shoulder (2) Neck pain: Status: Acute Category: Medical Code(s): M54.2 - Cervicalgia (3) Cervical radiculopathy: Status: Acute Category: Medical Code(s): M54.12 - Radiculopathy, cervical region Plan I did discuss with the patient that if she does continue to feel like the pain is increasing in severity we can do additional imaging. Patient had her last cervical imaging last year and she has had right shoulder x-ray however has not had any imaging for her left shoulder. We will follow-up in future on this. Patient was counseled that she cannot take the diclofenac more than twice a day due to possible altered kidney function. Patient acknowledges understanding agrees with this plan of care. Patient was also discussed regarding the gabapentin and she does state that a lot of times she just feels like that she will be able to function if she takes it during the day so typically she does take 2 at night. Patient is requesting if we can do a 90-day supply of this. At one of our previous visits we did try and send in a new prescription of orphenadrine 2 times daily as needed however her insurance denied it. Patient does state that she does have new insurance and we will try and resend this prescription with a 2-week supply. Patient has tried tizanidine, Robaxin, Skelaxin, Flexeril with no additional improvement. Patient states that the Flexeril caused an opposite reaction where she could not sleep and never wants to try that medication again. Patient will return to clinic in 3 months however she was counseled if we can get the new muscle relaxer approved to call us and let us know if this did help. Patient agrees with this plan of care. Patient has been instructed to contact the clinic with any concerns before the next appointment. Dr. Quinones has reviewed this note and agrees with this plan of care. This note was dictated using voice recognition software and make contain errors or omissions. All injections are used with Lidocaine, Bupivacaine and Depo Medrol. Occasionally urine drug screen is needed to verify patient's compliance with our office pain contract. This is ordered based off specific treatments related to chronic pain with the potential to abuse certain medications.
== END 2024-07-16 23:59 | disposition home or self-care (01) ==
PROVIDERS: Visit Provider Nurse Practitioner Family
DX: M25.512 Pain in left shoulder (principal); M54.2 Cervicalgia; M54.12 Radiculopathy, cervical region; F17.210 Nicotine dependence, cigarettes, uncomplicated; Z79.899 Other long term (current) drug therapy
CPT/HCPCS: 99212; G0463

== ENCOUNTER 2024-11-04 08:42 | Outpatient (POV) | payer OTHER, SELFPAY ==
--- OUTSIDE RECORDS SUMMARY | 2024-04-14 11:30 | XMS_ITS ---
[facility] Address [address] [facility] [address] [place] [phone] Care Team Providers Care Furnace Checker Name Role Phone Janina Che Primary Care Provider [phone] Adan Restrepo Unavailable [phone] Allergies Allergen (clinical drug ingredient) Drug/Non Drug [...] Orally once daily 04/14/2024 Active Vital Signs Heart Rate 90 /min 04/14/2024 Height 63 in 04/14/2024 Weight 164.6 lbs 04/14/2024 BMI 29.15 kg/m2 04/14/2024 Encounters Encounter Location Date Provider Diagnosis [facility] [address] [place] [id number] 04/14/2024 Adan Kemp Acute URI J06.9 Assessments Encounter Date Diagnosis [...] * Tran MOLINADOB: 9 (44 yo F)Acc No.[id number]:04/14/2024 Progress Notes Patient: Tran VENEGAS Provider: Marjorie Restrepo M.D. :1980 A ge:43 Y S ex:Female Date:04/14/2024 Address:[address] [place] [address], [facility], [id number] Pcp:Janina Che Subjective: * Chief Complaints: * [...] Hospitalization/Major Diagno stic Procedure: S tomach Pain- [facility] ER 07/04-01/2015, RT Side Neck Pain- [facility] ER 03/24/2018, Reaction to Sulfa Drug- [facility] ER . * Family History: [...] Procedure Codes: 3 6416 CAPILLARY BLOOD DRAW, [address] [place], [address] CBC WITH AUTO DIFF, 89315 STREP A ASSAY W/OPTIC, Modifiers: QW * Follow Up: p rn * Images: Billing Information: * Visit Code: 65603 Office Visit, Est Pt., Level 3. * Procedure Codes: 95092 CAPILLARY BLOOD [address]RAW. [address] [place]. [address] CBC WITH AUTO DIFF. 64177 STREP A ASSAY W/OPTIC. Modifiers: QW * Electronic signature of Eveline Restrepo MD on 11/04/2024 at 08:47 AM EDT Sign off status: Pending * Provider: Marjorie Restrepo M.D. Date: 1 06/15/2023 Generated for Doyle mendoza/Parish/eTransmitting on: 0 11/04/2024 08:47 AM EDT History and Physical Notes * [...]
--- OUTSIDE RECORDS SUMMARY | 2024-09-13 11:00 | XMS_ITS ---
[facility] Address [address] [place] [id number] Care Team Providers Care Dry House Operator Name Role Phone Janina Che Primary Care Provider Isabell Carey Unavailable [phone] Allergies Allergen (clinical drug ingredient) Drug/Non Drug [...] Range Notes CBC Fingerstick (in house) Reviewed date:09/14/2024 09:55:13 AM Interpretation: Performing Lab: Notes/Report: wbc 11.5 3.5 - 10 lym 32.5% 15 - 50 mid 6.4% 2 - 15 gran 61.1% 35 - 80 rbc 4.48 3.5 - 5.5 hgb 13.7 11.5 - 16.5 hct 40.9 35 - 55 mcv 91.2 75 - 100 mch 30.6 25 - 35 mchc 33.6 31 - 38 plat 261 100 - 400 REASON FOR VISIT med checkup, Needs labs & colon cancer screening Medications Medication SIG (Take, Route, Frequency, Duration) Notes Start Date End Date Status hydroCHLOROthiazide 25 mg 1 tablet Orall y Once a day; Duration: 90 days Active Crestor 5 MG 1 tab(s) orally once a day; Duration: 90 days Not-Taking Fenofibrate 145 mg TAKE ONE TABLET BY MOUTH EVERY OTHER DAY Orally Once a day; Duration: 90 days Active Montelukast Sodium 10 mg TAKE ONE TABLET BY MOUTH EVERY DAY Orally Once a day; Duration: 90 days Active Nicotine Polacrilex 4 mg CHEW 1 PIECE OF GUM EVERY 2 HOURS DIRECTED; Duration: 90 days Active SUMAtriptan Succinate 50 MG 1 tab(s) nevaeh ronnie , august repeat q1h x 1 orally 04/23/2021 Active Albuterol Sulfate HFA 108 (9 0 Base) MCG/ACT 1 puff as needed Inhalation every 4 hrs 02/27/2023 Active Linzess 290 MCG TAKE ONE CAPSULE BY MOUTH EVERY DAY Orally Once a day; Duration: 90 days Active traZODone HCl 100 mg TAKE ONE TABLET BY MOUTH EVERY DAY AT BEDTIME DIRECTED Orally Once a day; Duration: 90 days Active Triamcinolone Acetonide 0.5 % APPLY TOPI ANA TO THE AFFECTED AREA(S) TWICE DAILY -- FOR EXTERNAL USE ONLY-- Externally Twice a day; Duration: 10 days Active Cetirizine HCl 10 mg TAKE ONE TABLET BY MOUTH EVERY DAY Orally Once a day; Duration: 90 days Active Provera 10 MG 1 tab(s) orally once a day; Duration: 90 days Active Diclofenac Sodium 75 mg TAKE ONE TABLET BY MOUTH TWICE DAILY --TAKE WITH FOOD-- Orally Twice a day; Duration: 90 days Active Crestor 20 MG 1 tablet Orally Once a day; Duration: 90 days Active Toprol XL 50 MG 1 tab(s) Orally once daily; Duration: 90 days Not-Taking Losartan Potassium 100 MG 1 tab(s) Orall y once a day; Duration: 90 days Active Diflucan 150 MG 1 tablet Orally once daily 04/14/2024 Not-Taking Problems Problem Type SNOMED Code ICD Code Onset Dates Problem Status W/U Status Risk Notes Problem Menstrual disorder (469259186) Irregular menses (N92.6) Active confirmed Vital Signs Blood pressure systolic 120 mm Hg 09/14/19 25 Blood pressure diastolic 70 mm Hg 025 Heart Rate 61 /min 09/13/2024 Height 63 in 09/13/2024 Weight 167.2 lbs 09/13/2024 BMI 29.61 kg/m2 09/13/2024 Encounters Encounter Location Date Provider Diagnosis [facility] [address] [place] [id number] 09/13/2024 Isabellelvis Carey Abnormal colonoscopy R93.3 ; Essential hypertension I10 ; Tobacco dependence F17.200 ; Acute upper respiratory infection 465.9 ; Environmental allergies Z91.048 ; Sleep disorder 780.50 ; Hyperlipidemia E78.5 ; Constipation K59.00 ; Hyperglycemia R73.9 ; Polyarthralgia M25.50 ; Rash R21 ; Irregular menses N92.6 and BMI 29.0-29.9,adult Z68.29 Assessments Encounter Date Diagnosis (ICD Code) Assessment Notes Treatment Notes Treatment Clinical Notes Section Notes 09/13/2024 Abnormal colonoscopy (ICD-10 - R93.3) 09/13/2024 Essential hypertension (ICD-10 - I10) 09/13/2024 Tobacco dependence (ICD-10 - F17.200) discussed at length smoking cessation 09/13/2024 Acute upper respiratory infection (ICD-10 - 465.9) fluids and OTC cough/cold med 09/13/2024 Environmental allergies (ICD-10 - Z91.048) 09/13/2024 Sleep disorder (ICD-10 - 780.50) 09/13/2024 Hyperlipidemia (ICD-10 - E78.5) 09/13/2024 Constipation (ICD-10 - K59.00) 09/13/2024 Hyperglycemia (ICD-10 - R73.9) discussed diet 09/13/2024 Polyarthralgia (ICD-10 - M25.50) 09/13/2024 Rash (ICD-10 - R21) 09/13/2024 Irregular menses (ICD-10 - N92.6) due for Pap smear which she will schedule this summer; also will need TV US 09/13/2024 BMI 29.0-29.9,adult (ICD-10 - Z68.29) 09/13/2024 Other breast MRI due; has to have done after her monthly menses Plan Of Treatment Medication Medication Name Sig Start Date Stop Date Notes hydroCHLOROthiazide 25 mg 1 tablet Orall y Once a day; Duration: 90 days Fenofibrate 145 mg TAKE ONE TABLET BY M OUTH EVERY OTHER DAY Orally Once a day; Duration: 90 days Montelukast Sodium 10 mg TAKE ONE TABLET BY MOUTH EVERY DAY Orally Once a day; Duration: 90 days Nicotine Polacrilex 4 mg CHEW 1 PIECE OF GUM EVERY 2 HOURS DIRECTED; Duration: 90 days Linzess 290 MCG TAKE ONE CAPSULE BY MOUTH EVERY DAY Orally Once a day; Duration: 90 days traZODone HCl 100 mg TAKE ONE TABLET BY MOUTH EVERY DAY AT BEDTIME DIRECTED Orally Once a day; Duration: 90 days Triamcinolone Acetonide 0.5 % APPLY TOPI ANA TO THE AFFECTED AREA(S) TWICE DAILY -- FOR EXTERNAL USE ONLY-- Externally Twice a day; Duration: 10 days Cetirizine HCl 10 mg TAKE ONE TABLET BY MOUTH EVERY DAY Orally Once a day; Duration: 90 days Provera 10 MG 1 tab(s) orally once a day; Duration: 90 days Diclofenac Sodium 75 mg TAKE ONE TABLET BY MOUTH TWICE DAILY --TAKE WITH FOOD-- Orally Twice a day; Duration: 90 days Crestor 20 MG 1 tablet Orally Once a day; Duration: 90 days Losartan Potassium 100 MG 1 tab(s) Orall y once a day; Duration: 90 days Treatment Notes Assessment Notes Tobacco dependence discussed at length smoking cessation Acute upper respiratory infection fluids and OTC cough/cold med Hyperglycemia discussed diet Irregular menses due for Pap smear wh ich she will schedule this summer; also will need TV US Other breast MRI due; has to have done after her monthly menses Pending Test Test Name Order Date colonoscopy 09/13/2024 Next Appt Details Follow Up: 2-3 months with P ap, Reason: Progress Notes * Tran MOLINADOB: [birth year] (44 yo F)Acc No.[id number]:09/13/2024 Progress Notes Patient: Jamil VENEGASca Provider: NESSA Figueroa :1980 A ge:44 Y S ex:Female Date:09/13/2024 Address:[address], [place], [id number] Pcp:Janina Che Subjective: * Chief Complaints: * 1 . Med checkup. 2. Needs labs & colon cancer screening. * HPI: H PI: 44 year old female presents with c/o Patient is here today for?Pt is here today for a medication check. 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 * ROS: C ARDIOLOGY: Positive for c ardiology visit 06/07/2024 notes as follows: Plan Details Active Problems Reviewed?: Yes Additional Comments: Pt is here for 1 year follow up on HTN denies chest pain/pressure denies shortness of breath Coronary CTA showed Score of 0, Mild plaque seen on coronary CTA, done @ [facility]- scanned into [employer]. BP stable. LDL goal is < 100, LDL 113(2023). On statin. Pt weight is the same as last visit (163) EF55-60%(2022), RV is normal, no significant valve disease. Tobacco user, smoking cessation advised. Stable. No changes.. D ERMATOLOGY: no R bella. n o H danilo. G ASTROENTEROLOGY: no N ausea. n o V omiting. n o D iarrhea.? M USCULOSKELETAL: Joint pain y es, p ain management note by Feliciano Bello APRN 07/16/2024 : Assessment and plan (1) Left shoulder pain: Status:Acute Category:Medical Code(s): M25.512 - Pain in left shoulder (2) Neck pain: Status:Acute Category:Medical Code(s): M54.2 - Cervicalgia (3) Cervical radiculopathy: Status:Acute Category:Medical Code(s): M54.12 - Radiculopathy, cervical region Plan I did discuss with the patient that if she does continue to feel like the pain is increasing in severity we can do additional imaging. Patient had her last cervical imaging last year and she has had right shoulder x-ray however has not had any imaging for her left shoulder. We will follow-up in future on this. Patient was counseled that she cannot take the diclofenac more than twice a day due to possible altered kidney function. Patient acknowledges understanding agrees with this plan of care. Patient was also discussed regarding the gabapentin and she does state that a lot of times she just feels like that she will be able to function if she takes it during the day so typically she does take 2 at night. Patient is requesting if we can do a 90-day supply of this. At one of our previous visits we did try and send in a new prescription of orphenadrine 2 times daily as needed however her insurance denied it. Patient does state that she does have new insurance and we will try and resend this prescription with a 2-week supply. Patient has tried tizanidine, Robaxin, Skelaxin, Flexeril with no additional improvement. Patient states that the Flexeril caused an opposite reaction where she could not sleep and never wants to try that medication again. Patient will return to clinic in 3 months however she was counseled if we can get the new muscle relaxer approved to call us and let us know if this did help. Patient agrees with this plan of care. Patient has been instructed to contact the clinic with any concerns before the next appointment. Dr. Quinones has reviewed this note and agrees with this plan of care. This note was dictated using voice recognition software and make contain errors or omissions. All injections are used with Lidocaine, Bupivacaine and Depo Medrol. Occasionally urine drug screen is needed to verify patient's compliance with our office pain contract. This is ordered based off specific treatments related to chronic pain with the potential to abuse certain medications. U ROLOGY: no D ifficulty urinating. n o B lood in urine. * Medical History: H BP with pregnancies, Migraines , Degenerative Disc Disease, Allergic rhinitis. * Surgical History: T onsillectomy/Adenoids removed , Tubal Ligation 2007, RT Breast Tumor Removal 2007. * Hospitalization/Major Diagno stic Procedure: S tomach Pain- [facility] 07/04-01/2015, RT Side Neck Pain- [facility] 03/24/2018, Reaction to Sulfa Drug- [facility] . * Family History: F [...] cigarettes. Alcohol: No. * Medications: T aking Crestor 20 MG Tablet 1 tablet Orally Once a day , Taking SUMAtriptan Succinate 50 MG Tablet 1 tab(s) initially , may repeat q1h x 1 orally , Taking Losartan Potassium 100 MG Tablet 1 tab(s) Orally once a day , Taking Albuterol Sulfate HFA 108 (90 Base) MCG/ACT Aerosol Solution 1 puff as needed Inhalation every 4 hrs , Taking Diclofenac Sodium 75 mg Tablet Delayed Release TAKE ONE TABLET BY MOUTH TWICE DAILY --TAKE WITH FOOD-- , Taking Linzess 290 MCG Capsule TAKE ONE CAPSULE BY MOUTH EVERY DAY , Taking Triamcinolone Acetonide 0.5 % Cream APPLY TOPICALLY TO THE AFFECTED AREA(S) TWICE DAILY -- FOR EXTERNAL USE ONLY-- , Taking traZODone HCl 100 mg Tablet TAKE ONE TABLET BY MOUTH EVERY DAY AT BEDTIME DIRECTED , Taking Provera 10 MG Tablet 1 tab(s) orally once a day , Taking Cetirizine HCl 10 mg Tablet TAKE ONE TABLET BY MOUTH EVERY DAY , Taking Montelukast Sodium 10 mg Tablet TAKE ONE TABLET BY MOUTH EVERY DAY , Taking Fenofibrate 145 mg Tablet TAKE ONE TABLET BY MOUTH EVERY OTHER DAY , Taking Nicotine Polacrilex 4 mg Gum CHEW 1 PIECE OF GUM EVERY 2 HOURS DIRECTED , Taking hydroCHLOROthiazide 25 mg Tablet 1 tablet Orally Once a day , Not-Taking Crestor 5 MG Tablet 1 tab(s) orally once a day , Not-Taking Toprol XL 50 MG Tablet Extended Release 24 Hour 1 tab(s) Orally once daily , Not-Taking Diflucan 150 MG Tablet 1 tablet Orally once daily , Discontinued Nicotine Step 1 21 MG/24HR Patch 24 Hour apply 1 PATCH topically ONCE DAILY DIRECTED -- FOR EXTERNAL USE ONLY-- , Discontinued Cefuroxime Axetil 500 MG Tablet 1 tablet Orally every 12 hrs , Discontinued Benzonatate 200 mg Capsule TAKE ONE CAPSULE BY MOUTH THREE TIMES DAILY NEEDED -SWALLOW WHOLE. DO NOT CRUSH OR CHEW- , Medication List reviewed and reconciled with the patient * Allergies: P enicillins: unsure of reaction, Benadryl Allergy: insomnia, HYDROcodone-Acetaminophen: hives, Tape, Promethazine-DM: insomnia - Side Effects, Cefdinir: yeast infection in mouth, Bactrim DS: swelling, itching, chest fullness, throat swelling, hives. Objective: * Vitals: W t: 167.2, Temp: 98.6, BP: 120/70, HR: 61, Nurse: jose, Ht: 63, BMI:29.61. * Examination: G eneral Examination: General Appearance: N AD , appears healthy , alert , pleasant , well nourished and hydrated. H EENT: s clera and conjunctiva clear, PERRLA, TM's normal, translucent; left TM with cerumen and irrigated free of debri. O ral cavity: u nremarkable , mucosa moist and WNL , no erythema. N augusto: s upple , no lymphadenopathy , no carotid bruits , no thyromegaly. H eart: R RR , no ectopics. L ungs: C TAB A&P. N eurologic Exam: a lert and oriented. E xtremities: n o leg edema. L ABS: date of labs AT [facility]; REVIEWED ALL WITH PT. C reatinine 1 .0. B UN 1 4. S odium 1 41. P otassium 4 .0. c hloride?108. C O2 2 8. g lucose 1 17. c alcium 1 0.3. C BC-hgb/hct/wbc 1 4.9/44.6/12/8; PLT CT 182853. T otal Cholesterol 1 61. T riglyceride 1 77. L DL?108.81. H DL 2 5. T SH 1 .47. S GOT/SGPT 2 08/16. a lk phos 5 8. t otal bilirubin 0 .5. a lbumin 4 .9. m agnesium 1 .8. ? Assessment: * Assessment: 1. A bnormal colonoscopy - R93.3 (Primary) 2 . E ssential hypertension - I10 3 . T obacco dependence - F17.200 4 . A cute upper respiratory infection - 465.9 5 . E nvironmental allergies - Z91.048 6 . S leep disorder - 780.50 7 . H yperlipidemia - E78.5 8 .?Constipation - K59.00 9 . H yperglycemia - R73.9 1 0. P olyarthralgia - M25.50 1 1. R bella - R21 1 2. I rregular menses - N92.6 1 3. B [place] 29.0-29.9,adult - Z68.29 Plan: * Treatment: 2.?Essential hypertension? Refill Losartan Potassium Tablet, 100 MG, 1 tab(s), Orally, once a day, 90 days, 90, Refills 1; Refill hydroCHLOROthiazide Tablet, 25 mg, 1 tablet, Orally, Once a day, 90 days, 90, Refills 1. ?3.?Tobacco dependence? Refill Nicotine Polacrilex Gum, 4 mg, CHEW 1 PIECE OF GUM EVERY 2 HOURS DIRECTED, 90 days, 110 Gum, Refills 1.?? Notes: discussed at length smoking cessation??4.?Acute upper respiratory infection?LAB: CBC Fingerstick (in house) (Collection Date & Time - 09/13/2024)* Value Reference Range w bc 11.5 3.5 - 10 * l ym 32.5% 15 - 50 * m id 6.4% 2 - 15 * g ran 61.1% 35 - 80 * r bc 4.48 3.5 - 5.5 * h gb 13.7 11.5 - 16.5 * h ct 40.9 35 - 55 * m cv 91.2 75 - 100 * m ch 30.6 25 - 35 * m chc 33.6 31 - 38 * p lat 261 100 - 400 * Aziza Parham 09/13/2024 04 :17:40 PM > Provider reviewed results while patient in office.Isabell Carey 09/14/2024 09:55:10 AM > Notes: fluids and OTC cough/cold med??5.?Environmental allergies? Refill Cetirizine HCl Tablet, 10 mg, TAKE ONE TABLET BY MOUTH EVERY DAY, Orally, Once a day, 90 days, 90, Refills 1;?Refill Montelukast Sodium Tablet, 10 mg, TAKE ONE TABLET BY MOUTH EVERY DAY, Orally, Once a day, 90 days, 90, Refills 1.??6.?Sleep disorder? Refill traZODone HCl Tablet, 100 mg, TAKE ONE TABLET BY MOUTH EVERY DAY AT BEDTIME DIRECTED, Orally, Once a day, 90 days, 90, Refills 1.?? 7.?Hyperlipidemia? Refill Crestor Tablet, 20 MG, 1 tablet, Orally, Once a day, 90 days, 90, Refills 1;?Refill Fenofibrate Tablet, 145 mg, TAKE ONE TABLET BY MOUTH EVERY OTHER DAY, Orally, Once a day, 90 days, 90, Refills 1.??8.?Constipation? Refill Linzess Capsule, 290 MCG, TAKE ONE CAPSULE BY MOUTH EVERY DAY, Orally, Once a day, 90 days, 90, Refills 1.??9.?Hyperglycemia? Notes: discussed diet??10.?Polyarthralgia? Refill Diclofenac Sodium Tablet Delayed Release, 75 mg, TAKE ONE TABLET BY MOUTH TWICE DAILY --TAKEWITH FOOD--, Orally, Twice a day, 90 days, 180, Refills 1.?? 11.?Rash? Refill Triamcinolone Acetonide Cream, 0.5 %, APPLY TOPICALLY TO THE AFFECTED AREA(S) TWICE DAILY --FOR EXTERNAL USE ONLY--, Externally, Twice a day, 10 days, 1, Refills 1.??12.?Irregular menses? Refill Provera Tablet, 10 MG, 1 tab(s), orally, once a day, 90 days, 90, Refills 1.?? Notes: due for Pap smear which she will schedule this summer; also will need TV US??13.?Others? Notes: breast MRI due; has to have done after her monthly menses?? * Procedure Codes: 3 6416 CAPILLARY BLOOD DRAW, 39827 CBC WITH AUTO DIFF, 3074F SYST BP LT 130 MM HG, 3078F DIAST BP < 80 MM HG * Follow Up: 2 -3 months with Pap * Images: Billing Information: * Visit Code: 74104 Office Visit, Est Pt., Level 4. * Procedure Codes: 33933 CAPILLARY BLOOD DRAW. 74963 CBC WITH AUTO DIFF. 3074F SYST BP LT 130 MM HG. 3078F DIAST BP < 80 MM HG. * Electronic signature of Colette Carey APRN on 11/04/2024 at 08:47 AM EDT Sign off status: Pending * Provider: NESSA Figueroa Date: 0 09/13/2024 Generated for Doyle mendoza/Parish/Olga Lidia on: 0 11/04/2024 08:47 AM EDT History and Physical Notes * HPI (History of Present Illness) Category Sub-Category Detail Notes Category Not es HPI Patient is here today for Pt is here today for a medication check. 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 that she would like to discuss as well Examination Category Sub-Category Detail Notes Category Not es General Examination HEENT: sclera and c onjunctiva clear, PERRLA, TM's normal, translucent; left TM with cerumen and irrigated free of debri Heart: RRR , no ectopics Lungs: CTAB A&P Extremities: no leg edema General Appearance: NAD , appears health y , alert , pleasant , well nourished and hydrated Neurologic Exam: alert and oriented Neck: supple , no lymphade nopathy , no carotid bruits , no thyromegaly Oral cavity: unremarkable , mucos a moist and WNL , no erythema LABS CBC-hgb/hct/wbc 14.9/44.6/12/8; PLT CT 27 1000 Creatinine 1.0 LDL 108.81 HDL 25 SGOT/SGPT 24/21 glucose 117 Total Cholesterol 161 Potassium 4.0 Sodium 141 BUN 14 TSH 1.47 Triglyceride 177 calcium 10.3 chloride 108 CO2 28 alk phos 58 total bilirubin 0.5 albumin 4.9 date of labs 06/29/2024 AT [facility]; REV IEWED ALL WITH PT magnesium 1.8
--- OUTSIDE RECORDS SUMMARY | 2024-11-04 08:47 | XMS_ITS | Patient Health Record ---
[facility] [address] [place] [id number] Care Team Providers Care Community Outreach Worker Name Role Phone Janina Che Primary Care Provider Anup Buckley Unavailable [phone] Adan Restrepo Unavailable [phone] Isabell Carey Unavailable [phone] Allergies Allergen (clinical drug ingredient) Drug/Non Drug [...] - 38 plat 221 100 - 400 Rapid Strep- Inhouse Reviewed date:04/14/2024 04:06:35 PM [...] - 38 plat 186 100 - 400 MRI : Breasts, bilateral, wi thout contrast Reviewed date:05/25/2024 08:56:05 AM Interpretation: Performing Lab: Notes/Report: CBC Fingerstick (in house) Reviewed date:09/14/2024 09:55:13 [...] - 38 plat 261 100 - 400 Mammogram Reviewed date:03/02/2024 03:42:28 PM Interpretation:Negative; Annual f/u Performing Lab: Notes/Report: Negative; Annual f/u Medications Medication SIG (Take, Route, Frequency, Duration) Notes Start Date End Date Status Cetirizine HCl 10 mg TAKE ONE TABLET BY MOUTH EVERY DAY Orally Once a day; Duration: 90 days Active Metoprolol Succinate ER 50 mg TAKE ONE T ABLET BY MOUTH EVERY DAY; Duration: 90 Active Diclofenac Sodium 75 mg TAKE ONE TABLET BY MOUTH TWICE DAILY --TAKE WITH FOOD-- Orally Twice a day; Duration: 90 days Active traZODone HCl 100 mg TAKE ONE TABLET BY MOUTH EVERY DAY AT BEDTIME DIRECTED Orally Once a day; Duration: 90 days Active Triamcinolone Acetonide 0.5 % APPLY TOPI ANA TO THE AFFECTED AREA(S) TWICE DAILY -- FOR EXTERNAL USE ONLY-- Externally Twice a day; Duration: 10 days Active Nicotine Polacrilex 4 mg CHEW 1 PIECE OF GUM EVERY 2 HOURS DIRECTED; Duration: 10 Active Provera 10 MG 1 tab(s) orally once a day; Duration: 90 days Active hydroCHLOROthiazide 25 mg 1 tablet [...] Once a day; Duration: 90 days Active Losartan Potassium 100 MG 1 tab(s) Orall y once a day; Duration: 90 days Active Crestor 5 MG 1 tab(s) orally once a day; Duration: 90 days Not-Taking Linzess 290 MCG TAKE ONE CAPSULE BY MOUTH EVERY DAY Orally Once a day; Duration: 90 days Active Diflucan 150 MG 1 tablet Orally once daily 04/14/2024 Not-Taking SUMAtriptan Succinate 50 MG 1 tab(s) inaugust repeat q1h x 1 orally 04/23/2021 Active Albuterol Sulfate HFA 108 (9 0 Base) MCG/ACT 1 puff as needed Inhalation every 4 hrs 02/27/2023 Active Immunizations Vaccine Route Administration Date Status Comme nts [...] Administered COVID 19 Moderna Unknown 06/16/2020 Administered Problems Problem Type SNOMED Code ICD Code Onset Dates Problem Status W/U Status Risk Notes Problem Degenerative disc disease (60451736) Degenerative disc disease NOS (722.6) Active confirmed Problem Hypertension (25904446) HTN (hypertension) (I10) Active confirmed Problem Hyperlipidemia (28416508) Hyperlipidemia (E78.5) Active confirmed Problem Essential hypertension (47911969) Essential hypertension (I10) Active confirmed Problem Otitis externa (4640163) Otitis externa (H60.90) Active confirmed Problem Constipation (54457241) Constipation (K59.00) Active confirmed Problem Anxiety (56030273) Anxiety (F41.9) Active confirmed Problem Environmental allergy (179287450) Environmental allergies (Z91.048) Active confirmed Problem Fear of flying (479340037) Fear of flying (F40.243) Active confirmed Problem Sciatica (02238161) Lumbago with sciatica, left side (M54.42) Active confirmed Problem Tobacco dependence (14076580) Tobacco dependence (F17.200) Active confirmed Problem Migraine (22147528) Migraine without status migrainosus, not intractable, unspecified migraine type (G43.909) Active confirmed Problem Menstrual disorder (480275972) Irregular menses (N92.6) Active confirmed Problem Dyslipidemia (735634962) Dyslipidemia (E78.5) Active confirmed Problem Degenerative disc disease (77836608) DDD (degenerative disc disease), lumbar (M51.36) Active confirmed Problem Allergic rhinitis (77721300) Non-seasonal allergic rhinitis, unspecified trigger (J30.89) Active confirmed Problem Abnormal uterine bleeding (26442739399164) Abnormal uterine bleeding (AUB) (N93.9) Active confirmed Problem Abnormal findings on diagnostic imaging of breast (246918897) Abnormal MRI, breast (R92.8) Active confirmed Vital Signs Heart Rate 61 /min 09/13/2024 Blood pressure diastolic 70 mm Hg 09/13/2024 Height 63 in 09/13/2024 Blood pressure systolic 120 mm Hg 09/13/2024 Weight 167.2 lbs 09/13/2024 BMI 29.61 kg/m2 09/13/2024 Encounters Encounter Location Date Provider Diagnosis [facility] [address] [place], [place] [id number] 01/05/2024 Isabell Carey URI (upper respirato ry infection) J06.9 and Abscess L02.91 [facility] [address] [place], [place] [id number] 04/14/2024 Adan [place] Acute URI J06.9 [facility] [address] [facility] [address] [place], [place] [id number] 09/13/2024 Isabell Carey Abnormal colonoscopy R93.3 ; Essential hypertension I10 ; Tobacco dependence F17.200 ; Acute upper respiratory infection 465.9 ; Environmental allergies Z91.048 ; Sleep disorder 780.50 ; Hyperlipidemia E78.5 ; Constipation K59.00 ; Hyperglycemia R73.9 ; Polyarthralgia M25.50 ; Rash R21 ; Irregular menses N92.6 and BMI 29.0-29.9,adult Z68.29 [facility] [address] [place], [place] [id number] 11/17/2023 [facility] [address] [place], [place] [id number] 03/02/2024 Anup Buckley Encounter for other screening for malignant neoplasm of breast Z12.39 ; Family history of breast cancer Z80.3 and Abnormal MRI, breast R92.8 [facility] [address] [place], [place] [id number] 05/20/2024 Anup Brady Marcio [facility] [address] [facility] [address] [place], [place] [id number] 05/25/2024 [facility] [address] [facility] [address] [place], [place] [id number] 09/10/2024 Janina Che Assessments Encounter Date Diagnosis (ICD Code) Assessment Notes Treatment Notes Treatment Clinical Notes Section Notes 01/05/2024 URI (upper respiratory infection) (ICD-10 - J06.9) fluids, rest, supportive measures for fever/symptom relief; try not to smoke 01/05/2024 Abscess (ICD-10 - L02.91) moist heat application; expect more drainage 03/02/2024 Encounter for other screening for malignant neoplasm of breast (ICD-10 - Z12.39) 03/02/2024 Family history of breast cancer (ICD-10 - Z80.3) 04/14/2024 Acute URI (ICD-10 - J06.9) 09/13/2024 Essential hypertension (ICD-10 - I10) 09/13/2024 Abnormal colonoscopy (ICD-10 - R93.3) 09/13/2024 Tobacco dependence (ICD-10 - F17.200) discussed at length smoking cessation 03/02/2024 Abnormal MRI, breast (ICD-10 - R92.8) 09/13/2024 Acute upper respiratory infection (ICD-10 - [...] after her monthly menses Plan Of Treatment Pending Test Test Name Order Date colonoscopy 09/13/2024 MRI : Breasts, bilateral, with and witho ut contrast 03/10/2024 Insurance Providers Payer Name Payer Address Payer Phone Subscriber Number Group Number Insured Name Patient Relationship to Insured Coverage Start Date Coverage End Date [facility] [address] [place] [address] [id number] Tran Molina Self - patient is the insured Medications Administered Medication Instructions Date of Administration Dosage Notes Clonidine by mouth 04/29/2018 0.1 mg Depo- Medrol 40 mg/ml 06/17/2013 Depo- Medrol 40 mg/ml 07/22/2013 Medical (General) History Medical History History ICD Code HBP with pregnancies Migraines Degenerative Disc Disease allergic rhinitis Surgical History Surgery Date(Month/Year) Tonsillectomy/Adenoids removed Tubal Ligation 2007 RT Breast Tumor Removal 2007 Hospitalization History Reason Date(Month/Year) Reaction to Sulfa Drug- [facility] ER RT Side Neck Pain- [facility] ER 03/24/2018 Stomach Pain- [facility] ER 07/04-01/2015
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
--- OUTSIDE RECORDS SUMMARY | 2024-11-04 08:47 | XMS_ITS | Clinical Summary ---
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 Name Role Phone Unavailable Primary Care Provider [...] Date Last Done Comments Annual Wellness Exam 1981 DTaP/TDaP/Td (1 - Tdap) 1997 Hepatitis B Vaccine (1 of 3 - 19+ 3-dose series) 1997 Cervical Cancer Screening 1999 Pap Smear 1999 HPV/Pap Cotest 2008 Breast Cancer Screening 2018 Cologuard 2023 Colon Cancer Screening 2023 Colonoscopy 2023 FIT 2023 Sigmoidoscopy 2023 Virtual Colonography 2023 COVID-19 Vaccine ( - 2023-2 5 season) 2023 Influenza Vaccine (#1) 2024 Meningococcal B Vaccine Aged Out No l onger eligible based on patient's age to complete this topic Pneumococcal Vaccine 0-49 Aged Out No longer eligible based on patient's age to complete this topic Insurance [employer] ROSALIND TSANG ATTN: [place] [place] [address]
--- OUTSIDE RECORDS SUMMARY | 2024-11-04 08:47 | XMS_ITS | Clinical Summary ---
Author Organization [facility] Address [address] 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 Name Role Phone Myra Tony Primary Care Provider Enrique monsivais Allergies Active Allergy Reactions Criticality Noted Date [...] 61 03/04/2022 8:48 AM EST Temperature 37.1 C (98.7 F) 11/29/2019 2:20 PM EDT Respiratory Rate 17 03/04/2022 8:15 AM EST [...] [facility]-HIV Screening 1978 [facility]-Hepatitis C Screening 1978 [facility]-Infant/Child/Adol SDOH Screenings 1978 [facility]-Obesity Intervention 1984 [facility]- SDOH Screenings 1996 [facility]-Adult SDOH Screenings 1996 [facility]-Hepatitis B Vaccines (1 of 3 - 19+ 3-dose series) 1997 [facility]-Pap Smear 08/12/2004 08/12/2001 [facility]-Cervical Cancer Screening 2008 [facility]-HPV/Cotest 2008 08/12/2001 CT Colonography 2023 FIT-DNA 2023 FIT 2023 FOBT 2023 Sigmoidoscopy 2023 [id number] Vaccine (3 - 2023- season) 2023 06/16/2020, 05/17/2020 Colonoscopy 09/15/2024 09/15/2014 [facility]-Colorectal Cancer Screening 09/15/2024 [facility]-Influenza Vaccine (#1) 12/27/202402/26, 07/05/2014 [facility]-DTaP,Tdap,and Td Vaccine s (3 - Td or Tdap) 03/24/2028 03/24/2018, 04/13/2013 [facility]-Zoster Vaccines (1 of 2) 2028 [facility]-Pneumococcal Vaccine: Pediatrics (0 to 5 Years) and At-Risk Patients (6 to 49 Years) Aged Out 07/05/2014 No longer eligible b ased on patient's age to complete this topic [facility]-Hepatitis A Vaccines Aged Out 03/24/2018 No longer eligible based on patient's age to complete this topic HPV Vaccines Aged Out No longer eligi ble based on patient's age to complete this [...] Narrative SUNQUEST - 08/21/2001 7:42 AM EDT [facility] MR #: [id number] [facility] [address] [place], [place] [address] 1980 (Age: 21) FW Collect Date: 08/12/2001 00:00 Receipt Date: 08/13/2001 10:41 Page 1 DEPARTMENT OF PATHOLOGY AND LABORATORY MEDICINE CYTOPATHOLOGY REPORT Email: [email or web address] [phone] ATTENDING MD/Practitioner: Ling Rincon CNM Service: [employer] S[employer]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 SATISFACTORY FOR EVALUATION; ENDOCERVICAL/ TRANSFORMATION ZONE COMPONENT PRESENT. Consider diagnostic follow-up studies. Follow-up biopsies in patients with LSIL on Pap may detect high grade lesions in up to 15-20% of patients ([place] lab data and Arch Pathol Lab Med 1996;120:523) Electronically Signed Out ZEINAB Alvarez(ASCP) Tatyana Conti MD Cervical cytology is a screening test primarily for squamous cancers and precursors and has associated false negative and positive results. New technologies such as liquid based sampling may decrease but will not eliminate all false negative results. Regular screening and follow-up of unexplained clinical signs and symptoms are recommended to minimize false negative results. Please see the ASCCP website (www.asccp.org) for followup recommendations. If HPV testing was requested, correlation with the results is suggested (please call Microbiology at [phone] for results). CLINICAL INFORMATION: Menstrual History: Cyclic Date of Last Menstrual Period: 07 30 01 SPECIMEN DESCRIPTION: A: CERVICAL/VAGINAL PAP SMEAR SMEARS: PAP STAIN ICD: 622.1 DYSPLASIA OF CERVIX V76.2 CERVIX, SPECIAL SCREENING FOR MALIGNANT NEOPLASM F: A; 42232 SCREEN, 49479 C\V (PO) SNOMED CODES: A; [id number] M- [id number] In cases where a pathologist has signed out the report, the service has been rendered in part by a resident. The signing pathologist has performed and is responsible for the reported pathologic evaluation. Historical Provider LAB PATHOLOGY ORDERABLES Final Result SUNQUEST from Last 3 Months or Most Recently Relevant to Health Maintenance Additional Health Concerns Infection Onset Date Last Indicated MRSA 01/29/2022 01/29/2022 Insurance [facility] MEDICAID Care Teams Staple Side Laster Relationship Specialty Start Date End Date Tony Renteria PCP - General 03/04/22
--- NOTE | 2024-11-04 08:49 | EXP.PAIN.SOA ---
[facility] Disclaimer: The information contained in this section may have been updated after the patient was seen, as this information can be updated by other users. Medical History (Updated 10/22/24 @ 10:54 by Comfort Ramos MA) Degenerative disc disease, lumbar Cervical radiculopathy Hyperlipidemia HTN (hypertension) Surgical History (Updated 10/22/24 @ 10:54 by Comfort Ramos MA) History of lumpectomy of right breast H/O tubal ligation History of tonsillectomy and adenoidectomy Family History (Updated 10/22/24 @ 10:54 by Comfort Ramos MA) Sister Breast cancer Social History Smoking Status: Current every day smoker tobacco type: cigarettes packs per day: 1 second hand exposure: Yes alcohol intake: never substance use type: denies use current occupational status: other Travel in the last 8 weeks?: None household members: spouse caffeine: Yes Have you lived/traveled outside [place] in past 30 days?: No Contact w/someone who lives/traveled outside US past 30 days?: No Exposure to someone with infectious disease in past 14 days?: No Do you have a fever (greater than 100.4 F or 38 C)?: No Have you tested positive for COVID-19?: No Exposed to someone with COVID-19 in past 14 days?: No Do you have a sore throat?: No Do you have a cough?: No Do you have any weakness?: No Do you have any diarrhea?: No Are you experiencing any unusual bleeding?: No Do you have any muscle aches/pain?: No Do you have any abdominal pain?: No Are you experiencing loss of taste or smell?: No PM Subjective & Objective Subjective Subjective:: Patient is a pleasant 44-year-old female who presents today for medication refill and 4-month follow-up. She rates her pain a 7 out of 10. She denies any new falls or changes. Patient states everything is about the same. She states she is still having more pain with the left arm and will occasionally have where her back locks up. Patient feels like it has just progressively worsened over time. Patient has tried injections in the past however they only did more temporary relief. Patient is currently managed with gabapentin 300 mg twice a day, diclofenac 75 mg twice a day. At her last visit we did send in a new prescription of orphenadrine twice a day. Review of Systems: General: No recent weight changes, no fever, no sleep disturbances Respiratory: No cough, no shortness of air, no recurring pulmonary infections Cardiovascular/peripheral vascular: No chest pain, no palpitations, no edema, no shortness of breath Gastrointestinal: No new onset incontinence, normal bowel movements reported Genitourinary: No new onset incontinence Musculoskeletal: Chronic back pain Psychiatric: [Normal mood/affect] Neurological: [Denies weakness in extremities], [denies balance issues] Pain at rest (0-10 scale): 7 Objective Objective:: Physical Exam: General: Alert and oriented x3, no acute distress, pleasant and cooperative Lungs: Respirations even and unlabored, symmetrical chest expansion Eyes: PERRL Musculoskeletal: Flexion and extension of lumbar [spine] somewhat guarded secondary to pain, [antalgic gait noted] Neurological: Speech clear, no gross sensory deficit Has patient had previous pain injection?: No Conservative treatment options previously tried: Home exercise plan Length of treatment: Longer than 12 weeks Meds Home Medications and Allergies Home Medications ?Medication ?Instructions ?Recorded ?Confirmed ?Type linaclotide 290 mcg capsule 290 mg PO DAILY BOWELS 06/10/17 07/16/24 History montelukast 10 mg tablet 10 mg PO HS ALLERGIES 06/10/17 07/16/24 History medroxyprogesterone 10 mg tablet 10 mg PO MONTHLY hormones 08/03/18 07/16/24 History (Provera) epinephrine 0.3 mg/0.3 mL 0.3 mg (0.3 mL) IM NEEDED PRN 12/15/19 07/16/24 Rx injection, auto-injector Allergic Reaction 1 day ##1 fluticasone propionate 50 1 spray intranasal DAILY ALLERGIES 01/25/22 07/16/24 History mcg/actuation nasal spray,suspension hydrochlorothiazide 25 mg tablet 25 mg PO DAILY Fluid 01/25/22 07/16/24 History triamcinolone acetonide 0.5 % 1 applic topical BID . 01/25/22 07/16/24 History topical cream metoprolol succinate 50 mg 50 mg PO DAILY #30 tabs 02/14/23 07/16/24 Rx tablet,extended release 24 hr (Toprol XL) lidocaine 5 % topical patch 1 patch topical DAILY #30 ea 06/05/24 03/21/25 Rx baclofen 5 mg tablet See Rx Instructions .Route 11/17/23 07/16/24 Rx .COMPLEX #28 tabs diclofenac sodium 50 mg 50 mg PO BID #60 tabs 04/05/24 07/16/24 Rx tablet,delayed release cetirizine 10 mg tablet 10 mg PO DAILY 06/07/24 07/16/24 History fenofibrate nanocrystallized 145 145 mg PO .every other day 06/07/24 07/16/24 History mg tablet nicotine (polacrilex) 4 mg gum 4 mg PO Q2H 06/07/24 07/16/24 History trazodone 100 mg tablet 100 mg PO DAILY 06/07/24 07/16/24 History rosuvastatin 20 mg tablet (Crestor) 20 mg PO DAILY #30 tabs 07/01/24 07/16/24 Rx losartan 100 mg tablet See Rx Instructions .Route 08/31/24 Rx .COMPLEX #90 tabs diclofenac sodium 75 mg See Rx Instructions .Route 10/27/24 Rx tablet,delayed release .COMPLEX #28 tabs gabapentin 300 mg capsule See Rx Instructions .Route 10/27/24 Rx .COMPLEX #28 caps orphenadrine citrate 100 mg See Rx Instructions .Route 10/27/24 Rx tablet,extended release .COMPLEX #28 tabs New Prescriptions to Start Prescriptions: Allergies Allergy/AdvReac Type Severity Reaction Status Date / Time Sulfa (Sulfonamide Allergy Severe Hives Verified 06/07/24 08:41 Antibiotics) acetaminophen (From LORTAB) Allergy Mild Unknown Verified 06/07/24 08:41 allergy reaction diphenhydramine (From Allergy Mild Unknown Verified 06/07/24 08:41 BENADRYL) allergy reaction hydrocodone (From LORTAB) Allergy Mild Unknown Verified 06/07/24 08:41 allergy reaction Penicillins (PENICILLINS) Allergy Mild Unknown Verified 06/07/24 08:41 allergy reaction tramadol (TRAMADOL) Allergy Mild Unknown Verified 06/07/24 08:41 allergy reaction latex AdvReac Mild Verified 06/07/24 08:41 Assessment and Plan *Assessment and plan (1) Lumbar radiculopathy: Status: Acute Category: Medical Code(s): M54.16 - Radiculopathy, lumbar region (2) Degenerative disc disease, lumbar: Status: Acute Category: Medical Code(s): M51.369 - Other intervertebral disc degeneration, lumbar region without mention of lumbar back pain or lower extremity pain (3) Left shoulder pain: Status: Acute Category: Medical Code(s): M25.512 - Pain in left shoulder Plan I will refill the patient's gabapentin and change it to 3 times a day, diclofenac 75 mg twice a day and orphenadrine and provide a 3-month supply of this medication. I did discuss with patient due to her worsening pain that she still would be a beneficial candidate of the possible pump trial. Patient does have chronic pain in both her neck and low back. We will continue to follow-up on this. We did review over the risk and benefits of the trial and give educational handouts. Patient will return to clinic in 3 months for reevaluation of symptoms and plan of care. Patient has been instructed to contact the clinic with any concerns before the next appointment. Dr. Quinones has reviewed this note and agrees with this plan of care. This note was dictated using voice recognition software and make contain errors or omissions. All injections are used with Lidocaine, Bupivacaine and dexamethasone. Occasionally urine drug screen is needed to verify patient's compliance with our office pain contract. This is ordered based off specific treatments related to chronic pain with the potential to abuse certain medications.
[2024-11-04 08:52] VITALS: BP 122/83; PULSE 65; RESP 18; O2SAT 99; BMI 28.8
== END 2024-11-04 23:59 | disposition home or self-care (01) ==
PROVIDERS: PCP Family Medicine; Visit Provider Nurse Practitioner Family
DX: M51.16 Intervertebral disc disorders with radiculopathy, lumbar region (principal); M25.512 Pain in left shoulder; Z79.899 Other long term (current) drug therapy; Z79.1 Long term (current) use of non-steroidal anti-inflammatories (NSAID)
CPT/HCPCS: 99212; G0463

== ENCOUNTER 2024-12-06 12:52 | Day surgery (SDC) | payer OTHER, SELFPAY ==
[2024-12-02 15:00] VITALS: BMI 28.8
[2024-12-06] MEDS: LACTATED RINGERS 1000ML 1,000 ML 50 ML IV (13:42)
[2024-12-06 13:45] VITALS: BP 127/82; PULSE 66; RESP 18; TEMP 37; O2SAT 97
[2024-12-06 13:51] LABS: HCG Qualitative, Serum Negative (Negative)
--- NOTE | 2024-12-06 14:44 | EXP.ANES.CKL ---
[facility] Disclaimer: The information contained in this section may have been updated after the patient was seen, as this information can be updated by other users. Medical History Degenerative disc disease, lumbar Cervical radiculopathy Hyperlipidemia HTN (hypertension) Surgical History History of lumpectomy of right breast H/O tubal ligation History of tonsillectomy and adenoidectomy Family History Sister Breast cancer Grandmother Colon cancer Mother Family history of hypertension Social History Smoking Status: Current every day smoker tobacco type: cigarettes packs per day: 1 second hand exposure: Yes alcohol intake: current alcohol intake frequency: a few times a month substance use type: denies use current occupational status: employed Travel in the last 8 weeks?: None household members: spouse caffeine: Yes Have you lived/traveled outside [place] in past 30 days?: No Contact w/someone who lives/traveled outside US past 30 days?: No Exposure to someone with infectious disease in past 14 days?: No Do you have a fever (greater than 100.4 F or 38 C)?: No Have you tested positive for COVID-19?: No Exposed to someone with COVID-19 in past 14 days?: No Do you have a sore throat?: No Do you have a cough?: No Do you have any weakness?: No Do you have any diarrhea?: No Are you experiencing any unusual bleeding?: No Do you have any muscle aches/pain?: No Do you have any abdominal pain?: No Are you experiencing loss of taste or smell?: No [facility] Anesthesia Checklist Patient Identification Patient Identification: Arm Band and Family Structural Data Admitted From: Home Planned Operative Procedure/s: coloscopy Consent for Planned Operative Procedure(s) Verified: Yes Verified Documents: Surgical Consent and History and Physical NPO Status Verified Time NPO: 00:00 Additional verifications Patient : No Anesthesia Reactions: No Hx Blood Transfusions: No Blood Transfusion Reaction: No Cephalosporin Allergy: No Previous Colonoscopy: No Airway Assessment Mallampati Score:: Class II C-Spine Mobility Assessed: Yes TMJ Mobility Assessed: Yes Dentition: Good Dentition Neurological Assessment Level of Consciousness: Awake, Alert, Appropriate and Follows Commands Hx Seizures: No Numbness or tingling in extremities: No Anesthesia Plan Anesthesia Risk discussed: Yes ASA Class: II Anesthesia Type: MAC
--- NOTE | 2024-12-06 15:03 | EXP.HP ---
History of Present Illness *Admission Date: 12/06/24 *History of present illness: Mrs. Molina is a 44-year-old female who is here for screening colonoscopy. The patient does state that in 2010, she had a herniation in her lumbosacral spine and this resulted and significant defecatory difficulty. She does states that she did not urinate for 8 days. She did not have a bowel movement for 30 days. Since that time she has had defecatory difficulties with significant constipation and incomplete defecation/outlet dysfunction. She has tried numerous [id number] laxatives and prescription laxatives. MiraLAX, fiber and stool softeners did not work. Now she takes Linzess 290 mcg daily and uses stimulant laxatives in the evening. She will sometimes have to manually disimpact. Also, sometimes she will have to drink 2 bottles of magnesium citrate to get cleared out. When she gets significantly backed up, she does get bloating and gas pains. She will intermittently have hemorrhoidal bleeding and hemorrhoidal prolapse. She does state that her paternal grandmother had colon cancer at the age of 48 and this recurred again in her late 60s. She has had no new bowel habit changes but is overdue for colonoscopy. Her last complete colonoscopy was around 2014 (Martinez Albert MD?[facility]) at which time polyp (tubular adenoma) was removed. She did have attempted colonoscopy (Wilbur Meneses) in 2019 but did not get it cleaned out. She does have difficulty with getting cleaned out with the bowel preparation. She reports no mucus with her bowel movements. She continues to have some lower abdominal pain and urinary issues. She has had no unintentional weight loss. [facility] Disclaimer: The information contained in this section may have been updated after the patient was seen, as this information can be updated by other users. Medical History Degenerative disc disease, lumbar Cervical radiculopathy Hyperlipidemia HTN (hypertension) Surgical History History of lumpectomy of right breast H/O tubal ligation History of tonsillectomy and adenoidectomy Family History Sister Breast cancer Grandmother Colon cancer Mother Family history of hypertension Social History Smoking Status: Current every day smoker tobacco type: cigarettes packs per day: 1 second hand exposure: Yes alcohol intake: current alcohol intake frequency: a few times a month substance use type: denies use current occupational status: employed Travel in the last 8 weeks?: None household members: spouse caffeine: Yes Have you lived/traveled outside [place] in past 30 days?: No Contact w/someone who lives/traveled outside [place] past 30 days?: No Exposure to someone with infectious disease in past 14 days?: No Do you have a fever (greater than 100.4 F or 38 C)?: No Have you tested positive for COVID-19?: No Exposed to someone with COVID-19 in past 14 days?: No Do you have a sore throat?: No Do you have a cough?: No Do you have any weakness?: No Do you have any diarrhea?: No Are you experiencing any unusual bleeding?: No Do you have any muscle aches/pain?: No Do you have any abdominal pain?: No Are you experiencing loss of taste or smell?: No Other Medical History Have you received the Flu Vaccine for this season: Yes Have you received the Pneumonia Vaccine: No Review of Systems Review of Systems Review of systems (narrative): Negative *Cardiovascular Comments: Negative *Gastrointestinal Comments: Negative *Genitourinary Comments: Negative *Musculoskeletal Comments: Negative *Neurologic Comments: Negative Meds Home Medications and Allergies Home Medications ?Medication ?Instructions ?Recorded ?Confirmed ?Type linaclotide 290 mcg capsule 290 mg PO DAILY BOWELS 06/10/17 12/06/24 History (Linzess) montelukast 10 mg tablet 10 mg PO HS ALLERGIES 06/10/17 12/06/24 History (Singulair) medroxyprogesterone 10 mg tablet 10 mg PO MONTHLY hormones 08/03/18 12/06/24 History (Provera) epinephrine 0.3 mg/0.3 mL 0.3 mg (0.3 mL) IM NEEDED PRN 12/15/19 12/06/24 Rx injection, auto-injector Allergic Reaction 1 day ##1 hydrochlorothiazide 25 mg tablet 25 mg PO DAILY Fluid 01/25/22 12/06/24 History triamcinolone acetonide 0.5 % 1 applic topical BID PRN Insect 01/25/22 12/06/24 History topical cream (Triderm) Bite metoprolol succinate 50 mg 50 mg PO DAILY #30 tabs 02/14/23 12/06/24 Rx tablet,extended release 24 hr (Toprol XL) cetirizine 10 mg tablet 10 mg PO DAILY 06/07/24 12/06/24 History fenofibrate nanocrystallized 145 145 mg PO .every other day 06/07/24 12/06/24 History mg tablet (Tricor) nicotine (polacrilex) 4 mg gum 4 mg PO Q2H 06/07/24 12/06/24 History trazodone 100 mg tablet 100 mg PO DAILY 06/07/24 12/06/24 History rosuvastatin 20 mg tablet (Crestor) 20 mg PO DAILY #30 tabs 07/01/24 12/06/24 Rx losartan 100 mg tablet See Rx Instructions .Route 08/31/24 12/06/24 Rx .COMPLEX #90 tabs gabapentin 300 mg capsule 300 mg PO TID #90 caps 11/04/24 12/06/24 Rx orphenadrine citrate 100 mg See Rx Instructions .Route 11/04/24 12/06/24 Rx tablet,extended release .COMPLEX #60 tabs fluticasone propionate 50 1 spray intranasal DAILY PRN 11/10/24 12/06/24 History mcg/actuation nasal ALLERGIES spray,suspension lidocaine 5 % topical patch 1 patch topical DAILY PRN Pain 11/10/24 12/06/24 History diclofenac sodium 75 mg 75 mg PO DAILY 12/02/24 12/06/24 History tablet,delayed release magnesium citrate-potassium 1 ea PO NEEDED PRN Constipation 12/02/24 12/06/24 History citrate 15 mEq oral powder packet sennosides 25 mg tablet 25 mg PO DAILY 12/02/24 12/06/24 History sennosides 8.6 mg tablet 8.6 mg PO DAILY PRN Constipation 12/02/24 12/06/24 History (Vegetable Laxative) New Prescriptions to Start Prescriptions: Allergies Allergy/AdvReac Type Severity Reaction Status Date / Time Sulfa (Sulfonamide Allergy Severe Anaphylaxis Verified 12/06/24 13:21 Antibiotics) acetaminophen (From LORTAB) Allergy Mild Hives Verified 12/06/24 13:21 hydrocodone (From LORTAB) Allergy Mild Unknown Verified 12/06/24 13:21 allergy reaction Penicillins (PENICILLINS) Allergy Mild Unknown Verified 12/06/24 13:21 allergy reaction tramadol (TRAMADOL) Allergy Mild Unknown Verified 12/06/24 13:21 allergy reaction diphenhydramine (From AdvReac Mild Insomnia Verified 12/06/24 13:21 BENADRYL) latex AdvReac Mild Redness of Verified 12/06/24 13:21 Skin Exam Data for Last 24 hours Vital signs and Labs for Last 24 Hours: Temp Pulse Resp BP Pulse Ox O2 Del Method 98.6 F 66 18 127/82 97 Room Air 12/06/24 13:45 12/06/24 13:45 12/06/24 13:45 12/06/24 13:45 12/06/24 13:45 12/06/24 13:45 Laboratory Results - last 24 hr 12/06/24 13:30: Serum HCG, Qual Negative *Routine HEENT Exam Head: Present normocephalic Eye: Present EOMI and PERRL ENT: Present mucous membranes moist *Routine Neck Exam Neck: Present supple *Routine Respiratory Exam Respiratory: Present CTA bilaterally *Routine Cardiovascular Exam Cardiovascular: Present RRR *Routine Abdominal Exam Abdominal: Present soft and normoactive bowel sounds; Absent tenderness *Routine Rectal Exam Rectal:: deferred *Routine Genitalia Exam Genitalia:: deferred *Routine Extremities Exam Extremities: Absent cyanosis, clubbing or edema *Routine Skin Exam Skin: Present warm; Absent rash *Routine Neurological Exam Neurological: Present alert and oriented X3 Assessment and Plan *Assessment and plan (1) Personal history of adenomatous and serrated colon polyps: Status: Acute Category: Medical Code(s): Z86.0101 - Personal history of adenomatous and serrated colon polyps (2) Prolapsed internal hemorrhoids: Status: Acute Category: Medical Code(s): K64.8 - Other hemorrhoids (3) Bleeding internal hemorrhoids: Status: Acute Category: Medical Code(s): K64.8 - Other hemorrhoids (4) Outlet dysfunction constipation: Status: Acute Category: Medical Code(s): K59.02 - Outlet dysfunction constipation (5) Screening for colon cancer: Status: Acute Category: Medical Code(s): Z12.11 - Encounter for screening for malignant neoplasm of colon Plan A/P: 1. Personal history of adenomatous colon polyp as well as some bleeding/prolapsing hemorrhoids is the preprocedural diagnosis. The patient's last colonoscopy was in 2014. The patient does have some outlet dysfunction constipation. The patient will be anesthetized/sedated using MAC sedation. The patient has been seen and examined. Cardiac and lung assessment prior to the examination is stable. Proceed with planned screening colonoscopy.
--- NOTE | 2024-12-06 15:14 | P.PCN_ITS ---
[facility] Procedure Note Date: 12/06/24 Time: 15:32 Procedure Note:: Colonoscopy Procedure Report: Colonoscopy with cold snare polypectomy and monopolar coagulation/ablation of internal hemorrhoids Endoscopist: Khurram Camacho II, MD Referring physician: Jose Antonio Buckley MD Date of Procedure: December 06, 2024 Equipment: Olympus [id number] adult colonoscope Sedation: MAC sedation Indication: Mrs. Molina is a 44-year-old female who is here for screening colonoscopy. The patient does state that in 2010, she had a herniation in her lumbosacral spine and this resulted and significant defecatory difficulty. She does states that she did not urinate for 8 days. She did not have a bowel mov ement for 30 days. Since that time she has had defecatory difficulties with significant constipation and incomplete defecation/outlet dysfunction. She has tried numerous [id number] laxatives and prescription laxatives. MiraLAX, fiber and stool softeners did not work. Now she takes Linzess 290 mcg daily and uses stimulant laxatives in the evening. She will sometimes have to manually disimpact. Also, sometimes she will have to drink 2 bottles of magnesium citrate to get cleared out. When she gets significantly backed up, she does get bloating and gas pains. She will intermittently have hemorrhoidal bleeding and hemorrhoidal prolapse. She does state that her paternal grandmother had colon cancer at the age of 48 and this recurred again in her late 60s. She has had no new bowel habit changes but is overdue for colonoscopy. Her last complete colonoscopy was around 2014 (Martinez Albert MD?[facility]) at which time polyp (tubular adenoma) was removed. She did have attempted colonoscopy (Wilbur Meneses) in 2019 but did not get it cleaned out. She does have difficulty with getting cleaned out with the bowel preparation. She reports no mucus with her bowel movements. She continues to have some lower abdominal pain and urinary issues. She has had no unintentional weight loss. Procedure: Prior to the procedure, a history and physical exam was performed, and patient's medications and allergies were reviewed. The risks, benefits and alternatives of the sedation and procedure were discussed with the patient. All questions were answered and informed consent was obtained. The patient was brought to the procedure room. Patient identification and proposed procedure were verified by the physician and the nurse. The patient was placed in a left lateral decubitus position and the scope was passed under direct vision. Throughout the procedure, the patient's blood pressure, pulse, and oxygen saturations were monitored continuously. The colonoscopy was accomplished without difficulty. The patient tolerated the procedure well. Findings: On digital rectal examination there was normal rectal tone. There were no external hemorrhoids. There were small tags and minor hemorrhoidal prolapse. There was an anterior rectocele. The colonoscope was introduced through the anal canal to the rectum and advanced to the cecum. The ileocecal valve and ap pendiceal orifice were identified. The scope was advanced a short distance into the ileum which appeared grossly normal. The scope was then withdrawn into the colon. There was very mild melanosis coli. The cecum, ascending, transverse, descending and sigmoid colon were grossly normal. There were no mucosal abnormalities identified. Within the rectum there was a diminutive hyperplastic appearing 4 mm polyp removed via cold snare polypectomy. Upon retroflexion within the rectum there were grade 2 internal hemorrhoids. The columns of hemorrhoids were ablated/coagulated using monopolar ablation/coagulation. The preparation was excellent throughout with [place] Preparation Score of 9. The cecal time was 12 minutes. Impression: 1. Diminutive hyperplastic appearing rectal polyp 2. Mild melanosis coli 3. Anterior rectocele 4. Grade 2 internal hemorrhoids status post monopolar ablation/coagulation Plan: I will follow-up the polyp histology and if the polyp is hyperplastic, she will not require surveillance colonoscopy again for 10 years. 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 Slow transit constipation refers to slowed movement of contents through the digestive tract and this type of constipation responds very well to most laxatives. Outlet dysfunction, which makes up 50% of those with constipation, refers to an issue with the actual elimination mechanism of stool. The diagnosis of outlet dysfunction constipation is often made in those patients with constipation that respond poorly or not at all to standard laxatives such as osmotics (MiraLAX, Linzess, Trulance), fiber supplements, stimulant laxatives, diet and fluid intake. Up to 50% of patients with chronic constipation have pelvic floor dysfunction (PFD, or dyssynergia). This condition is characterized by impaired coordination between pelvic floor muscle (e.g., puborectalis) relaxation and weakness of the defecatory mechanism which is necessary for normal defecation and bowel evacuation. Defecatory function is a delicate balance between the nerves and muscles. The nerves that arise from the sacral spine are very closely tied to bowel/rectal evacuation. This sacral nervous system allows you to recognize when your rectum is full and allows you to correctly contract muscles to allow for your rectum to evacuate fully. When this balance is upset there is incorrect communication between the nervous system and defecatory muscles (i.e. neuromuscular). Unfortunately, pelvic floor dysfunction is not widely recognized as a possible cause of chronic constipation. As a result, many patients with medically refractory constipation do not receive optimal therapies that enable them to recover normal bowel habits. When mechanical, anatomic, and disease- and diet-related causes of constipation have been ruled out, clinical suspicion should be raised to the possibility that pelvic floor dysfunction is causing or contributing to constipation. The biggest mainstay of treatment for pelvic floor dysfunction includes retraining the pelvic floor muscles with biofeedback physical therapy. Most reviews conclude that more than 70% of adult patients complaining of pelvic floor dyssynergia are likely to benefit from biofeedback training (to completion) and so this is the treatment of choice for the problem. I would like for the patient to be referred for pelvic floor physical therapy.
[2024-12-06 15:35] VITALS: BP 84/53; PULSE 78; RESP 17; TEMP 36.2; O2SAT 96
[2024-12-06 15:45] VITALS: BP 109/65; PULSE 62; RESP 17; O2SAT 100
[2024-12-06 15:55] VITALS: BP 101/65; PULSE 61; RESP 17; O2SAT 100
[2024-12-06 16:05] VITALS: BP 105/70; PULSE 69; RESP 17; TEMP 36.2; O2SAT 99
== END 2024-12-06 16:22 | disposition home or self-care (01) ==
PROVIDERS: PCP Family Medicine; Visit Provider Internal Medicine Gastroenterology
PROC: 0DJD8ZZ Inspection of Lower Intestinal Tract, Via Natural or Artificial Opening Endoscopic (ICD-10-PCS; CPT 45378; principal; 2024-12-06 14:30)
DX: Z12.11 Encounter for screening for malignant neoplasm of colon (principal); K63.5 Polyp of colon; D12.8 Benign neoplasm of rectum; K63.89 Other specified diseases of intestine; N81.6 Rectocele; K64.1 Second degree hemorrhoids; I10 Essential (primary) hypertension; E78.5 Hyperlipidemia, unspecified; F17.210 Nicotine dependence, cigarettes, uncomplicated; Z88.2 Allergy status to sulfonamides; Z88.5 Allergy status to narcotic agent; Z88.8 Allergy status to other drugs, medicaments and biological substances; Z79.899 Other long term (current) drug therapy
CPT/HCPCS: 45385; 45388; 84703; J2003; J2704; J7120

== ENCOUNTER 2025-02-07 08:53 | Outpatient (CLI) | payer OTHER, SELFPAY ==
--- NOTE | 2025-02-07 09:06 | XR_ITS ---
FINAL REPORT CLINICAL HISTORY: neck pain FINDINGS: AP, lateral and odontoid views of the cervical spine were obtained. There is no prior exam for comparison. There is no acute fracture or malalignment. Mild multilevel degenerative disc disease is most pronounced at C5-6. The precervical soft tissues are normal. IMPRESSION: Mild degenerative change without acute osseous abnormality of the cervical spine. Reviewed, Interpreted and Dictated by Pita Zayas MD Transcribed by Mary Helton Authenticated and [facility]
--- NOTE | 2025-02-07 09:06 | XR_ITS ---
FINAL REPORT CLINICAL HISTORY: shoulder pain FINDINGS: 3 views of the left shoulder were obtained. There is no prior exam for comparison. There is no fracture or dislocation. The joint space is preserved. Soft tissues are unremarkable. IMPRESSION: No acute osseous abnormality of the left shoulder. Reviewed, Interpreted and Dictated by Pita Zayas MD Transcribed by Mary Helton Authenticated and [facility]
== END 2025-02-07 23:59 | disposition home or self-care (01) ==
LOC: RAD 08:54
PROVIDERS: PCP Family Medicine; Visit Provider Nurse Practitioner Family
DX: M47.812 Spondylosis without myelopathy or radiculopathy, cervical region (principal); M25.512 Pain in left shoulder
CPT/HCPCS: 72040; 73030

== ENCOUNTER 2025-02-25 08:19 | Outpatient (CLI) | payer OTHER, SELFPAY ==
--- OUTSIDE RECORDS SUMMARY | 2024-01-05 09:45 | XMS_ITS ---
[facility] Address [address] [place] [id number] Care Team Providers Care Territory Sales Executive Name Role Phone Janina Che Primary Care Provider [phone] Isabell Carey Unavailable [phone] Allergies Allergen (clinical drug ingredient) Drug/Non Drug Allergy documented on EMR Reaction Allergy Type Onset Date Status sulfamethoxazole / trimethoprim Bactrim DS swelling, itching, chest fullness, throat swelling, hives Drug Allergy Active diphenhydramine Benadryl Allergy insomnia Drug Allergy Active cefdinir Cefdinir yeast infection in mouth Drug Allergy Active acetaminophen / hydrocodone HYDROcodone-Aceta minophen hives Drug Allergy Active dextromethorphan / promethazine Promethazine-DM insomnia Drug Allergy Active Substance with penicillin structure and antibacterial mechanism of action (substance) Penicillins unsure of reaction Drug Allergy Active Tape Unknown Allergy Active Results Component Value Reference Range Notes CBC Fingerstick (in house) Reviewed date:01/05/2024 03:47:42 PM Interpretation: Performing Lab: Notes/Report: wbc 13.0 3.5 - 10 lym 26.4% 15 - 50 mid 5.9% 2 - 15 gran 67.7% 35 - 80 rbc 4.67 3.5 - 5.5 hgb 14.3 11.5 - 16.5 hct 43.8 35 - 55 mcv 93.8 75 - 100 mch 30.6 25 - 35 mchc 32.6 31 - 38 plat 221 100 - 400 REASON FOR VISIT cut on leg Medications Medication SIG (Take, Route, Frequency, Duration) Notes Start Date End Date Status Linzess 290 MCG TAKE ONE CAPSULE BY MOUTH EVERY DAY; Duration: 30 days Active Fenofibrate 145 mg TAKE ONE TABLET BY MOUTH EVERY OTHER DAY; Duration: 59 Active Nicotine Polacrilex 4 mg chew 1 piece of gum EVERY 2 HOURS DIRECTED; Duration: 10 Active Triamcinolone Acetonide 0.5 % APPLY TOPI ANA TO THE AFFECTED AREA(S) TWICE DAILY; Duration: 10 Active Cetirizine HCl 10 mg TAKE ONE TABLET BY MOUTH EVERY DAY; Duration: 90 Active Crestor 5 MG 1 tab(s) orally once a day; Duration: 90 days Active traZODone HCl 100 mg TAKE ONE TABLET BY MOUTH EVERY DAY AT BEDTIME DIRECTED; Duration: 30 days Active hydroCHLOROthiazide 25 mg 1 tablet Orall y Once a day; Duration: 90 days Active Toprol XL 50 MG 1 tab(s) Orally once daily; Duration: 90 days Active Diflucan 150 MG 1 tablet Orally; Duration: 10 day(s) 01/05/2024 Active Nicotine Step 1 21 MG/24HR apply 1 PATCH topically ONCE DAILY DIRECTED -- FOR EXTERNAL USE ONLY--; Duration: 28 Active Provera 10 MG 1 tab(s) orally once a day; Duration: 10 day(s) Active Montelukast Sodium 10 mg TAKE ONE TABLET BY MOUTH EVERY DAY; Duration: 30 Active Doxycycline Monohydrate 100 MG 1 capsule Orally Once a day; Duration: 10 day(s) 01/05/2024 Active Diclofenac Sodium 75 mg TAKE ONE TABLET BY MOUTH TWICE DAILY --TAKE WITH FOOD--; Duration: 90 Active Losartan Potassium 100 MG 1 tab(s) Orall y once a day Active TRAZODONE 100 mg as directed orally qhs Active Albuterol Sulfate HFA 108 (9 0 Base) MCG/ACT 1 puff as needed Inhalation every 4 hrs 02/27/2023 Active SUMAtriptan Succinate 50 MG 1 tab(s) inyvonne , august repeat q1h x 1 orally 04/23/2021 Active Vital Signs Weight 160.2 lbs 01/05/2024 Blood pressure systolic 110 mm Hg 01/05/20 24 Blood pressure diastolic 70 mm Hg 024 Heart Rate 70 /min 01/05/2024 Height 63 in 01/05/2024 BMI 28.38 kg/m2 01/05/2024 Encounters Encounter Location Date Provider Diagnosis [facility] [address] [place] [id number] 01/05/2024 Isabell Carey URI (upper respirato ry infection) J06.9 and Abscess L02.91 Assessments Encounter Date Diagnosis (ICD Code) Assessment Notes Treatment Notes Treatment Clinical Notes Section Notes 01/05/2024 URI (upper respiratory infection) (ICD-10 - J06.9) fluids, rest, supportive measures for fever/symptom relief; try not to smoke 01/05/2024 Abscess (ICD-10 - L02.91) moist heat application; expect more drainage Plan Of Treatment Medication Medication Name Sig Start Date Stop Date Notes Diflucan 150 MG 1 tablet Orally; Dur ation: 10 day(s) 01/05/2024 Doxycycline Monohydrate 100 MG 1 capsule Orally Once a day; Duration: 10 day(s) 01/05/2024 Treatment Notes Assessment Notes URI (upper respiratory infection) fluids , rest, supportive measures for fever/symptom relief; try not to smoke Abscess moist heat applicati on; expect more drainage Next Appt Details Follow Up: prn, Reason: Progress Notes * Tran MOLINADOB: [birth year] (44 yo F)Acc No.[id number]:01/05/2024 Progress Notes Patient: Jamil VENEGASca Provider: NESSA Figueroa :1980 A ge:43 Y S ex:Female Date:01/05/2024 Address:[address] [place] [address] LEILANI RODRIGUEZ, [facility], [phone] Pcp:Janina Che Subjective: * Chief Complaints: * 1 . Cut on leg. * HPI: D ermatology: 43 year old female presents with c/o skin lesion P t is here today for a cut on the top of her right leg and her buttocks. Pt would like to make sure she does not have a MRSA infection. Pt sts this cut has been there for 2 months. Pt sts that last weekend it got really badly infected. Pt sts she has put antibiotic cream on it and sts that it has been a lot. Pt sts it has bled less today than it has been. Pt sts she got the scratch from a boat. Pt sts she then went to the fam a second time and is not sure if it is the bathing suit or water that bad it worse. PT sts she had a place on her finger as well, but sts that it is healing. Pt sts she does feel a sinus infection coming on as well. Pt sts that she has drainage and that her whole head hurts. Pt sts that her throat and earshave been in some pain as well, but sts that they are better now. Pt sts her tongue has been sore as well, and is unsure if it from the steroids she has been taking or not. * ROS: D ERMATOLOGY: no R bella. n o H danilo. G ASTROENTEROLOGY: no N ausea. n o V omiting. n o D iarrhea.? U ROLOGY: no D ifficulty urinating. n o B lood in urine. * Medical History: H BP with pregnancies, Migraines , Degenerative Disc Disease, Allergic rhinitis. * Surgical History: T onsillectomy/Adenoids removed , Tubal Ligation 2007, RT Breast Tumor Removal 2007. * Hospitalization/Major Diagno stic Procedure: S tomach Pain- [facility] ER 07/04-01/2015, RT Side Neck Pain- [facility] ER 03/24/2018, Reaction to Sulfa Drug- [facility] ER . * Family History: F ather: alive. M other: alive. 2 brother(s) , 2 sister(s) . 2 son(s) . . Sister with breast cancer. * Social History: C URRENT TOBACCO USE S moking Status: Patient does smoke, packs per day: 1. C affeine: yes, frequency: Soda, Coffee, Tea, daily. Home smoke detector use: yes. Marital Status: . 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 Past smoking status: yes, Smoking status: Patient does smoke, Packs per day: 1, Since age of: 18, Smoking preference: cigarettes. Alcohol: No. * Medications: T aking SUMAtriptan Succinate 50 MG Tablet 1 tab(s) initially , may repeat q1h x 1 orally , Taking TRAZODONE 100 mg tablet as directed orally qhs , Taking Losartan Potassium 100 MG Tablet 1 tab(s) Orally once a day , Taking Albuterol Sulfate HFA 108 (90 Base) MCG/ACT Aerosol Solution 1 puff as needed Inhalation every 4 hrs , Taking Nicotine Step 1 21 MG/24HR Patch 24 Hour apply 1 PATCH topically ONCE DAILY DIRECTED -- FOR EXTERNAL USE ONLY-- , Taking Provera 10 MG Tablet 1 tab(s) orally once a day , Taking Diclofenac Sodium 75 mg Tablet Delayed Release TAKE ONE TABLET BY MOUTH TWICE DAILY --TAKE WITH FOOD-- , Taking Montelukast Sodium 10 mg Tablet TAKE ONE TABLET BY MOUTH EVERY DAY , Taking traZODone HCl 100 mg Tablet TAKE ONE TABLET BY MOUTH EVERY DAY AT BEDTIME DIRECTED , Taking Crestor 5 MG Tablet 1 tab(s) orally once a day , Taking Toprol XL 50 MG Tablet Extended Release 24 Hour 1 tab(s) Orally once daily , Taking hydroCHLOROthiazide 25 mg Tablet 1 tablet Orally Once a day , Taking Fenofibrate 145 mg Tablet TAKE ONE TABLET BY MOUTH EVERY OTHER DAY , Taking Linzess 290 MCG Capsule TAKE ONE CAPSULE BY MOUTH EVERY DAY , Taking Nicotine Polacrilex 4 mg Gum chew 1 piece of gum EVERY 2 HOURS DIRECTED , Taking Cetirizine HCl 10 mg Tablet TAKE ONE TABLET BY MOUTH EVERY DAY , Taking Triamcinolone Acetonide 0.5 % Cream APPLY TOPICALLY TO THE AFFECTED AREA(S) TWICE DAILY , Medication List reviewed and reconciled with the patient * Allergies: P enicillins: unsure of reaction, Benadryl Allergy: insomnia, HYDROcodone-Acetaminophen: hives, Tape, Promethazine-DM: insomnia - Side Effects, Cefdinir: yeast infection in mouth, Bactrim DS: swelling, itching, chest fullness, throat swelling, hives. Objective: * Vitals: W t:160.2, Temp:98.8, BP:110/70, HR:70, Nurse:JAE, Ht: 63, BMI:28.38. * Examination: G eneral Examination: General Appearance: NAD, appears healthy, alert, pleasant. H EENT: sclera and conjunctiva clear, PERRLA, TM's normal, translucent. O ral cavity: no lesions, mucosa moist and WNL, no erythema. N augusto: supple, no lymphadenopathy. Heart: RRR. L ungs: CTAB A&P. N eurologic Exam: alert and oriented. S kin: right inner paulina area 2-3 cm fullness and dry at present; no erythema. ? Assessment: * Assessment: 1. U RI (upper respiratory infection) - J06.9 (Primary) 2 . A bscess - L02.91 S pecify :draining right paulina area Plan: * Treatment: Value Reference Range w bc 13.0 3.5 - 10 * l ym 26.4% 15 - 50 * m id 5.9% 2 - 15 * g ran 67.7% 35 - 80 * r bc 4.67 3.5 - 5.5 * h gb 14.3 11.5 - 16.5 * h ct 43.8 35 - 55 * m cv 93.8 75 - 100 * m ch 30.6 25 - 35 * m chc 32.6 31 - 38 * p lat 221 100 - 400 * Aziza Parham 01/05/2024 3:39 :37 PM > , Provider reviewed results while patient in office.Isabell Carey 01/05/2024 3:47:37 PM > Notes: fluids, rest, supportive measures for fever/symptom relief; try not to smoke??2.?Abscess? Start Doxycycline Monohydrate Capsule, 100 MG, 1 capsule, Orally, Once a day, 10 day(s), 10.? Notes: moist heat application; expect more drainage??3.?Others? Start Diflucan Tablet, 150 MG, 1 tablet, Orally, 10 day(s), 1.?? * Procedure Codes: 3 6416 CAPILLARY BLOOD DRAW, 36318 CBC WITH AUTO DIFF * Follow Up: p rn * Images: Billing Information: * Visit Code: 51883 Office Visit, Est Pt., Level 3. * Procedure Codes: 14279 CAPILLARY BLOOD DRAW. 25038 CBC WITH AUTO DIFF. * Electronic signature of Colette Carey APRN on 02/25/2025 at 08:24 AM EDT Sign off status: Pending * Provider: NESSA Figueroa Date: 0 01/05/2024 Generated for Doyle mendoza/Parish/Olga Lidia on: 1 08:24 AM EDT History and Physical Notes * HPI (History of Present Illness) Category Sub-Category Detail Notes Category Not es Dermatology skin lesion Pt is here today for a cut on the top of her right leg and her buttocks. Pt would like to make sure she does not have a MRSA infection. Pt sts this cut has been there for 2 months. Pt sts that last weekend it got really badly infected. Pt sts she has put antibiotic cream on it and sts that it has been a lot. Pt sts it has bled less today than it has been. Pt sts she got the scratch from a boat. Pt sts she then went to the fam a second time and is not sure if it is the bathing suit or water that bad it worse. PT sts she had a place on her finger as well, but sts that it is healing. Pt sts she does feel a sinus infection coming on as well. Pt sts that she has drainage and that her whole head hurts. Pt sts that her throat and earshave been in some pain as well, but sts that they are better now. Pt sts her tongue has been sore as well, and is unsure if it from the steroids she has been taking or not Examination Category Sub-Category Detail Notes Category Not es General Examination HEENT: sclera and c onjunctiva clear, PERRLA, TM's normal, translucent Heart: RRR Lungs: CTAB A&P General Appearance: NAD, appears healthy , alert, pleasant Skin: right inner paulina are a 2-3 cm fullness and dry at present; no erythema Neurologic Exam: alert and oriented Neck: supple, no lymphaden opathy Oral cavity: no lesions, mucosa m oist and WNL, no erythema
--- OUTSIDE RECORDS SUMMARY | 2024-04-14 11:30 | XMS_ITS ---
[facility] [address] [facility] [address] [place] [id number] Care Team Providers Care Database Programmer Name Role Phone Janina Che Primary Care Provider Adan Restrepo Unavailable [phone] Allergies Allergen (clinical drug ingredient) Drug/Non Drug [...] Active Results Component Value Reference Range Notes Rapid Strep- Inhouse Reviewed date:04/14/2024 04:06:35 PM Interpretation: Performing Lab: Notes/Report: strep test Neg CBC Fingerstick (in house) Reviewed date:04/14/2024 04:06:26 PM Interpretation: Performing Lab: Notes/Report: wbc 20.8 3.5 - 10 lym 21.7% 15 - 50 mid 5.7% 2 - 15 gran 72.6% 35 - 80 rbc 4.73 3.5 - 5.5 hgb 14.6 11.5 - 16.5 hct 43.0 35 - 55 mcv 90.8 75 - 100 mch 31.0 25 - 35 mchc 34.1 31 - 38 plat 186 100 - 400 REASON FOR VISIT cough & congestion Medications Medication SIG (Take, Route, Frequency, Duration) Notes Start Date End Date Status Crestor 5 MG 1 tab(s) orally once a day; Duration: 90 days Active GNP Nicotine Polacrilex 4 mg CHEW 1 PIEC E OF GUM EVERY 2 HOURS DIRECTED; Duration: 10 Active hydroCHLOROthiazide 25 mg 1 tablet Orall y Once a day; Duration: 90 days Active Fenofibrate 145 mg TAKE ONE TABLET BY MOUTH EVERY OTHER DAY; Duration: 59 Active Toprol XL 50 MG 1 tab(s) Orally once daily; Duration: 90 days Active traZODone HCl 100 mg TAKE ONE TABLET BY MOUTH EVERY DAY AT BEDTIME DIRECTED; Duration: 30 Active Triamcinolone Acetonide 0.5 % APPLY TOPI ANA TO THE AFFECTED AREA(S) TWICE DAILY -- FOR EXTERNAL USE ONLY--; Duration: 10 Active Cetirizine HCl 10 mg TAKE ONE TABLET BY MOUTH EVERY DAY; Duration: 90 Active Diclofenac Sodium 75 mg TAKE ONE TABLET BY MOUTH TWICE DAILY --TAKE WITH FOOD--; Duration: 90 Active Nicotine Step 1 21 MG/24HR apply 1 PATCH topically ONCE DAILY DIRECTED -- FOR EXTERNAL USE ONLY--; Duration: 28 Active Provera 10 MG 1 tab(s) orally once a day; Duration: 10 day(s) Active Montelukast Sodium 10 mg TAKE ONE TABLET BY MOUTH EVERY DAY; Duration: 30 Active Linzess 290 MCG TAKE ONE CAPSULE BY MOUTH EVERY DAY; Duration: 30 days Active SUMAtriptan Succinate 50 MG 1 tab(s) august repeat q1h x 1 orally 04/23/2021 Active Cefuroxime Axetil 500 MG 1 tablet Orally every 12 hrs; Duration: 7 days 04/14/2024 Active Losartan Potassium 100 MG 1 tab(s) Orall y once a day Active Benzonatate 200 MG 1 capsule as needed Orally Three times a day 04/14/2024 Active Albuterol Sulfate HFA 108 (9 0 Base) MCG/ACT 1 puff as needed Inhalation every 4 hrs 02/27/2023 Active Diflucan 150 MG 1 tablet Orally once daily 04/14/2024 Active Vital Signs Weight 164.6 lbs 04/14/2024 Heart Rate 90 /min 04/14/2024 Height 63 in 04/14/2024 BMI 29.15 kg/m2 04/14/2024 Encounters Encounter Location Date Provider Diagnosis [facility] [address] [place] [id number] 04/14/2024 Adan Crapo Acute URI J06.9 Assessments Encounter Date Diagnosis (ICD Code) Assessment Notes Treatment Notes Treatment Clinical Notes Section Notes 04/14/2024 Acute URI (ICD-10 - J06.9) Plan Of Treatment Medication Medication Name Sig Start Date Stop Date Notes Cefuroxime Axetil 500 MG 1 tablet Orally every 12 hrs; Duration: 7 days 04/14/2024 Benzonatate 200 MG 1 capsule as needed Orally Three times a day 04/14/2024 Diflucan 150 MG 1 tablet Orally once daily 04/14/2024 Next Appt Details Follow Up: prn, Reason: Progress Notes * Tran MOLINADOB: 9 (44 yo F)Acc No.[id number]:04/14/2024 Progress Notes Patient: Tran VENEGAS Provider: Marjorie Restrepo M.D. :1980 A ge:43 Y S ex:Female Date:04/14/2024 Address:[address] [place] [address], [facility], [id number] Pcp:Janina Che Subjective: * Chief Complaints: * 1 . Cough & congestion. * HPI: E NT/respiratory: 43 year old female presents with c/o cough P t complains of?brown sputum production cough for 2 days. Associated with nasal congestion, headache, sore throat and fatigue . * ROS: D ERMATOLOGY: no R bella. n o H danilo. G ASTROENTEROLOGY: no N ausea. n o V omiting. U ROLOGY: no D ifficulty urinating. n o B lood in urine. * Medical History: H BP with pregnancies, Migraines , Degenerative Disc Disease, Allergic rhinitis. * Surgical History: T onsillectomy/Adenoids removed , Tubal Ligation 2007, RT Breast Tumor Removal 2007. * Hospitalization/Major Diagno stic Procedure: S tomach Pain- [facility] ER 07/04-01/2015, RT Side Neck Pain- [facility] ER 03/24/2018, Reaction to Sulfa Drug- [facility] . * Family History: F ather: [...] repeat q1h x 1 orally , Taking Losartan Potassium 100 MG Tablet [...] TABLET BY MOUTH EVERY DAY , Taking Linzess 290 MCG Capsule TAKE ONE CAPSULE BY MOUTH EVERY DAY , Taking Cetirizine HCl 10 mg Tablet TAKE ONE TABLET BY MOUTH EVERY DAY , Taking traZODone HCl 100 mg Tablet TAKE ONE TABLET BY MOUTH EVERY DAY AT BEDTIME DIRECTED , Taking Triamcinolone Acetonide 0.5 % Cream APPLY TOPICALLY TO THE AFFECTED AREA(S) TWICE DAILY -- FOR EXTERNAL USE ONLY-- , Taking Fenofibrate 145 mg Tablet TAKE ONE TABLET BY MOUTH EVERY OTHER DAY , Taking hydroCHLOROthiazide 25 mg Tablet 1 tablet Orally Once a day , Taking Crestor 5 MG Tablet 1 tab(s) orally once a day , Taking GNP Nicotine Polacrilex 4 mg Gum CHEW 1 PIECE OF GUM EVERY 2 HOURS DIRECTED , Taking Toprol XL 50 MG Tablet Extended Release 24 Hour 1 tab(s) Orally once daily , Discontinued Doxycycline Monohydrate 100 MG Capsule 1 capsule Orally Once a day , Discontinued Diflucan 150 MG Tablet 1 tablet Orally , Medication List reviewed and reconciled with the patient * Allergies: P enicillins: unsure of reaction, Benadryl Allergy: insomnia, HYDROcodone-Acetaminophen: hives, Tape, Promethazine-DM: insomnia - Side Effects, Cefdinir: yeast infection in mouth, Bactrim DS: swelling, itching, chest fullness, throat swelling, hives. Objective: * Vitals: W t:164.6, Temp:98.1, HR:90, O2 Sat:99% on RA, Nurse:vineet, Ht: 63, BMI:29.15. * Examination: E NT/Respiratory: General Appearance: N AD. E yes: P ERRLA, sclera clear. O ral cavity : erythema without exudate on pharynx. N augusto : n o cervical lymphadenopathy. H eart : R RR, normal S1 S2. L ungs: c lear to auscultation bilaterally. Assessment: * Assessment: 1. Roscoe kate URI - J06.9 (Primary) Plan: * Treatment: Value Reference Range s trep test Neg * Shirley Blanc 04/14/2024 3:46:5 3 PM > , Provider reviewed results while patient in office. ?LAB: CBC Fingerstick (in house) (Collection Date & Time - 04/14/2024)* Value Reference Range w bc 20.8 3.5 - 10 * l ym 21.7% 15 - 50 * m id 5.7% 2 - 15 * g ran 72.6% 35 - 80 * r bc 4.73 3.5 - 5.5 * h gb 14.6 11.5 - 16.5 * h ct 43.0 35 - 55 * m cv 90.8 75 - 100 * m ch 31.0 25 - 35 * m chc 34.1 31 - 38 * p lat 186 100 - 400 * Shirley Blanc 04/14/2024 3:45:5 9 PM > , Provider reviewed results while patient in office. 2.?Others? Start Diflucan Tablet, 150 MG, 1 tablet, Orally, once daily, 1, Refills 0.?? * Procedure Codes: 3 6416 CAPILLARY BLOOD DRAW, [address] [place], [address] CBC WITH AUTO DIFF, 43155 STREP A ASSAY W/OPTIC, Modifiers: QW * Follow Up: p rn * Images: Billing Information: * Visit Code: 55476 Office Visit, Est Pt., Level 3. * Procedure Codes: 82918 CAPILLARY BLOOD [place]RAW. [address] [place]. [address] CBC WITH AUTO DIFF. 01695 STREP A ASSAY W/OPTIC. Modifiers: QW * Electronic signature of Eveline Restrepo MD on 02/25/2025 at 08:23 AM EDT Sign off status: Pending * Provider: Marjorie Restrepo M.D. Date: 06/15/2023 Generated for Doyle mendoza/Parish/eTransmitting on: 08:23 AM EDT History and Physical Notes * HPI (History of Present Illness) Category Sub-Category Detail Notes Category Not es ENT/respiratory cough Pt complains of brown sputum production cough for 2 days. Associated with nasal congestion, headache, sore throat and fatigue Examination Category Sub-Category Detail Notes Category Not es ENT/Respiratory Oral cavity : erythema without exudate on pharynx Neck : no cervical lymphade nopathy Heart : RRR, normal S1 S2 Lungs: clear to auscultatio n bilaterally General Appearance: NAD Eyes: PERRLA, sclera clear
--- OUTSIDE RECORDS SUMMARY | 2024-09-13 11:00 | XMS_ITS ---
[facility] Address [address] [place] [id number] Care Team Providers Care Regulator Operator Name Role Phone Janina Che Primary Care Provider [phone] Isabell Carey Unavailable [phone] Allergies Allergen (clinical drug ingredient) Drug/Non Drug [...] W/U Status Risk Notes Problem Menstrual disorder (458002460) Irregular menses (N92.6) Active confirmed Vital Signs Weight 167.2 lbs 09/13/2024 Blood pressure systolic 120 mm Hg 09/14/19 25 Blood pressure diastolic 70 mm Hg 025 Heart Rate 61 /min 09/13/2024 Height 63 in 09/13/2024 BMI 29.61 kg/m2 09/13/2024 Encounters Encounter Location Date Provider Diagnosis [facility] [address] [place] [id number] 09/13/2024 Isabellelvis Carey Abnormal colonoscopy R93.3 ; [...] * Tran MOLINADOB: [birth year] (44 yo F)Acc No.[id number]:09/13/2024 Progress Notes Patient: Jamil VENEGASca Provider: NESSA Figueroa :1980 A ge:44 Y S ex:Female Date:09/13/2024 Address:[address], [place], [id number] Pcp:Janina Che Subjective: * Chief Complaints: * 1 . Med checkup. 2. Needs labs & colon cancer screening. * HPI: H PI: 44 year old female presents with c/o Patient is here today for?Pt is here today for a medication check. 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 * ROS: C ARDIOLOGY: Positive for c ardiology visit 06/07/2024 notes as follows: Plan Details Active Problems Reviewed?: Yes Additional Comments: Pt is here for 1 year follow up on HTN denies chest pain/pressure denies shortness of breath Coronary CTA showed Score of 0, Mild plaque seen on coronary CTA, done @ [facility]- scanned into [facility]. BP stable. LDL goal is < 100, [...] Hospitalization/Major Diagno stic Procedure: S tomach Pain- [facility] 07/04-01/2015, RT Side Neck Pain- [facility] 03/24/2018, Reaction to Sulfa Drug- [facility] . * Family History: F ather: [...] edema. L ABS: date of labs AT [facility]; REVIEWED ALL WITH PT. C reatinine 1 .0. B UN 1 4. S odium 1 41. P otassium 4 .0. c hloride?108. C O2 2 8. g lucose 1 17. c alcium 1 0.3. C BC-hgb/hct/wbc 1 4.9/44.6/12/8; PLT CT 067698. T otal Cholesterol 1 61. T riglyceride [...] rregular menses - N92.6 1 3. B [place] 29.0-29.9,adult - Z68.29 Plan: * Treatment: 2.?Essential [...] Procedure Codes: 3 6416 CAPILLARY BLOOD DRAW, 96831 CBC WITH AUTO DIFF, 3074F SYST BP LT 130 MM HG, 3078F DIAST BP < 80 MM HG * Follow Up: 2 -3 months with Pap * Images: Billing Information: * Visit Code: 61313 Office Visit, Est Pt., Level 4. * Procedure Codes: 41077 CAPILLARY BLOOD DRAW. 88582 CBC WITH AUTO DIFF. 3074F SYST BP LT 130 MM HG. 3078F DIAST BP < 80 MM HG. * Electronic signature of Colette Carey APRN on 02/25/2025 at 08:23 AM EDT Sign off status: Pending * Provider: NESSA Figueroa Date: 0 09/13/2024 Generated for Doyle mendoza/Parish/Olga Lidia on: 1 08:23 AM EDT History and Physical Notes * HPI (History of Present Illness) Category Sub-Category Detail Notes Category Not es HPI Patient is here today for Pt is here today for a medication check. 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
--- OUTSIDE RECORDS SUMMARY | 2025-02-05 05:30 | XMS_ITS ---
Author Organization [facility] Address [address] [facility] [address] [place] [id number] Care Team Providers Care Junction Maker Name Role Phone Janina Che Primary Care Provider Adan Restrepo Unavailable [phone] Allergies Allergen (clinical drug ingredient) Drug/Non Drug [...] Active Results Component Value Reference Range Notes Influenza Screen (in house) Reviewed date:02/07/2025 11:41:40 AM Interpretation: Performing Lab: Notes/Report: results Neg Rapid Strep- Inhouse Reviewed date:02/07/2025 11:41:40 AM Interpretation: Performing Lab: Notes/Report: strep test Neg CBC Fingerstick (in house) Reviewed date:02/07/2025 11:41:24 AM Interpretation: Performing Lab: Notes/Report: wbc 11.4 3.5 - 10 lym 19.9% 15 - 50 mid 5.9% 2 - 15 gran 74.2% 35 - 80 rbc 4.92 3.5 - 5.5 hgb 15.3 11.5 - 16.5 hct 44.6 35 - 55 mcv 90.7 75 - 100 mch 31.2 25 - 35 mchc 34.4 31 - 38 plat 212 100 - 400 Covid test (in house) Reviewed date:02/07/2025 11:41:40 AM Interpretation: Performing Lab: Notes/Report: Result: Neg REASON FOR VISIT headache, sore throat, cough Medications Medication SIG (Take, Route, Frequency, Duration) Notes Start Date End Date Status Cetirizine HCl 10 mg 1 tablet Orally Once a day; Duration: 30 days Active Linzess 290 MCG 1 capsule Orally Once a day; Duration: 30 days Active Crestor 5 MG 1 tab(s) orally once a day; Duration: 90 days Not-Taking Diflucan 150 MG 1 tablet Orally once daily 04/14/2024 Not-Taking Benzonatate 200 MG 1 capsule as needed Orally Three times a day 02/05/2025 Active Fenofibrate 145 mg TAKE ONE TABLET BY MOUTH EVERY OTHER DAY Orally Once a day; Duration: 90 days Active Nicotine Polacrilex 4 mg CHEW 1 PIECE OF GUM EVERY 2 HOURS DIRECTED; Duration: 10 Active Metoprolol Succinate ER 50 mg 1 tablet orally once a day; Duration: 30 days Pt needs appt Active Montelukast Sodium 10 mg TAKE ONE TABLET BY MOUTH EVERY DAY Orally Once a day; Duration: 90 days Active hydroCHLOROthiazide 25 mg 1 tablet Orall y Once a day; Duration: 90 days Active Losartan Potassium 100 MG 1 tab(s) Orall y once a day; Duration: 90 days Active Diclofenac Sodium 75 mg TAKE ONE TABLET BY MOUTH TWICE DAILY - TAKE WITH FOOD- Orally Twice a day; Duration: 90 days Active Triamcinolone Acetonide 0.5 % APPLY TOPICALLY TO THE AFFECTED AREA(S) TWICE DAILY - FOR EXTERNAL USE ONLY- Externally Twice a day; Duration: 10 days Active traZODone HCl 100 mg TAKE ONE TABLET BY MOUTH EVERY DAY AT BEDTIME DIRECTED Orally Once a day; Duration: 90 days Active Provera 10 MG 1 tab(s) orally once a day; Duration: 90 days Active Crestor 20 MG 1 tablet Orally Once a day; Duration: 90 days Active SUMAtriptan Succinate 50 MG 1 tab(s) initially , may repeat q1h x 1 orally 04/23/2021 Active Albuterol Sulfate HFA 108 (90 Base) MCG/ACT 1 puff as needed Inhalation every 4 hrs 02/27/2023 Active Problems Problem Type SNOMED Code ICD Code Onset Dates Problem Status W/U Status Risk Notes Problem Cervical radiculopathy (73929434) Cervical radiculopathy (M54.12) Active confirmed Problem Cervical disc disorder (688525163) DDD (degenerative disc disease), cervical (M50.30) Active confirmed Vital Signs Weight 164.0 lbs 02/05/2025 Blood pressure systolic 120 mm Hg 02/06/20 25 Blood pressure diastolic 84 mm Hg 025 Heart Rate 80 /min 02/05/2025 Height 63 in 02/05/2025 BMI 29.05 kg/m2 02/05/2025 Encounters Encounter Location Date Provider Diagnosis [facility] [address] [place], [place] [id number] 02/05/2025 Adan Restrepo Acute URI J06.9 ; Cervical radiculopathy M54.12 ; DDD (degenerative disc disease), cervical M50.30 and 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 R29.898 Assessments Encounter Date Diagnosis (ICD Code) Assessment Notes Treatment Notes Treatment Clinical Notes Section Notes 02/05/2025 Acute URI (ICD-10 - J06.9) Patient declines antibiotics at this time 02/05/2025 Cervical radiculopathy (ICD-10 - M54.12) Keep follow up with pain management 02/05/2025 DDD (degenerative disc disease), cervical (ICD-10 - M50.30) 02/05/2025 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 (ICD-10 - R29.898) Plan Of Treatment Medication Medication Name Sig Start Date Stop Date Notes Benzonatate 200 MG 1 capsule as needed Orally Three times a day 02/05/2025 Treatment Notes Assessment Notes Acute URI Patient declines ant ibiotics at this time Cervical radiculopathy Keep follow up wi th pain management Next Appt Details Follow Up: via phone to repo rt progress, Reason: Progress Notes * Tran MOLINADOB: [birth year] (44 yo F)Acc No.[id number]:02/05/2025 Progress Notes Patient: Felix MILLER Tran Provider: Marjorie Restrepo M.D. :1980 A ge:44 Y S ex:Female Date:02/05/2025 Address:[address], [place], [id number] Pcp:Janina Che Subjective: * Chief Complaints: * 1 . Headache, sore throat, cough. * HPI: E NT/respiratory: 44 year old female presents with c/o sore throat f eels scratchy. c/o cough T he pt states she started yesterday with c/o head ache, sore throat and cough. pt states her tongue hurts as well. c/o Short of Breath w ith exertion. c/o headache. Denies : Fever. D enies : ear pain p ressure. D enies : Chest Pain. * ROS: N EUROLOGY: Positive for d ecreased left power crane operator strength, continued neck pain. * Medical History: H BP with pregnancies, Migraines , Degenerative Disc Disease, Allergic rhinitis. * Surgical History: T onsillectomy/Adenoids removed , Tubal Ligation 2007, RT Breast Tumor Removal 2007. * Hospitalization/Major Diagno stic Procedure: S tomach Pain- [facility] 07/04-01/2015, RT Side Neck Pain- [facility] 03/24/2018, Reaction to Sulfa Drug- [facility] . * Family History: F ather: alive. M other: alive. 2 brother(s) , 2 sister(s) . 2 son(s) . . Sister with breast cancer. * Social History: C URRENT TOBACCO USE: Yes S moking Status: Patient does smoke, packs [...] repeat q1h x 1 orally , Taking Albuterol Sulfate HFA 108 (90 Base) MCG/ACT Aerosol Solution 1 puff as needed Inhalation every 4 hrs , Taking Crestor 20 MG Tablet 1 tablet Orally Once a day , Taking Losartan Potassium 100 MG Tablet 1 tab(s) Orally once a day , Taking Diclofenac Sodium 75 mg Tablet Delayed Release TAKE ONE TABLET BY MOUTH TWICE DAILY - TAKE WITH FOOD- Orally Twice a day , Taking Triamcinolone Acetonide 0.5 % Cream APPLY TOPICALLY TO THE AFFECTED AREA(S) TWICE DAILY - FOR EXTERNAL USE ONLY- Externally Twice a day , Taking traZODone HCl 100 mg Tablet TAKE ONE TABLET BY MOUTH EVERY DAY AT BEDTIME DIRECTED Orally Once a day , Taking Provera 10 MG Tablet 1 tab(s) orally once a day , Taking Montelukast Sodium 10 mg Tablet TAKE ONE TABLET BY MOUTH EVERY DAY Orally Once a day , Taking hydroCHLOROthiazide 25 mg Tablet 1 tablet Orally Once a day , Taking Fenofibrate 145 mg Tablet TAKE ONE TABLET BY MOUTH EVERY OTHER DAY Orally Once a day , Taking Nicotine Polacrilex 4 mg Gum CHEW 1 PIECE OF GUM EVERY 2 HOURS DIRECTED , Taking Metoprolol Succinate ER 50 mg Tablet Extended Release 24 Hour 1 tablet orally once a day , Notes to Pharmacist: Pt needs appt, Taking Cetirizine HCl 10 mg Tablet 1 tablet Orally Once a day , Taking Linzess 290 MCG Capsule 1 capsule Orally Once a day , Not-Taking Crestor 5 MG Tablet 1 tab(s) orally once a day , Not-Taking Diflucan 150 MG Tablet 1 tablet Orally once daily , Medication List reviewed and reconciled with the patient * Allergies: P enicillins: unsure of reaction, Benadryl Allergy: insomnia, HYDROcodone-Acetaminophen: hives, Tape, Promethazine-DM: insomnia - Side Effects, Cefdinir: yeast infection in mouth, Bactrim DS: swelling, itching, chest fullness, throat swelling, hives. Objective: * Vitals: W t: 164.0, Temp: 99.1, BP: 120/84, HR: 80, O2 Sat: 98% on RA, Nurse: GERDA, Ht: 63, BMI:29.05. * Examination: E NT/Respiratory: General Appearance: N AD. E yes: P ERRLA, sclera clear. O ral cavity : e rythema without exudate on pharynx. N augusto : n o cervical lymphadenopathy. H eart : R RR, normal S1 S2. L ungs: c lear to auscultation bilaterally.? Assessment: * Assessment: 1. A cute URI - J06.9 (Primary) 2 . C ervical radiculopathy - M54.12 ? 3 . D DD (degenerative disc disease), cervical - M50.30 4 . 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 ?LAB: Rapid Strep- Inhouse (Collection Date & Time - 02/05/2025)* Value Reference Range s trep test Neg * Dione Aziza Tami 02/05/2025 1 0:14:53 AM EDT > Provider reviewed results while patient in office. ?LAB: CBC Fingerstick (in house) (Collection Date & Time - 02/05/2025)* Value Reference Range w bc 11.4 3.5 - 10 * l ym 19.9% 15 - 50 * m id 5.9% 2 - 15 * g ran 74.2% 35 - 80 * r bc 4.92 3.5 - 5.5 * h gb 15.3 11.5 - 16.5 * h ct 44.6 35 - 55 * m cv 90.7 75 - 100 * m ch 31.2 25 - 35 * m chc 34.4 31 - 38 * p lat 212 100 - 400 * Shirley Blanc 02/05/2025 09:55 :52 AM EDT > Provider reviewed results while patient in office. ?LAB: Covid test (in house) (Collection Date & Time - 02/05/2025)* Value Reference Range R esult: Neg * Shirley Blanc 02/05/2025 09:54 :56 AM EDT > Provider reviewed results while patient in office. Notes: Patient declines antibiotics at this time??2.?Cervical radiculopathy? Notes: Keep follow up with pain management?? * Procedure Codes: 3 6416 CAPILLARY BLOOD DRAW, 96493 CBC WITH AUTO DIFF, 93967 COVID TEST IN HOUSE, Modifiers: QW , 38622 Flu Test- Nasal Swab, Modifiers: QW , 25501 STREP A ASSAY W/OPTIC, Modifiers: QW , 3074F SYST BP LT 130 MM HG, 3079F DIAST BP 80-89 MM HG * Follow Up: v ia phone to report progress * Images: Sivakumaring Information: * Visit Code: 08469 Office Visit, Est Pt., Level 3. * Procedure Codes: 67965 CAPILLARY BLOOD DRAW. 12094 CBC WITH AUTO DIFF. 37000 COVID TEST IN HOUSE. Modifiers: QW 98809 Flu Test- Nasal Swab. Modifiers: QW 01687 STREP A ASSAY W/OPTIC. Modifiers: QW 3074F SYST BP LT 130 MM HG. 3079F DIAST BP 80-89 MM HG. * Electronic signature of Eveline Restrepo MD on 02/25/2025 at 08:23 AM EDT Sign off status: Pending * Provider: Marjorie Restrepo M.D. Date: Generated for Doyle mendoza/Parish/Olga Lidia on: 08:23 AM EDT History and Physical Notes * HPI (History of Present Illness) Category Sub-Category Detail Notes Category Not es ENT/respiratory sore throat feels scratchy ear pain pressure Short of Breath with exertion Chest Pain cough The pt states she st arted yesterday with c/o head ache, sore throat and cough. pt states her tongue hurts as well Fever headache Examination Category Sub-Category Detail Notes Category Not es ENT/Respiratory Oral cavity : erythema without exudate on pharynx Neck : no cervical lymphade nopathy Heart : RRR, normal S1 S2 Lungs: clear to auscultatio n bilaterally General Appearance: NAD Eyes: PERRLA, sclera clear
--- NOTE | 2025-02-25 08:23 | MM_ITS ---
PROCEDURE INFORMATION: Exam: MG Bilateral Screening 3D Mammography Exam date and time: 02/25/2025 8:33 AM Age: 44 years old Clinical indication: Screening examination. Her maternal aunt, sister, and maternal grandmother had breast cancer. TECHNIQUE: Imaging protocol: Bilateral Screening tomosynthesis and 2D mammography including computer-aided detection (CAD) when performed. COMPARISON: 1. MG MM DIG SCREENING MAMM BI W/CAD 02/25/2024 8:04 AM 2. MG MM DIG SCREENING MAMM BI W/CAD 06/25/2022 4:40 PM 3. MG MM DIG SCREENING MAMM BI W/CAD 05/23/2021 2:36 PM 4. MG MM DIG SCREENING MAMM BI W/CAD 05/19/2020 10:52 AM FINDINGS: MAMMOGRAPHY: Breast composition: The breasts are heterogeneously dense, which may obscure small masses. Mass: None. Architectural distortion: None. Calcifications: No suspicious calcifications. Asymmetric density: None. Skin thickening: None. Axillary adenopathy: None. IMPRESSION: No mammographic evidence of malignancy. Annual screening is recommended unless otherwise clinically indicated. ASSESSMENT: BI-RADS Category 1: Negative.
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
--- OUTSIDE RECORDS SUMMARY | 2025-02-25 08:24 | XMS_ITS | Patient Health Record ---
Author Organization [facility] Address [address] [place] [id number] Care Team Providers Care Community Advocate Name Role Phone Janina Che Primary Care Provider Anup Bcukley Unavailable [phone] Adan Restrepo Unavailable [phone] Isabell Carey Unavailable [phone] Allergies Allergen (clinical drug ingredient) Drug/Non Drug [...] - 38 plat 186 100 - 400 CBC Fingerstick (in house) Reviewed date:09/14/2024 09:55:13 [...] - 38 plat 261 100 - 400 Influenza Screen (in house) Reviewed date:02/07/2025 11:41:40 [...] AM Interpretation: Performing Lab: Notes/Report: Result: Neg MRI : Breasts, bilateral, wi thout contrast Reviewed date:05/25/2024 08:56:05 AM Interpretation: Performing Lab: Notes/Report: Medications Medication SIG (Take, Route, Frequency, Duration) Notes Start Date End Date Status Crestor 20 MG 1 tablet Orally Once [...] once a day; Duration: 90 days Not-Taking Triamcinolone Acetonide 0.5 % APPLY TOPI ANA TO THE AFFECTED AREA(S) TWICE DAILY - FOR EXTERNAL USE ONLY- Externally Twice a day; Duration: 10 days Active Fenofibrate 145 mg TAKE ONE TABLET BY MOUTH EVERY OTHER DAY Orally Once a day; Duration: 90 days Active Doxycycline Hyclate 100 MG 1 capsule Ora lly twice a day; Duration: 7 days 02/08/2025 Active SUMAtriptan Succinate 50 MG 1 tab(s) ini , august repeat q1h x 1 orally 04/23/2021 Active Nicotine Polacrilex 4 mg CHEW 1 PIECE OF GUM EVERY 2 HOURS DIRECTED; Duration: 10 Active Albuterol Sulfate HFA 108 (9 0 Base) MCG/ACT 1 puff as needed Inhalation every 4 hrs 02/27/2023 Active Benzonatate 200 MG 1 capsule as needed Orally Three times a day 02/05/2025 Active Linzess 290 MCG 1 capsule Orally Once a day; Duration: 30 days Active Metoprolol Succinate ER 50 mg 1 tablet o rally once a day; Duration: 30 days Active Diflucan 150 MG 1 tablet Orally once daily Active traZODone HCl 100 mg TAKE ONE TABLET BY MOUTH EVERY DAY AT BEDTIME DIRECTED Orally Once a day; Duration: 90 days Active Provera 10 MG 1 tab(s) orally once a day; Duration: 90 days Active Montelukast Sodium 10 mg TAKE ONE TABLET BY MOUTH EVERY DAY Orally Once a day; Duration: 90 days Active Cetirizine HCl 10 mg 1 tablet Orally Once a day; Duration: 30 days Active hydroCHLOROthiazide 25 mg 1 tablet Orall y Once a day; Duration: 90 days Active Immunizations Vaccine Route Administration Date Status Comme nts COVID 19 Moderna Unknown 05/17/2020 Administered COVID 19 Moderna Unknown 06/16/2020 Administered COVID 19 Moderna Unknown 06/16/2020 Administered Fluzone PF Quad (6-35 months) Unknown 02/26/2018 Administered Fluzone Quad (6months&older) Unknown 02/26/2018 Adminis tered Hepatitis A (adult) Unknown 03/24/2018 Administered PNEUMOVAX 23 VACCINE Unknown 07/05/2014 Administered ppd ID Intradermal 10/06/2009 Administered Tetanus Tdap-Adacel (over 7yrs) Unknown 04/13/2013 Administered Tetanus Tdap-Adacel (over 7yrs) Unknown 03/24/2018 Administered xFluzone (6mos and older)-trivalent Unknown 07/05/2014 Administered Problems Problem Type SNOMED Code ICD Code Onset Dates Problem Status W/U Status Risk Notes Problem Degenerative disc disease (09484559) Degenerative disc disease NOS (722.6) Active confirmed Problem Hypertension (56661533) HTN (hypertension) (I10) Active confirmed Problem Hyperlipidemia (91587175) Hyperlipidemia (E78.5) Active confirmed Problem Essential hypertension (78431286) Essential hypertension (I10) Active confirmed Problem Otitis externa (6663553) Otitis externa (H60.90) Active confirmed Problem Constipation (99660533) Constipation (K59.00) Active confirmed Problem Anxiety (71565737) Anxiety (F41.9) Active confirmed Problem Environmental allergy (003561976) Environmental allergies (Z91.048) Active confirmed Problem Cervical radiculopathy (86951700) Cervical radiculopathy (M54.12) Active confirmed Problem Fear of flying (104944820) Fear of flying (F40.243) Active confirmed Problem Sciatica (05027482) Lumbago with sciatica, left side (M54.42) Active confirmed Problem Tobacco dependence (65809395) Tobacco dependence (F17.200) Active confirmed Problem Migraine (59448390) Migraine without status migrainosus, not intractable, unspecified migraine type (G43.909) Active confirmed Problem Cervical disc disorder (503002502) DDD (degenerative disc disease), cervical (M50.30) Active confirmed Problem Menstrual disorder (697765175) Irregular menses (N92.6) Active confirmed Problem Dyslipidemia (029262408) Dyslipidemia (E78.5) Active confirmed Problem Degenerative disc disease (36421129) DDD (degenerative disc disease), lumbar (M51.36) Active confirmed Problem Allergic rhinitis (32048125) Non-seasonal allergic rhinitis, unspecified trigger (J30.89) Active confirmed Problem Abnormal uterine bleeding (70860246163867) Abnormal uterine bleeding (AUB) (N93.9) Active confirmed Problem Abnormal findings on diagnostic imaging of breast (735579932) Abnormal MRI, breast (R92.8) Active confirmed Vital Signs Heart Rate 80 /min 02/05/2025 Blood pressure diastolic 84 mm Hg 02/05/2025 Height 63 in 02/05/2025 Blood pressure systolic 120 mm Hg 02/05/2025 Weight 164.0 lbs 02/05/2025 BMI 29.05 kg/m2 02/05/2025 Encounters Encounter Location Date Provider Diagnosis Yasmani [address] [facility] [address] [place] [id number] 04/14/2024 [place] [facility] URI J06.9 [facility] [address] [place] [id number] 09/13/2024 Isabell Carey Abnormal colonoscopy R93.3 ; Essential hypertension I10 ; Tobacco dependence F17.200 ; Acute upper respiratory infection 465.9 ; Environmental allergies Z91.048 ; Sleep disorder 780.50 ; Hyperlipidemia E78.5 ; Constipation K59.00 ; Hyperglycemia R73.9 ; Polyarthralgia M25.50 ; Rash R21 ; Irregular menses N92.6 and BMI 29.0-29.9,adult Z68.29 [facility] [address] [place] [id number] 02/05/2025 Adan [place] Acute URI J06.9 ; Cervical radiculopathy M54.12 ; DDD (degenerative disc disease), cervical M50.30 and Decreased supervisor intermediates strength of left hand R29.898 [facility] [address] [facility] [address] [place] [id number] 03/02/2024 Anup [place]ley Encounter for other screening for malignant neoplasm of breast Z12.39 ; Family history of breast cancer Z80.3 and Abnormal MRI, breast R92.8 [facility] [address] [facility] [address] [place] [id number] 05/20/2024 Anup Buckley Nathalia [address] [facility] [address] [place] [id number] 05/25/2024 Janina Che Nathalia [address] [facility] [address] [place] [id number] 09/10/2024 Janina Che Nath[place] [address] [place] [id number] 02/07/2025 R Jose Antonio Marcio Assessments Encounter Date Diagnosis (ICD Code) Assessment Notes Treatment Notes Treatment Clinical Notes Section Notes 03/02/2024 Encounter for other screening for malignant neoplasm of breast (ICD-10 - Z12.39) 03/02/2024 Family history of breast cancer (ICD-10 - Z80.3) 04/14/2024 Acute URI (ICD-10 - J06.9) 09/13/2024 Essential hypertension (ICD-10 - I10) 09/13/2024 Abnormal colonoscopy (ICD-10 - R93.3) 02/05/2025 Cervical radiculopathy (ICD-10 - M54.12) Keep follow up with pain management 02/05/2025 Acute URI (ICD-10 - J06.9) Patient declines antibiotics at this time 02/05/2025 DDD (degenerative disc disease), cervical (ICD-10 - M50.30) 09/13/2024 Tobacco dependence (ICD-10 - F17.200) discussed at length smoking cessation 03/02/2024 Abnormal MRI, breast (ICD-10 - R92.8) 09/13/2024 Acute upper respiratory infection (ICD-10 - 465.9) fluids and OTC cough/cold med 02/05/2025 Decreased supervisor intermediates strength of left hand (ICD-10 - R29.898) 09/13/2024 Environmental allergies (ICD-10 - Z91.048) 09/13/2024 [...] Test Test Name Order Date colonoscopy 09/13/2024 Mammogram 02/07/2025 MRI : Breasts, bilateral, with and witho ut contrast 03/10/2024 Insurance Providers Payer Name Payer Address Payer Phone Subscriber Number Group Number Insured Name Patient Relationship to Insured Coverage Start Date Coverage End Date [employer] [address] [place] [address] [id number] Tran Molina Self - patient is the [...] History Reason Date(Month/Year) Reaction to Sulfa Drug- [facility] ER RT Side Neck Pain- [facility] ER 03/24/2018 Stomach Pain- [facility] ER 07/04-01/2015
== END 2025-02-25 23:59 | disposition home or self-care (01) ==
LOC: RAD 08:20
PROVIDERS: PCP Family Medicine; Visit Provider Family Medicine
DX: Z12.31 Encounter for screening mammogram for malignant neoplasm of breast (principal); R92.333 Mammographic heterogeneous density, bilateral breasts; Z80.3 Family history of malignant neoplasm of breast
CPT/HCPCS: 77063; 77067

== ENCOUNTER 2025-03-10 08:00 | Outpatient (RCR) | payer OTHER, SELFPAY ==
--- NOTE | 2025-03-02 09:52 | HMH.OTOPEV ---
OT Evaluation Rehab OT Outpatient Eval Start: 03/02/25 08:50 Freq: Status: Active Protocol: Document 03/02/25 08:50 RMANGELA (Rec: 03/02/25 09:51 [facility] [id number]) E-signed By Francisca Vanegas, OT Outpatient Therapy Subjective History Subjective History Pt is a 44 year old female who reports to therapy for initial evaluation to L shoulder. Pt explains she has been experiencing an increase in L shoulder pain for ~1 year. She has a past history of cervical radiculopathy resulting in bilateral UE weakness. Pt complains of sharp, shooting pain in starting at neck and going down into left arm. Pt also demonstrates with significant loss of L shoulder AROM. Pt is right hand dominant and does not have any complaints with right UE at this time. Pt complains of difficulty with daily activities such as dressing and bathing due to L UE pain and decreased motion. Pt will continue to be seen in order to address all L UE deficits. New diagnosis of No cancer in past 12 months? Chief Complaint Pain,Stiff,Weakness Symptom Type Ache,Throb,Sharp,Shooting Symptoms Relieved By Rest/Positioning Symptoms Aggravated Physical Activity,Lifting By Prior Functional None Limitations Current Functional Reaching,Lifting,Housework,Dressing,Desk Work/Reading, Limitations Driving,Sleeping,Recreation Activity Symptom Description Constant but Variable Level of pain today 3 (0-10) Pain scale - at its 2 best (0-10) Pain scale - at its 8 worst (0-10) Shoulder/Elbow Eval Shoulder Objective Measurements Shoulder ROM Left Shoulder Abduction 75 degrees Active Range of Motion (degrees) Shoulder Flexion 115 degrees Active Range of Motion (degrees) Query Text: Shoulder External 60 degrees Rotation Active Range of Motion ( degrees) Shoulder Internal 40 degrees Rotation Active Range of Motion ( degrees) Shoulder MMT Shoulder Abduction 4- Good- Strength Grade Shoulder Flexion 4- Good- Strength Grade Shoulder External 4- Good- Rotation Strength Grade Shoulder Internal 4- Good- Rotation Strength Grade Shoulder Strength Sitting Patient Testing Position Elbow Objective Measurements QuickDASH Activities Please rate your ability to do the following activities in the last week by selecting the number below the appropriate response. 1. Open a tight or Mild difficulty new jar. 2. Do heavy Severe difficulty senior occupational therapist (e. g., wash parra, floors). 3. Carry a shopping Mild difficulty bag or briefcase. 4. Wash your back. Mild difficulty 5. Use a knife to No difficulty cut food. 6. Recreational Unable activities in which you take some force or impact through your arm, shoulder, or hand (e.g., golf, hammering, tennis, etc.). 7. During the past Quite a bit week, to what extent has your arm, shoulder or hand problem interfered with your normal social activities with family, friends , neighbors or groups? 8. During the past Moderately limited week, were you limited in your work or other regular daily activites as a result of your arm, shoulder or hand problem? 9. Arm, shoulder or Moderate hand pain. 10. Tingling (pins Extreme and needles) in your arm, shoulder or hand. 11. During the past Moderate difficulty week, how much difficulty have you had sleeping because of the pain in your arm, shoulder or hand? Quick DASH 34 OT Patient Goals OT Patient Goals OT Short Term 1. Pt will increase left shoulder flexion to 125 Patient Goals degrees in order to complete daily overhead tasks independently ~50% of the time. 2. Pt will increase L shoulder abduction to 110 degrees to complete upper body dressing independently ~ 50% of the time. 3. Pt will increase L shoulder ER/IR to 75 degrees (ER ) and 50 degrees (IR) in order to complete lower body dressing (putting on and taking off belt) independently ~50% of the time. 4. Pt will increase strength to 4/5 throughout left shoulder in order to complete heavier household tasks ( laundry, mopping, vacuuming) independently ~50% of the time. 5. Pt will verbalize decreased pain levels at worst in L shoulder to a 5/10 in order to complete daily ADLs independently ~50% of the time. 6. Pt will demonstrate improved endurance by completing left shoulder exercises for ~20 minutes prior to rest break in order to increase his tolerance for daily work activities. 7. Pt will demonstrate independence with HEP of AAROM exercises to increase overall functional use of left shoulder in daily activities ~75% of the time. OT Services Manager Patient 1. Pt will increase L shoulder flexion to 130 degrees Goals in order to complete daily overhead tasks independently ~75% of the time. 2. Pt will increase L shoulder abduction to 120 degrees to complete upper body dressing independently ~ 75% of the time. 3. Pt will increase L shoulder ER/IR to 80 degrees (ER ) and 60 degrees (IR)in order to complete lower body dressing (putting on and taking off belt) independently ~75% of the time. 4. Pt will increase strength to 4+/5 throughout left shoulder in order to complete heavier household tasks ( laundry, mopping, vacuuming) independently ~75% of the time. 5. Pt will verbalize decreased pain levels at worst in L shoulder to a 3/10 in order to complete daily ADLs independently ~75% of the time. 6. Pt will demonstrate improved endurance by completing L shoulder exercises for ~30 minutes prior to rest break in order to increase his tolerance for daily work activities. 7. Pt will demonstrate independence with HEP of Rotator cuff strengthening exercises to increase overall functional use of L shoulder for daily activities ~90% of the time. OT Outpatient Assessment Impairments Problems/Impairments Palpation Tenderness,Impaired Range of Motion,Impaired Strength,Impaired Endurance,Impaired Lifting,Impaired Dressing,Impaired Shower/Bathing,Impaired Household Care,Impaired Recreational Activities,Subjective C/O Pain Prognosis Rehab Potential Good Clinical Impression Consistent with Yes Diagnosis Outpatient Therapy Plan of Care Treatment Plan May Include Therapeutic Exercise Yes Including Home Exercise Program Manual Therapy Yes Techniques Neuromuscular Re- Yes education Therapeutic Yes Activities to Return to Previous Functional/Work Level Dry Needling Yes Thermal Modalities Yes Electrical Yes Stimulation Ultrasound/ Yes Phonophoresis Iontophoresis Yes Massage Yes Eval/Re-Eval Yes Frequency Times per week 2 Duration Number of Weeks 6 Addendums This patient is a No candidate for social or vocational rehab ? Patient/Guardian Yes verbally acknowledges understanding of treatment program and consents to further treatment? Patient/Guardian Yes verbally acknowledges understanding of diagnosis, prognosis and goals for treatment? Eval Complexity OT Charge 01495 - Moderate Complexity PHYSICIAN CERTIFICATION: I certify the specified therapy services for Tran Molina are required, authorized, and reviewed every 30 days.
== END 2025-03-10 23:59 | disposition home or self-care (01) ==
LOC: OT 08:00
PROVIDERS: PCP Family Medicine; Visit Provider Nurse Practitioner Family
DX: M25.512 Pain in left shoulder (principal)
CPT/HCPCS: 97014; 97110; 97140; 97166; 97530; G0283

== ENCOUNTER 2025-04-25 08:00 | Outpatient (RCR) | payer OTHER, SELFPAY ==
--- NOTE | 2025-03-30 09:04 | HMH.RHREAS ---
Rehab Reassessment Rehab OP Re-assessment Start: 03/30/25 08:07 Freq: Status: Active Protocol: Document 03/30/25 08:41 ROBER (Rec: 03/30/25 09:03 RMCEASARHALL [id number]) E-signed By Francisca Vanegas OT Rehab Re-assessment Subjective Subjective It has still been hurting pretty good. Objective Objective Notes Pt continues to be seen weekly in order to address L shoulder deficits. Each session, pt engages in AROM and AAROM exercises each session in order to improve overall functional use of L shoulder. Pt also receives PROM manual stretching to left shoulder in all plains to improve AROM: flexion, abduction, ER, and IR. Modalities are provided in order to decrease pain/ inflammation. Assessment Progress Assessment Slower Than Expected Assessment Notes Pt has been inconsistent about attending therapy sessions the past 2 weeks due to a vacation and holiday week. Pt reports her worst pain is still reaching 8/ 10, specifically at night. Pt does not have a follow up with her doctor at this time, but is planning to schedule one soon due to minimal improvement with pain. Pt interested in completing a MRI. Pt's AROM has improved slightly with flexion and ER. However, she remains significantly limited with abduction and internal rotation. Pt reports her worst pain is with abduction and IR. Therapist recommends continuation of therapy and MRI for further evaluation of the joint. Current L shoulder AROM Flex: 145 degrees Abd: 90 degrees ER: 70 degrees IR: 45 degrees Goals met: ST. Pt will increase left shoulder flexion to 125 degrees in order to complete daily overhead tasks independently ~50% of the time. 6. Pt will demonstrate improved endurance by completing left shoulder exercises for ~20 minutes prior to rest break in order to increase his tolerance for daily work activities. 7. Pt will demonstrate independence with HEP of AAROM exercises to increase overall functional use of left shoulder in daily activities ~75% of the time. OT Patient Goals OT Short Term 2. Pt will increase L shoulder abduction to 110 Patient Goals degrees to complete upper body dressing independently ~ 50% of the time. 3. Pt will increase L shoulder ER/IR to 75 degrees (ER ) and 50 degrees (IR) in order to complete lower body dressing (putting on and taking off belt) independently ~50% of the time. 4. Pt will increase strength to 4/5 throughout left shoulder in order to complete heavier household tasks ( laundry, mopping, vacuuming) independently ~50% of the time. 5. Pt will verbalize decreased pain levels at worst in L shoulder to a 5/10 in order to complete daily ADLs independently ~50% of the time. OT Detention Patient 1. Pt will increase L shoulder flexion to 130 degrees Goals in order to complete daily overhead tasks independently ~75% of the time. 2. Pt will increase L shoulder abduction to 120 degrees to complete upper body dressing independently ~ 75% of the time. 3. Pt will increase L shoulder ER/IR to 80 degrees (ER ) and 60 degrees (IR)in order to complete lower body dressing (putting on and taking off belt) independently ~75% of the time. 4. Pt will increase strength to 4+/5 throughout left shoulder in order to complete heavier household tasks ( laundry, mopping, vacuuming) independently ~75% of the time. 5. Pt will verbalize decreased pain levels at worst in L shoulder to a 3/10 in order to complete daily ADLs independently ~75% of the time. 6. Pt will demonstrate improved endurance by completing L shoulder exercises for ~30 minutes prior to rest break in order to increase his tolerance for daily work activities. 7. Pt will demonstrate independence with HEP of Rotator cuff strengthening exercises to increase overall functional use of L shoulder for daily activities ~90% of the time. Plan Plan Continue with Plan of care at this time in order to address L shoulder functional deficits and improve overall independence. Frequency of Therapy 2xs a week Duration of Therapy 6 more weeks Therapeutic Exercise Yes Including Home Exercise Program Manual Therapy Yes Techniques Neuromuscular Re- Yes education Therapeutic Yes Activities to Return to Previous Functional/Work Level ADL/Self Care Yes Education Thermal Modalities Yes Electrical Yes Stimulation Ultrasound/ Yes Phonophoresis Iontophoresis Yes Orthotics/Bracing/ Yes Splinting Massage Yes Eval/Re-Eval Yes Time and Billing Re-Eval Time 8 Re-Eval Billing 0 Units Charge for OT No reassessment? PHYSICIAN CERTIFICATION: I certify the specified therapy services for Tran Molina are required, authorized, and reviewed every 30 days.
--- NOTE | 2025-04-25 08:46 | [facility].RHREAS ---
Rehab Reassessment Rehab OP Re-assessment Start: 03/30/25 08:07 Freq: Status: Active Protocol: Document 04/25/25 08:00 [email or web address] (Rec: 04/25/25 08:46 [email or web address] [id number]) E-signed By Francisca Vanegas OT Rehab Re-assessment Subjective Subjective It still hurts pretty bad. Objective Objective Notes Pt continues to be seen weekly in order to address L shoulder deficits. Each session, pt engages in AROM and AAROM exercises each session in order to improve overall functional use of L shoulder. Pt also receives PROM manual stretching to left shoulder in all plains to improve AROM: flexion, abduction, ER, and IR. Modalities are provided in order to decrease pain/ inflammation. Assessment Progress Assessment Slower Than Expected Assessment Notes Pt has been more consistent about attending therapy session this past month. Pt does have a follow up scheduled with pain management physician on May 05 . Pt interested in completing a MRI; therapist also recommending this due to continued significant pain and decreased AROM. Pt remains significantly limited with abduction and internal rotation. Pt reports her worst pain is with abduction and IR. Pt's AROM has not improved since last re-assessment despite continued therapy sessions. Pt also expresses difficulty with daily activities such as showering, dressing, etc. Therapist is recommending MRI of left shoulder and referral to orthopedic for evaluation to left shoulder. Current L shoulder AROM Flex: 145 degrees Abd: 90 degrees ER: 75 degrees IR: 40 degrees Goals met: ST. Pt will increase left shoulder flexion to 125 degrees in order to complete daily overhead tasks independently ~50% of the time. 6. Pt will demonstrate improved endurance by completing left shoulder exercises for ~20 minutes prior to rest break in order to increase his tolerance for daily work activities. 7. Pt will demonstrate independence with HEP of AAROM exercises to increase overall functional use of left shoulder in daily activities ~75% of the time. OT Patient Goals OT Short Term 2. Pt will increase L shoulder abduction to 110 Patient Goals degrees to complete upper body dressing independently ~ 50% of the time. 3. Pt will increase L shoulder ER/IR to 75 degrees (ER ) and 50 degrees (IR) in order to complete lower body dressing (putting on and taking off belt) independently ~50% of the time. 4. Pt will increase strength to 4/5 throughout left shoulder in order to complete heavier household tasks ( laundry, mopping, vacuuming) independently ~50% of the time. 5. Pt will verbalize decreased pain levels at worst in L shoulder to a 5/10 in order to complete daily ADLs independently ~50% of the time. OT Contract Associate Patient 1. Pt will increase L shoulder flexion to 130 degrees Goals in order to complete daily overhead tasks independently ~75% of the time. 2. Pt will increase L shoulder abduction to 120 degrees to complete upper body dressing independently ~ 75% of the time. 3. Pt will increase L shoulder ER/IR to 80 degrees (ER ) and 60 degrees (IR)in order to complete lower body dressing (putting on and taking off belt) independently ~75% of the time. 4. Pt will increase strength to 4+/5 throughout left shoulder in order to complete heavier household tasks ( laundry, mopping, vacuuming) independently ~75% of the time. 5. Pt will verbalize decreased pain levels at worst in L shoulder to a 3/10 in order to complete daily ADLs independently ~75% of the time. 6. Pt will demonstrate improved endurance by completing L shoulder exercises for ~30 minutes prior to rest break in order to increase his tolerance for daily work activities. 7. Pt will demonstrate independence with HEP of Rotator cuff strengthening exercises to increase overall functional use of L shoulder for daily activities ~90% of the time. Plan Plan Continue with Plan of care at this time in order to address L shoulder functional deficits and improve overall independence. Frequency of Therapy 2xs a week Duration of Therapy 6 more weeks Therapeutic Exercise Yes Including Home Exercise Program Manual Therapy Yes Techniques Neuromuscular Re- Yes education Therapeutic Yes Activities to Return to Previous Functional/Work Level ADL/Self Care Yes Education Dry Needling Yes Thermal Modalities Yes Electrical Yes Stimulation Ultrasound/ Yes Phonophoresis Iontophoresis Yes Orthotics/Bracing/ Yes Splinting Massage Yes Eval/Re-Eval Yes Time and Billing Re-Eval Time 8 Re-Eval Billing 0 Units Charge for OT No reassessment? PHYSICIAN CERTIFICATION: I certify the specified therapy services for Tran Molina are required, authorized, and reviewed every 30 days.
== END 2025-04-25 23:59 | disposition home or self-care (01) ==
LOC: OT 08:00
PROVIDERS: PCP Family Medicine; Visit Provider Nurse Practitioner Family
DX: M25.512 Pain in left shoulder (principal)
CPT/HCPCS: 97014; 97110; 97140; G0283